=== PATIENT | female | born 1935 | race Caucasian/White ===

== ENCOUNTER 2016-08-21 10:21 | Inpatient (IN) ==
[2016-08-21] MEDS ORDERED: Piperacillin/Tazobactam 3.375 GM in D5% in Water (Mini-Bag+) 100 ML IVPB ONE (10:35)
--- NOTE | 2016-08-21 10:40 | Emergency Department Note ---
Disposition Clinical Impression: Tachycardia, Acute kidney injury Fever Qualifiers: Fever type: unspecified Qualified Code(s): R50.9 - Fever, unspecified Sepsis Qualifiers: Sepsis type: sepsis due to unspecified organism Qualified Code(s): A41.9 - Sepsis, unspecified organism Disposition: Admitted As Inpatient Condition: Fair Referrals: Per Barros MD [Primary Care Provider] - Forms: ED Satisfaction Letter Time of Disposition: 11:52 Female Urogenital HPI - General Chief complaint: ED Urogenital-Female Stated complaint: UTI,Dehydration,Weakness Time Seen by Provider: 08/21/16 10:32 Source: patient, family Mode of arrival: ambulatory Limitations: no limitations Nursing Notes Reviewed: Yes Vital Signs Reviewed: Yes - History of Present Illness HPI Narrative: 81-year-old comes in with burning on urination has been running a fever in the past. He has been seen by 2 doctors who diagnosed her with UTI however did not collect a urine. Pt Subjective Complaint: dysuria Onset (ago): day(s) Radiation: non-radiating Severity: moderate Quality: aching Duration: constant Improves with: none Worsens with: urination Urinary Symptoms: dysuria Associated symptoms: Reports: fever/chills - Related Data Home Medications Medication Instructions Recorded Confirmed Alendronate Sodium 70 mg PO QWEEK 05/28/15 05/26/16 Atorvastatin [Lipitor] 10 mg PO HS 05/28/15 05/26/16 Calcium Carbonate/Vitamin D2 1 each PO BID 05/28/15 05/26/16 [Oyster Shell Calcium-Vit D Tab] Cyanocobalamin (Vitamin B-12) 1,000 mcg PO DAILY 05/28/15 05/26/16 [Vitamin B12] Dicyclomine 20 mg PO QID 05/28/15 05/26/16 Donepezil [Aricept] 10 mg PO HS 05/28/15 05/26/16 Ferrous Sulfate [Iron] 325 mg PO DAILY 05/28/15 05/26/16 Mirabegron [Myrbetriq] 50 mg PO DAILY 05/28/15 05/26/16 Omeprazole [PriLOSEC] 40 mg PO DAILY 05/28/15 05/26/16 Ranitidine HCl [Zantac] 150 mg PO BID 05/28/15 05/26/16 Trospium Chloride 20 mg PO QAM 05/28/15 05/26/16 Vitamin E 1,000 unit PO DAILY 05/28/15 05/26/16 Previous Rx's Medication Instructions Recorded Phenazopyridine HCl [Pyridium] 200 mg PO TIDAC #30 tab 08/19/16 Sulfamethoxazole/Trimeth DS 1 each PO BID #10 tablet 08/19/16 [Bactrim DS] Allergies Allergy/AdvReac Type Severity Reaction Status Date / Time celecoxib [From Celebrex] Allergy Muscle Pain Verified 08/21/16 11:22 esomeprazole AdvReac See Unverified 05/28/15 13:37 Comments All systems ED: reviewed and negative except as stated. Constitutional: Denies: fever, chills, weakness, weight change Eyes: Denies: eye pain, eye discharge, vision change ENT ED: Denies: ear pain, throat pain, dental pain, hearing loss, epistaxis, congestion, dysphagia Cardiovascular: Denies: chest pain, palpitations, dyspnea on exertion, edema, syncope Respiratory: Denies: cough, dyspnea, wheezes, hemoptysis, stridor Gastrointestinal: Reports: abdominal pain. Denies: nausea, vomiting, diarrhea, constipation, hematemesis, melena, hematochezia Genitourinary: Reports: dysuria, frequency, hematuria. Denies: discharge Musculoskeletal: Denies: back pain, neck pain, arthralgia, myalgia Integumentary: Denies: rash, abrasion, lesions Neurological: Denies: headache, weakness, numbness, paresthesias, confusion, abnormal gait, vertigo Psychiatric: Denies: anxiety, depression, suicidal thoughts, homicidal thoughts , auditory hallucinations, visual hallucinations Endocrine: Denies: fatigue Hematological/Lymphatic: Denies: easy bleeding, easy bruising Allergic/Immunologic: Denies: facial swelling, urticaria Past Medical History - Past Medical History Medical history: Reports: arthritis, diabetes, GERD, hyperlipidemia, hypertension, osteoporosis, RA, renal disease, other - Social History Smoking Status: Never smoker Smokeless Tobacco Status: No Alcohol use: Reports: none Drug use: Reports: none Physical Exam - General Limitations: no limitations General appearance: alert, in no apparent distress - Head Head exam: atraumatic, normocephalic, normal inspection - Eye Eye exam: Present: normal appearance, PERRL, EOMI - ENT ENT exam: normal exam, normal oropharynx, mucous membranes moist - Neck Neck exam: Present: normal inspection, full ROM, trachea midline - Chest Chest inspection: Present: normal inspection, symmetric chest wall rise - Respiratory Respiratory exam: Present: normal lung sounds bilaterally - Cardiovascular Cardiovascular exam: Present: regular rate, normal rhythm, normal heart sounds - Abdominal Exam Abdominal exam: Present: soft, tenderness. Absent: distention, guarding, rebound, rigidity Abdominal tenderness: Present: suprapubic - Extremities Exam Extremities exam: Present: normal inspection, full ROM. Absent: tenderness, pedal edema - Expanded Lower Extremity Exam Neurovascular/Tendon exam: Absent: motor deficit, sensory deficit, tendon deficit Gait: not tested/not observed - Back Exam Back exam: Present: normal inspection - Neurological Exam Neurological exam: Present: alert, oriented X3 - Psychiatric Psychiatric exam: Present: normal affect, normal mood - Skin Skin exam: Present: warm, dry, intact, normal color Course - Reevaluation(s) Reevaluation #1: 81-year-old comes in with dysuria frequency urgency. She was found on her vital signs to be tachycardic at 123 and found to have an elevated creatinine 1.58 up from normal 0.95. Patient was treated as sepsis and given 30/kg of normal saline along with Zosyn. Will be admitted hydrated. Time: 11:51 - Consultations Consultation #1: Discussed with , admit. Time: 11:51 Vital Signs Temperature 100.8 F H 08/21/16 10:23 Pulse Rate 123 08/21/16 10:23 Respiratory Rate 20 08/21/16 10:23 Blood Pressure 103/55 08/21/16 10:23 O2 Sat by Pulse Oximetry 94 08/21/16 10:23 Temperature 100.8 F H 08/21/16 10:23 Pulse Rate 116 08/21/16 11:18 Respiratory Rate 22 08/21/16 11:18 Blood Pressure 118/62 08/21/16 11:18 O2 Sat by Pulse Oximetry 99 08/21/16 11:18 Oxygen Delivery Oxygen Delivery Room Air Urogenital-Female - Lab Data Result diagrams: 08/21/16 10:43 08/21/16 10:43 Lab Results 08/21/16 08/21/16 08/21/16 Range/Units 10:43 10:43 10:43 WBC 8.6 (4.3-11.1) K/mcL RBC 3.94 (3.82-4.97) M/mcL Hgb 12.4 (11.5-15.4) g/dL Hct 37.7 (35.3-44.9) % MCV 95.7 (83.0-100.0) fL MCH 31.5 (28.0-33.3) pg MCHC 32.9 (31.6-35.5) g/dL RDW 12.8 (11.5-14.5) % Plt Count 132 L (140-400) K/mcL MPV 10.4 (9.4-12.4) fL Immature Gran % 0.2 (0-4) % Seg Neutrophils % 89.0 % Lymphocytes % 4.3 % Monocytes % 6.4 % Eosinophils % 0.0 % Basophils % 0.1 % Neutrophils # 7.6 (1.6-8.9) K/mcL Lymphocytes # 0.4 L (0.6-4.6) K/mcL Monocytes # 0.6 (0.0-1.3) K/mcL Eosinophils # 0.0 (0.0-0.6) K/mcL Basophils # 0.0 (0.0-0.2) K/mcL PT 12.7 H (9.4-12.1) Seconds INR 1.2 APTT 29.0 (26.0-36.0) Seconds Sodium 135 L (136-145) mEq/L Potassium 3.9 (3.5-4.5) mEq/L Chloride 104 (98-109) mEq/L Carbon Dioxide 21 (19-29) mEq/L BUN 20 (7-20) mg/dL Creatinine 1.58 H (0.57-1.11) mg/dL Est GFR ( Amer) 38 L (> 60) Est GFR (Non-Af Amer) 31 L (> 60) BUN/Creatinine Ratio 13 (6-26) Glucose 234 H (70-99) mg/dL Calculated Osmolality 290 (280-300) Lactic Acid (0.5-2.2) mmol/L Calcium 8.7 (8.6-10.8) mg/dL Phosphorus 2.4 (2.3-4.7) mg/dL Magnesium 2.0 (1.6-2.6) mg/dL Total Bilirubin 0.7 (0.2-1.2) mg/dL Direct Bilirubin 0.3 (0.0-0.5) mg/dL Indirect Bilirubin 0.4 (0.0-1.2) mg/dL AST 48 H (5-34) Units/L ALT 40 (0-55) Units/L Alkaline Phosphatase 55 (38-126) Units/L Troponin I (0-0.03) ng/mL Serum Total Protein 7.0 (6.0-8.3) g/dL Albumin 3.5 (3.5-5.0) g/dL Globulin 3.5 (2.4-3.5) g/dL Albumin/Globulin Ratio 1.0 L (1.1-2.2) Urine Color (Yellow) Urine Clarity (Clear) Urine pH (5.0-8.0) pH Units Ur Specific [place] (1.010-1.025) Urine Protein (Neg-Trace) mg/dL Urine Glucose (UA) (Normal) mg/dL Urine Ketones (Negative) mg/dL Urine Blood (Negative) Urine Nitrite (Negative) Urine Bilirubin (Negative) Urine Urobilinogen (Normal) mg/dL Ur Leukocyte Esterase (Negative) Urine Microscopic RBC (0-3) per hpf Urine Microscopic WBC (0-3) per hpf Ur Squamous Epith Cells (None-Few) per lpf Urine Bacteria (None-Few) per hpf Hyaline Casts (None-Few) per lpf Ur Culture Indicated? (NO) 08/21/16 08/21/16 08/21/16 Range/Units 10:43 10:43 11:04 WBC (4.3-11.1) K/mcL RBC (3.82-4.97) M/mcL Hgb (11.5-15.4) g/dL Hct (35.3-44.9) % MCV (83.0-100.0) fL MCH (28.0-33.3) pg MCHC (31.6-35.5) g/dL RDW (11.5-14.5) % Plt Count (140-400) K/mcL MPV (9.4-12.4) fL Immature Gran % (0-4) % Seg Neutrophils % % Lymphocytes % % Monocytes % % Eosinophils % % Basophils % % Neutrophils # (1.6-8.9) K/mcL Lymphocytes # (0.6-4.6) K/mcL Monocytes # (0.0-1.3) K/mcL Eosinophils # (0.0-0.6) K/mcL Basophils # (0.0-0.2) K/mcL PT (9.4-12.1) Seconds INR APTT (26.0-36.0) Seconds Sodium (136-145) mEq/L Potassium (3.5-4.5) mEq/L Chloride (98-109) mEq/L Carbon Dioxide (19-29) mEq/L BUN (7-20) mg/dL Creatinine (0.57-1.11) mg/dL Est GFR ( Amer) (> 60) Est GFR (Non-Af Amer) (> 60) BUN/Creatinine Ratio (6-26) Glucose (70-99) mg/dL Calculated Osmolality (280-300) Lactic Acid 2.7 H (0.5-2.2) mmol/L Calcium (8.6-10.8) mg/dL Phosphorus (2.3-4.7) mg/dL Magnesium (1.6-2.6) mg/dL Total Bilirubin (0.2-1.2) mg/dL Direct Bilirubin (0.0-0.5) mg/dL Indirect Bilirubin (0.0-1.2) mg/dL AST (5-34) Units/L ALT (0-55) Units/L Alkaline Phosphatase (38-126) Units/L Troponin I 0.01 (0-0.03) ng/mL Serum Total Protein (6.0-8.3) g/dL Albumin (3.5-5.0) g/dL Globulin (2.4-3.5) g/dL Albumin/Globulin Ratio (1.1-2.2) Urine Color Dark Yellow (Yellow) Urine Clarity Clear (Clear) Urine pH 6.0 (5.0-8.0) pH Units Ur Specific [place] 1.011 (1.010-1.025) Urine Protein 30 H (Neg-Trace) mg/dL Urine Glucose (UA) Normal (Normal) mg/dL Urine Ketones Negative (Negative) mg/dL Urine Blood Moderate H (Negative) Urine Nitrite Negative (Negative) Urine Bilirubin Negative (Negative) Urine Urobilinogen Normal (Normal) mg/dL Ur Leukocyte Esterase Negative (Negative) Urine Microscopic RBC 5-15 H (0-3) per hpf Urine Microscopic WBC 0-3 (0-3) per hpf Ur Squamous Epith Cells Moderate H (None-Few) per lpf Urine Bacteria None Seen (None-Few) per hpf Hyaline Casts None Seen (None-Few) per lpf Ur Culture Indicated? NO (NO) - Radiology Data Radiology results reviewed: Yes I reviewed the patient's radiology results. Chest X-Ray 08/21/16 11:07 IMPRESSION: Left basilar atelectasis and/or scarring. D/ / Nicolas Lovelace MD / Nicolas Lovelace MD Interpreting Provider: Nicolas Lovelace MD - EKG Data EKG attestation: Yes I reviewed and interpreted this EKG. EKG shows normal: sinus rhythm Rate: tachycardia Rhythm: NSR Interpretation: other (Sinus tachycardia)
[2016-08-21] MEDS: 0.9 % Sodium Chloride 1,000 ML IVC SCH ×3 (10:45→13:45)
[2016-08-21] MEDS ORDERED: Acetaminophen 325 MG TABLET PO ONE (10:45)
[2016-08-21 10:54] LABS: Basophils % 0.1 %; Hematocrit 37.7 % (35.3-44.9); Hemoglobin 12.4 g/dL (11.5-15.4); Immature Granulocytes % 0.2 % (0-4); Lymphocytes # 0.4 K/mcL (0.6-4.6); Lymphocytes % 4.3 %; Mean Corpuscular HGB Conc 32.9 g/dL (31.6-35.5); Mean Corpuscular Hemoglobin 31.5 pg (28.0-33.3); Mean Corpuscular Volume 95.7 fL (83.0-100.0); Mean Platelet Volume 10.4 fL (9.4-12.4); Monocytes # 0.6 K/mcL (0.0-1.3); Monocytes % 6.4 %; Neutrophils # 7.6 K/mcL (1.6-8.9); Platelet Count 132 K/mcL (140-400); Red Blood Count 3.94 M/mcL (3.82-4.97); Red Cell Distribution Width 12.8 % (11.5-14.5)
[2016-08-21 10:57] LABS: INR 1.2; Prothrombin Time 12.7 Seconds (9.4-12.1)
[2016-08-21 11:09] LABS: Albumin 3.5 g/dL (3.5-5.0); Bilirubin,Direct 0.3 mg/dL (0.0-0.5); Bilirubin,Indirect 0.4 mg/dL (0.0-1.2); Bilirubin,Total 0.7 mg/dL (0.2-1.2); Calcium 8.7 mg/dL (8.6-10.8); Globulin 3.5 g/dL (2.4-3.5); Phosphorous 2.4 mg/dL (2.3-4.7); Potassium 3.9 mEq/L (3.5-4.5)
[2016-08-21 11:15] LABS: Bilirubin,Urine Negative (Negative); Blood,Urine Moderate (Negative); Clarity,Urine Clear (Clear); Color,Urine Dark Yellow (Yellow); Glucose,Urine (UA) Normal (Normal); Ketones,Urine Negative (Negative); Leukocyte Esterase,Urine Negative (Negative); Nitrite,Urine Negative (Negative); Protein,Urine 30 mg/dL (Neg-Trace); Specific Gravity,Urine 1.011 (1.010-1.025); Urobilinogen,Urine Normal (Normal)
[2016-08-21 11:16] LABS: Bacteria,Urine None Seen per hpf (None-Few); Hyaline Casts,Urine None Seen per lpf (None-Few); Squamous Epithelial Cell,Urine Moderate per lpf (None-Few); WBC,Urine 0-3 per hpf (0-3)
--- NOTE | 2016-08-21 12:10 | Event Note ---
Date of Encounter: 08/21/16 Time of Encounter: 12:07 1. Acute renal failure secondary to dehydration from sepsis due to UTI that failed outpatient therapy with Bactrim (the patient received 2 doses only) Apparently no culture was done at the urgent care facility Start Levaquin, reorder urine culture Continue IV fluids, stop iron 2. Fever of 100.8 and tachycardia 120 ( sepsis) 3. Elevated lactic acid secondary to sepsis 4. GERD, order omeprazole 5. Hyperglycemia, order hemoglobin A1c, may administer insulin as needed Patient will be admitted as inpatient, expected stay moment to midnights. Full code. Time spent on this admission 40 minutes. Subcutaneous heparin for DVT prophylaxis H and P to be written by MEHUL Irving
[2016-08-21] MEDS ORDERED: Naloxone 0.4 MG/ML INJ IVP PRN (12:26)
[2016-08-21] MEDS ORDERED: *HR* HYDROcodone/Acet 5/325 mg TABLET PO PRN (12:26)
[2016-08-21] MEDS ORDERED: *HR* Morphine 2 MG/ML SYRINGE IVP PRN (12:26)
[2016-08-21] MEDS ORDERED: Acetaminophen 325 MG TABLET PO PRN (12:40)
--- NOTE | 2016-08-21 12:47 | Internal Med History&Physical ---
<Neo Irving - Last Filed: 08/21/16 13:26> Date of Encounter: 08/21/16 Time of Encounter: 12:15 Assessment and Plan (1) Sepsis Current visit: Yes Status: Acute Assess: Ms. Dowling presents with chief complaint of UTI, dehydration, and generalized weakness. The patient states that she has burning with urination and has had a fever, chills, nausea, and vomiting for the past 3-4 days. Patient currently meets sepsis criteria based on fever of 100.8, tachycardia of 120 BPM, and infection of unknown organism. Plan: Follow sepsis protocol Urine culture ordered Blood cultures ordered Levaquin ordered Continue Zosyn Continue IV fluids Rectal temperature ordered Repeat lactic acid Supplemental O2 ordered Bed rest/falls precautions ordered NPO status Antipyretics PRN Follow-up labs ordered Monitor patient and vital signs for continued signs of infection or decline Qualifiers: Sepsis type: sepsis due to unspecified organism Qualified Code(s): A41.9 - Sepsis, unspecified organism (2) Tachycardia Current visit: Yes Status: Acute Assess: Patient presents with tachycardia related to UTI and sepsis status. Plan: Continuous cardiac telemetry ordered Repeat EKG Continue IV fluids Administer levaquin and Zosyn for infection coverage Monitor patient's vital signs (3) Elevated lactic acid level Current visit: Yes Status: Acute Assess: Patient presents with elevated lactic acid level related to sepsis status and infection of unknown organism. Plan: Repeat lactic acid ordered Administer levaquin and Zosyn for infection coverage Urine culture ordered Blood cultures ordered (4) Acute renal failure Current visit: Yes Status: Acute Assess: Patient presents with acute renal failure most likely due to dehydration status related to repeated vomiting. Plan: Continue IV fluids Monitor patient's follow-up lab results NPO status per sepsis protocol Measure I&O daily Qualifiers: Acute renal failure type: unspecified Qualified Code(s): N17.9 - Acute kidney failure, unspecified (5) GERD (gastroesophageal reflux disease) Current visit: Yes Status: Chronic Assess: Patient presents with history of chronic GERD. Plan: IV Protonix ordered Zofran IVP ordered PRN Qualifiers: Esophagitis presence: esophagitis presence not specified Qualified Code(s) : K21.9 - Gastro-esophageal reflux disease without esophagitis (6) Hyperglycemia Current visit: Yes Status: Chronic Assess: Patient presents with history of uncontrolled and unaddressed hyperglycemia. Plan: A1C ordered Blood glucose checks ordered Administer correction insulin dosing if needed (7) Hyperlipidemia Current visit: Yes Status: Chronic Assess: Patient presents with history of chronic hyperlipidemia. Plan: Continue Lipitor Lipid panel ordered Qualifiers: Hyperlipidemia type: unspecified Qualified Code(s): E78.5 - Hyperlipidemia , unspecified (8) DVT prophylaxis Current visit: Yes Status: Acute Assess: Patient to receive DVT prophylaxis based on current sepsis status and bed rest status. Plan: Heparin 5,000 units SQ Q8 ordered Internal Medicine - H&P: HPI Chief complaint: UTI/Dehydration/Weakness Admitted From: Emergency Dept Plans for Post Hospital Care: Home History of present illness: Ms. Dowling is a 81 year old female presents from the ED with chief complaint of UTI, dehydration, and generalized weakness. The patient states that she has burning with urination and has had a fever, chills, nausea, and vomiting for the past 3-4 days. Patient reports that she was diagnosed with a UTI at Urgent Care who prescribed Bactrim, but patient stopped taking due to stomach upset it caused. No urine culture was ordered at the Urgent Care facility. Mrs. Dowling has a medical history of UTIs, arthritis, GERD, hyperlipidemia, hypertension, osteoporosis, RA, and chronic renal disease. Patient states that her blood glucose has run high at previous PCP office visits but is unsure of her DM status. Patient currently meets sepsis criteria based on fever of 100.8, tachycardia of 120 BPM, and infection of unknown organism. Patient to be admitted as inpatient status with sepsis protocol, administration of IV levaquin and Zosyn for infection coverage, continuous cardiac telemetry, supplemental O2, urine culture, and IV fluids. Patient to be monitored closely. Past Med Surg Social Fam HX - Past Medical History Medical history: arthritis, diabetes, GERD, hyperlipidemia, hypertension, osteoporosis, RA, renal disease, other (UTIs) Psychiatric history: no psych history - Past Surgical History Surgical History: no surgical history - Social History Smoking Status: Never smoker Smokeless Tobacco Status: No Alcohol use: none Drug use: none Occupational status: retired Current living situation: Home, With Family Activity Level: Independent ambulation Recent Out of Country Travel Within the Last 8 Weeks: No Exposure or Possible Exposure to Illness During Travel: No - Family History Mother Race: Family Member Ethnicity: Non- Living Status: Age at : 94 Cause of : Old age Hx Family Endocrine Disorder: Yes (DM) Father Race: Family Member Ethnicity: Non- Living Status: Age at : 79 Cause of : Cancer Hx Family Cancer: Yes Brother Race: Family Member Ethnicity: Non- Living Status: Age at : 65 Cause of : CO Hx Family Cardiac Disorders: Yes (CO, HD) Sister Race: Family Member Ethnicity: Non- Living Status: Still Living Hx Family Neurologic Disorders: Yes (Alzheimer's Disease) Internal Medicine - H&P: Meds Alendronate Sodium 70 mg PO QWEEK 05/28/15 [History] Atorvastatin [Lipitor] 10 mg PO HS 05/28/15 [History] Calcium Carbonate/Vitamin D2 [Oyster Shell Calcium-Vit D Tab] 1 tab PO BID 05/27 [History] Cyanocobalamin (Vitamin B-12) [Vitamin B12] 1,000 mcg PO DAILY 05/28/15 [History ] Dicyclomine 20 mg PO ACHS 05/28/15 [History] Donepezil [Aricept] 10 mg PO HS 05/28/15 [History] Ferrous Sulfate [Iron] 325 mg PO DAILY 05/28/15 [History] Mirabegron [Myrbetriq] 50 mg PO DAILY 05/28/15 [History] Omeprazole [PriLOSEC] 40 mg PO DAILY 05/28/15 [History] Ranitidine HCl [Zantac] 150 mg PO BID 05/28/15 [History] Trospium Chloride 20 mg PO QAM 05/28/15 [History] Vitamin E 1,000 unit PO DAILY 05/28/15 [History] Phenazopyridine HCl [Pyridium] 200 mg PO TIDAC #30 tab 08/19/16 [Rx] Ondansetron HCl [Zofran] 4 mg PO TID PRN 08/21/16 [History] Sulfamethoxazole/Trimeth DS [Bactrim DS] 1 tab PO BID 08/21/16 [History] Allergies celecoxib [From Celebrex] Allergy (Verified 08/21/16 11:22) Muscle Pain esomeprazole Adverse Reaction (Verified 08/21/16 12:58) See Comments unknown reaction All Systems PM: A 10-system review of systems was performed and is negative for pertinent findings except as documented above in the HPI. - Constitutional Constitutional: as per HPI, chills, fever(s), weakness, no night sweats - EENT Eyes: no change in vision, no discharge, no pain, no photophobia Ears: no ear discharge, no ear pain, no tinnitus Nose, mouth and throat: no dysphagia, no nasal discharge, no neck pain, no sore throat - Breasts Breasts: as per HPI - Cardiovascular Cardiovascular ROS IM: no chest pain, no diaphoresis, no dyspnea, no lightheadedness, no palpitations, no syncope - Respiratory Respiratory: no cough, no dyspnea, no wheezing, no excessive phlegm production - Gastrointestinal Gastrointestinal: as per HPI, heartburn, nausea, vomiting, no abdominal pain, no diarrhea, no hematemesis, no hematochezia, no melena - Genitourinary Genitourinary: as per HPI, urinary hesitancy (Burning with urination as well) Menstruation: post menopausal - Musculoskeletal Musculoskeletal ROS IM: no numbness, no tingling - Integumentary Integumentary IM: no rash, no unusual bruising - Neurological Neurological ROS: no confusion, no convulsions, no focal weakness, no numbness, no tingling, no tremor(s) - Psychiatric Psychiatric: as per HPI - Endocrine Endocrine IM: as per HPI - Hematologic/Lymphatic Hematologic/Lymphatic: no easy bruising - Allergic/Immunologic Allergic/Immunologic: as per HPI - Constitutional Vitals: Temp Pulse Resp BP Pulse Ox 100.8 F H 111 20 133/56 96 08/21/16 10:23 08/21/16 12:00 08/21/16 12:38 08/21/16 12:38 08/21/16 12:00 General appearance: Present: cooperative, mild distress (Fever and chills), A&O X 3, pleasant, answers questions appropriately - Head Head exam: Present: atraumatic, normocephalic - Eye Eye exam: Present: PERRL, conjuntiva pink, sclera anicteric Pupils: Present: PERRL - ENT ENT exam: Present: normal exam, normal external ear exam - Neck Neck exam general surgery: Present: supple, trachea midline. Absent: lymphadenopathy - Respiratory Respiratory exam: Present: CTAB. Absent: accessory muscle use, rales, rhonchi, wheezes - Cardiovascular Cardiovascular exam: Present: RRR, +S1, +S2, tachycardia. Absent: diastolic murmur, gallop, rubs, systolic murmur - GI/Abdominal GI/Abdominal exam: Present: normal bowel sounds, soft, no peritoneal signs. Absent: distended, tenderness - Rectal Rectal exam: Present: deferred - Additional comments: exam deferred. - Extremities Exam Extremities exam: Present: normal capillary refill, normal inspection, warm, radial pulses palpable and symetrical. Absent: calf tenderness, cyanotic, pedal edema - Back Exam Back exam: Present: normal inspection - Neurological Exam Neurological exam: Present: CN II-XII intact, oriented X3, no focal deficits. Absent: pronater drift, facial droop, speech deficit - Psychiatric Psychiatric exam: Present: normal affect, normal mood - Skin Skin exam: Present: dry, intact, warm Internal Med - H&P Results - Labs CBC & Chem 7: 08/21/16 10:43 08/21/16 10:43 - EKG Data EKG shows normal: sinus rhythm Rate: tachycardia - EKG Data Prior EKG available for review: yes Interpretation IM: other (Bradycardia) EKG comments: 08/21/16 13:03 EKG dated 12/12/12 shows Sinus bradycardia. EKG dated 08/21/16 shows sinus tachycardia. - Diagnostic Studies Chest x-ray Additional comments: 1-View CXR of the chest dated 08/21/16 shows: Linear opacities in the left lung base, otherwise clear lungs. No findings of pleural effusion or pneumothorax. Normal mediastinal, hilar, and cardiac contours. Atherosclerotic calcification in the aorta. No acute fracture. Overall impression: Left basilar atelectasis and/or scarring. <Odell Cummins H - Last Filed: 08/21/16 13:51> Date of Encounter: 08/21/16 Internal Medicine - H&P: HPI History of present illness: Ms. Dowling is a 81 year old female All Systems PM: A 10-system review of systems was performed and is negative for pertinent findings except as documented above in the HPI. - Constitutional Vitals: Temp Pulse Resp BP Pulse Ox 100.8 F H 111 20 133/56 96 08/21/16 10:23 08/21/16 12:00 08/21/16 12:38 08/21/16 12:38 08/21/16 12:00 Internal Med - H&P Results - Labs CBC & Chem 7: 08/21/16 10:43 08/21/16 10:43 - Attending Attestation 1. Acute renal failure secondary to dehydration from sepsis due to UTI that failed outpatient therapy with Bactrim (the patient received 2 doses only) Apparently no culture was done at the urgent care facility Start Levaquin, reorder urine culture CORRECTION: DISCONTINUE ZOSYN Continue IV fluids, stop iron 2. Fever of 100.8 and tachycardia 120 ( sepsis) 3. Elevated lactic acid secondary to sepsis 4. GERD, order omeprazole 5. Hyperglycemia, order hemoglobin A1c, may administer insulin as needed Patient will be admitted as inpatient, expected stay moment to midnights. Full code. Time spent on this admission 40 minutes. Subcutaneous heparin for DVT prophylaxis I examined this patient and my medical decision-making was reviewed with the [employer] INFORMATION CLERK/PA/Advanced Practice Nurse/Resident Physician. I agree with the documented findings, disposition and treatment plan as described except to the extent set forth below.
[2016-08-21] MEDS ORDERED: Levofloxacin 750 MG/150 ML 750 MG/150 ML BAG IVPB SCH (13:00)
[2016-08-21 13:14] LABS: Hemoglobin A1C 6.1 %
[2016-08-21 13:16] LABS: Chol/HDL Ratio 3.7 (0-4.9)
[2016-08-21] MEDS ORDERED: Ondansetron ODT 4 MG TAB.RAPDIS PO PRN (13:39)
[2016-08-21] MEDS ORDERED: Patient Taking Own Medication 1 EACH PO SCH (13:45)
[2016-08-21] MEDS: *HR* Heparin 5,000 UNIT/ML VIAL SQ SCH ×2 (13:48→22:17)
[2016-08-21 19:35] LABS: Hemoglobin 10.9 g/dL (11.5-15.4)
[2016-08-21 19:40] LABS: INR 1.3; Prothrombin Time 14.2 Seconds (9.4-12.1)
[2016-08-21 19:42] LABS: Activated Partial Thrombo Time 30.6 Seconds (26.0-36.0)
[2016-08-21 19:47] LABS: Bilirubin,Total 0.8 mg/dL (0.2-1.2)
[2016-08-21] MEDS ORDERED: Acetaminophen IV 1,000 MG/100 ML INFUS..BTL IVPB ONE (20:38)
[2016-08-21] MEDS: Famotidine 20 MG TABLET PO SCH (22:16)
[2016-08-21] MEDS: CALCIUM CARBONATE PO SCH (22:16)
[2016-08-21] MEDS: VITAMIN D2 PO SCH (22:16)
[2016-08-22] MEDS: 0.9 % Sodium Chloride 1,000 ML IVC SCH (00:15)
[2016-08-22] MEDS: *HR* Heparin 5,000 UNIT/ML VIAL SQ SCH (04:51)
[2016-08-22] MEDS ORDERED: Piperacillin/Tazobactam 3.375 GM in D5% in Water (Mini-Bag+) 100 ML IVPB SCH (07:26)
[2016-08-22] MEDS ORDERED: Acetaminophen IV 1,000 MG/100 ML INFUS..BTL IVPB ONE ×2 (07:27→18:38)
[2016-08-22] MEDS: Famotidine 20 MG TABLET PO SCH (07:54)
[2016-08-22] MEDS: Cyanocobalamin (B-12) 1,000 MCG TABLET PO SCH (07:54)
[2016-08-22] MEDS: CALCIUM CARBONATE PO SCH ×2 (07:55→20:52)
[2016-08-22] MEDS: VITAMIN D2 PO SCH ×2 (07:55→20:52)
[2016-08-22] MEDS: (Mirabegron [Myrbetriq] 50 MG) PO SCH (07:55)
[2016-08-22] MEDS ORDERED: Meropenem 1,000 MG in 0.9 % Sodium Chloride Mini Bag 100 ML IVPB SCH (08:00)
[2016-08-22 08:04] LABS: Basophils % 0.2 %; Immature Granulocytes % 0.3 % (0-4)
[2016-08-22 08:05] LABS: Hematocrit 32.9 % (35.3-44.9); Hemoglobin 10.8 g/dL (11.5-15.4); Immature Platelets 3.4 % (1.1-6.1); Mean Corpuscular HGB Conc 32.8 g/dL (31.6-35.5); Mean Corpuscular Hemoglobin 31.9 pg (28.0-33.3); Mean Corpuscular Volume 97.1 fL (83.0-100.0); Mean Platelet Volume 10.8 fL (9.4-12.4); Red Blood Count 3.39 M/mcL (3.82-4.97); Red Cell Distribution Width 13.1 % (11.5-14.5); Segmented Neutrophils % 86.5 %
[2016-08-22 08:06] LABS: Lymphocytes # 0.3 K/mcL (0.6-4.6); Lymphocytes % 5.1 %; Monocytes # 0.5 K/mcL (0.0-1.3); Monocytes % 7.9 %
[2016-08-22 08:12] LABS: Neutrophils # 5.5 K/mcL (1.6-8.9); Platelet Count 93 K/mcL (140-400)
[2016-08-22 08:17] LABS: Calcium 7.8 mg/dL (8.6-10.8); Magnesium 1.5 mg/dL (1.6-2.6); Phosphorous 1.6 mg/dL (2.3-4.7); Potassium 4.1 mEq/L (3.5-4.5)
[2016-08-22] MEDS ORDERED: Magnesium Sulfate 1 GM in D5% in Water 100 ML IVPB ONE (10:38)
--- NOTE | 2016-08-22 10:46 | Internal Med Progress Note ---
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 Last urine culture reported of E.coli which was patel sensitive, however given persistent fevers with Levofloxacin, will broaden abx coverage to Meropenem to cover ESBL f/u urine and blood cultures monitor temp tylenol PrN temp discontinue IV fluids as patient is eating and drinking at this time Qualifiers: Sepsis type: sepsis due to unspecified organism Qualified Code(s): A41.9 - Sepsis, unspecified organism (2) Urinary tract infection Current Visit: Yes Status: Acute Assessment and plan: as listed above Qualifiers: Urinary tract infection type: acute cystitis Hematuria presence: with hematuria Qualified Code(s): N30.01 - Acute cystitis with hematuria (3) Electrolyte abnormality Current Visit: Yes Status: Acute Assessment and plan: Hypomagnesemia and hypophosphatemia Mg and phos supplemented continue to monitor electrolytes and replace as needed (4) Acute kidney injury Current Visit: Yes Status: Resolved Assessment and plan: resolved will continue to monitor renal function (5) Anemia Current Visit: No Status: Chronic Assessment and plan: History of B12 def anemia will continue B12 supplementation current drop in H&H noted concern for hematuria, will closely monitor H&H d/c heparin SQ will transfuse as needed Qualifiers: Anemia type: B12 deficiency Vitamin B12 deficiency anemia type: unspecified B12 deficiency Qualified Code(s): D51.9 - Vitamin B12 deficiency anemia, unspecified (6) DVT prophylaxis Current Visit: Yes Status: Acute Assessment and plan: SCD (7) GERD (gastroesophageal reflux disease) Current Visit: Yes Status: Chronic Assessment and plan: continue home medications Qualifiers: Esophagitis presence: esophagitis presence not specified Qualified Code(s) : K21.9 - Gastro-esophageal reflux disease without esophagitis (8) Hyperglycemia Current Visit: Yes Status: Chronic Assessment and plan: HbA1C: 6.1 improved from 6.4 hyperglycemia resolved will continue to monitor (9) Hyperlipidemia Current Visit: Yes Status: Chronic Assessment and plan: continue home meds Qualifiers: Hyperlipidemia type: unspecified Qualified Code(s): E78.5 - Hyperlipidemia , unspecified - Subjective Interval history: Patient seen and examined with family present at bedside. Reports of feeling weak but better compared to previous day. Reported of having fevers overnight. Denies any chills or any other discomfort at this time. Noted to have clear red colored urine, concerning for hematuria given current H& H however patient also currently on Phenazopyridine which can contribute to this discoloration. Will closely monitor H&H and d/c Heparin SQ. - Constitutional Vitals: Temp Pulse Resp BP Pulse Ox 100.7 F H 114 18 124/57 96 08/22/16 08:46 08/22/16 06:24 08/22/16 06:24 08/22/16 06:24 08/22/16 06:24 General appearance: Present: cooperative, A&O X 3, no acute distress, answers questions appropriately - Head Head exam: Present: atraumatic, normocephalic - Respiratory Respiratory exam: Present: CTAB. Absent: accessory muscle use, rales, rhonchi, wheezes - Cardiovascular Cardiovascular exam: Present: +S1, +S2, tachycardia. Absent: diastolic murmur, gallop, rubs, systolic murmur - GI/Abdominal GI/Abdominal exam: Present: normal bowel sounds, soft, no peritoneal signs. Absent: distended, tenderness - Extremities Exam Extremities exam: Present: warm, radial pulses palpable and symetrical. Absent : calf tenderness, cyanotic, pedal edema - Neurological Exam Neurological exam: Present: alert, oriented X3 - Psychiatric Psychiatric exam: Present: normal affect, normal mood Internal Medicine: Result - Labs CBC & Chem 7: 08/22/16 07:56 08/22/16 07:56 Labs: Short CBC 08/21/16 08/22/16 Range/Units 19:28 07:56 WBC 6.4 (4.3-11.1) K/mcL Hgb 10.9 L D 10.8 L (11.5-15.4) g/dL Hct 33.0 L 32.9 L (35.3-44.9) % Plt Count 93 L (140-400) K/mcL Neutrophils # 5.5 (1.6-8.9) K/mcL BMP 08/21/16 08/22/16 19:28 07:56 Sodium 138 Potassium 4.1 Chloride 110 H Carbon Dioxide 22 BUN 13 Creatinine 1.15 H 1.10 Glucose 93 Calcium 7.8 L Liver Function 08/21/16 Range/Units 19:28 Total Bilirubin 0.8 (0.2-1.2) mg/dL - ABG Interpretation ABG results: PT/INR, D-dimer PT 14.2 Seconds (9.4-12.1) H 08/21/16 19:28 - Impressions Impressions Chest X-Ray 08/21/16 20:39 IMPRESSION: Low lung volumes with mild left basilar atelectasis. Suspected emphysematous change. D/ / Dc Mckinley MD / Dc Mckinley MD Interpreting Provider: Dc Mckinley MD Consult Discharge Plan - Plan Referrals: Per Barros MD [Primary Care Provider] -
[2016-08-22] MEDS ORDERED: Ondansetron 4 MG/2 ML VIAL IVP PRN (17:01)
[2016-08-22] MEDS ORDERED: 0.9 % Sodium Chloride 1,000 ML IVC SCH (17:15)
[2016-08-22 19:10] LABS: Hematocrit 34.5 % (35.3-44.9); Hemoglobin 11.3 g/dL (11.5-15.4)
[2016-08-22] MEDS: Vancomycin 1,000 MG in D5% in Water 250 ML IVPB SCH (19:51)
[2016-08-22] MEDS: Meropenem 1,000 MG in 0.9 % Sodium Chloride Mini Bag 100 ML IVPB SCH (19:52)
[2016-08-23 01:18] LABS: Magnesium 1.7 mg/dL (1.6-2.6); Phosphorous 1.9 mg/dL (2.3-4.7); Potassium 3.6 mEq/L (3.5-4.5)
[2016-08-23] MEDS: Acetaminophen 325 MG TABLET PO PRN (01:26)
[2016-08-23 02:08] LABS: Basophils % 0.1 %; Hematocrit 32.2 % (35.3-44.9); Hemoglobin 10.7 g/dL (11.5-15.4); Immature Granulocytes % 0.5 % (0-4); Immature Platelets 5.7 % (1.1-6.1); Lymphocytes # 0.3 K/mcL (0.6-4.6); Lymphocytes % 3.1 %; Mean Corpuscular HGB Conc 33.2 g/dL (31.6-35.5); Mean Corpuscular Hemoglobin 31.9 pg (28.0-33.3); Mean Corpuscular Volume 96.1 fL (83.0-100.0); Mean Platelet Volume 11.5 fL (9.4-12.4); Monocytes # 0.4 K/mcL (0.0-1.3); Monocytes % 5.1 %; Red Blood Count 3.35 M/mcL (3.82-4.97); Red Cell Distribution Width 13.2 % (11.5-14.5); Segmented Neutrophils % 91.2 %
[2016-08-23 02:15] LABS: Neutrophils # 7.5 K/mcL (1.6-8.9); Platelet Count 72 K/mcL (140-400)
[2016-08-23 02:44] LABS: Platelet Estimate Decreased (Normal)
[2016-08-23] MEDS ORDERED: Ibuprofen 600 MG TABLET PO ONE (02:48)
[2016-08-23] MEDS ORDERED: 0.9 % Sodium Chloride 1,000 ML IVC ONE ×2 (02:49→06:03)
[2016-08-23] MEDS: 0.9 % Sodium Chloride 1,000 ML IVC SCH ×3 (03:00→18:43)
--- NOTE | 2016-08-23 03:27 | Event Note ---
Date of Encounter: 08/23/16 Time of Encounter: 02:40 [employer]OTE[employer]OR[employer] TECHNICIAN called at 2:23 for high fever, tachypnea and tachycardia. Patient is being treated for UTI and sepsis. Vital signs: Temperature 104.1 with cooling blanket. Heart rate 130, respirations 18, blood pressure 106/61. She is an ill-appearing elderly lady in no acute distress. Tachypneic. Breath sounds are clear. Heart is tachycardic with no murmurs. Abdomen is soft nontender. skin shows no apparent rashes. A Velarde catheter is present draining orange urine. There is no superpubic tenderness. Laboratory data: White blood cell count 8.1, creatinine 1.2. Urine culture no growth. Blood cultures pending from 08/22/2016. Assessment and Plan: Sepsis with urinary source: Patient currently being treated with meropenem and vancomycin. Still spiking high fever. Urine culture with no growth, urinalysis shows no bacteria. Continue with broad- spectrum IV antibiotics. Repeat blood culture. We will give 1000 mL normal saline bolus. Based on the high fever and lack of bacterial growth I suspect possible fungemia. I will send fungal cultures and will start micafungin I will consult ID..
[2016-08-23] MEDS ORDERED: Sodium Phosphate 30 MMOL in D5% in Water 100 ML IVPB ONE (07:29)
[2016-08-23] MEDS ORDERED: Acyclovir 500 MG in D5% in Water 100 ML IVPB SCH (08:00)
[2016-08-23] MEDS: (Mirabegron [Myrbetriq] 50 MG) PO SCH (08:39)
[2016-08-23] MEDS: CALCIUM CARBONATE PO SCH (08:39)
[2016-08-23] MEDS: VITAMIN D2 PO SCH (08:39)
[2016-08-23] MEDS: Meropenem 1,000 MG in 0.9 % Sodium Chloride Mini Bag 100 ML IVPB SCH ×2 (08:41→20:23)
[2016-08-23] MEDS: Cyanocobalamin (B-12) 1,000 MCG TABLET PO SCH (08:41)
[2016-08-23] MEDS ORDERED: Micafungin 100 MG in 0.9 % Sodium Chloride 100 ML IVPB SCH (09:00)
[2016-08-23] MEDS ORDERED: Famotidine 20 MG TABLET PO SCH (09:00)
--- NOTE | 2016-08-23 11:12 | Internal Med Progress Note ---
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 pna. Will empirically treat at this time as patient continues to spike temps Tylenol PRN fever continue IV fluids awaiting Infectious disease consultation pt encouraged to use incentive spirometry Qualifiers: Sepsis type: sepsis due to unspecified organism Qualified Code(s): A41.9 - Sepsis, unspecified organism (2) Urinary tract infection Current Visit: Yes Status: Acute Assessment and plan: as listed above Qualifiers: Urinary tract infection type: acute cystitis Hematuria presence: with hematuria Qualified Code(s): N30.01 - Acute cystitis with hematuria (3) Electrolyte abnormality Current Visit: Yes Status: Acute Assessment and plan: hypophosphatemia phos supplemented continue to monitor electrolytes and replace as needed (4) Acute kidney injury Current Visit: Yes Status: Resolved Assessment and plan: likely secondary to underlying infection vs. hypotension will continue to monitor renal function continue IV fluids (5) Anemia Current Visit: No Status: Chronic Assessment and plan: History of B12 def anemia will continue B12 supplementation current drop in H&H noted concern for hematuria, will closely monitor H&H will transfuse as needed Qualifiers: Anemia type: B12 deficiency Vitamin B12 deficiency anemia type: unspecified B12 deficiency Qualified Code(s): D51.9 - Vitamin B12 deficiency anemia, unspecified (6) DVT prophylaxis Current Visit: Yes Status: Acute Assessment and plan: SCD (7) GERD (gastroesophageal reflux disease) Current Visit: Yes Status: Chronic Assessment and plan: continue home medications Qualifiers: Esophagitis presence: esophagitis presence not specified Qualified Code(s) : K21.9 - Gastro-esophageal reflux disease without esophagitis (8) Hyperglycemia Current Visit: Yes Status: Chronic Assessment and plan: HbA1C: 6.1 improved from 6.4 hyperglycemia resolved will continue to monitor (9) Hyperlipidemia Current Visit: Yes Status: Chronic Assessment and plan: continue home meds Qualifiers: Hyperlipidemia type: unspecified Qualified Code(s): E78.5 - Hyperlipidemia , unspecified - Subjective Interval history: Patient seen and examined with family present at bedside. Pt was noted to be tachycardic, tachypneic, with fever spikes overnight. She was noted to be hypotensive requiring fluid boluses. Her BP improved with IVF and fever subsided with IV Acetaminophen. at this time patient is resting comfortably in bed and is AAO x 3. Pt's family wanted an update as to her current treatment plan, which was provided in detail and all questions were answered. Pt reports of feeling better at this time and is tolerating PO intake well. She was noted to have an episode of vomiting yesterday which has resolved at this time. No nausea reported at this time. - Constitutional Vitals: Temp Pulse Resp BP Pulse Ox 97.8 F 106 18 111/53 91 08/23/16 09:41 08/23/16 09:41 08/23/16 09:41 08/23/16 09:41 08/23/16 09:41 General appearance: Present: cooperative, A&O X 3 (frail appearing elderly female ), no acute distress, answers questions appropriately - Head Head exam: Present: atraumatic, normocephalic - Eye Eye exam: Present: normal appearance, conjuntiva pink, sclera anicteric - Respiratory Respiratory exam: Present: rhonchi (diffuse rhonchi ). Absent: respiratory distress, wheezes - Cardiovascular Cardiovascular exam: Present: +S1, +S2, tachycardia. Absent: diastolic murmur, gallop, rubs, systolic murmur - GI/Abdominal GI/Abdominal exam: Present: normal bowel sounds, soft, no peritoneal signs. Absent: distended, tenderness - Extremities Exam Extremities exam: Present: warm, radial pulses palpable and symetrical. Absent : calf tenderness, cyanotic, pedal edema - Neurological Exam Neurological exam: Present: alert, oriented X3 - Psychiatric Psychiatric exam: Present: normal affect, normal mood Internal Medicine: Result - Labs CBC & Chem 7: 08/23/16 01:33 08/23/16 00:53 Labs: Short CBC 08/22/16 08/23/16 Range/Units 18:54 01:33 WBC 8.2 (4.3-11.1) K/mcL Hgb 11.3 L 10.7 L (11.5-15.4) g/dL Hct 34.5 L 32.2 L (35.3-44.9) % Plt Count 72 L (140-400) K/mcL Neutrophils # 7.5 (1.6-8.9) K/mcL BMP 08/23/16 00:53 Sodium 138 Potassium 3.6 Chloride 107 Carbon Dioxide 20 BUN 14 Creatinine 1.21 H Glucose 112 H Calcium 8.0 L - ABG Interpretation ABG results: PT/INR, D-dimer PT 14.2 Seconds (9.4-12.1) H 08/21/16 19:28 - Impressions Impressions Chest X-Ray 08/23/16 06:35 IMPRESSION: 1. Increased perihilar airspace opacities and diffuse interstitial opacities most likely representing alveolar and interstitial edema given the interval between studies. Pneumonia could appear similar. 2. Increased bibasilar atelectasis. 3. Suspected trace left pleural effusion. D/ / Nicolas Lovelace MD / Nicolas Lovelace MD Interpreting Provider: Nicolas Lovelace MD - VTE Documentation of Mechanical Device: Intermittent pneumatic compression device Consult Discharge Plan - Plan Referrals: Per Barros MD [Primary Care Provider] - (web request sent on 08/23/16)
[2016-08-23] MEDS ORDERED: Haloperidol Oral Conc 10 MG/5 ML UDC PO PRN (15:09)
[2016-08-23] MEDS ORDERED: Ipratropium/Albuterol Neb 3 ML IH PRN (16:16)
[2016-08-23] MEDS: Vancomycin 1,000 MG in D5% in Water 250 ML IVPB SCH (20:24)
[2016-08-23] MEDS ORDERED: Levalbuterol Neb 1.25 MG/3 ML IH PRN (22:22)
[2016-08-23] MEDS ORDERED: Levalbuterol Neb 1.25 MG/3 ML ONE (22:25)
[2016-08-23] MEDS ORDERED: Furosemide 20 MG/2 ML VIAL IVP ONE ×2 (22:40→22:48)
[2016-08-23] MEDS ORDERED: *HR* Morphine 2 MG/ML SYRINGE IVP PRN (22:42)
[2016-08-23] MEDS ORDERED: Nitroglycerin 1 INCH/GM PACKET TP ONE (22:45)
[2016-08-23] MEDS ORDERED: Furosemide 40 MG/4 ML VIAL ONE (22:48)
[2016-08-23] MEDS ORDERED: *HR* Morphine 2 MG/ML SYRINGE ONE (22:48)
--- NOTE | 2016-08-23 22:55 | Event Note ---
Date of Encounter: 08/23/16 Time of Encounter: 22:51 I was called to assess this patient emergently due to tachycardia and hypoxia Pt was noted to have sats of 70s on 10 L Oxygen via NC. She was placed on 12 L On arrival, patient is fidgety and pulling at her clothes. She complains of shortness of breath without any chest pain, palpitations She has been getting NS @ 125/hr since 2 AM today after receiving a 1L fluid bolus CXR from earlier today revealed perihilar and interstitial edema consistent with fluid overload On exam, pt. has bilateral diffuse wheezing and bilateral basal crepitations O2 sats 93% on 12 L NC; BP 183/93; Pulse 132/min A/P: 1. Acute hypoxic respiratory failure due to pulmonary edema due to fluid overload (Pt. got 4L in the past 24 hours) -60 mg IV lasix x 1; Reassess and may need more lasix -NTG 2 inch paste -Morphine 2 mg IV x 1 -Pt. placed on NRB 100% -Pt. made to sit up in the bed -Velarde in place -DC iv fluids 2. Agitation related to respiratory failure Total critical care time of 35 min spent in stabilizing vital organ function. High risk due to risk of worsening respiratory failure JOSÉ MIGUEL Jaime
[2016-08-23] MEDS ORDERED: Furosemide 40 MG/4 ML VIAL IVP ONE (23:51)
[2016-08-23] MEDS ORDERED: *HR* Morphine 2 MG/ML SYRINGE IVP ONE (23:54)
[2016-08-24] MEDS ORDERED: 0.9 % Sodium Chloride 500 ML ONE ×2 (00:19→13:26)
[2016-08-24] MEDS: VITAMIN D2 PO SCH ×2 (00:26→07:40)
[2016-08-24] MEDS: CALCIUM CARBONATE PO SCH ×2 (00:26→07:40)
[2016-08-24] MEDS ORDERED: *HR* Digoxin 0.5 MG/2 ML AMPUL IVP ONE (02:14)
[2016-08-24] MEDS ORDERED: Acetaminophen IV 1,000 MG/100 ML INFUS..BTL IVPB ONE (02:40)
[2016-08-24] MEDS ORDERED: Lacri-Lube 3.5 GM TUBE BOTH EYES PRN (03:20)
--- NOTE | 2016-08-24 03:32 | Event Note ---
Date of Encounter: 08/24/16 Time of Encounter: 03:24 I was paged as the patient got increasingly short of breath Since the lasix, she has put out 1.5 L of urine On exam, she is using accessory muscles of respiration Lungs are clear to auscultation without wheezing or crepitations Patient agitated and not able to answer questions Tachypneic and tachycardic on cardizem drip Pt. failed a trial of BIPAP with saturations remaining in 80s despite 100% FiO2 Decision made to intubate the patient due to persistent hypoxemia despite diuresis and NIPPV. Patient also agitated and has difficulty maintaining her airway Patient transferred to ICU Procedure Note: After sedation with versed and muscle relaxation with succinylcholine, under glidescope view, epiglottis visualised. Then, she was intubated with 7.5mm ET tube with lip line of 25 cm Color change noted with end-tidal monitor and breath sounds present bilaterally ET tube secured Pt. placed on vent. 12/400/5/100% on AC mode CXR performed - Personally reviewed ET tube 2.5 cm from debi. Bilateral CP angle blunting. Patchy interstitial infiltrates and pulm. vasc congestion seen. A/P: 1. Acute hypoxic respiratory failure - s/p intubation. Continue current ventilator settings. ABG and adjust vent. settings accordingly. VAP prevention bundle. Pulm. & Crit. care consult. Continue diuresis. Pt. received total of 100 mg iv lasix so far. Check labs. ECHO. NG/OG insertion. 2. A.Fib with RVR - Repeat EKG. ECHO ordered. Continue cardizem drip. If breaks into sinus, will change to cardizem via NG/OG tube. 3. Sepsis - Presumed to be due to UTI. On vanco, meropenem and micafungin. Blood cultures obtained over the past 48 hours. Possible pneumonia. Continue current antibiotics. Monitor cultures. 4. CKD-3 - Mild worsening. Will check labs to assess renal function after diuresis. Patient has good urine output after lasix. Total critical care time in stabilising the patient and prevent further morbidity and mortality is 40 min. Critical care time does not include time for performing procedures.
[2016-08-24 04:29] LABS: Basophils % 0.1 %; Mean Platelet Volume 12.1 fL (9.4-12.4)
[2016-08-24 04:31] LABS: ABG Base Excess -7.5 mEq/L (-2.0 to 3.0); ABG HCO3 16.6 mEQ/L (21-27); ABG Oxygen Saturation 94 % (95-98); ABG PCO2 28 mmHg (35-45); ABG PH 7.38 pH Units (7.32-7.45); ABG PO2 71 mmHg (85-104); ABG TCO2 17.5 mEq/L (20-26); Blood Gas FiO2 100 %
[2016-08-24 04:31] LABS: Hematocrit 30.4 % (35.3-44.9); Hemoglobin 9.9 g/dL (11.5-15.4); Immature Granulocytes % 1.3 % (0-4); Immature Platelets 6.4 % (1.1-6.1); Lymphocytes # 0.2 K/mcL (0.6-4.6); Lymphocytes % 2.1 %; Mean Corpuscular HGB Conc 32.6 g/dL (31.6-35.5); Mean Corpuscular Hemoglobin 31.4 pg (28.0-33.3); Mean Corpuscular Volume 96.5 fL (83.0-100.0); Monocytes # 0.2 K/mcL (0.0-1.3); Monocytes % 1.9 %; Neutrophils # 8.6 K/mcL (1.6-8.9); Platelet Count 49 K/mcL (140-400); Red Blood Count 3.15 M/mcL (3.82-4.97); Red Cell Distribution Width 13.8 % (11.5-14.5); Segmented Neutrophils % 94.6 %
--- NOTE | 2016-08-24 04:32 | Procedure Note ---
Date of procedure: 08/24/16 Pre-op diagnosis: Sepsis Post-op diagnosis: same Procedure: Central venous catheter placement: The procedure was considered emergent. Several attempts were made to contact the family for consent however this was unsuccessful. Staff present and agreed that this was an emergent procedure so we proceeded. The right internal jugular vein was surveyed using ultrasound and to be suitable target. The patient was placed in Trendelenburg. Under ultrasound guidance the introducer needle was introduced into the right internal jugular vein. An initial flash of dark red blood was obtained however on the attempt to thread the guidewire resistance was felt so the guidewire was withdrawn. On the second attempt a flash of dark red blood was obtained and the guidewire was fed through the needle without resistance. The needle was then withdrawn. A geovanna and the skin was made and the dilator was passed over the guidewire and the skin and soft tissues were dilated. The dilator was then removed and a 20 cm triple-lumen catheter was passed over the guidewire and into the right internal jugular vein. The guidewire was removed intact. All 3 ports were shown to draw blood and flush well. The catheter was then sutured in place at 4 points. Biopatch and sterile dressing were applied. Chest x-ray is pending. The patient tolerated the procedure well, there are no immediate complications. Anesthesia: LAZARO, local Surgeon: Nioclas Avendano Estimated blood loss (cc): 5 IV fluids (cc): 20 Pathology: none sent Condition: critical Disposition: ICU
[2016-08-24 04:46] LABS: Albumin/Globulin Ratio 0.8 (1.1-2.2); Bilirubin,Total 0.8 mg/dL (0.2-1.2); Calcium 7.1 mg/dL (8.6-10.8); Magnesium 1.3 mg/dL (1.6-2.6); Potassium 3.1 mEq/L (3.5-4.5)
[2016-08-24 04:47] LABS: Albumin 2.4 g/dL (3.5-5.0); Phosphorous 3.6 mg/dL (2.3-4.7); Total Protein 5.4 g/dL (6.0-8.3)
[2016-08-24 04:51] LABS: Platelet Estimate Decreased (Normal)
[2016-08-24] MEDS ORDERED: Potassium Chloride 40 MEQ/200 ML BAG IVPB PRN (04:51)
[2016-08-24] MEDS ORDERED: Sodium Phosphate 30 MMOL in D5% in Water 100 ML IVPB PRN (04:51)
[2016-08-24] MEDS ORDERED: Potassium Phosphate 44 MEQ in 0.9 % Sodium Chloride 250 ML IVPB PRN (04:51)
[2016-08-24] MEDS: Lacri-Lube 3.5 GM TUBE BOTH EYES SCH ×6 (04:55→23:04)
[2016-08-24] MEDS: FentaNYL (PF) 1,000 MCG in 0.9 % Sodium Chloride 80 ML IVC SCH ×2 (05:57→16:39)
[2016-08-24] MEDS: Ipratropium Neb 0.5 MG NEBULIZER IH SCH ×7 (06:01→23:58)
[2016-08-24] MEDS: Magnesium Sulfate 2 GM in D5% in Water 100 ML IVPB PRN (06:11)
--- NOTE | 2016-08-24 07:23 | Electrocardiograph Report ---
[address] [place], [place] [address] Test Date: 2016-08-21 Pat Name: Kathy Dowling Department: 104 Room: [facility] Gender: F Physician Gynecologist: : 1935 Requested By: Brad Ren Order Number: [id number] Reading MD: Epi Arnold MD Measurements Intervals [place] Rate: 119 P: 42 OK: 169 QRS: -13 QRSD: 85 T: 60 QT: 308 QTc: 379 Interpretive Statements SINUS TACHYCARDIA Electronically Signed On 08-24-2016 7:21:26 EDT by Epi Arnold MD
[2016-08-24] MEDS: Chlorhexidine Rinse 15 ML MOUTHWASH MM SCH ×2 (07:38→20:13)
[2016-08-24] MEDS: Pantoprazole 40 MG VIAL IVP SCH (07:38)
[2016-08-24] MEDS: Meropenem 1,000 MG in 0.9 % Sodium Chloride Mini Bag 100 ML IVPB SCH ×2 (07:38→20:13)
[2016-08-24] MEDS: Cyanocobalamin (B-12) 1,000 MCG TABLET PO SCH (07:39)
[2016-08-24] MEDS: (Mirabegron [Myrbetriq] 50 MG) PO SCH (07:40)
[2016-08-24] MEDS ORDERED: *HR* Digoxin 0.5 MG/2 ML AMPUL IVP SCH (08:00)
[2016-08-24 08:13] LABS: INR 1.2; Prothrombin Time 13.2 Seconds (9.4-12.1)
[2016-08-24] MEDS: Norepinephrine 4 MG in D5% in Water 250 ML IVC SCH ×2 (08:25→10:40)
[2016-08-24] MEDS: 0.9 % Sodium Chloride 1,000 ML IVC SCH ×2 (08:26)
--- NOTE | 2016-08-24 08:59 | Pulmonology Consult Note ---
<Karlos Richmond - Last Filed: 08/24/16 10:53> Date of Encounter: 08/24/16 Time of Encounter: 08:58 Assessment and Plan (1) Respiratory failure Current Visit: Yes Status: Acute Acute hypoxemic respiratory failure. Possibly from volume overload/ CHF. However she appears to be in distributive shock as well. May be secondary to sepsis. PaO2/Fio2 is 71. However with volume overload it is difficult to call this ARDS. Continue Vent support. Titrate O2 if possible. Low Vent volumes. CT of the chest and TTE pending. (2) Septic shock Current Visit: Yes Status: Acute Clinically this patient appears to be in Septic shock. She is warm and flush at this time. Source of sepsis is not clear at this time. Blood and urine cultures show no growth at this time. Abdomen distended and tender. Intraabdominal source. PAtient had "boil" in arm pit and on fingernails last week per family" However I see no signs of this on my exam today. Continue Meropenem and Vancomycin. Unlikely to be fungal. Hold Micafungin at this time. Lactic acid Trending down. Continue to follow. Repeat blood cultures. I did consider other causes of shock. I doubt Hemmorrhagic given her stable Hg and no signs of bleeding. I did consider cardiogenic shock. However Tn only mildly elevated in the setting of shock and afib with RVR. TTE has been ordered and pending. (3) Elevated troponin Current Visit: Yes Status: Acute Mild elevation Trending up. In the setting of shock and JESSIKA. (4) Atrial fibrillation with RVR Current Visit: Yes Status: Acute With patients hypotension will start her on AMioderone gtt. (5) Thrombocytopenia Current Visit: Yes Status: Acute Etiology unclear at this time. Likely secondary to her sepsis. Trending down. Not on heparin. Transfuse if she develops major bleeding as she is < 50K. Transfuse if she drops below 10K. Peripheral smear ordered. (6) Fever Current Visit: Yes Status: Acute PRN tylenol. (7) Metabolic acidosis Current Visit: Yes Status: Acute Non anion gap acidosis. Likely from IV fluids. Repeat BMP this Afternoon. (8) Hypokalemia Current Visit: Yes Status: Acute replete (9) Lactic acidosis Current Visit: Yes Status: Acute trending down. (10) DVT prophylaxis Current Visit: Yes Status: Acute EPCDs History of Present Illness Consult date: 08/24/16 Requesting physician: Nathanael Huynh Reason for consult: other (Severe Sepsis. Respiratory failure. ) Chief complaint: Respiratory failure. History of present illness: Mrs. Dowling is an 81 y.o. female who was admitted to [facility] on 08/21/16 for sepsis withpresumed source from UTI. Reportedly she had a 3 day history of Urinary frequency, burning, Nausea and vomiting. Since admission she has continued to have fevers. Tmax has been 104.1. She has had no Leukocytosis. CXR revealed some Linear opacity at the left lower lung field. Labs are significant for a worsening Thrombocytopenia and lactic acidosis. I reviewed this image myself and it is not a very impressive finding. She has been started on Broad spectrum antibiotics. Currently on Meropenem, Vancomycin, and micafungin. Last night she declined. She developed respiratory deisstress and had to be placed on mechanical ventilation. Today the patient is currently intubated and sedated. Appears to be tolerating the vent well. She has become hypotensive and Vassopressor agents have been added. Past Med Surg Social Fam HX - Past Medical History Medical history: arthritis, diabetes, GERD, hyperlipidemia, hypertension, osteoporosis, RA, renal disease, other (UTIs) Psychiatric history: no psych history - Past Surgical History Surgical History: cholecystectomy, other (bladder stimulator ) - Social History Smoking Status: Never smoker Smokeless Tobacco Status: No Alcohol use: none Drug use: none - Family History Mother Race: Family Member Ethnicity: Non- Living Status: Age at : 94 Cause of : Old age Hx Family Endocrine Disorder: Yes (DM) Father Race: Family Member Ethnicity: Non- Living Status: Age at : 79 Cause of : Cancer Hx Family Cancer: Yes Brother Race: Family Member Ethnicity: Non- Living Status: Age at : 65 Cause of : [place] Hx Family Cardiac Disorders: Yes ([place], HD) Sister Race: Family Member Ethnicity: Non- Living Status: Still Living Hx Family Neurologic Disorders: Yes (Alzheimer's Disease) Medications and Allergies Alendronate Sodium 70 mg PO QWEEK 05/28/15 [History] Atorvastatin [Lipitor] 10 mg PO HS 05/28/15 [History] Calcium Carbonate/Vitamin D2 [Oyster Shell Calcium-Vit D Tab] 1 tab PO BID 05/27 [History] Cyanocobalamin (Vitamin B-12) [Vitamin B12] 1,000 mcg PO DAILY 05/28/15 [History ] Dicyclomine 20 mg PO ACHS 05/28/15 [History] Donepezil [Aricept] 10 mg PO HS 05/28/15 [History] Ferrous Sulfate [Iron] 325 mg PO DAILY 05/28/15 [History] Mirabegron [Myrbetriq] 50 mg PO DAILY 05/28/15 [History] Omeprazole [PriLOSEC] 40 mg PO DAILY 05/28/15 [History] Ranitidine HCl [Zantac] 150 mg PO BID 05/28/15 [History] Trospium Chloride 20 mg PO QAM 05/28/15 [History] Vitamin E 1,000 unit PO DAILY 05/28/15 [History] Phenazopyridine HCl [Pyridium] 200 mg PO TIDAC #30 tab 08/19/16 [Rx] Ondansetron HCl [Zofran] 4 mg PO TID PRN 08/21/16 [History] Sulfamethoxazole/Trimeth DS [Bactrim DS] 1 tab PO BID 08/21/16 [History] Allergies celecoxib [From Celebrex] Allergy (Verified 08/21/16 11:22) Muscle Pain esomeprazole Adverse Reaction (Verified 08/21/16 12:58) See Comments unknown reaction ROS unobtainable: due to endotracheal tube All Systems: A 10-system review of systems was performed and is negative for pertinent findings except as documented above in the HPI. Physical Examination Vital Signs: Vital Signs, Last 4 Hours Temp Pulse Resp BP Pulse Ox 08/24/16 08:00 126 31 85/46 92 08/24/16 07:45 27 91 08/24/16 07:44 98.8 F 08/24/16 07:00 129 28 98/46 92 08/24/16 06:00 128 24 95/52 97 08/24/16 05:00 135 29 98/46 96 Gen.: This is a well-developed well-nourished 81-year-old female who is currently intubated and sedated. Appears to be tolerating the ventilator well. HEENT: Head is normal cephalic and atraumatic. Pupils equally round react light and accommodation. Moist mucous membranes. There is an ETT noted to have place. Trachea midline. Heart: Tachycardic with a regular rhythm, no murmurs rubs or gallops. No JVD. Lungs: Clear to auscultation bilaterally. Normal rise and expansive the chest wall bilaterally. Abdomen: Abdomen is distended, hypoactive bowel sounds. Patient does awaken several with the palpation of the abdomen and with grimace on her face. No masses or organomegaly palpable. Musculoskeletal: Grossly normal for age no gross deformity is noted. Extremities: There is no clubbing, cyanosis or edema. Integument: The skin is flushed and warm to the touch. No rashes lesions or jaundice or mottling noted. Lines: The patient currently has an OG, endotracheal tube, right central venous catheter, Velarde catheter. Ventilator Settings Ventilator Settings: Ventilator Settings, Last 8 Hours Ventilator Mode VC+ Ventilator Mode VC+ Ventilator Mode VC+ Ventilator Mode VC+ Ventilator Mode VC+ Ventilator Mode VC+ Ventilator Mode VC+ Ventilator Mode VC+ Ventilator Mode VC+ Ventilator Tidal Volume 400 Setting Ventilator Tidal Volume 400 Setting Ventilator Tidal Volume 400 Setting Ventilator Tidal Volume 400 Setting Ventilator Tidal Volume 400 Setting Ventilator Tidal Volume 400 Setting Ventilator Tidal Volume 400 Setting Ventilator Tidal Volume 400 Setting Ventilator Tidal Volume 400 Setting Ventilator Respiratory Rate 12 Setting Ventilator Respiratory Rate 12 Setting Ventilator Respiratory Rate 12 Setting Ventilator Respiratory Rate 12 Setting Ventilator Respiratory Rate 12 Setting Ventilator Respiratory Rate 12 Setting Ventilator Respiratory Rate 12 Setting Ventilator Respiratory Rate 12 Setting Ventilator Respiratory Rate 12 Setting Actual Respiratory Rate 31 Actual Respiratory Rate 33 Actual Respiratory Rate 28 Actual Respiratory Rate 32 Positive End Expiratory 5 Pressure Positive End Expiratory 5 Pressure Positive End Expiratory 5 Pressure Positive End Expiratory 5 Pressure Positive End Expiratory 5 Pressure Positive End Expiratory 5 Pressure Positive End Expiratory 5 Pressure Positive End Expiratory 5 Pressure Positive End Expiratory 5 Pressure Peak Inspiratory Airway 12 Pressure Peak Inspiratory Airway 13 Pressure Peak Inspiratory Airway 11 Pressure Peak Inspiratory Airway 16 Pressure Results - Laboratory Findings CBC and BMP: 08/24/16 03:31 08/24/16 03:31 ABG ABG pH 7.38 pH Units (7.32-7.45) 08/24/16 04:22 ABG pCO2 28 mmHg (35-45) L 08/24/16 04:22 ABG pO2 71 mmHg (85-104) L 08/24/16 04:22 ABG O2 Saturation 94 % (95-98) L 08/24/16 04:22 PT/INR, D-dimer PT 13.2 Seconds (9.4-12.1) H 08/24/16 07:48 Abnormal lab findings: Abnormal lab results RBC 3.15 M/mcL (3.82-4.97) L 08/24/16 03:31 Hgb 9.9 g/dL (11.5-15.4) L 08/24/16 03:31 Hct 30.4 % (35.3-44.9) L 08/24/16 03:31 Plt Count 49 K/mcL (140-400) L 08/24/16 03:31 Lymphocytes # 0.2 K/mcL (0.6-4.6) L 08/24/16 03:31 Platelet Estimate Decreased (Normal) L 08/24/16 03:31 Immature Plt Fraction 6.4 % (1.1-6.1) H 08/24/16 03:31 PT 13.2 Seconds (9.4-12.1) H 08/24/16 07:48 ABG pCO2 28 mmHg (35-45) L 08/24/16 04:22 ABG pO2 71 mmHg (85-104) L 08/24/16 04:22 ABG HCO3 16.6 mEQ/L (21-27) L 08/24/16 04:22 ABG Total CO2 17.5 mEq/L (20-26) L 08/24/16 04:22 ABG O2 Saturation 94 % (95-98) L 08/24/16 04:22 ABG Base Excess -7.5 mEq/L (-2.0 to 3.0) L 08/24/16 04:22 Potassium 3.1 mEq/L (3.5-4.5) L 08/24/16 03:31 Chloride 114 mEq/L (98-109) H 08/24/16 03:31 Carbon Dioxide 16 mEq/L (19-29) L 08/24/16 03:31 Creatinine 1.62 mg/dL (0.57-1.11) H 08/24/16 03:31 Est GFR ( Amer) 37 (> 60) L 08/24/16 03:31 Est GFR (Non-Af Amer) 30 (> 60) L 08/24/16 03:31 Glucose 147 mg/dL (70-99) H 08/24/16 03:31 POC Glucose 160 (58-89) H 08/24/16 02:34 Hemoglobin A1c 6.1 % (-5.6) H 08/21/16 10:43 Lactic Acid 3.0 mmol/L (0.5-2.2) H 08/24/16 04:16 Calcium 7.1 mg/dL (8.6-10.8) L 08/24/16 03:31 Magnesium 1.3 mg/dL (1.6-2.6) L 08/24/16 03:31 AST 84 Units/L (5-34) H 08/24/16 03:31 Troponin I 0.79 ng/mL (0-0.03) H* 08/24/16 03:31 Serum Total Protein 5.4 g/dL (6.0-8.3) L D 08/24/16 03:31 Albumin 2.4 g/dL (3.5-5.0) L D 08/24/16 03:31 Albumin/Globulin Ratio 0.8 (1.1-2.2) L 08/24/16 03:31 Urine Protein 30 mg/dL (Neg-Trace) H 08/21/16 11:04 Urine Blood Moderate (Negative) H 08/21/16 11:04 Urine Microscopic RBC 5-15 per hpf (0-3) H 08/21/16 11:04 Ur Squamous Epith Cells Moderate per lpf (None-Few) H 08/21/16 11:04 - Microbiology Findings Microbiology Findings: Microbiology, Last 48 Hours 08/23/16 00:45 Blood Fungal Culture - Preliminary Peripheral Venipuncture No growth. 08/23/16 00:53 Blood Culture - Preliminary Peripheral Venipuncture No growth. 08/23/16 00:53 Blood Culture - Preliminary Peripheral Venipuncture No growth. 08/22/16 18:54 Blood Culture - Preliminary Peripheral Venipuncture No growth. 08/21/16 20:12 Urine Culture - Final Urine,[place] Port No growth. - Clinical Findings Intake & Output: Intake & Output 08/23/16 08/24/16 08/24/16 23:59 07:59 15:59 Intake Total 1220 / 1220 130 / 130 445 / 445 Output Total 2325 / 2325 Balance 1220 / 1220 -2195 / -2195 445 / 445 Weight 66.5 kg Consult Discharge Plan - Plan Referrals: Per Barros MD [Primary Care Provider] - (web request sent on 08/23/16) <Gabriella Schofield - Last Filed: 08/24/16 16:44> Date of Encounter: 08/24/16 All Systems: A 10-system review of systems was performed and is negative for pertinent findings except as documented above in the HPI. Physical Examination Vital Signs: Vital Signs, Last 4 Hours Temp Pulse Resp BP Pulse Ox 08/24/16 16:20 21 98 08/24/16 16:00 87 21 106/50 99 08/24/16 15:00 87 20 101/45 08/24/16 14:00 89 20 84/35 93 08/24/16 13:54 19 93 08/24/16 13:00 100.1 F H 87 21 96/42 94 Ventilator Settings Ventilator Settings: Ventilator Settings, Last 8 Hours Ventilator Mode VC+ Ventilator Mode VC+ Ventilator Mode VC+ Ventilator Mode VC+ Ventilator Mode VC+ Ventilator Mode VC+ Ventilator Mode VC+ Ventilator Mode VC+ Ventilator Mode VC+ Ventilator Mode VC+ Ventilator Tidal Volume 400 Setting Ventilator Tidal Volume 400 Setting Ventilator Tidal Volume 400 Setting Ventilator Tidal Volume 400 Setting Ventilator Tidal Volume 400 Setting Ventilator Tidal Volume 400 Setting Ventilator Tidal Volume 400 Setting Ventilator Tidal Volume 400 Setting Ventilator Tidal Volume 400 Setting Ventilator Tidal Volume 400 Setting Ventilator Tidal Volume 400 Setting Ventilator Respiratory Rate 12 Setting Ventilator Respiratory Rate 12 Setting Ventilator Respiratory Rate 12 Setting Ventilator Respiratory Rate 12 Setting Ventilator Respiratory Rate 12 Setting Ventilator Respiratory Rate 12 Setting Ventilator Respiratory Rate 12 Setting Ventilator Respiratory Rate 12 Setting Ventilator Respiratory Rate 12 Setting Ventilator Respiratory Rate 12 Setting Ventilator Respiratory Rate 12 Setting Actual Respiratory Rate 22 Actual Respiratory Rate 21 Actual Respiratory Rate 20 Actual Respiratory Rate 21 Actual Respiratory Rate 21 Actual Respiratory Rate 21 Actual Respiratory Rate 22 Actual Respiratory Rate 20 Actual Respiratory Rate 21 Actual Respiratory Rate 17 Actual Respiratory Rate 17 Positive End Expiratory 10 Pressure Positive End Expiratory 10 Pressure Positive End Expiratory 10 Pressure Positive End Expiratory 10 Pressure Positive End Expiratory 10 Pressure Positive End Expiratory 10 Pressure Positive End Expiratory 10 Pressure Positive End Expiratory 10 Pressure Positive End Expiratory 10 Pressure Positive End Expiratory 10 Pressure Positive End Expiratory 10 Pressure Peak Inspiratory Airway 17 Pressure Peak Inspiratory Airway 17 Pressure Peak Inspiratory Airway 17 Pressure Peak Inspiratory Airway 17 Pressure Peak Inspiratory Airway 17 Pressure Peak Inspiratory Airway 16 Pressure Peak Inspiratory Airway 16 Pressure Peak Inspiratory Airway 17 Pressure Peak Inspiratory Airway 16 Pressure Peak Inspiratory Airway 16 Pressure Peak Inspiratory Airway 18 Pressure Results - Laboratory Findings CBC and BMP: 08/24/16 13:15 08/24/16 13:15 ABG ABG pH 7.21 pH Units (7.32-7.45) L 08/24/16 13:20 ABG pCO2 33 mmHg (35-45) L 08/24/16 13:20 ABG pO2 91 mmHg (85-104) 08/24/16 13:20 ABG O2 Saturation 95 % (95-98) 08/24/16 13:20 PT/INR, D-dimer PT 13.2 Seconds (9.4-12.1) H 08/24/16 07:48 Abnormal lab findings: Abnormal lab results WBC 14.6 K/mcL (4.3-11.1) H D 08/24/16 13:15 RBC 3.51 M/mcL (3.82-4.97) L 08/24/16 13:15 Hgb 11.1 g/dL (11.5-15.4) L 08/24/16 13:15 Hct 34.6 % (35.3-44.9) L 08/24/16 13:15 Plt Count 45 K/mcL (140-400) L 08/24/16 13:15 Band Neutrophils % 28.0 % (0-4) H 08/24/16 13:15 Metamyelocytes % 4.0 % (0) H 08/24/16 13:15 Neutrophils # 13.7 K/mcL (1.6-8.9) H 08/24/16 13:15 Lymphocytes # 0.3 K/mcL (0.6-4.6) L 08/24/16 13:15 Platelet Estimate Decreased (Normal) L 08/24/16 13:15 Immature Plt Fraction 11.4 % (1.1-6.1) H 08/24/16 13:15 PT 13.2 Seconds (9.4-12.1) H 08/24/16 07:48 ABG pH 7.21 pH Units (7.32-7.45) L 08/24/16 13:20 ABG pCO2 33 mmHg (35-45) L 08/24/16 13:20 ABG HCO3 13.2 mEQ/L (21-27) L 08/24/16 13:20 ABG Total CO2 14.2 mEq/L (20-26) L 08/24/16 13:20 ABG Base Excess -13.6 mEq/L (-2.0 to 3.0) L 08/24/16 13:20 Potassium 5.1 mEq/L (3.5-4.5) H D 08/24/16 13:15 Chloride 111 mEq/L (98-109) H 08/24/16 13:15 Carbon Dioxide 13 mEq/L (19-29) L 08/24/16 13:15 BUN 26 mg/dL (7-20) H 08/24/16 13:15 Creatinine 2.32 mg/dL (0.57-1.11) H 08/24/16 13:15 Est GFR ( Amer) 24 (> 60) L 08/24/16 13:15 Est GFR (Non-Af Amer) 20 (> 60) L 08/24/16 13:15 Glucose 234 mg/dL (70-99) H 08/24/16 13:15 POC Glucose 160 (58-89) H 08/24/16 02:34 Hemoglobin A1c 6.1 % (-5.6) H 08/21/16 10:43 Lactic Acid 7.0 mmol/L (0.5-2.2) H* 08/24/16 15:03 Calcium 7.5 mg/dL (8.6-10.8) L 08/24/16 13:15 AST 293 Units/L (5-34) H 08/24/16 13:15 ALT 159 Units/L (0-55) H 08/24/16 13:15 Troponin I 1.12 ng/mL (0-0.03) H* 08/24/16 13:15 Serum Total Protein 5.8 g/dL (6.0-8.3) L 08/24/16 13:15 Albumin 2.5 g/dL (3.5-5.0) L 08/24/16 13:15 Albumin/Globulin Ratio 0.8 (1.1-2.2) L 08/24/16 13:15 Urine Protein 30 mg/dL (Neg-Trace) H 08/21/16 11:04 Urine Blood Moderate (Negative) H 08/21/16 11:04 Urine Microscopic RBC 5-15 per hpf (0-3) H 08/21/16 11:04 Ur Squamous Epith Cells Moderate per lpf (None-Few) H 08/21/16 11:04 - Microbiology Findings Microbiology Findings: Microbiology, Last 48 Hours 08/23/16 00:45 Blood Fungal Culture - Preliminary Peripheral Venipuncture No growth. 08/23/16 00:53 Blood Culture - Preliminary Peripheral Venipuncture No growth. 08/23/16 00:53 Blood Culture - Preliminary Peripheral Venipuncture No growth. 08/22/16 18:54 Blood Culture - Preliminary Peripheral Venipuncture No growth. 08/21/16 20:12 Urine Culture - Final Urine,[place] No growth. - Clinical Findings Intake & Output: Intake & Output 08/24/16 08/24/16 08/24/16 07:59 15:59 23:59 Intake Total 130 / 130 1388 / 1388 214 / 214 Output Total 2325 / 2325 100 / 100 Balance -2195 / -2195 1288 / 1288 214 / 214 Weight 66.5 kg - Attending Attestation I examined this patient and my medical decision-making was reviewed with the GAS MAIN FITTER HELPER/PA/Advanced Practice Nurse/Resident Physician. I agree with the documented findings, disposition and treatment plan as described except to the extent set forth below. Patient seen and examined. Labs, radiology, chart personally reviewed. Agree with resident's history and physical, assessment, plan with following comments: CHIEF METER READER: Patient does not follows commands, Pulmonary: Patient is requiring high FiO2 and PEEP for acute respiratory hypoxic failure. Etiologies not clear, sepsis and pneumonia in the differential diagnosis and unfortunately due to her kidney function giving care contrast will worsen her renal function and for that reason Doppler of lower extremities was done to evaluate for any thromboembolic and venous thrombosis. I suggested to her PEEP and FiO2 OF times. Cardiovascular: unstable. Patient has sinus tachycardia and also with paroxysmal atrial fibrillation. Due to thrombocytopenia not candidate for anticoagulation with troponin elevation could be demand ischemia. Patient is in shock and multiple pressors. GI: Nutrition per dietary and GI prophylaxis per routine. Patient has abdominal pain and CT abdomen to be done to look for the source of her septic shock when stable for transportation. Heme: DVT prophylaxis per routine ID: Continue antibiotics and plan to de-escalation Renal; urine out put and renal funtion reviewed. Lactic acidosis and they suspect patient will need renal support and next 24 hours and will consider nephrology consultation in that happened for possible lurdes. Endorcine: blood glucose is monitored Lines: all lines checked and no evidence of infections Skin: skin care to prevent pressure ulcers per nursing routine care I have made with the family multiple times and they understand the prognosis is poor. Patient remain full code at this time. I spent 80 min of Critical Care time with this patient. It involved decision making of high complexity to assess, manipulate, and support vital organ system failure and/or to prevent further life threatening deterioration of the patient' s condition. The time involved in the performance of separately reportable procedures was not counted toward critical care time.
[2016-08-24] MEDS ORDERED: *HR* Midazolam HCl 5 MG/5 ML VIAL IVP ONE (09:03)
[2016-08-24] MEDS ORDERED: *HR* Succinylcholine 200 MG/10 ML VIAL IVP ONE (09:03)
[2016-08-24] MEDS ORDERED: *HR* Metoprolol 5 MG/5 ML VIAL IVP PRN (09:19)
[2016-08-24] MEDS ORDERED: *HR* Metoprolol 5 MG/5 ML VIAL IVP ONE (09:31)
[2016-08-24] MEDS: *HR* Propofol 1,000 MG/100 ML BOTTLE IVC ONE ×2 (09:39→09:40)
[2016-08-24] MEDS: Dexmedetomidine HCl 400 MCG/100 ML MLS IVC SCH ×2 (09:46→22:19)
[2016-08-24] MEDS ORDERED: Amiodarone Premix 150 MG/100 ML BAG IVPB ONE (11:00)
[2016-08-24] MEDS ORDERED: Amiodarone Premix 360 MG/200 ML BAG IVC ONE (11:00)
[2016-08-24] MEDS: Hydrocortisone Sodium Succ 100 MG/2 ML VIAL IVP SCH ×3 (11:23→23:04)
[2016-08-24] MEDS: Vasopressin 20 UNIT in 0.9 % Sodium Chloride 50 ML IVC SCH ×2 (11:30→20:49)
[2016-08-24] MEDS: Norepinephrine 8 MG in D5% in Water 250 ML IVC SCH ×3 (11:35→20:50)
[2016-08-24] MEDS: Phenylephrine 50 MG in D5% in Water 250 ML IVC SCH (12:02)
[2016-08-24 13:23] LABS: Hematocrit 34.6 % (35.3-44.9); Hemoglobin 11.1 g/dL (11.5-15.4); Immature Platelets 11.4 % (1.1-6.1); Mean Corpuscular HGB Conc 32.1 g/dL (31.6-35.5); Mean Corpuscular Hemoglobin 31.6 pg (28.0-33.3); Mean Corpuscular Volume 98.6 fL (83.0-100.0); Mean Platelet Volume 11.8 fL (9.4-12.4); Red Blood Count 3.51 M/mcL (3.82-4.97); Red Cell Distribution Width 14.3 % (11.5-14.5)
[2016-08-24 13:26] LABS: Platelet Count 45 K/mcL (140-400)
[2016-08-24 13:35] LABS: ABG Base Excess -13.6 mEq/L (-2.0 to 3.0); ABG HCO3 13.2 mEQ/L (21-27); ABG Oxygen Saturation 95 % (95-98); ABG PCO2 33 mmHg (35-45); ABG PH 7.21 pH Units (7.32-7.45); ABG PO2 91 mmHg (85-104); ABG TCO2 14.2 mEq/L (20-26)
[2016-08-24 13:37] LABS: Blood Gas FiO2 100 %
[2016-08-24 13:37] LABS: Albumin 2.5 g/dL (3.5-5.0); Albumin/Globulin Ratio 0.8 (1.1-2.2); Bilirubin,Total 1.1 mg/dL (0.2-1.2); Calcium 7.5 mg/dL (8.6-10.8); Globulin 3.3 g/dL (2.4-3.5); Total Protein 5.8 g/dL (6.0-8.3)
[2016-08-24 13:50] LABS: Magnesium 2.4 mg/dL (1.6-2.6); Potassium 5.1 mEq/L (3.5-4.5)
[2016-08-24 14:20] LABS: Lymphocytes # 0.3 K/mcL (0.6-4.6); Neutrophils # 13.7 K/mcL (1.6-8.9); Platelet Estimate Decreased (Normal)
--- NOTE | 2016-08-24 14:31 | Infectious Disease Consult ---
Date of Encounter: 08/24/16 Time of Encounter: 14:29 Assessment and Plan (1) Septic shock Status: Acute Assessment and plan: The patient had two SIRS criteria plus JESSIKA and lactic acidosis on admission. Source unclear. Originally thought to be secondary to UTI, but urinalysis and culture are negative. The patient continues to have fevers with Tmax 104.1 in the last 24 hours. She continues to have tachycardia. Her WBC is now elevated and she has since developed hypotension requiring the use of vasopressors. Blood cultures drawn 08/21/16 are NGTD x 2 sets. Additional blood cultures drawn 08/23/16 are NGTD x 3 sets as well. CXR shows findings consistent with likely pulmonary edema, but no definitive infiltrate. No evidence of skin/soft tissue infection. No evidence of joint infections noted. LFTs elevated. CT of the abdomen/pelvis, head, and chest ordered by the primary team. Check Procalcitonin and peripheral smear. Consider DIC workup given the patient's marked thrombocytopenia. Consider Hem/Onc consult. Given that the patient now has EOD involving the liver, kidneys, lungs, and cardiovascular system, overall prognosis poor. Continue Vancomycin IV. Pharmacy to dose. Goal trough approximately 15. Continue Zosyn 3.375 grams IV Q8H. Add Levaquin 750mg IV daily for atypical coverage. Discontinue Micafungin. (2) Lactic acidosis Status: Acute Assessment and plan: Likely secondary to sepsis. (3) Thrombocytopenia Status: Acute Assessment and plan: Platelets 132 on admission, down to 45 today. Likely secondary to sepsis, but need to consider non-infectious etiologies (DIC) . No acute bleeding noted. H & H stable. Management per the primary team. (4) Respiratory failure Status: Acute Assessment and plan: Likely secondary to fluid volume overload, but consider other etiologies as well. Required emergent intubation. CT of the chest ordered per the primary team. Pulmonology consulted and following. Qualifiers: Chronicity: acute Respiratory failure complication: hypoxia Qualified Code(s): J96.01 - Acute respiratory failure with hypoxia (5) Atrial fibrillation with RVR Status: Acute Assessment and plan: Continues to have RVR. Cardizem discontinued due to hypotension. Amiodarone started. Management per the primary team. (6) Acute kidney injury Status: Resolved Assessment and plan: Likely secondary to sepsis. Serum creatinine 1.58, worsened today to 2.32. Urine output appears adequate. Consider nephrology consult. Dose-adjust antibiotics and avoid nephrotoxins as able. (7) Elevated transaminase level Status: Acute Assessment and plan: T. Bili, AST, and ALT elevated. Appears to be Hepatitis pattern, but consider possibility of shock liver. Check Hepatitis profile. Repeat labs in the AM. (8) Dysuria Status: Acute Assessment and plan: Etiology unclear. Urinalysis negative for pyuria, but the patient had received two doses of PO Bactrim. No urine culture obtained at the time of UTI diagnosis at Urgent Care. Not sure that the patient's dysuria was caused by UTI. (9) Anemia Status: Chronic Assessment and plan: Hgb stable. No evidence of active bleeding. Management per the primary team. Qualifiers: Anemia type: B12 deficiency Vitamin B12 deficiency anemia type: unspecified B12 deficiency Qualified Code(s): D51.9 - Vitamin B12 deficiency anemia, unspecified Infectious Disease HPI - Data of Consult Patient: new to practice Consult date: 08/24/16 Requesting Physician: Aditi Baltazar MD Primary Care Provider: Per Barros MD - Consult Narrative Reason for consult: Fever History of present illness: Ms. Dowling is a 81 year old female with a past medical history of arthritis, DM , GERD, HLD, HTN, and RA. The patient was admitted to the hospital for sepsis, JESSIKA, and tachycardia. We are consulted 08/24/16 for persistent fever. The patient is an 81 year old female with a past medical history as stated above. The patient is currently intubated and sedated and there is no family at the bedside, so most of the information is obtained from the medical record. Apparently, the patient presented to the ER with a 3 day history of dysuria and fever. She had been seen previously at the Urgent Care and diagnosed with UTI and placed on Bactrim but only took two doses due to GI upset associated with the medication. On the day of admission, the patient presented to the ED with fever of 100.8 and tachycardia. Labs revealed a normal WBC, but she had lactic acidosis and JESSIKA. Blood cultures drawn in the ED are NGTD x 2 sets. Urinalysis was obtained and it was negative for pyuria. Culture was send and it was negative as well. CXR showed no pneumonia. The patient was admitted and started on IV Zosyn and Levaquin. Since admission, the patient's status has declined. She continued to spike high fevers with Tmax of 104.4 despite being on antibiotics. Antibiotic coverage was broadened to Meropenem and Vancomycin. The patient continued to have fevers and Micafungin was added by the primary team. The patient's states required rapid response x 3 which eventually ended up with the patient being intubated. She was noted to be in A-fib RVR and she had a central line placed. She is now requiring IV vasopressors to maintain adequate perfusion. BLE venous doppler studies were negative. Repeat labs this morning reveal leukocytosis with a WBC 14.6 thousand with 28% bands. LFTs are elevated as well. We've been asked to evaluate and make further recommendations. During my exam today, the patient is intubated, sedated, and on the ventilator. She is unable to provide me with any information at this time and no family is at the bedside. CC: Aditi Baltazar MD Past Med Surg Social Fam HX - Past Medical History Source: old records reviewed, nursing notes reviewed Medical history: arthritis, diabetes, GERD, hyperlipidemia, hypertension, osteoporosis, RA, renal disease, other (UTIs) Psychiatric history: no psych history - Past Surgical History Surgical History: cholecystectomy, other (bladder stimulator ) - Social History Smoking Status: Never smoker Smokeless Tobacco Status: No Alcohol use: none Drug use: none - Family History Mother Race: Family Member Ethnicity: Non- Living Status: Age at : 94 Cause of : Old age Hx Family Endocrine Disorder: Yes (DM) Father Race: Family Member Ethnicity: Non- Living Status: Age at : 79 Cause of : Cancer Hx Family Cancer: Yes Brother Race: Family Member Ethnicity: Non- Living Status: Age at : 65 Cause of : NC Hx Family Cardiac Disorders: Yes (NC, HD) Sister Race: Family Member Ethnicity: Non- Living Status: Still Living Hx Family Neurologic Disorders: Yes (Alzheimer's Disease) Infectious Disease-CN:Meds Alendronate Sodium 70 mg PO QWEEK 05/28/15 [History] Atorvastatin [Lipitor] 10 mg PO HS 05/28/15 [History] Calcium Carbonate/Vitamin D2 [Oyster Shell Calcium-Vit D Tab] 1 tab PO BID 05/27 [History] Cyanocobalamin (Vitamin B-12) [Vitamin B12] 1,000 mcg PO DAILY 05/28/15 [History ] Dicyclomine 20 mg PO ACHS 05/28/15 [History] Donepezil [Aricept] 10 mg PO HS 05/28/15 [History] Ferrous Sulfate [Iron] 325 mg PO DAILY 05/28/15 [History] Mirabegron [Myrbetriq] 50 mg PO DAILY 05/28/15 [History] Omeprazole [PriLOSEC] 40 mg PO DAILY 05/28/15 [History] Ranitidine HCl [Zantac] 150 mg PO BID 05/28/15 [History] Trospium Chloride 20 mg PO QAM 05/28/15 [History] Vitamin E 1,000 unit PO DAILY 05/28/15 [History] Phenazopyridine HCl [Pyridium] 200 mg PO TIDAC #30 tab 08/19/16 [Rx] Ondansetron HCl [Zofran] 4 mg PO TID PRN 08/21/16 [History] Sulfamethoxazole/Trimeth DS [Bactrim DS] 1 tab PO BID 08/21/16 [History] Allergies celecoxib [From Celebrex] Allergy (Verified 08/21/16 11:22) Muscle Pain esomeprazole Adverse Reaction (Verified 08/21/16 12:58) See Comments unknown reaction ROS unobtainable: due to endotracheal tube Exam - Constitutional Vitals: Temp Pulse Resp BP Pulse Ox 100.1 F H 89 20 84/35 93 08/24/16 13:00 08/24/16 14:00 08/24/16 14:00 08/24/16 14:00 08/24/16 14:00 General appearance: average body habitus, no acute distress, no febrile - Head Head exam: Present: atraumatic, normal inspection, normocephalic - Eye Eye exam: Present: normal appearance, PERRL Pupils: Present: normal accommodation - ENT ENT exam: Present: mucous membranes moist - Neck Neck exam: Present: normal inspection Additional comments: Triple lumen CVC noted to the right neck with transparent dressing C/D/I. No erythema, warmth, or tenderness noted at the insertion site. - Respiratory Respiratory exam: Present: CTAB. Absent: rales, respiratory distress, rhonchi, wheezes Additional comments: O2 via the ventilator. FiO2 100%. PEEP 10. - Cardiovascular Cardiovascular exam: Present: irregular rhythm, tachycardia - GI/Abdominal GI/Abdominal exam: Present: normal bowel sounds, soft. Absent: distended, tenderness Additional comments: Velarde catheter noted to be draining clear, orange-tinted urine. OG tube noted to the draining yellow/green stomach contents. - Extremities Exam Extremities exam: Present: normal inspection. Absent: joint swelling, pedal edema, tenderness - Neurological Exam Neurological exam: Present: altered (Sedated). Absent: facial droop Additional comments: Does not arouse to verbal or painful stimuli. Does not follow commands. - Skin Skin exam: Present: dry, intact, normal color, warm Infectious Disease CN: Results - Labs CBC & Chem 7: 08/25/16 03:30 08/25/16 15:10 Cultures: Cultures 08/23/16 00:45 Blood Fungal Culture - Preliminary Peripheral Venipuncture No growth. 08/23/16 00:53 Blood Culture - Preliminary Peripheral Venipuncture No growth. 08/23/16 00:53 Blood Culture - Preliminary Peripheral Venipuncture No growth. 08/22/16 18:54 Blood Culture - Preliminary Peripheral Venipuncture No growth. 08/21/16 20:12 Urine Culture - Final Urine,Velarde Port No growth. - VTE Documentation of Mechanical Device: Intermittent pneumatic compression device Consult Discharge Plan - Plan Referrals: Per Barros MD [Primary Care Provider] - (web request sent on 08/23/16) - Attending Attestation I examined this patient and my medical decision-making was reviewed with the LIVE IN HOUSEKEEPER/PA/Advanced Practice Nurse/Resident Physician. I agree with the documented findings, disposition and treatment plan as described except to the extent set forth below. This is an addendum to original report dictated by Sammie Dorman CNP. Please refer to Patricia mauricio for full details. Patient is an unfortunate 81-year-old lady that has an extensive past medical history mentioned below was starting to feel not well a few days prior to admission with dysuria and just fatigue. Patient has a ladder stimulator. Patient went to her PCP and they were unable to get any urine because of urinary retention. They started patient empirically on Bactrim. On the day prior to admission patient started having fevers chills and just feeling weak and tired. She was brought into the emergency department for evaluation. By the time I had a chest to evaluate the patient chills or any and septic shock on 3 pressors with a very low map and requiring vent support. Patient had multiorgan failure including respiratory, pulmonary, renal, liver, cardiac and hematological. Exact source or cause of all these issues was unknown but patient was so unstable that he could not taken down for a CAT scan. Patient was started on empiric antibiotics we were asked to evaluate the patient and make further recommendations. On extensive questioning and discussion with the family, patient has rheumatoid arthritis and she has been on prednisone in the past but has not taken prednisone for a few years so adrenal crisis was out of the question. Patient also was not having any headache visual changes neck stiffness complaints. Patient has not been outdoors no history of tick bite 2. Patient was not complaining of any other issues other than some nausea but no diarrhea no abdominal pain. Physical exam was very limited but no obvious source of infection noted. The resident physician tells me that she was grimacing when he was palpating her abdomen and thats why ordered LFTs. Since patient is unable to go down for a CAT scan I recommended an ultrasound of the abdomen. Very complicated case with very poor prognosis. Agree with broad-spectrum antibiotics for now. I did add Levaquin to cover for atypical infection in the lungs. Well get ultrasound of the abdomen. Get appropriate acetone level. Await cultures to finalize. Discussed with family and hospital staff.
[2016-08-24] MEDS: SODIUM CHLORIDE 0.45% IVC SCH ×2 (14:41→14:42)
[2016-08-24] MEDS: SODIUM BICARBONATE IVC SCH ×2 (14:41→14:42)
--- NOTE | 2016-08-24 15:02 | Event Note ---
<Aravind Gonsales - Last Filed: 08/24/16 14:59> Date of Encounter: 08/24/16 Time of Encounter: 14:59 Right Radial Arterial Line Placement Procedure Note Date: 08/24/2016 Time: 1450 Indication: Hemodynamic monitoring Resident: Aravind Gonsales DO PGY-1 Attending: Dr. Gabriella Schofield A time-out was completed verifying correct patient, procedure, site, positioning , and special equipment if applicable. Allens test was performed to ensure adequate perfusion. The patients right wrist was prepped and draped in sterile fashion. A 20G Arrow arterial line was introduced into the radial artery via ultrasound guide. The catheter was threaded over the guide wire and the needle was removed with appropriate pulsatile blood return. The catheter was then sutured in place to the skin and a sterile dressing applied. Perfusion to the extremity distal to the point of catheter insertion was checked and found to be adequate. Dr. Schofield and senior resident Dr. Karlos Richmond was present for the entire procedure. Estimated Blood Loss: minimal The patient tolerated the procedure well and there were no complications. <Gabriella Schofield - Last Filed: 08/24/16 16:49> Date of Encounter: 08/24/16 I have personally supervised resident placing a line successfully.
[2016-08-24] MEDS ORDERED: Dextrose Gel 15 GM PO PRN ×2 (15:12)
[2016-08-24] MEDS ORDERED: D5% in Water 1,000 ML IVC PRN (15:12)
[2016-08-24] MEDS ORDERED: *HR* Dextrose 50 % in Water (Syg) 50 ML SYRINGE IVP PRN (15:12)
[2016-08-24] MEDS ORDERED: Levofloxacin 750 MG/150 ML 750 MG/150 ML BAG IVPB ONE (16:00)
[2016-08-24] MEDS: Amiodarone Premix 360 MG/200 ML BAG IVC SCH (16:31)
--- NOTE | 2016-08-24 16:59 | Procedure Note ---
Date of procedure: 08/24/16 Pre-op diagnosis: Acute respiratory failure Post-op diagnosis: same Procedure: Patient was having a low tidal volume and there was evidence of cuff leak from the ET tube which needed to be replaced. It was attempted to exchange to, however somewhat resistant and exchange to procedure was not successful, then patient was preoxygenated with antibiotic and with Glioidoscope she was successfully intubated with confirmation of placement with capnogram change in color as well as bilateral auscultation. No immediate complications during the procedure. ET tube 7.5 at 23 at the lips. Surgeon: Gabriella Schofield Disposition: ICU
[2016-08-24] MEDS: Insulin LISPRO 300 UNITS/3 ML VIAL SQ SCH ×2 (17:05→23:04)
--- NOTE | 2016-08-24 18:13 | Event Note ---
Date of Encounter: 08/24/16 Time of Encounter: 18:09 We have attempted to get CT of the abdomen/pelvis and chest. PAtient however has been unstable throughout the day. With markedl hypotension. She is now on 3 pressor agents. I had ordered an US of the abdomen. However Patient was improving and so this was canceled. However when we attempted to move patient she became markedly hypotensive again and was unable to be transported again. PAtient dose seem to be improving somewhat as we were able to wean her off of one of the pressor agent s prior to moving her . I will speak with the [facility] hospitalist and we will see if we can get a CT if she becomes more stable. Otherwise we may need to reorder US of the abdomen.
--- NOTE | 2016-08-24 18:17 | Electrocardiograph Report ---
[address] [place], [place] [address] Test Date: 2016-08-24 Pat Name: Kathy Dowling Department: 109 Room: [facility] Gender: F Sausage Stringer: [facility] : 1935 Requested By: Nathanael Huynh Order Number: [id number] Reading MD: Nancy Hester Measurements Intervals [place] Rate: 125 P: 33 MT: 180 QRS: -8 QRSD: 86 T: 60 QT: 314 QTc: 388 Interpretive Statements SINUS TACHYCARDIA ABNORMAL RHYTHM ECG Electronically Signed On 08-24-2016 18:16:26 EDT by Nancy Hester
--- NOTE | 2016-08-24 18:21 | Electrocardiograph Report ---
[address] [place], [place] [address] Test Date: 2016-08-24 Pat Name: Kathy Dowling Department: 109 Room: [facility] Gender: F Agronomy Advisor: : 1935 Requested By: Karlos Richmond Order Number: [id number] Reading MD: Nazanin Daugherty Measurements Intervals [place] Rate: 100 P: [place]: 0 QRS: 12 QRSD: 89 T: 29 QT: 354 QTc: 411 Interpretive Statements ATRIAL FIBRILLATION WITH RAPID VENTRICULAR RESPONSE LOW QRS VOLTAGE IN PRECORDIAL LEADS ABNORMAL RHYTHM ECG Electronically Signed On 08-24-2016 18:20:20 EDT by Nazanin Daugherty
--- NOTE | 2016-08-24 18:27 | Electrocardiograph Report ---
[address] [place], [place] [address] Test Date: 2016-08-23 Pat Name: Kathy Dowling Department: 112 Room: [facility] Gender: F Metal Roofer: : 1935 Requested By: Aditi Baltazar Order Number: [id number] Reading MD: Nazanin Daugherty Measurements Intervals [place] Rate: 141 P: [place]: 0 QRS: -5 QRSD: 82 T: 52 QT: 323 QTc: 405 Interpretive Statements ATRIAL FIBRILLATION WITH RAPID VENTRICULAR RESPONSE LOW QRS VOLTAGE IN PRECORDIAL LEADS NONSPECIFIC T-WAVE ABNORMALITY ABNORMAL RHYTHM ECG Electronically Signed On 08-24-2016 18:25:39 EDT by Nazanin Daugherty
[2016-08-24] MEDS ORDERED: Vancomycin 1,250 MG in D5% in Water 250 ML IVPB ONE (22:00)
[2016-08-24 22:32] LABS: Potassium 4.4 mEq/L (3.5-4.5)
[2016-08-24 22:33] LABS: Calcium 6.9 mg/dL (8.6-10.8)
[2016-08-25] MEDS ORDERED: Amiodarone Premix 360 MG/200 ML BAG IVC SCH (02:45)
[2016-08-25] MEDS: Lacri-Lube 3.5 GM TUBE BOTH EYES SCH ×6 (03:36→23:55)
[2016-08-25] MEDS: SODIUM CHLORIDE 0.45% IVC SCH ×2 (03:36→04:05)
[2016-08-25] MEDS: SODIUM BICARBONATE IVC SCH ×2 (03:36→04:05)
[2016-08-25] MEDS: Ipratropium Neb 0.5 MG NEBULIZER IH SCH ×5 (03:40→20:02)
[2016-08-25] MEDS: FentaNYL (PF) 1,000 MCG in 0.9 % Sodium Chloride 80 ML IVC SCH ×2 (03:46→17:52)
[2016-08-25 03:51] LABS: Ionized Calcium 0.91 mmol/L (1.15-1.35)
[2016-08-25 03:53] LABS: Mean Corpuscular Volume 95.5 fL (83.0-100.0); Red Cell Distribution Width 14.3 % (11.5-14.5)
[2016-08-25 03:56] LABS: Mean Corpuscular HGB Conc 33.3 g/dL (31.6-35.5); Mean Corpuscular Hemoglobin 31.8 pg (28.0-33.3); Mean Platelet Volume 14.1 fL (9.4-12.4); Nucleated Red Blood Cells 0.2 /100 WBC (0); Red Blood Count 3.14 M/mcL (3.82-4.97)
[2016-08-25 03:59] LABS: Calcium 6.7 mg/dL (8.6-10.8); Magnesium 1.6 mg/dL (1.6-2.6); Potassium 4.4 mEq/L (3.5-4.5)
[2016-08-25 04:08] LABS: ABG Base Excess -8.2 mEq/L (-2.0 to 3.0); ABG Oxygen Saturation 99 % (95-98); ABG PCO2 33 mmHg (35-45); ABG PH 7.32 pH Units (7.32-7.45); ABG PO2 164 mmHg (85-104); Blood Gas FiO2 90 %
[2016-08-25 04:30] LABS: Platelet Count 30 K/mcL (140-400)
[2016-08-25 04:32] LABS: Toxic Granulation Present (Not Present); Toxic Vacuolation Present (Not Present)
[2016-08-25 04:33] LABS: Large Platelets Present (Not Present); Platelet Estimate Decreased (Normal)
[2016-08-25] MEDS: Calcium Gluconate 1,000 MG in D5% in Water 100 ML IVPB PRN ×2 (05:57→17:27)
[2016-08-25] MEDS: Magnesium Sulfate 2 GM in D5% in Water 100 ML IVPB PRN ×2 (05:57→18:19)
[2016-08-25] MEDS: Insulin LISPRO 300 UNITS/3 ML VIAL SQ SCH ×4 (06:08→23:52)
[2016-08-25 06:48] LABS: INR 1.2; Prothrombin Time 13.3 Seconds (9.4-12.1)
--- NOTE | 2016-08-25 07:10 | Pulmonology Progress Note ---
<Aravind Gonsales - Last Filed: 08/25/16 10:30> Date of Encounter: 08/25/16 Time of Encounter: 07:08 Assessment and Plan (1) Respiratory failure Current Visit: Yes Status: Acute acute hypoxemic respiratory failure intubated 08/24 possibly from volume overload/CHF - CT Chest 08/24 - bilateral lower lobe consolidation L > R concerning for multifocal pneumonia or pulmonary edema - TTE 08/24 - EF 50-55% with low normal LV systolic function, no gross wall abnormalities currently on empiric broad spectrum with Levaquin, Vanc, and Meropenem - will obtain sputum cultures and de-escalate as appropriate she appears to be in distributive shock, may be secondary to sepsis continue vent support titrate O2 if possible, decreased FiO2 to 60% low vent volumes Qualifiers: Chronicity: acute Respiratory failure complication: hypoxia Qualified Code(s): J96.01 - Acute respiratory failure with hypoxia (2) Septic shock Current Visit: Yes Status: Acute clinically this patient appears to be in septic shock initially requiring 3 vasopressors, currently on Vasopressin and Levophed - plan to wean off Vasopressin she is cold to the touch and diaphoretic CT Chest 08/24 - suggestive of multifocal pneumonia vs. pulm edema source of sepsis appears to be pneumonia ID consulted and appreciated continue Meropenem and Vancomycin day 4 (start 08/22) - pharmacy to dose - trough 11.0 Levaquin restarted day 2 (start 08/24) Micafungin discontinued 08/24 lactic acid trending down 4.6 (5.5) - will continue to follow repeat blood cultures prior blood cultures (08/23) NGTD x3, urine culture (08/22) NGTD negative urine antigens sputum culture obtained and pending other causes of shock considered - hemorrhagic no signs of active bleeding however concerning for DIC, panel pending - cardiogenic shock with mildly elevated Trop in setting of shock and Afib TTE 08/24 - EF 50-55% with low normal LV systolic function will initiate IV Vit C 1.5 mg Q6hr, Thiamine, and Hydrocortisone per Landon study for severe sepsis Landon WHITT, Deshaun V, Ruiz R, Mary MH, Silvia J, Hydrocortisone, Vitamin C and Thiamine for the Treatment of Severe Sepsis and Septic Shock: A Retrospective Before-After Study, CHEST (2017), doi: [email or web address]/ [email or web address]. (3) Elevated transaminase level Current Visit: Yes Status: Acute possibility of shock liver hepatitis profile pending continue to monitor (4) Lactic acidosis Current Visit: Yes Status: Acute improving, 4.6 (5.5) will switch from bicarb gtt to LR maintenance (5) Metabolic acidosis Current Visit: Yes Status: Acute anion gap acidosis from lactic acid improving stop bicarb gtt and change to LR maintenance continue to monitor (6) Thrombocytopenia Current Visit: Yes Status: Acute etiology unclear at this time continues to downtrend 30 (45) likely secondary to sepsis consideration for DIC, panel ordered and pending - LDH 2692 - Ddimer 54038 - Fibrinogen pending - INR 1.2 not on heparin transfuse if she develops major bleeding as she is < 50K transfuse if she drops below 10K peripheral smear, considerations in this patient with anemia and thrombocytopenia include acute blood loss or hemolysis, thrombocytopenia due to peripheral platelet destruction, utilization or redistribution (7) Acute kidney injury Current Visit: Yes Status: Resolved continues to worsen on CKD stage 3 Cr 2.8 (2.53) minimal UOP 50 (08/25) - yesterday 2475 cc UOP likely secondary to septic shock on 2 vasopressors, goal MAP >65 to maintain good renal perfusion Nephrology consulted (8) Anemia Current Visit: No Status: Chronic history of Vit B12 deficiency home supplementation hemoglobin stable 10 (11.1) continue to monitor with thrombocytopenia DIC panel pending no active bleeding noted Qualifiers: Anemia type: B12 deficiency Vitamin B12 deficiency anemia type: unspecified B12 deficiency Qualified Code(s): D51.9 - Vitamin B12 deficiency anemia, unspecified (9) Fever Current Visit: Yes Status: Acute Tmax 100.1 continue Tylenol PRN Qualifiers: Fever type: unspecified Qualified Code(s): R50.9 - Fever, unspecified (10) Elevated troponin Current Visit: Yes Status: Acute mild elevation peaked at 1.18, recent 1.12 suspect demand ischemia in the setting of shock and JESSIKA no heparin due to thrombocytopenia (11) Atrial fibrillation with RVR Current Visit: Yes Status: Acute currently normal sinus rhythm Amiodarone gtt stopped (12) DVT prophylaxis Current Visit: Yes Status: 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; does not follows commands Pulmonary: acute hypoxemic respiratory failure, intubated 08/24, requiring high FiO2 and PEEP, wean down as tolerated; etiology suggestive of multifocal pneumonia; Fi02 decreased to 60% Cardiovascular: septic shock, on Norepi and Vasopressin; wean off Vasopressin to maintain goal MAP >65; currently normal sinus rhythm; mild troponin elevation but not a candidate for anticoagulation d/to thrombocytopenia FEN-GI: discuss GOC with family and begin TFs, GI prophylaxis per routine; CT abd/pelvis without significant acute findings; lactic acidosis improving Heme: EPCDs for DVT prophylaxis, DIC panel pending for thrombocytopenia and anemia concerning for hemolysis; LDH and D-dimer elevated significantly ID: continue antibiotics Meropenem (08/22), Vancomycin (08/22), and Levaquin (08/24 ) with plan to de-escalate, sputum culture pending, prior cultures and UAT negative Renal: poor UOP today, 2L yesterday, JESSIKA worsening; lactic acidosis improving and will continue to monitor; nephrology consultation Endocrine: blood glucose monitored Lines: all lines checked and no evidence of infections Skin: skin care to prevent pressure ulcers per nursing routine care Subjective Principal diagnosis: Severe sepsis Interval history: No major events overnight. Patient seen and examined at bedside. She remains unresponsive and heavily sedated. Due to mental status unable to obtain further ROS. Currently on 2 pressors, NOREPI and Vasopressin. CT images reviewed, suggestive the likely source is pneumonia. Afebrile last night. Objective PUL Vital signs: Last Vital Signs Temp 98.2 F 08/25/16 04:00 Pulse 88 08/25/16 06:00 Resp 19 08/25/16 06:29 BP 106/50 08/25/16 06:00 Pulse Ox 100 08/25/16 06:29 General appearance: no acute distress, other (sedated and intubated, cold to the touch in the extremities) Eyes: nonicteric ENT: other (endotracheal intubation with OG tube) Effort: other (mechanically ventilated) Auscultation: bilateral: clear Cardiovascular: regular rate and rhythm Gastrointestinal: hypoactive bowel sounds, soft, non-distended Integumentary: other (mottling of the lower extremities) Extremities: no edema, cyanosis (distal finger tips, likely from vasopressors) Musculoskeletal: no deformities pupils equal and round, unable to assess due to mental status (secdated and does not follow commands) R IJ CVC, R wrist peripheral, R radial arterial line, ETT at 21cm, OG tube, and layton catheter dressings are clear and dry, no obvious signs of infection Ventilator Settings Ventilator Settings: Ventilator Settings, Last 8 Hours Ventilator Mode VC+ Ventilator Mode VC+ Ventilator Mode VC+ Ventilator Mode VC+ Ventilator Mode VC+ Ventilator Mode VC+ Ventilator Mode VC+ Ventilator Mode VC+ Ventilator Mode VC+ Ventilator Mode VC+ Ventilator Mode VC+ Ventilator Tidal Volume 400 Setting Ventilator Tidal Volume 400 Setting Ventilator Tidal Volume 400 Setting Ventilator Tidal Volume 400 Setting Ventilator Tidal Volume 400 Setting Ventilator Tidal Volume 400 Setting Ventilator Tidal Volume 400 Setting Ventilator Tidal Volume 400 Setting Ventilator Tidal Volume 400 Setting Ventilator Tidal Volume 400 Setting Ventilator Tidal Volume 400 Setting Ventilator Respiratory Rate 12 Setting Ventilator Respiratory Rate 12 Setting Ventilator Respiratory Rate 12 Setting Ventilator Respiratory Rate 12 Setting Ventilator Respiratory Rate 12 Setting Ventilator Respiratory Rate 12 Setting Ventilator Respiratory Rate 12 Setting Ventilator Respiratory Rate 12 Setting Ventilator Respiratory Rate 12 Setting Ventilator Respiratory Rate 12 Setting Ventilator Respiratory Rate 12 Setting Actual Respiratory Rate 19 Actual Respiratory Rate 19 Actual Respiratory Rate 19 Actual Respiratory Rate 19 Actual Respiratory Rate 22 Actual Respiratory Rate 19 Actual Respiratory Rate 18 Actual Respiratory Rate 17 Actual Respiratory Rate 17 Actual Respiratory Rate 19 Positive End Expiratory 8 Pressure Positive End Expiratory 8 Pressure Positive End Expiratory 8 Pressure Positive End Expiratory 8 Pressure Positive End Expiratory 8 Pressure Positive End Expiratory 8 Pressure Positive End Expiratory 8 Pressure Positive End Expiratory 8 Pressure Positive End Expiratory 8 Pressure Positive End Expiratory 8 Pressure Positive End Expiratory 8 Pressure Peak Inspiratory Airway 18 Pressure Peak Inspiratory Airway 17 Pressure Peak Inspiratory Airway 17 Pressure Peak Inspiratory Airway 18 Pressure Peak Inspiratory Airway 15 Pressure Peak Inspiratory Airway 17 Pressure Peak Inspiratory Airway 15 Pressure Peak Inspiratory Airway 15 Pressure Peak Inspiratory Airway 15 Pressure Peak Inspiratory Airway 15 Pressure Results - Laboratory Findings CBC and BMP: 08/25/16 03:30 08/25/16 03:30 ABG ABG pH 7.32 pH Units (7.32-7.45) 08/25/16 04:00 ABG pCO2 33 mmHg (35-45) L 08/25/16 04:00 ABG pO2 164 mmHg (85-104) H 08/25/16 04:00 ABG O2 Saturation 99 % (95-98) H 08/25/16 04:00 PT/INR, D-dimer PT 13.3 Seconds (9.4-12.1) H 08/25/16 06:30 D-Dimer 00125 ng/mLFEU (0-500) H 08/25/16 06:30 Abnormal lab findings: Abnormal lab results RBC 3.14 M/mcL (3.82-4.97) L 08/25/16 03:30 Hgb 10.0 g/dL (11.5-15.4) L 08/25/16 03:30 Hct 30.0 % (35.3-44.9) L 08/25/16 03:30 Plt Count 30 K/mcL (140-400) L* 08/25/16 03:30 MPV 14.1 fL (9.4-12.4) H 08/25/16 03:30 Band Neutrophils % 14.0 % (0-4) H 08/25/16 03:30 Metamyelocytes % 4.0 % (0) H 08/24/16 13:15 Neutrophils # 10.0 K/mcL (1.6-8.9) H 08/25/16 03:30 Lymphocytes # 0.3 K/mcL (0.6-4.6) L 08/24/16 13:15 Nucleated RBCs/100 WBC 0.2 /100 WBC (0) H 08/25/16 03:30 Toxic Granulation Present (Not Present) A 08/25/16 03:30 Toxic Vacuolation Present (Not Present) A 08/25/16 03:30 Platelet Estimate Decreased (Normal) L 08/25/16 03:30 Large Platelets Present (Not Present) A 08/25/16 03:30 Immature Plt Fraction 18.0 % (1.1-6.1) H 08/25/16 03:30 PT 13.3 Seconds (9.4-12.1) H 08/25/16 06:30 D-Dimer 88944 ng/mLFEU (0-500) H 08/25/16 06:30 ABG pCO2 33 mmHg (35-45) L 08/25/16 04:00 ABG pO2 164 mmHg (85-104) H 08/25/16 04:00 ABG HCO3 17.0 mEQ/L (21-27) L 08/25/16 04:00 ABG Total CO2 18.0 mEq/L (20-26) L 08/25/16 04:00 ABG O2 Saturation 99 % (95-98) H 08/25/16 04:00 ABG Base Excess -8.2 mEq/L (-2.0 to 3.0) L 08/25/16 04:00 Carbon Dioxide 15 mEq/L (19-29) L 08/25/16 03:30 BUN 37 mg/dL (7-20) H 08/25/16 03:30 Creatinine 2.80 mg/dL (0.57-1.11) H 08/25/16 03:30 Est GFR ( Amer) 20 (> 60) L 08/25/16 03:30 Est GFR (Non-Af Amer) 16 (> 60) L 08/25/16 03:30 Glucose 166 mg/dL (70-99) H 08/25/16 03:30 POC Glucose 146 (58-89) H 08/25/16 06:06 Hemoglobin A1c 6.1 % (-5.6) H 08/21/16 10:43 Lactic Acid 4.6 mmol/L (0.5-2.2) H* 08/25/16 03:30 Calcium 6.7 mg/dL (8.6-10.8) L 08/25/16 03:30 Ionized Calcium 0.91 mmol/L (1.15-1.35) L 08/25/16 03:30 AST 293 Units/L (5-34) H 08/24/16 13:15 ALT 159 Units/L (0-55) H 08/24/16 13:15 Lactate Dehydrogenase 2692 Units/L (159-327) H 08/24/16 18:45 Troponin I 1.12 ng/mL (0-0.03) H* 08/24/16 13:15 Serum Total Protein 5.8 g/dL (6.0-8.3) L 08/24/16 13:15 Albumin 2.5 g/dL (3.5-5.0) L 08/24/16 13:15 Albumin/Globulin Ratio 0.8 (1.1-2.2) L 08/24/16 13:15 Urine Protein 30 mg/dL (Neg-Trace) H 08/21/16 11:04 Urine Blood Moderate (Negative) H 08/21/16 11:04 Urine Microscopic RBC 5-15 per hpf (0-3) H 08/21/16 11:04 Ur Squamous Epith Cells Moderate per lpf (None-Few) H 08/21/16 11:04 - Microbiology Findings Microbiology Findings: Microbiology, Last 48 Hours 08/24/16 23:55 Legionella Antigen - Final Urine,Catheterized Streptococcus pneumoniae Antigen (M - Final 08/23/16 00:45 Blood Fungal Culture - Preliminary Peripheral Venipuncture No growth. 08/23/16 00:53 Blood Culture - Preliminary Peripheral Venipuncture No growth. 08/23/16 00:53 Blood Culture - Preliminary Peripheral Venipuncture No growth. 08/22/16 18:54 Blood Culture - Preliminary Peripheral Venipuncture No growth. - Diagnostic Findings CT scan - chest: report reviewed, image reviewed - Clinical Findings Intake & Output: Intake & Output 08/24/16 08/24/16 08/25/16 15:59 23:59 07:59 Intake Total 1388 / 1388 896 / 896 1177 / 1177 Output Total 100 / 100 50 / 50 0 / 0 Balance 1288 / 1288 846 / 846 1177 / 1177 - VTE Documentation of Mechanical Device: Intermittent pneumatic compression device Consult Discharge Plan - Plan Referrals: Per Barros MD [Primary Care Provider] - (web request sent on 08/23/16) <Gabriella Schofield M - Last Filed: 08/25/16 12:14> Date of Encounter: 08/25/16 Objective PUL Vital signs: Last Vital Signs Temp 100.1 F H 08/25/16 11:15 Pulse 98 08/25/16 11:00 Resp 22 08/25/16 11:27 BP 122/46 08/25/16 11:00 Pulse Ox 94 08/25/16 11:27 Ventilator Settings Ventilator Settings: Ventilator Settings, Last 8 Hours Ventilator Mode VC+ Ventilator Mode VC+ Ventilator Mode VC+ Ventilator Mode VC+ Ventilator Mode VC+ Ventilator Mode VC+ Ventilator Mode VC+ Ventilator Mode VC+ Ventilator Tidal Volume 400 Setting Ventilator Tidal Volume 400 Setting Ventilator Tidal Volume 400 Setting Ventilator Tidal Volume 400 Setting Ventilator Tidal Volume 400 Setting Ventilator Tidal Volume 400 Setting Ventilator Tidal Volume 400 Setting Ventilator Tidal Volume 400 Setting Ventilator Respiratory Rate 12 Setting Ventilator Respiratory Rate 12 Setting Ventilator Respiratory Rate 12 Setting Ventilator Respiratory Rate 12 Setting Ventilator Respiratory Rate 12 Setting Ventilator Respiratory Rate 12 Setting Ventilator Respiratory Rate 12 Setting Ventilator Respiratory Rate 12 Setting Actual Respiratory Rate 22 Actual Respiratory Rate 21 Actual Respiratory Rate 19 Actual Respiratory Rate 18 Actual Respiratory Rate 19 Actual Respiratory Rate 19 Actual Respiratory Rate 19 Positive End Expiratory 8 Pressure Positive End Expiratory 8 Pressure Positive End Expiratory 8 Pressure Positive End Expiratory 8 Pressure Positive End Expiratory 8 Pressure Positive End Expiratory 8 Pressure Positive End Expiratory 8 Pressure Positive End Expiratory 8 Pressure Peak Inspiratory Airway 17 Pressure Peak Inspiratory Airway 17 Pressure Peak Inspiratory Airway 18 Pressure Peak Inspiratory Airway 30 Pressure Peak Inspiratory Airway 18 Pressure Peak Inspiratory Airway 17 Pressure Peak Inspiratory Airway 17 Pressure Results - Laboratory Findings CBC and BMP: 08/25/16 03:30 08/25/16 03:30 ABG ABG pH 7.32 pH Units (7.32-7.45) 08/25/16 04:00 ABG pCO2 33 mmHg (35-45) L 08/25/16 04:00 ABG pO2 164 mmHg (85-104) H 08/25/16 04:00 ABG O2 Saturation 99 % (95-98) H 08/25/16 04:00 PT/INR, D-dimer PT 13.3 Seconds (9.4-12.1) H 08/25/16 06:30 D-Dimer 02117 ng/mLFEU (0-500) H 08/25/16 06:30 Abnormal lab findings: Abnormal lab results RBC 3.14 M/mcL (3.82-4.97) L 08/25/16 03:30 Hgb 10.0 g/dL (11.5-15.4) L 08/25/16 03:30 Hct 30.0 % (35.3-44.9) L 08/25/16 03:30 Plt Count 30 K/mcL (140-400) L* 08/25/16 03:30 MPV 14.1 fL (9.4-12.4) H 08/25/16 03:30 Band Neutrophils % 14.0 % (0-4) H 08/25/16 03:30 Metamyelocytes % 4.0 % (0) H 08/24/16 13:15 Neutrophils # 10.0 K/mcL (1.6-8.9) H 08/25/16 03:30 Lymphocytes # 0.3 K/mcL (0.6-4.6) L 08/24/16 13:15 Nucleated RBCs/100 WBC 0.2 /100 WBC (0) H 08/25/16 03:30 Toxic Granulation Present (Not Present) A 08/25/16 03:30 Toxic Vacuolation Present (Not Present) A 08/25/16 03:30 Platelet Estimate Decreased (Normal) L 08/25/16 03:30 Large Platelets Present (Not Present) A 08/25/16 03:30 Immature Plt Fraction 18.0 % (1.1-6.1) H 08/25/16 03:30 PT 13.3 Seconds (9.4-12.1) H 08/25/16 06:30 Fibrinogen 494 mg/dL (169-393) H 08/25/16 06:30 D-Dimer 83489 ng/mLFEU (0-500) H 08/25/16 06:30 ABG pCO2 33 mmHg (35-45) L 08/25/16 04:00 ABG pO2 164 mmHg (85-104) H 08/25/16 04:00 ABG HCO3 17.0 mEQ/L (21-27) L 08/25/16 04:00 ABG Total CO2 18.0 mEq/L (20-26) L 08/25/16 04:00 ABG O2 Saturation 99 % (95-98) H 08/25/16 04:00 ABG Base Excess -8.2 mEq/L (-2.0 to 3.0) L 08/25/16 04:00 Carbon Dioxide 15 mEq/L (19-29) L 08/25/16 03:30 BUN 37 mg/dL (7-20) H 08/25/16 03:30 Creatinine 2.80 mg/dL (0.57-1.11) H 08/25/16 03:30 Est GFR ( Amer) 20 (> 60) L 08/25/16 03:30 Est GFR (Non-Af Amer) 16 (> 60) L 08/25/16 03:30 Glucose 166 mg/dL (70-99) H 08/25/16 03:30 POC Glucose 125 (58-89) H 08/25/16 10:59 Hemoglobin A1c 6.1 % (-5.6) H 08/21/16 10:43 Lactic Acid 3.8 mmol/L (0.5-2.2) H 08/25/16 11:00 Calcium 6.7 mg/dL (8.6-10.8) L 08/25/16 03:30 Ionized Calcium 0.91 mmol/L (1.15-1.35) L 08/25/16 03:30 AST 293 Units/L (5-34) H 08/24/16 13:15 ALT 159 Units/L (0-55) H 08/24/16 13:15 Lactate Dehydrogenase 2692 Units/L (159-327) H 08/24/16 18:45 Troponin I 1.12 ng/mL (0-0.03) H* 08/24/16 13:15 Serum Total Protein 5.8 g/dL (6.0-8.3) L 08/24/16 13:15 Albumin 2.5 g/dL (3.5-5.0) L 08/24/16 13:15 Albumin/Globulin Ratio 0.8 (1.1-2.2) L 08/24/16 13:15 Urine Protein 30 mg/dL (Neg-Trace) H 08/21/16 11:04 Urine Blood Moderate (Negative) H 08/21/16 11:04 Urine Microscopic RBC 5-15 per hpf (0-3) H 08/21/16 11:04 Ur Squamous Epith Cells Moderate per lpf (None-Few) H 08/21/16 11:04 Vancomycin Trough 33.5 mcg/mL (10-20) H* 08/25/16 11:00 - Microbiology Findings Microbiology Findings: Microbiology, Last 48 Hours 08/24/16 23:55 Legionella Antigen - Final Urine,Catheterized Streptococcus pneumoniae Antigen (M - Final 08/23/16 00:45 Blood Fungal Culture - Preliminary Peripheral Venipuncture No growth. 08/23/16 00:53 Blood Culture - Preliminary Peripheral Venipuncture No growth. 08/23/16 00:53 Blood Culture - Preliminary Peripheral Venipuncture No growth. 08/22/16 18:54 Blood Culture - Preliminary Peripheral Venipuncture No growth. - Clinical Findings Intake & Output: Intake & Output 08/24/16 08/25/16 08/25/16 23:59 07:59 15:59 Intake Total 896 / 896 1428 / 1428 591 / 591 Output Total 50 / 50 200 / 200 Balance 846 / 846 1228 / 1228 591 / 591 - Attending Attestation I examined this patient and my medical decision-making was reviewed with the GLYCERIN OPERATOR/PA/Advanced Practice Nurse/Resident Physician. I agree with the documented findings, disposition and treatment plan as described except to the extent set forth below. Patient seen and examined. Labs, radiology, chart personally reviewed. Agree with resident's history and physical, assessment, plan with following comments: TECHNICAL CLERK: Patient sedated for the vent synchrony but respond to stimuli Pulmonary: Continue vent support and still not hemodynamically stable for spontaneous breathing trial. Lowered FiO2 to 60% and he tolerates that level of FiO2, then will start to lower PEEP. Cardiovascular: Remain in stable, however there is less requirement for vasopressors GI: Nutrition per dietary and GI prophylaxis per routine Heme: DVT prophylaxis per routine ID: Continue antibiotics and plan to de-escalation Renal; urine out put and renal funtion reviewed. Nephrology consultation Endorcine: blood glucose is monitored Lines: all lines checked and no evidence of infections Skin: skin care to prevent pressure ulcers per nursing routine care As there is some evidence of using vitamin C intravenously, will consider to treat patient since there is no significant risks associated with giving vitamin C intravenously my opinion. I spent 35 min of Critical Care time with this patient. It involved decision making of high complexity to assess, manipulate, and support vital organ system failure and/or to prevent further life threatening deterioration of the patient' s condition. The time involved in the performance of separately reportable procedures was not counted toward critical care time.
[2016-08-25] MEDS: Dexmedetomidine HCl 400 MCG/100 ML MLS IVC SCH ×3 (07:43→23:58)
[2016-08-25] MEDS: Hydrocortisone Sodium Succ 100 MG/2 ML VIAL IVP SCH ×3 (07:59→23:58)
[2016-08-25] MEDS: Meropenem 1,000 MG in 0.9 % Sodium Chloride Mini Bag 100 ML IVPB SCH ×2 (07:59→19:54)
[2016-08-25] MEDS: Pantoprazole 40 MG VIAL IVP SCH (07:59)
[2016-08-25] MEDS: Vasopressin 20 UNIT in 0.9 % Sodium Chloride 50 ML IVC SCH ×2 (08:07→23:51)
[2016-08-25] MEDS ORDERED: Ringers Solution, Lactated 1,000 ML IVC SCH ×2 (08:15→16:00)
[2016-08-25] MEDS: Norepinephrine 8 MG in D5% in Water 250 ML IVC SCH (08:23)
[2016-08-25 09:42] LABS: Activated Partial Thrombo Time 35.6 Seconds (26.0-36.0)
[2016-08-25] MEDS: Thiamine (B-1) 200 MG in D5% in Water 50 ML IVPB SCH ×2 (09:51→20:46)
[2016-08-25] MEDS: Cyanocobalamin (B-12) 1,000 MCG TABLET PO SCH (10:02)
[2016-08-25] MEDS: Chlorhexidine Rinse 15 ML MOUTHWASH MM SCH ×2 (10:02→19:53)
[2016-08-25 11:17] LABS: Hepatitis A Antibody IgM Nonreactive (Nonreactive); Hepatitis B Core IgM Nonreactive (Nonreactive); Hepatitis B Surface Antigen Nonreactive (Nonreactive); Hepatitis C Virus Antibody Nonreactive (Nonreactive)
--- NOTE | 2016-08-25 11:40 | Infectious Disease Progress No ---
Date of Encounter: 08/25/16 Time of Encounter: 11:38 - Assessment and Plan (1) Septic shock Current Visit: Yes Status: Acute The patient had two SIRS criteria plus JESSIKA and lactic acidosis on admission. Source unclear. Originally thought to be secondary to UTI, but urinalysis and culture are negative. CT scan of the chest shows findings consistent with multifocal PNA vs. pulmonary edema. The patient continues to have fevers with Tmax 100.5 in the last 24 hours. She continues to have tachycardia. Leukocytosis has resolved, but she continues to require IV vasopressors to maintain adequate perfusion. She was up to requiring three vasopressors yesterday, but is currently on two pressors at this time. Blood cultures drawn 08/21/16 are NGTD x 2 sets. Additional blood cultures drawn 08/23/16 are NGTD x 3 sets as well. CXR shows findings consistent with likely pulmonary edema, but no definitive infiltrate. CT of the chest showed findings consistent with multifocal PNA vs. pulmonary edema. Sputum culture has been sent and is pending. Respiratory virus culture pending as well. No evidence of skin/soft tissue infection. No evidence of joint infections noted. CT of the head and abdomen/pelvis negative for infectious etiology. LFTs elevated yesterday. Check Procalcitonin --> pending. Peripheral smear report reviewed. Toxic granulation present. Concern for possible acute blood loss or hemolysis given the patient's anemia and thrombocytopenia. DIC workup in progress. Consider Hem/Onc consult. Given that the patient now has EOD involving the liver, kidneys, lungs, and cardiovascular system, overall prognosis poor. Continue Vancomycin IV. Pharmacy to dose. Goal trough approximately 15. Continue Meropenem 1 gram IV Q12H. Continue Levaquin 500mg IV Q48H for atypical coverage. If cultures remain negative and/or do not reveal ESBL organism, would recommend stopping Meropenem and re-starting Zosyn, but we will wait for cultures to finalize before we make any changes. Monitor renal function and dose-adjust antibiotics. Duration of treatment depends on the clinical picture. (2) Pneumonia Current Visit: Yes Status: Acute Location: Multifocal. Causative organism unclear. Sputum culture sent down this morning is pending. S. pneumo and Legionella UAT negative. Respiratory virus culture pending. CT of the chest shows patchy bilateral upper lobe ground glass opacities and large bilateral lower lobe consolidation, worse on the left, concerning for multifocal PNA vs. pulmonary edema. Continue antibiotics as above. Duration of treatment depends on the clinical picture. Monitor renal function and dose-adjust antibiotics. Qualifiers: Pneumonia type: due to unspecified organism Laterality: bilateral Lung location: unspecified part of lung Qualified Code(s): J18.9 - Pneumonia, unspecified organism (3) Lactic acidosis Current Visit: Yes Status: Acute Likely secondary to sepsis. (4) Thrombocytopenia Current Visit: Yes Status: Acute Platelets 132 on admission, down to 30 today. Likely secondary to sepsis, but need to consider non-infectious etiologies (DIC) . No acute bleeding noted. H & H stable. Management per the primary team. Based on peripheral smear report, consider Hem/Onc consult. (5) Respiratory failure Current Visit: Yes Status: Acute Likely multifactorial --> fluid volume overload + PNA. Required emergent intubation. CT of the chest shows findings consistent with multifocal PNA vs. pulmonary edema. Pulmonology consulted and following. Qualifiers: Chronicity: acute Respiratory failure complication: hypoxia Qualified Code(s): J96.01 - Acute respiratory failure with hypoxia (6) Atrial fibrillation with RVR Current Visit: Yes Status: Acute RVR resolved. Amiodarone on hold per the primary team. Management per the primary team. (7) Acute kidney injury Current Visit: Yes Status: Resolved Likely secondary to sepsis. Serum creatinine 1.58, worsened today. Urine output appears adequate. Consider nephrology consult. Dose-adjust antibiotics and avoid nephrotoxins as able. (8) Elevated transaminase level Current Visit: Yes Status: Acute T. Bili, AST, and ALT elevated. Appears to be Hepatitis pattern, but consider possibility of shock liver. Hepatitis profile non-reactive. Repeat labs in the AM. (9) Dysuria Current Visit: No Status: Acute Etiology unclear. Urinalysis negative for pyuria, but the patient had received two doses of PO Bactrim. No urine culture obtained at the time of UTI diagnosis at Urgent Care. Not sure that the patient's dysuria was caused by UTI. (10) Anemia Current Visit: No Status: Chronic Hgb stable. No evidence of active bleeding. Management per the primary team. Qualifiers: Anemia type: B12 deficiency Vitamin B12 deficiency anemia type: unspecified B12 deficiency Qualified Code(s): D51.9 - Vitamin B12 deficiency anemia, unspecified - Subjective Interval history: Patient seen and examined. Overnight events noted. The patient was started on additional vasopressors yesterday, at times requiring up to 3 vasopressors. Currently, the patient is on IV Levaquin fed and IV Vasopressin, which are currently being titrated to maintain a map greater than 65. The patient remains intubated and sedated. She is unable to provide me any information and she is unresponsive to verbal or painful stimuli. No new issues per nursing. Chart reviewed. Infect Dis PN-Objective Data - Labs CBC & Chem 7: 08/26/16 11:15 08/26/16 11:15 Labs: Laboratory Results - last 24 hr 08/23/16 08/23/16 08/23/16 07:16 11:31 15:34 WBC RBC Hgb Hct MCV MCH MCHC RDW Plt Count MPV Immature Gran % Seg Neutrophils % Band Neutrophils % Lymphocytes % Monocytes % Eosinophils % Basophils % Metamyelocytes % Neutrophils # Lymphocytes # Monocytes # Eosinophils # Basophils # Nucleated RBCs/100 WBC Toxic Granulation Toxic Vacuolation Platelet Estimate Large Platelets Immature Plt Fraction PT INR APTT Fibrinogen D-Dimer ABG pH ABG pCO2 ABG pO2 ABG HCO3 ABG Total CO2 ABG O2 Saturation ABG Base Excess Blood Gas Modality Inspired O2 Sodium Potassium Chloride Carbon Dioxide BUN Creatinine Est GFR ( Amer) Est GFR (Non-Af Amer) BUN/Creatinine Ratio Glucose POC Glucose 93 H 121 H 153 H Calculated Osmolality Lactic Acid Calcium Ionized Calcium Phosphorus Magnesium Total Bilirubin AST ALT Alkaline Phosphatase Lactate Dehydrogenase Troponin I Serum Total Protein Albumin Globulin Albumin/Globulin Ratio Vancomycin Trough Hepatitis A IgM Ab Hep Bs Antigen Hep B Core IgM Ab Hepatitis C Ab Screen 08/24/16 08/24/16 08/24/16 03:31 13:15 13:15 WBC 14.6 H D RBC 3.51 L Hgb 11.1 L Hct 34.6 L MCV 98.6 MCH 31.6 MCHC 32.1 RDW 14.3 Plt Count 45 L MPV 11.8 Immature Gran % Test Not Performed Seg Neutrophils % 66.0 Band Neutrophils % 28.0 H Lymphocytes % 2.0 Monocytes % Test Not Performed Eosinophils % Test Not Performed Basophils % Test Not Performed Metamyelocytes % 4.0 H Neutrophils # 13.7 H Lymphocytes # 0.3 L Monocytes # Test Not Performed Eosinophils # Test Not Performed Basophils # Test Not Performed Nucleated RBCs/100 WBC Toxic Granulation Toxic Vacuolation Platelet Estimate Decreased L Large Platelets Immature Plt Fraction 11.4 H PT INR APTT Fibrinogen D-Dimer ABG pH ABG pCO2 ABG pO2 ABG HCO3 ABG Total CO2 ABG O2 Saturation ABG Base Excess Blood Gas Modality Inspired O2 Sodium Potassium Chloride Carbon Dioxide BUN Creatinine Est GFR ( Amer) Est GFR (Non-Af Amer) BUN/Creatinine Ratio Glucose POC Glucose Calculated Osmolality Lactic Acid Calcium Ionized Calcium Phosphorus Magnesium Total Bilirubin AST ALT Alkaline Phosphatase Lactate Dehydrogenase Cancelled Troponin I 1.12 H* Serum Total Protein Albumin Globulin Albumin/Globulin Ratio Vancomycin Trough Hepatitis A IgM Ab Hep Bs Antigen Hep B Core IgM Ab Hepatitis C Ab Screen 08/24/16 08/24/16 08/24/16 13:15 13:20 15:03 WBC RBC Hgb Hct MCV MCH MCHC RDW Plt Count MPV Immature Gran % Seg Neutrophils % Band Neutrophils % Lymphocytes % Monocytes % Eosinophils % Basophils % Metamyelocytes % Neutrophils # Lymphocytes # Monocytes # Eosinophils # Basophils # Nucleated RBCs/100 WBC Toxic Granulation Toxic Vacuolation Platelet Estimate Large Platelets Immature Plt Fraction PT INR APTT Fibrinogen D-Dimer ABG pH 7.21 L ABG pCO2 33 L ABG pO2 91 ABG HCO3 13.2 L ABG Total CO2 14.2 L ABG O2 Saturation 95 ABG Base Excess -13.6 L Blood Gas Modality VENT Inspired O2 100 Sodium 137 Potassium 5.1 H D Chloride 111 H Carbon Dioxide 13 L BUN 26 H Creatinine 2.32 H Est GFR ( Amer) 24 L Est GFR (Non-Af Amer) 20 L BUN/Creatinine Ratio 11 Glucose 234 H POC Glucose Calculated Osmolality 296 Lactic Acid 7.0 H* Calcium 7.5 L Ionized Calcium Phosphorus Magnesium 2.4 Total Bilirubin 1.1 AST 293 H ALT 159 H Alkaline Phosphatase 119 Lactate Dehydrogenase Troponin I Serum Total Protein 5.8 L Albumin 2.5 L Globulin 3.3 Albumin/Globulin Ratio 0.8 L Vancomycin Trough Hepatitis A IgM Ab Hep Bs Antigen Hep B Core IgM Ab Hepatitis C Ab Screen 08/24/16 08/24/16 08/24/16 16:20 17:04 18:45 WBC RBC Hgb Hct MCV MCH MCHC RDW Plt Count MPV Immature Gran % Seg Neutrophils % Band Neutrophils % Lymphocytes % Monocytes % Eosinophils % Basophils % Metamyelocytes % Neutrophils # Lymphocytes # Monocytes # Eosinophils # Basophils # Nucleated RBCs/100 WBC Toxic Granulation Toxic Vacuolation Platelet Estimate Large Platelets Immature Plt Fraction PT INR APTT Fibrinogen D-Dimer ABG pH ABG pCO2 ABG pO2 ABG HCO3 ABG Total CO2 ABG O2 Saturation ABG Base Excess Blood Gas Modality Inspired O2 Sodium Potassium Chloride Carbon Dioxide BUN Creatinine Est GFR ( Amer) Est GFR (Non-Af Amer) BUN/Creatinine Ratio Glucose POC Glucose 263 H Calculated Osmolality Lactic Acid Calcium Ionized Calcium Phosphorus Magnesium Total Bilirubin AST ALT Alkaline Phosphatase Lactate Dehydrogenase Troponin I Serum Total Protein Albumin Globulin Albumin/Globulin Ratio Vancomycin Trough 11.0 Hepatitis A IgM Ab Nonreactive Hep Bs Antigen Nonreactive Hep B Core IgM Ab Nonreactive Hepatitis C Ab Screen Nonreactive 08/24/16 08/24/16 08/24/16 18:45 21:40 21:40 WBC RBC Hgb Hct MCV MCH MCHC RDW Plt Count MPV Immature Gran % Seg Neutrophils % Band Neutrophils % Lymphocytes % Monocytes % Eosinophils % Basophils % Metamyelocytes % Neutrophils # Lymphocytes # Monocytes # Eosinophils # Basophils # Nucleated RBCs/100 WBC Toxic Granulation Toxic Vacuolation Platelet Estimate Large Platelets Immature Plt Fraction PT INR APTT Fibrinogen D-Dimer ABG pH ABG pCO2 ABG pO2 ABG HCO3 ABG Total CO2 ABG O2 Saturation ABG Base Excess Blood Gas Modality Inspired O2 Sodium 136 Potassium 4.4 Chloride 109 Carbon Dioxide 12 L BUN 32 H Creatinine 2.53 H Est GFR ( Amer) 22 L Est GFR (Non-Af Amer) 18 L BUN/Creatinine Ratio 13 Glucose 196 H POC Glucose Calculated Osmolality 294 Lactic Acid 5.5 H* Calcium 6.9 L Ionized Calcium Phosphorus Magnesium Total Bilirubin AST ALT Alkaline Phosphatase Lactate Dehydrogenase 2692 H Troponin I Serum Total Protein Albumin Globulin Albumin/Globulin Ratio Vancomycin Trough Hepatitis A IgM Ab Hep Bs Antigen Hep B Core IgM Ab Hepatitis C Ab Screen 08/24/16 08/25/16 08/25/16 23:03 03:30 03:30 WBC 10.0 RBC 3.14 L Hgb 10.0 L Hct 30.0 L MCV 95.5 MCH 31.8 MCHC 33.3 RDW 14.3 Plt Count 30 L* MPV 14.1 H Immature Gran % Seg Neutrophils % 86.0 Band Neutrophils % 14.0 H Lymphocytes % Monocytes % Eosinophils % Basophils % Metamyelocytes % Neutrophils # 10.0 H Lymphocytes # Monocytes # Eosinophils # Basophils # Nucleated RBCs/100 WBC 0.2 H Toxic Granulation Present A Toxic Vacuolation Present A Platelet Estimate Decreased L Large Platelets Present A Immature Plt Fraction 18.0 H PT INR APTT Fibrinogen D-Dimer ABG pH ABG pCO2 ABG pO2 ABG HCO3 ABG Total CO2 ABG O2 Saturation ABG Base Excess Blood Gas Modality Inspired O2 Sodium 136 Potassium 4.4 Chloride 107 Carbon Dioxide 15 L BUN 37 H Creatinine 2.80 H Est GFR ( Amer) 20 L Est GFR (Non-Af Amer) 16 L BUN/Creatinine Ratio 13 Glucose 166 H POC Glucose 206 H Calculated Osmolality 294 Lactic Acid Calcium 6.7 L Ionized Calcium 0.91 L Phosphorus 4.0 Magnesium 1.6 Total Bilirubin AST ALT Alkaline Phosphatase Lactate Dehydrogenase Troponin I Serum Total Protein Albumin Globulin Albumin/Globulin Ratio Vancomycin Trough Hepatitis A IgM Ab Hep Bs Antigen Hep B Core IgM Ab Hepatitis C Ab Screen 08/25/16 08/25/16 08/25/16 03:30 04:00 06:06 WBC RBC Hgb Hct MCV MCH MCHC RDW Plt Count MPV Immature Gran % Seg Neutrophils % Band Neutrophils % Lymphocytes % Monocytes % Eosinophils % Basophils % Metamyelocytes % Neutrophils # Lymphocytes # Monocytes # Eosinophils # Basophils # Nucleated RBCs/100 WBC Toxic Granulation Toxic Vacuolation Platelet Estimate Large Platelets Immature Plt Fraction PT INR APTT Fibrinogen D-Dimer ABG pH 7.32 ABG pCO2 33 L ABG pO2 164 H ABG HCO3 17.0 L ABG Total CO2 18.0 L ABG O2 Saturation 99 H ABG Base Excess -8.2 L Blood Gas Modality VCT Inspired O2 90 Sodium Potassium Chloride Carbon Dioxide BUN Creatinine Est GFR ( Amer) Est GFR (Non-Af Amer) BUN/Creatinine Ratio Glucose POC Glucose 146 H Calculated Osmolality Lactic Acid 4.6 H* Calcium Ionized Calcium Phosphorus Magnesium Total Bilirubin AST ALT Alkaline Phosphatase Lactate Dehydrogenase Troponin I Serum Total Protein Albumin Globulin Albumin/Globulin Ratio Vancomycin Trough Hepatitis A IgM Ab Hep Bs Antigen Hep B Core IgM Ab Hepatitis C Ab Screen 08/25/16 08/25/16 08/25/16 06:30 10:59 11:00 WBC RBC Hgb Hct MCV MCH MCHC RDW Plt Count MPV Immature Gran % Seg Neutrophils % Band Neutrophils % Lymphocytes % Monocytes % Eosinophils % Basophils % Metamyelocytes % Neutrophils # Lymphocytes # Monocytes # Eosinophils # Basophils # Nucleated RBCs/100 WBC Toxic Granulation Toxic Vacuolation Platelet Estimate Large Platelets Immature Plt Fraction PT 13.3 H INR 1.2 APTT 35.6 Fibrinogen 494 H D-Dimer 66659 H ABG pH ABG pCO2 ABG pO2 ABG HCO3 ABG Total CO2 ABG O2 Saturation ABG Base Excess Blood Gas Modality Inspired O2 Sodium Potassium Chloride Carbon Dioxide BUN Creatinine Est GFR ( Amer) Est GFR (Non-Af Amer) BUN/Creatinine Ratio Glucose POC Glucose 125 H Calculated Osmolality Lactic Acid Calcium Ionized Calcium Phosphorus Magnesium Total Bilirubin AST ALT Alkaline Phosphatase Lactate Dehydrogenase Troponin I Serum Total Protein Albumin Globulin Albumin/Globulin Ratio Vancomycin Trough 33.5 H* Hepatitis A IgM Ab Hep Bs Antigen Hep B Core IgM Ab Hepatitis C Ab Screen 08/25/16 11:00 WBC RBC Hgb Hct MCV MCH MCHC RDW Plt Count MPV Immature Gran % Seg Neutrophils % Band Neutrophils % Lymphocytes % Monocytes % Eosinophils % Basophils % Metamyelocytes % Neutrophils # Lymphocytes # Monocytes # Eosinophils # Basophils # Nucleated RBCs/100 WBC Toxic Granulation Toxic Vacuolation Platelet Estimate Large Platelets Immature Plt Fraction PT INR APTT Fibrinogen D-Dimer ABG pH ABG pCO2 ABG pO2 ABG HCO3 ABG Total CO2 ABG O2 Saturation ABG Base Excess Blood Gas Modality Inspired O2 Sodium Potassium Chloride Carbon Dioxide BUN Creatinine Est GFR ( Amer) Est GFR (Non-Af Amer) BUN/Creatinine Ratio Glucose POC Glucose Calculated Osmolality Lactic Acid 3.8 H Calcium Ionized Calcium Phosphorus Magnesium Total Bilirubin AST ALT Alkaline Phosphatase Lactate Dehydrogenase Troponin I Serum Total Protein Albumin Globulin Albumin/Globulin Ratio Vancomycin Trough Hepatitis A IgM Ab Hep Bs Antigen Hep B Core IgM Ab Hepatitis C Ab Screen Cultures: Cultures 08/24/16 23:55 Legionella Antigen - Final Urine,Catheterized Streptococcus pneumoniae Antigen (M - Final 08/23/16 00:45 Blood Fungal Culture - Preliminary Peripheral Venipuncture No growth. 08/23/16 00:53 Blood Culture - Preliminary Peripheral Venipuncture No growth. 08/23/16 00:53 Blood Culture - Preliminary Peripheral Venipuncture No growth. 08/22/16 18:54 Blood Culture - Preliminary Peripheral Venipuncture No growth. 08/21/16 20:12 Urine Culture - Final Urine,Velarde Port No growth. Serology 08/24/16 Range/Units 16:20 Hepatitis A IgM Ab Nonreactive (Nonreactive) Hep Bs Antigen Nonreactive (Nonreactive) Hep B Core IgM Ab Nonreactive (Nonreactive) Hepatitis C Ab Screen Nonreactive (Nonreactive) - Impressions Impressions Chest X-Ray 08/24/16 09:38 IMPRESSION: Endotracheal tube present with tip 3 cm from the debi. Enteric tube present, somewhat retracted from prior exam with tip in the body of the stomach and side-port likely in the cardia of the stomach. Otherwise stable exam. D/ / 08/24/2016 10:19:51 Aravind Pollock MD / Bharati Ye Interpreting Provider: Aravind Pollock MD Chest X-Ray 08/25/16 05:00 IMPRESSION: Grossly stable bilateral airspace disease. D/ / Brad Montalvo MD / Brad Montalvo MD Interpreting Provider: Brad Montalvo MD Abdomen CT 08/25/16 11:00 IMPRESSION: 1. Study is slightly limited due to lack of IV contrast and motion artifact. 2. Patchy bilateral upper lobe ground-glass opacities and large bilateral lower lobe consolidation, worse in the left. Additional small bilateral pleural effusions. Findings are suspicious for multifocal pneumonia in the appropriate clinical setting. Other possibilities include pulmonary edema. 3. No acute findings within the abdomen or pelvis. 4. Third-spacing of fluid/anasarca with diffuse body wall edema and mild diffuse mesenteric stranding/trace perihepatic fluid. D/ / 08/25/2016 07:30:35 Rodrigo Silva MD / [email or web address] Interpreting Provider: Rodrigo Silva MD Chest CT 08/25/16 11:00 IMPRESSION: 1. Study is slightly limited due to lack of IV contrast and motion artifact. 2. Patchy bilateral upper lobe ground-glass opacities and large bilateral lower lobe consolidation, worse in the left. Additional small bilateral pleural effusions. Findings are suspicious for multifocal pneumonia in the appropriate clinical setting. Other possibilities include pulmonary edema. 3. No acute findings within the abdomen or pelvis. 4. Third-spacing of fluid/anasarca with diffuse body wall edema and mild diffuse mesenteric stranding/trace perihepatic fluid. D/ / 08/25/2016 07:30:35 Rodrigo Silva MD / bcarter Interpreting Provider: Rodrigo Silva MD Head CT 08/25/16 11:00 IMPRESSION: Limited by motion artifact. Otherwise no acute intracranial findings. Nonspecific left mastoid effusion. D/ / 08/25/2016 07:25:21 Rodrigo Silva MD / [email or web address] Interpreting Provider: Rodrigo Silva MD Exam - Constitutional Vitals: Temp Pulse Resp BP Pulse Ox 100.1 F H 98 22 122/46 94 08/25/16 11:15 08/25/16 11:00 08/25/16 11:27 08/25/16 11:00 08/25/16 11:27 General appearance: average body habitus, no acute distress, no febrile - Head Head exam: Present: atraumatic, normal inspection, normocephalic - Eye Eye exam: Present: normal appearance, PERRL Pupils: Present: normal accommodation - ENT ENT exam: Present: mucous membranes dry - Neck Neck exam: Present: normal inspection Additional comments: Triple lumen CVC noted to the right neck transparent dressing clean, dry, and intact. No erythema, warmth, or drainage noted at the insertion site. - Respiratory Respiratory exam: Present: CTAB. Absent: rales, respiratory distress, rhonchi, wheezes Additional comments: O2 via the ventilator. - Cardiovascular Cardiovascular exam: Present: RRR, +S1, +S2 - GI/Abdominal GI/Abdominal exam: Present: hypoactive bowel sounds, soft. Absent: distended, tenderness Additional comments: Velarde catheter draining dark yellow urine. NG tube draining bile colored gastric contents. - Extremities Exam Extremities exam: Absent: joint swelling, pedal edema, tenderness Additional comments: Cool to the touch with mottling noted to the hands and feet. A-line noted to the right wrist with transparent dressing C/D/I. - Neurological Exam Neurological exam: Present: altered (Sedated. Unresponsive to verbal or painful stimuli.) - Skin Skin exam: Present: dry, intact, mottled, pallor. Absent: warm - VTE Documentation of Mechanical Device: Intermittent pneumatic compression device Consult Discharge Plan - Plan Referrals: Per Barros MD [Primary Care Provider] - (web request sent on 08/23/16) - Attending Attestation I examined this patient and my medical decision-making was reviewed with the SENIOR C DEVELOPER/PA/Advanced Practice Nurse/Resident Physician. I agree with the documented findings, disposition and treatment plan as described except to the extent set forth below. patient seen and examined. Down to one pressor, on Vent support PEEP 6 and FIO2 60%. Family at bedside continue current antibiotics await hematology recommendations likely all of this is due to septic shock from pneumonia?
[2016-08-25] MEDS: Phenylephrine 50 MG in D5% in Water 250 ML IVC SCH (12:19)
--- NOTE | 2016-08-25 13:23 | Nephrology Consult Note ---
Date of Encounter: 08/25/16 Time of Encounter: 12:00 Assessment and Plan (1) Acute kidney injury Current Visit: Yes Status: Resolved Elevated SCr in the setting of Septic shock, vanco with associated metabolic acidosis Need to establish goals of care as this critically sick patient would most likely reqire renal replacement therapy within the next 24hrs if aggressive measure wanted by family. discussed with nurse who will discuss with family Will continue bicarb gtt as ordered by primary team but bolus with albumin as well for volume resuscitation Will check urine sodium, creatinine, eosinophils will check cpk, uric acid levels Will hold vanco and monitor levels for now prognosis very guarded critical time spent 35mins (2) Respiratory failure Current Visit: Yes Status: Acute Vent management per primary team Qualifiers: Chronicity: acute Respiratory failure complication: hypoxia Qualified Code(s): J96.01 - Acute respiratory failure with hypoxia (3) Septic shock Current Visit: Yes Status: Acute Antibiotics per infectious disease, renally dosed (4) Metabolic acidosis Current Visit: Yes Status: Acute continue bicarb gtt for now History of Present Illness - Reason for Consult Consult date: 08/25/16 Acute Kidney Injury, Chronic Kidney Disease Requesting physician: Aravind Gonsales - History of Present Illness 81 y o female with PMH of DM, HTN and stage [address] Gaspar admitted 08/21/16 for presumed sepsis from urinary source. she developed acute respiratory failure overnight 08/23/16 with shock also noted and at one point needed up to 3 different pressors. Bp readings down to 70/40s yesterday. renal consulted as her renal status drastically worsened in the last 48hrs. SCr noted at 1.21, GFR 43 on 08/23/16 but worse at 2.53, GFR 18 by the end of yesterday and now 2.8, GFR 16 this am. UOP also drastically reduced from 2475cc yesterday to 50cc so far overnight. Of note, pt has been receiving vanco for emprirc coverage with level elevated at 33.5. Platelets also noted declining with heme/ onc not currently concerned for DIC. Past Med Surg Social Fam HX - Past Medical History Medical history: arthritis, diabetes, GERD, hyperlipidemia, hypertension, osteoporosis, RA, renal disease, other (UTIs) Psychiatric history: no psych history - Past Surgical History Surgical History: cholecystectomy, other (bladder stimulator ) - Social History Smoking Status: Never smoker Smokeless Tobacco Status: No Alcohol use: none Drug use: none - Family History Mother Race: Family Member Ethnicity: Non- Living Status: Age at : 94 Cause of : Old age Hx Family Endocrine Disorder: Yes (DM) Father Race: Family Member Ethnicity: Non- Living Status: Age at : 79 Cause of : Cancer Hx Family Cancer: Yes Brother Race: Family Member Ethnicity: Non- Living Status: Age at : 65 Cause of : [place] Hx Family Cardiac Disorders: Yes ([place], HD) Sister Race: Family Member Ethnicity: Non- Living Status: Still Living Hx Family Neurologic Disorders: Yes (Alzheimer's Disease) Medications and Allergies Alendronate Sodium 70 mg PO QWEEK 05/28/15 [History] Atorvastatin [Lipitor] 10 mg PO HS 05/28/15 [History] Calcium Carbonate/Vitamin D2 [Oyster Shell Calcium-Vit D Tab] 1 tab PO BID 05/27 [History] Cyanocobalamin (Vitamin B-12) [Vitamin B12] 1,000 mcg PO DAILY 05/28/15 [History ] Dicyclomine 20 mg PO ACHS 05/28/15 [History] Donepezil [Aricept] 10 mg PO HS 05/28/15 [History] Ferrous Sulfate [Iron] 325 mg PO DAILY 05/28/15 [History] Mirabegron [Myrbetriq] 50 mg PO DAILY 05/28/15 [History] Omeprazole [PriLOSEC] 40 mg PO DAILY 05/28/15 [History] Ranitidine HCl [Zantac] 150 mg PO BID 05/28/15 [History] Trospium Chloride 20 mg PO QAM 05/28/15 [History] Vitamin E 1,000 unit PO DAILY 05/28/15 [History] Phenazopyridine HCl [Pyridium] 200 mg PO TIDAC #30 tab 08/19/16 [Rx] Ondansetron HCl [Zofran] 4 mg PO TID PRN 08/21/16 [History] Sulfamethoxazole/Trimeth DS [Bactrim DS] 1 tab PO BID 08/21/16 [History] Allergies celecoxib [From Celebrex] Allergy (Verified 08/21/16 11:22) Muscle Pain esomeprazole Adverse Reaction (Verified 08/21/16 12:58) See Comments unknown reaction Review of Systems ROS unobtainable: due to endotracheal tube Exam - Vital Signs Vital signs: Initial Vital Signs Temp Pulse Resp BP Pulse Ox 100.8 F H 123 20 103/55 94 08/21/16 10:23 08/21/16 10:23 08/21/16 10:23 08/21/16 10:23 08/21/16 10:23 Vital Signs - Last 8 Hours Temp Pulse Resp BP Pulse Ox 08/25/16 13:00 101 21 116/47 92 08/25/16 12:17 98 08/25/16 12:00 100 20 114/44 94 08/25/16 11:27 22 94 08/25/16 11:15 100.1 F H 08/25/16 11:00 98 21 122/46 94 08/25/16 10:00 97 20 127/47 95 08/25/16 09:00 93 19 120/43 96 08/25/16 08:14 87 08/25/16 08:12 20 98 08/25/16 08:00 87 18 106/38 94 08/25/16 07:37 98.7 F 08/25/16 07:00 87 21 110/51 100 08/25/16 06:29 19 100 08/25/16 06:00 88 19 106/50 100 Intake and Output 08/24/16 08/25/16 08/25/16 23:59 07:59 15:59 Intake Total 896 / 896 1428 / 1428 591 / 591 Output Total 50 / 50 200 / 200 Balance 846 / 846 1228 / 1228 591 / 591 Intake: IV Fluids 896 / 896 1428 / 1428 591 / 591 Amiodarone Drip Premix 200 / 200 100 / 100 360mg/200mL 360 mg In 200 ml @ 0.5 MG/MIN 16.667 mls/hr IVC [facility] Rx#: [id number] PRECEDEX 400 mcg In 100 82 / 82 100 / 100 ml @ 0.2 MCG/KG/HR 3.325 mls/hr IVC .Q24H [facility] Rx#: [id number] FentaNYL (PF) 1,000 MCG 100 / 100 In 0.9 % Sodium Chloride 80 ML @ 50 MCG/HR 5 mls/ hr IVC CONT [facility] Rx#: [id number] Levophed 8 MG In Dextrose 258 / 258 276 / 276 5% 250 ML @ 8 MCG/MIN 15 .48 mls/hr IVC CONT [facility] Rx#:[id number] Phenylephrine 50 MG In 28 / 28 Dextrose 5% 250 ML @ 100 MCG/MIN 30.6 mls/hr IVC CONT [facility] Rx#:[id number] Sodium Bicarbonate 77 MEQ 1077 / 1077 In 0.45% Sodium Chloride 1000 Ml 1000 Ml 1,000 ML @ 100 mls/hr IVC . [id number] [facility] Rx#: [id number] Vasostrict 20 UNIT In 0.9 51 / 51 51 / 51 1 / 1 % Sodium Chloride 50 ML @ 0.03 UNITS/MIN 4.59 mls /hr IVC .[id number] [facility] Rx#: [id number] Calcium Gluconate 1,000 110 / 110 MG In Dextrose 5% 100 ML @ 50 mls/hr IVPB Q6HR PRN Rx#:[id number] Levaquin Premix 750mg/150 150 / 150 mL 750 mg In 150 ml @ 100 mls/hr IVPB ONCE ONE Rx#:[id number] Magnesium Sulfate 2 GM In 104 / 104 Dextrose 5% 100 ML @ 50 mls/hr IVPB Q6H PRN Rx#: [id number] Merrem 1,000 MG In 0.9 % 100 / 100 100 / 100 Sodium Chloride (Mini-Bag +) 100 ML @ 200 mls/hr IVPB Q12H [facility] Rx#: [id number] Oral 0 / 0 0 / 0 0 / 0 Output: Catheter 50 / 50 50 / 50 Gastric Drainage 150 / 150 Other: Blood Glucose* 206 125 - General Appearance General appearance: sedated on ventilator, intubated EENT: ATNC Neck: supple Additional Comments: good areation, ant, mech Cardiology: no edema, normal S2 Gastrointestinal: no tenderness, no guarding Integumentary: warm and dry Additional Comments: sedated Musculoskeletal: no deformities Additional Comments: sedated Results - Lab Results 08/25/16 15:10 08/25/16 15:10 Most recent lab results ABG pH 7.32 pH Units (7.32-7.45) 08/25/16 04:00 ABG pCO2 33 mmHg (35-45) L 08/25/16 04:00 ABG pO2 164 mmHg (85-104) H 08/25/16 04:00 ABG HCO3 17.0 mEQ/L (21-27) L 08/25/16 04:00 ABG O2 Saturation 99 % (95-98) H 08/25/16 04:00 Calcium 6.7 mg/dL (8.6-10.8) L 08/25/16 03:30 Phosphorus 4.0 mg/dL (2.3-4.7) 08/25/16 03:30 Magnesium 1.6 mg/dL (1.6-2.6) 08/25/16 03:30 Consult Discharge Plan - Plan Referrals: Per Barros MD [Primary Care Provider] - (web request sent on 08/23/16)
--- NOTE | 2016-08-25 13:48 | Venous Imaging Report ---
LE Venous Duplex Patient Name:Kathy Dowling Order Number:[id number] Procedure Date:08/24/2016 Date:1935ge:81 yrs Gender:Female Height: cm / inWeight:66.21 kg / 145.98 lb Location:[facility] Room #: IC09 Liability Claims Manager:Michelle Chavarria RDCS, [place] Referring MD:Karlos Richmond DO administrative support assoc:Per Barros M.D. Reading MD:Jamie Jama MD Primary Indications:Shortness of Breath Secondary Indications: Risk Factors Yes/No Hx of DVT No Hx of Chemotherapy No Trauma to Veins No Recent Surgery No Anticoagulants No Impressions: Bilateral lower extremity: normal superficial and deep exam. Recommendations: After imaging the patient returned to their room. Test completed on 08/24/2016 at 8:44:49 am. Critical findings reported to David COLES in person at 8:44:55 am on 08/24/2016 by Michelle Chavarria RDCS, [place]ET. Findings Prior Study: No prior study available for comparison. Lower Extremity Venous Duplex Side Vein Compress Spontaneous Flow Augment Diameter (cm) Depth (cm) Right Distal Iliac Normal Yes Phasic Yes Right Common Femoral Normal Yes Phasic Yes Right Superficial Femoral Normal Yes Phasic Yes Right Popliteal Normal Yes Phasic Yes Right Posterior Tibial Normal Yes Phasic Yes Right Peroneal Normal Yes Phasic Yes Right Great Saphenous Normal Yes Phasic Yes Right Lesser Saphenous Normal Yes Phasic Yes Left Distal Iliac Normal Yes Phasic Yes Left Common Femoral Normal Yes Phasic Yes Left Superficial Femoral Normal Yes Phasic Yes Left Popliteal Normal Yes Phasic Yes Left Posterior Tibial Normal Yes Phasic Yes Left Peroneal Normal Yes Phasic Yes Left Great Saphenous Normal Yes Phasic Yes Left Lesser Saphenous Normal Yes Phasic Yes Updated by Jamie Jama MD on 08/25/2016 1:44:23 PM electronically signed on 08/25/2016 1:44:39 PM with status of Final
[2016-08-25] MEDS: Albumin 25% 25gram/100mL 25 GM/100 ML IV.SOLN IVC SCH ×4 (14:27→17:34)
[2016-08-25 14:44] LABS: Bilirubin,Urine Moderate (Negative); Blood,Urine Large (Negative); Clarity,Urine Turbid (Clear); Color,Urine Red (Yellow); Glucose,Urine (UA) 100 mg/dL (Normal); Ketones,Urine 15 mg/dL (Negative); Leukocyte Esterase,Urine Moderate (Negative); Nitrite,Urine Positive (Negative); Protein,Urine 100 mg/dL (Neg-Trace)
[2016-08-25 15:08] LABS: Amorphous Sediment,Urine Moderate (Few)
[2016-08-25 15:09] LABS: Bacteria,Urine Moderate per hpf (None-Few); Squamous Epithelial Cell,Urine Few per lpf (None-Few); WBC,Urine 0-3 per hpf (0-3)
[2016-08-25 15:10] LABS: Granular Casts,Urine Few per lpf (None Seen)
--- NOTE | 2016-08-25 15:21 | Oncology Inp Consult Note ---
<Willie Barbosa Jr - Last Filed: 08/25/16 16:02> Date of Encounter: 08/25/16 Time of Encounter: 15:17 Assessment and Plan (1) Thrombocytopenia Status: Acute Assessment and plan: This is an 81 year old female admitted for septic shock from unknown source, suspected from lungs. On admission, platelets slightly decreased at 129, but reviewing her history prior to infection, platelets normal in the 200s back to 2013. Today, platelets at 30,000. Most likely, decreased platelets due to infection and use of vancomycin. We do not suspect DIC as fibrinogen is 494. Also, Hgb on admission was 10/9, currently at 10.0 due to septic shock and infection. Patient with no history of anemia as seen by labs dating back to 2013. Hematology recommendations: 1. Transfuse as needed if platelets are 10,000 or less, or signs of bleeding. 2. Hgb goal is 8.0 or greater, transfuse as needed. We will continue to follow along. Dr Fisher division engineer and agrees with above plan. - Data of Consult Patient: new to practice Consult date: 08/25/16 Requesting Physician: Aditi Baltazar MD Primary Care Provider: Per Barros MD - Consult Narrative Reason for consult: Thrombocytopenia History of present illness: Ms. Dowling is a 81 year old female admitted to ICU for septic shock. Upon admission, urine was the suspected source, but this was clean. CT Chest shows pulmonary edema versus multifocal Pneumonia. Patient was hemodynamically unstable on pressor today with normal white count. Patient has been on vancomycin and merrem. Kidney functions decreased, vancomycin discontinued, and patient placed on levaquin. Hematology consulted due to decreasing platelets and Hgb. Upon admission, Hgb was 10.9 and on 08/25/16 to 10.0. Platelets 129 on admission , and on 08/25/16 it decreased to 30,000. Prior to admission in EMR, normal platelets and Hgb date back to 2013. Past Med Surg Social Fam HX - Past Medical History Medical history: arthritis, diabetes, GERD, hyperlipidemia, hypertension, osteoporosis, RA, renal disease, other (UTIs) Psychiatric history: no psych history - Past Surgical History Surgical History: cholecystectomy, other (bladder stimulator ) - Social History Smoking Status: Never smoker Smokeless Tobacco Status: No Alcohol use: none Drug use: none - Family History Mother Race: Family Member Ethnicity: Non- Living Status: Age at : 94 Cause of : Old age Hx Family Endocrine Disorder: Yes (DM) Father Race: Family Member Ethnicity: Non- Living Status: Age at : 79 Cause of : Cancer Hx Family Cancer: Yes Brother Race: Family Member Ethnicity: Non- Living Status: Age at : 65 Cause of : [place] Hx Family Cardiac Disorders: Yes ([place], HD) Sister Race: Family Member Ethnicity: Non- Living Status: Still Living Hx Family Neurologic Disorders: Yes (Alzheimer's Disease) Medications and Allergies Alendronate Sodium 70 mg PO QWEEK 05/28/15 [History] Atorvastatin [Lipitor] 10 mg PO HS 05/28/15 [History] Calcium Carbonate/Vitamin D2 [Oyster Shell Calcium-Vit D Tab] 1 tab PO BID 05/27 [History] Cyanocobalamin (Vitamin B-12) [Vitamin B12] 1,000 mcg PO DAILY 05/28/15 [History ] Dicyclomine 20 mg PO ACHS 05/28/15 [History] Donepezil [Aricept] 10 mg PO HS 05/28/15 [History] Ferrous Sulfate [Iron] 325 mg PO DAILY 05/28/15 [History] Mirabegron [Myrbetriq] 50 mg PO DAILY 05/28/15 [History] Omeprazole [PriLOSEC] 40 mg PO DAILY 05/28/15 [History] Ranitidine HCl [Zantac] 150 mg PO BID 05/28/15 [History] Trospium Chloride 20 mg PO QAM 05/28/15 [History] Vitamin E 1,000 unit PO DAILY 05/28/15 [History] Phenazopyridine HCl [Pyridium] 200 mg PO TIDAC #30 tab 08/19/16 [Rx] Ondansetron HCl [Zofran] 4 mg PO TID PRN 08/21/16 [History] Sulfamethoxazole/Trimeth DS [Bactrim DS] 1 tab PO BID 08/21/16 [History] Allergies celecoxib [From Celebrex] Allergy (Verified 08/21/16 11:22) Muscle Pain esomeprazole Adverse Reaction (Verified 08/21/16 12:58) See Comments unknown reaction ROS unobtainable: due to endotracheal tube Oncology - Exam - Constitutional Vitals: Temp Pulse Resp BP Pulse Ox 100.1 F H 106 27 127/48 92 08/25/16 11:15 08/25/16 15:00 08/25/16 15:00 08/25/16 15:00 08/25/16 15:00 General appearance: no acute distress - Head Head exam: Present: atraumatic, normal inspection - Eye Eye exam: Present: PERRL - ENT ENT exam: Present: mucous membranes moist - Respiratory Respiratory exam: Present: decreased breath sounds - Cardiovascular Cardiovascular exam: Present: tachycardia - GI/Abdominal GI/Abdominal exam: Present: hypoactive bowel sounds, soft - Extremities Exam Extremities exam: Present: pedal edema - Neurological Exam Additional comments: intubated - Skin Skin exam: Present: dry, intact Oncology - Results - Labs Labs: Short CBC 08/25/16 Range/Units 03:30 WBC 10.0 (4.3-11.1) K/mcL Hgb 10.0 L (11.5-15.4) g/dL Hct 30.0 L (35.3-44.9) % Plt Count 30 L* (140-400) K/mcL Neutrophils # 10.0 H (1.6-8.9) K/mcL BMP 08/24/16 08/25/16 21:40 03:30 Sodium 136 136 Potassium 4.4 4.4 Chloride 109 107 Carbon Dioxide 12 L 15 L BUN 32 H 37 H Creatinine 2.53 H 2.80 H Glucose 196 H 166 H Calcium 6.9 L 6.7 L Urine 08/25/16 Range/Units 14:30 Urine Color Red A (Yellow) Urine Clarity Turbid A (Clear) Urine pH 5.0 (5.0-8.0) pH Units Ur Specific [place] 1.030 H (1.010-1.025) Urine Protein 100 H (Neg-Trace) mg/dL Urine Glucose (UA) 100 H (Normal) mg/dL Consult Discharge Plan - Plan Referrals: Per Barros MD [Primary Care Provider] - (web request sent on 08/23/16) <Aicha Fisher S - Last Filed: 08/25/16 17:13> Date of Encounter: 08/25/16 - Data of Consult Requesting Physician: Aditi Baltazar MD Primary Care Provider: Per Barros MD - Consult Narrative History of present illness: Ms. Dowling is a 81 year old female Oncology - Exam - Constitutional Vitals: Temp Pulse Resp BP Pulse Ox 101.8 F H 106 25 142/46 92 08/25/16 16:00 08/25/16 16:12 08/25/16 16:00 08/25/16 16:00 08/25/16 16:00 Oncology - Results - Labs Labs: Short CBC 08/25/16 08/25/16 Range/Units 03:30 15:10 WBC 10.0 7.9 (4.3-11.1) K/mcL Hgb 10.0 L 8.9 L (11.5-15.4) g/dL Hct 30.0 L 27.1 L (35.3-44.9) % Plt Count 30 L* 25 L* (140-400) K/mcL Neutrophils # 10.0 H 7.1 (1.6-8.9) K/mcL BMP 08/24/16 08/25/16 08/25/16 21:40 03:30 15:10 Sodium 136 136 136 Potassium 4.4 4.4 4.0 Chloride 109 107 104 Carbon Dioxide 12 L 15 L 17 L BUN 32 H 37 H 46 H Creatinine 2.53 H 2.80 H 3.36 H Glucose 196 H 166 H 93 Calcium 6.9 L 6.7 L 6.7 L Liver Function 08/25/16 Range/Units 15:10 Total Bilirubin 0.9 (0.2-1.2) mg/dL AST 1641 H (5-34) Units/L ALT 768 H (0-55) Units/L Alkaline Phosphatase 107 (38-126) Units/L Albumin 2.7 L (3.5-5.0) g/dL Urine 08/25/16 Range/Units 14:30 Urine Color Red A (Yellow) Urine Clarity Turbid A (Clear) Urine pH 5.0 (5.0-8.0) pH Units Ur Specific [employer] [place] 1.030 H (1.010-1.025) Urine Protein 100 H (Neg-Trace) mg/dL Urine Glucose (UA) 100 H (Normal) mg/dL - Attending Attestation 1. Acute thrombocytopenia. Comment around 130,000 on admission on 08/21/2016 to about 29,000 now. This could be combination of sepsis and medications including vancomycin We will continue observation. Platelet transfusion for platelet counts below 20 ,000 especially if she has many tubes including intubation. Also platelet transfusion for platelet count below 50,000 and clinically significant bleeding I am are high at 37 on 08/25/2016. No evidence of DIC Recommend peripheral smear review by pathology 2. Sepsis on multiple antibiotics 3. Acute renal injury. Her creatinine on admission on 1.5 and currently around 3. Nephrology involved
[2016-08-25 15:33] LABS: Red Cell Distribution Width 14.1 % (11.5-14.5)
[2016-08-25 15:34] LABS: Hematocrit 27.1 % (35.3-44.9); Hemoglobin 8.9 g/dL (11.5-15.4); Immature Platelets 15.1 % (1.1-6.1); Mean Corpuscular HGB Conc 32.8 g/dL (31.6-35.5); Mean Corpuscular Hemoglobin 31.3 pg (28.0-33.3); Mean Corpuscular Volume 95.4 fL (83.0-100.0); Mean Platelet Volume 13.5 fL (9.4-12.4); Red Blood Count 2.84 M/mcL (3.82-4.97)
[2016-08-25 15:39] LABS: INR 1.2; Prothrombin Time 12.8 Seconds (9.4-12.1)
[2016-08-25 15:41] LABS: Activated Partial Thrombo Time 38.3 Seconds (26.0-36.0)
[2016-08-25 15:46] LABS: Albumin 2.7 g/dL (3.5-5.0); Bilirubin,Total 0.9 mg/dL (0.2-1.2); Calcium 6.7 mg/dL (8.6-10.8); Globulin 2.6 g/dL (2.4-3.5); Total Protein 5.3 g/dL (6.0-8.3)
[2016-08-25 15:48] LABS: Uric Acid 7.4 mg/dL (2.6-6.0)
[2016-08-25] MEDS: Amiodarone Premix 360 MG/200 ML BAG IVC SCH (16:34)
[2016-08-25 16:47] LABS: Platelet Count 25 K/mcL (140-400)
[2016-08-25 16:50] LABS: Platelet Estimate Marked Decrease (Normal)
[2016-08-25 16:52] LABS: Lymphocytes # 0.6 K/mcL (0.6-4.6); Monocytes # 0.2 K/mcL (0.0-1.3); Neutrophils # 7.1 K/mcL (1.6-8.9)
[2016-08-25 16:53] LABS: Reactive Lymphocytes Present (Not Present)
[2016-08-25 16:54] LABS: Toxic Granulation Present (Not Present); Toxic Vacuolation Present (Not Present)
[2016-08-25] MEDS ORDERED: *HR* Midazolam HCl 2 MG/2 ML VIAL IVP ONE (18:16)
[2016-08-25] MEDS: Acetaminophen 325 MG TABLET PO PRN (19:53)
[2016-08-26] MEDS: Ipratropium Neb 0.5 MG NEBULIZER IH SCH ×6 (00:11→20:39)
[2016-08-26] MEDS ORDERED: *HR* Midazolam HCl 2 MG/2 ML VIAL IVP ONE (00:28)
[2016-08-26] MEDS: Norepinephrine 8 MG in D5% in Water 250 ML IVC SCH ×3 (01:46→20:59)
[2016-08-26] MEDS: Acetaminophen 325 MG TABLET PO PRN (03:41)
[2016-08-26] MEDS: Lacri-Lube 3.5 GM TUBE BOTH EYES SCH ×6 (03:50→23:06)
[2016-08-26 04:13] LABS: Basophils % 0.1 %; Mean Platelet Volume 13.6 fL (9.4-12.4); Nucleated Red Blood Cells 0.3 /100 WBC (0)
[2016-08-26 04:15] LABS: Hematocrit 24.3 % (35.3-44.9); Hemoglobin 8.2 g/dL (11.5-15.4); Immature Granulocytes % 2.8 % (0-4); Immature Platelets 16.6 % (1.1-6.1); Lymphocytes # 0.4 K/mcL (0.6-4.6); Lymphocytes % 3.5 %; Mean Corpuscular HGB Conc 33.7 g/dL (31.6-35.5); Mean Corpuscular Hemoglobin 32.2 pg (28.0-33.3); Mean Corpuscular Volume 95.3 fL (83.0-100.0); Monocytes # 0.3 K/mcL (0.0-1.3); Monocytes % 2.9 %; Neutrophils # 9.2 K/mcL (1.6-8.9); Red Blood Count 2.55 M/mcL (3.82-4.97); Red Cell Distribution Width 14.6 % (11.5-14.5); Segmented Neutrophils % 90.7 %
[2016-08-26 04:24] LABS: Platelet Count 19 K/mcL (140-400)
[2016-08-26 04:28] LABS: Albumin 3.1 g/dL (3.5-5.0); Albumin/Globulin Ratio 1.5 (1.1-2.2); Bilirubin,Total 1.6 mg/dL (0.2-1.2); Calcium 6.8 mg/dL (8.6-10.8); Globulin 2.1 g/dL (2.4-3.5); Magnesium 2.9 mg/dL (1.6-2.6); Phosphorous 3.6 mg/dL (2.3-4.7); Potassium 4.6 mEq/L (3.5-4.5); Total Protein 5.2 g/dL (6.0-8.3)
[2016-08-26 04:29] LABS: INR 1.2; Prothrombin Time 13.3 Seconds (9.4-12.1)
[2016-08-26 04:44] LABS: Platelet Estimate Decreased (Normal)
[2016-08-26 04:45] LABS: Toxic Vacuolation Present (Not Present)
[2016-08-26 04:51] LABS: ABG HCO3 13.9 mEQ/L (21-27); ABG Oxygen Saturation 95 % (95-98); ABG PCO2 27 mmHg (35-45); ABG PH 7.32 pH Units (7.32-7.45); ABG PO2 81 mmHg (85-104); ABG TCO2 14.7 mEq/L (20-26)
[2016-08-26 04:52] LABS: Blood Gas FiO2 60 %
[2016-08-26] MEDS: Calcium Gluconate 1,000 MG in D5% in Water 100 ML IVPB PRN (05:39)
[2016-08-26] MEDS: Dexmedetomidine HCl 400 MCG/100 ML MLS IVC SCH ×3 (06:13→16:10)
[2016-08-26] MEDS: FentaNYL (PF) 1,000 MCG in 0.9 % Sodium Chloride 80 ML IVC SCH ×2 (06:14→15:55)
[2016-08-26] MEDS: Insulin LISPRO 300 UNITS/3 ML VIAL SQ SCH ×4 (06:38→23:09)
[2016-08-26] MEDS ORDERED: 0.9 % Sodium Chloride 250 ML ONE ×2 (07:16→18:30)
[2016-08-26] MEDS: Pantoprazole 40 MG VIAL IVP SCH (07:38)
[2016-08-26] MEDS: Meropenem 1,000 MG in 0.9 % Sodium Chloride Mini Bag 100 ML IVPB SCH (07:38)
[2016-08-26] MEDS: Hydrocortisone Sodium Succ 100 MG/2 ML VIAL IVP SCH ×3 (07:38→23:12)
[2016-08-26] MEDS: Chlorhexidine Rinse 15 ML MOUTHWASH MM SCH ×2 (07:38→20:59)
--- NOTE | 2016-08-26 07:38 | Pulmonology Progress Note ---
<Aravind Gonsales - Last Filed: 08/26/16 13:41> Date of Encounter: 08/26/16 Time of Encounter: 07:37 Assessment and Plan (1) Septic shock Current Visit: Yes Status: Acute clinically this patient appears to be in septic shock spiked fevers overnight redraw blood cultures - prior blood cultures (08/23) NGTD x3, urine culture (08/22) NGTD sputum culture 08/25 pending currently on Levophed CT Chest 08/24 - suggestive of multifocal pneumonia vs. pulm edema source of sepsis appears to be pneumonia - have considered other sources such as urine, abdomen, and skin ID consulted and appreciated Meropenem and Vancomycin day 5 (start 08/22) - pharmacy to dose - trough elevated 26.7 Levaquin restarted day 3 (start 08/24) Micafungin discontinued 08/24 - fevers returned, unsure of correlation will consider de-escalating antibiotics but discuss with ID lactic acid trending down 3.7 (3.8) - will continue to follow negative urine antigens other causes of shock considered - hemorrhagic no signs of active bleeding however concerning for DIC - cardiogenic shock with mildly elevated Trop in setting of shock and Afib TTE 08/24 - EF 50-55% with low normal LV systolic function and RV is mildly dilated with low normal function Day 2 of Vit C, Thiamine, and Hydrocortisone per Landon study for severe sepsis Landon PE, Deshaun V, Ruiz R, Mary MH, Silvia J, Hydrocortisone, Vitamin C and Thiamine for the Treatment of Severe Sepsis and Septic Shock: A Retrospective Before-After Study, CHEST (2017), doi: [email or web address]/ [email or web address]. (2) Respiratory failure Current Visit: Yes Status: Acute acute hypoxemic respiratory failure intubated 08/24 possibly from volume overload/CHF - CT Chest 08/24 - bilateral lower lobe consolidation L > R concerning for multifocal pneumonia or pulmonary edema - TTE 08/24 - EF 50-55% with low normal LV systolic function, no gross wall abnormalities currently on empiric broad spectrum with Levaquin, Vanc, and Meropenem - sputum culture 08/25 pending she appears to be in distributive shock, may be secondary to sepsis continue vent support titrate O2 if possible, decreased FiO2 to 60% low vent volumes Qualifiers: Chronicity: acute Respiratory failure complication: hypoxia Qualified Code(s): J96.01 - Acute respiratory failure with hypoxia (3) Elevated transaminase level Current Visit: Yes Status: Acute likely shock liver significant increase in LFTs continue to trend will discontinue statins tylenol for fever PRN, will attempt to use cooling blankets for fevers and limit use of tylenol - due to JESSIKA no NSAIDs for fever hepatitis panel nonreactive continue to monitor (4) Lactic acidosis Current Visit: Yes Status: Acute improving, 3.7 continue to monitor (5) Metabolic acidosis Current Visit: Yes Status: Acute anion gap 17 metabolic acidosis from lactic acidosis with low bicarb 1 amp of bicarb given continue to monitor BMP Q6H (6) Thrombocytopenia Current Visit: Yes Status: Acute etiology unclear at this time continues to downtrend 19 (25) - transfused 1 unit on 08/26 likely secondary to sepsis consideration for DIC, panel ordered Heme/Onc consulted - agreed that likely due to infection and use of vancomycin - do not suspect DIC as fibrinogen is 494 transfuse if she develops major bleeding or < 50K transfuse as needed if platelets are <20,000 with tubes and intubation peripheral smear was performed 08/24 - recommend a bone marrow exam if persists beyond normal hemolytic workup (7) Acute kidney injury Current Visit: Yes Status: Resolved continues to worsen on CKD stage 3 Cr 4.26 (3.36) minimal UOP 10 today 08/26 - minimal UOP 100 (08/25) likely secondary to septic shock and vancomycin - pharmacy to dose vancomycin - trough is elevated 26.7 elevated CK 2375 - will continue to monitor on Levophed, goal MAP >65 to maintain good renal perfusion Nephrology consulted - recommend renal replacement therapy (8) Anemia Current Visit: No Status: Chronic history of Vit B12 deficiency home supplementation hemoglobin downtrending 8.2 (8.9) continue to monitor with thrombocytopenia no active bleeding noted transfuse if below 7.0 monitor H/H Qualifiers: Anemia type: B12 deficiency Vitamin B12 deficiency anemia type: unspecified B12 deficiency Qualified Code(s): D51.9 - Vitamin B12 deficiency anemia, unspecified (9) Fever Current Visit: Yes Status: Acute Tmax 102.7 concerned with antipyretics due to liver and kidney injury will try cooling blankets to help with fever prefer Tylenol over NSAIDs - continue Tylenol PRN but will limit repeat patel culture consideration for other sources such as oropharyngeal or neck, obtaining CXR soft tissue neck Qualifiers: Fever type: unspecified Qualified Code(s): R50.9 - Fever, unspecified (10) Elevated troponin Current Visit: Yes Status: Acute mild elevation peaked at 1.18, recent 1.12 suspect demand ischemia in the setting of shock and JESSIKA no heparin due to thrombocytopenia (11) Atrial fibrillation with RVR Current Visit: Yes Status: Acute currently normal sinus rhythm however tachycardic Amiodarone gtt stopped continue to monitor (12) DVT prophylaxis Current Visit: Yes Status: Acute EPCDs SLIP COVER ESTIMATOR: sedated on fentanyl and precedex; does not follows commands Pulmonary: acute hypoxemic respiratory failure, intubated 08/24, requiring high FiO2 and PEEP, wean down as tolerated; etiology suggestive of multifocal pneumonia; Fi02 decreased to 60% Cardiovascular: septic shock, only on Norepi; goal MAP >65; currently normal sinus rhythm; mild troponin elevation but not a candidate for anticoagulation d/ t thrombocytopenia FEN-GI: discuss GOC with family and begin TFs, GI prophylaxis per routine; CT abd/pelvis without significant acute findings; lactic acidosis improving; bicarb given Heme: EPCDs for DVT prophylaxis, transufsed 1 pool of platelets for thrombocytopenia; continor to monitor anemia concerning; Heme/Onc consulted does not believe to be DIC ID: return of fevers; antibiotics Meropenem (08/22), Vancomycin (08/22), and Levaquin (08/24) with plan to de-escalate, will discuss with ID; sputum culture pending, prior cultures and UAT negative; repeated blood cultures Renal: poor UOP today, JESSIKA worsening; lactic acidosis improving and will continue to monitor; nephrology consulted with renal replace therapy scheduled for today Endocrine: blood glucose monitored Lines: all lines checked and no evidence of infections Skin: skin care to prevent pressure ulcers per nursing routine care, ulcer to buttock/coccyx Subjective Principal diagnosis: Severe sepsis Interval history: No major events overnight. Patient seen and examined at bedside. She remains unresponsive and slightly agitated. Heart rate elevated up to 150s. EKG performed showing sinus tachy. Spiked fevers Tmax 102.7. Due to mental status unable to obtain further ROS. Remains on 1 pressor Levophed 7 mcg. Unable to obtain any further review systems due to mental state. Objective PUL Vital signs: Last Vital Signs Temp 102.6 F H 08/26/16 07:24 Pulse 133 08/26/16 07:21 Resp 27 08/26/16 07:21 BP 135/39 08/26/16 07:21 Pulse Ox 92 08/26/16 07:21 General appearance: no acute distress, agitated, other (Sedated and intubated, cold to the touch) Eyes: nonicteric ENT: other (Endotracheal intubation with OG-tube) Effort: other (Mechanically ventilated) Auscultation: bilateral: clear Cardiovascular: regular rate and rhythm (Tachycardic) Gastrointestinal: normoactive bowel sounds, soft, non-tender, other (appears more distended than prior, started tube feeds yesterday, petechiae around the abdomen) Integumentary: decubitus ulcer (coccyx with Allevyn dressing), other (Modeling of the lower extremities, cold to the touch, possibily secondary to vasopressors , petechiae around extremities and trunk) Extremities: no edema, cyanosis (Distal fingertips, likely from vasopressors) Musculoskeletal: no deformities pupils equal and round, unable to assess due to mental status (Sedation, is not follow simple commands) R IJ CVC, R wrist peripheral, R radial arterial line, ETT at 21cm, OG tube, and layton catheter dressings are clear and dry, no obvious signs of infection Ventilator Settings Ventilator Settings: Ventilator Settings, Last 8 Hours Ventilator Mode VC+ Ventilator Mode VC+ Ventilator Mode VC+ Ventilator Mode VC+ Ventilator Mode VC+ Ventilator Mode VC+ Ventilator Tidal Volume 400 Setting Ventilator Tidal Volume 400 Setting Ventilator Tidal Volume 400 Setting Ventilator Tidal Volume 400 Setting Ventilator Tidal Volume 400 Setting Ventilator Tidal Volume 400 Setting Ventilator Respiratory Rate 12 Setting Ventilator Respiratory Rate 12 Setting Ventilator Respiratory Rate 12 Setting Ventilator Respiratory Rate 12 Setting Ventilator Respiratory Rate 12 Setting Ventilator Respiratory Rate 12 Setting Actual Respiratory Rate 29 Actual Respiratory Rate 29 Actual Respiratory Rate 29 Actual Respiratory Rate 26 Actual Respiratory Rate 28 Positive End Expiratory 8 Pressure Positive End Expiratory 8 Pressure Positive End Expiratory 8 Pressure Positive End Expiratory 8 Pressure Positive End Expiratory 8 Pressure Positive End Expiratory 8 Pressure Peak Inspiratory Airway 20 Pressure Peak Inspiratory Airway 20 Pressure Peak Inspiratory Airway 20 Pressure Peak Inspiratory Airway 21 Pressure Peak Inspiratory Airway 20 Pressure Results - Laboratory Findings CBC and BMP: 08/26/16 11:15 08/26/16 11:15 ABG ABG pH 7.32 pH Units (7.32-7.45) 08/26/16 04:36 ABG pCO2 27 mmHg (35-45) L 08/26/16 04:36 ABG pO2 81 mmHg (85-104) L 08/26/16 04:36 ABG O2 Saturation 95 % (95-98) 08/26/16 04:36 PT/INR, D-dimer PT 13.3 Seconds (9.4-12.1) H 08/26/16 04:03 D-Dimer 69154 ng/mLFEU (0-500) H 08/25/16 15:10 Abnormal lab findings: Abnormal lab results RBC 2.55 M/mcL (3.82-4.97) L 08/26/16 04:03 Hgb 8.2 g/dL (11.5-15.4) L 08/26/16 04:03 Hct 24.3 % (35.3-44.9) L 08/26/16 04:03 RDW 14.6 % (11.5-14.5) H 08/26/16 04:03 Plt Count 19 K/mcL (140-400) L* 08/26/16 04:03 MPV 13.6 fL (9.4-12.4) H 08/26/16 04:03 Band Neutrophils % 6.0 % (0-4) H 08/25/16 15:10 Metamyelocytes % 4.0 % (0) H 08/24/16 13:15 Neutrophils # 9.2 K/mcL (1.6-8.9) H 08/26/16 04:03 Lymphocytes # 0.4 K/mcL (0.6-4.6) L 08/26/16 04:03 Nucleated RBCs/100 WBC 0.3 /100 WBC (0) H 08/26/16 04:03 Reactive Lymphocytes Present (Not Present) A 08/25/16 15:10 Toxic Granulation Present (Not Present) A 08/25/16 15:10 Toxic Vacuolation Present (Not Present) A 08/26/16 04:03 Platelet Estimate Decreased (Normal) L 08/26/16 04:03 Large Platelets Present (Not Present) A 08/25/16 03:30 Immature Plt Fraction 16.6 % (1.1-6.1) H 08/26/16 04:03 PT 13.3 Seconds (9.4-12.1) H 08/26/16 04:03 APTT 38.3 Seconds (26.0-36.0) H 08/25/16 15:10 Fibrinogen 437 mg/dL (169-393) H 08/25/16 15:10 D-Dimer 56143 ng/mLFEU (0-500) H 08/25/16 15:10 ABG pCO2 27 mmHg (35-45) L 08/26/16 04:36 ABG pO2 81 mmHg (85-104) L 08/26/16 04:36 ABG HCO3 13.9 mEQ/L (21-27) L 08/26/16 04:36 ABG Total CO2 14.7 mEq/L (20-26) L 08/26/16 04:36 ABG Base Excess -11.0 mEq/L (-2.0 to 3.0) L 08/26/16 04:36 Sodium 134 mEq/L (136-145) L 08/26/16 04:03 Potassium 4.6 mEq/L (3.5-4.5) H 08/26/16 04:03 Carbon Dioxide 14 mEq/L (19-29) L 08/26/16 04:03 BUN 58 mg/dL (7-20) H D 08/26/16 04:03 Creatinine 4.26 mg/dL (0.57-1.11) H 08/26/16 04:03 Est GFR ( Amer) 12 (> 60) L 08/26/16 04:03 Est GFR (Non-Af Amer) 10 (> 60) L 08/26/16 04:03 Glucose 162 mg/dL (70-99) H 08/26/16 04:03 POC Glucose 246 (58-89) H 08/26/16 06:36 Hemoglobin A1c 6.1 % (-5.6) H 08/21/16 10:43 Lactic Acid 3.7 mmol/L (0.5-2.2) H 08/25/16 15:20 Uric Acid 7.4 mg/dL (2.6-6.0) H 08/25/16 15:10 Calcium 6.8 mg/dL (8.6-10.8) L 08/26/16 04:03 Ionized Calcium 0.93 mmol/L (1.15-1.35) L 08/26/16 04:03 Magnesium 2.9 mg/dL (1.6-2.6) H 08/26/16 04:03 Total Bilirubin 1.6 mg/dL (0.2-1.2) H D 08/26/16 04:03 AST 1497 Units/L (5-34) H 08/26/16 04:03 ALT 605 Units/L (0-55) H 08/26/16 04:03 Alkaline Phosphatase 132 Units/L (38-126) H 08/26/16 04:03 Lactate Dehydrogenase 2692 Units/L (159-327) H 08/24/16 18:45 Creatine Kinase 2375 Units/L (29-168) H 08/25/16 15:10 Troponin I 1.12 ng/mL (0-0.03) H* 08/24/16 13:15 Serum Total Protein 5.2 g/dL (6.0-8.3) L 08/26/16 04:03 Albumin 3.1 g/dL (3.5-5.0) L 08/26/16 04:03 Globulin 2.1 g/dL (2.4-3.5) L 08/26/16 04:03 Urine Color Red (Yellow) A 08/25/16 14:30 Urine Clarity Turbid (Clear) A 08/25/16 14:30 Ur Specific [place] 1.030 (1.010-1.025) H 08/25/16 14:30 Urine Protein 100 mg/dL (Neg-Trace) H 08/25/16 14:30 Urine Glucose (UA) 100 mg/dL (Normal) H 08/25/16 14:30 Urine Ketones 15 mg/dL (Negative) H 08/25/16 14:30 Urine Blood Large (Negative) H 08/25/16 14:30 Urine Nitrite Positive (Negative) A 08/25/16 14:30 Urine Bilirubin Moderate (Negative) H 08/25/16 14:30 Urine Urobilinogen 2.0 mg/dL (Normal) H 08/25/16 14:30 Ur Leukocyte Esterase Moderate (Negative) H 08/25/16 14:30 Urine Microscopic RBC 5-15 per hpf (0-3) H 08/25/16 14:30 Amorphous Sediment Moderate (Few) H 08/25/16 14:30 Urine Bacteria Moderate per hpf (None-Few) H 08/25/16 14:30 Granular Casts Few per lpf (None Seen) H 08/25/16 14:30 Ur Culture Indicated? YES (NO) A 08/25/16 14:30 Vancomycin Trough 26.7 mcg/mL (10-20) H* 08/26/16 04:03 - Microbiology Findings Microbiology Findings: Microbiology, Last 48 Hours 08/25/16 09:20 Sputum Culture - Preliminary Sputum 08/24/16 23:55 Legionella Antigen - Final Urine,Catheterized Streptococcus pneumoniae Antigen (M - Final 08/23/16 00:45 Blood Fungal Culture - Preliminary Peripheral Venipuncture No growth. 08/23/16 00:53 Blood Culture - Preliminary Peripheral Venipuncture No growth. 08/23/16 00:53 Blood Culture - Preliminary Peripheral Venipuncture No growth. 08/22/16 18:54 Blood Culture - Preliminary Peripheral Venipuncture No growth. - Clinical Findings Intake & Output: Intake & Output 08/25/16 08/25/16 08/26/16 15:59 23:59 07:59 Intake Total 846 / 846 1360 / 1360 665 / 665 Output Total 10 Balance 821 / 821 1335 / 1335 655 / 655 - VTE Documentation of Mechanical Device: Intermittent pneumatic compression device Consult Discharge Plan - Plan Referrals: Per Barros MD [Primary Care Provider] - (web request sent on 08/23/16) <Gabriella Schofield M - Last Filed: 08/26/16 15:09> Date of Encounter: 08/26/16 Objective PUL Vital signs: Last Vital Signs Temp 101.2 F H 08/26/16 14:00 Pulse 105 08/26/16 14:00 Resp 25 08/26/16 14:00 BP 148/48 08/26/16 14:00 Pulse Ox 92 08/26/16 14:00 Ventilator Settings Ventilator Settings: Ventilator Settings, Last 8 Hours Ventilator Mode VC+ Ventilator Mode VC+ Ventilator Mode VC+ Ventilator Mode VC+ Ventilator Mode VC+ Ventilator Mode VC+ Ventilator Mode VC+ Ventilator Mode VC+ Ventilator Mode VC+ Ventilator Mode VC+ Ventilator Tidal Volume 400 Setting Ventilator Tidal Volume 400 Setting Ventilator Tidal Volume 400 Setting Ventilator Tidal Volume 400 Setting Ventilator Tidal Volume 400 Setting Ventilator Tidal Volume 400 Setting Ventilator Tidal Volume 400 Setting Ventilator Tidal Volume 400 Setting Ventilator Tidal Volume 400 Setting Ventilator Tidal Volume 400 Setting Ventilator Respiratory Rate 12 Setting Ventilator Respiratory Rate 12 Setting Ventilator Respiratory Rate 12 Setting Ventilator Respiratory Rate 12 Setting Ventilator Respiratory Rate 12 Setting Ventilator Respiratory Rate 12 Setting Ventilator Respiratory Rate 12 Setting Ventilator Respiratory Rate 12 Setting Ventilator Respiratory Rate 12 Setting Ventilator Respiratory Rate 12 Setting Actual Respiratory Rate 25 Actual Respiratory Rate 26 Actual Respiratory Rate 27 Actual Respiratory Rate 25 Actual Respiratory Rate 25 Actual Respiratory Rate 25 Actual Respiratory Rate 25 Actual Respiratory Rate 24 Actual Respiratory Rate 27 Actual Respiratory Rate 31 Positive End Expiratory 5 Pressure Positive End Expiratory 5 Pressure Positive End Expiratory 5 Pressure Positive End Expiratory 5 Pressure Positive End Expiratory 5 Pressure Positive End Expiratory 5 Pressure Positive End Expiratory 5 Pressure Positive End Expiratory 5 Pressure Positive End Expiratory 5 Pressure Peak Inspiratory Airway 15 Pressure Peak Inspiratory Airway 18 Pressure Peak Inspiratory Airway 18 Pressure Peak Inspiratory Airway 26 Pressure Peak Inspiratory Airway 26 Pressure Peak Inspiratory Airway 17 Pressure Peak Inspiratory Airway 17 Pressure Peak Inspiratory Airway 18 Pressure Peak Inspiratory Airway 20 Pressure Results - Laboratory Findings CBC and BMP: 08/26/16 11:15 08/26/16 11:15 ABG ABG pH 7.32 pH Units (7.32-7.45) 08/26/16 04:36 ABG pCO2 27 mmHg (35-45) L 08/26/16 04:36 ABG pO2 81 mmHg (85-104) L 08/26/16 04:36 ABG O2 Saturation 95 % (95-98) 08/26/16 04:36 PT/INR, D-dimer PT 13.3 Seconds (9.4-12.1) H 08/26/16 04:03 D-Dimer 21060 ng/mLFEU (0-500) H 08/25/16 15:10 Abnormal lab findings: Abnormal lab results RBC 2.47 M/mcL (3.82-4.97) L 08/26/16 11:15 Hgb 7.9 g/dL (11.5-15.4) L 08/26/16 11:15 Hct 23.6 % (35.3-44.9) L 08/26/16 11:15 RDW 14.9 % (11.5-14.5) H 08/26/16 11:15 Plt Count 41 K/mcL (140-400) L D 08/26/16 11:15 Band Neutrophils % 20.0 % (0-4) H 08/26/16 11:15 Metamyelocytes % 4.0 % (0) H 08/24/16 13:15 Lymphocytes # 0.1 K/mcL (0.6-4.6) L 08/26/16 11:15 Nucleated RBCs/100 WBC 0.2 /100 WBC (0) H 08/26/16 11:15 Reactive Lymphocytes Present (Not Present) A 08/25/16 15:10 Toxic Granulation Present (Not Present) A 08/26/16 11:15 Toxic Vacuolation Present (Not Present) A 08/26/16 04:03 Dohle Bodies Present (Not Present) A 08/26/16 11:15 Platelet Estimate Decreased (Normal) L 08/26/16 11:15 Large Platelets Present (Not Present) A 08/25/16 03:30 Immature Plt Fraction 6.4 % (1.1-6.1) H 08/26/16 11:15 PT 13.3 Seconds (9.4-12.1) H 08/26/16 04:03 APTT 38.3 Seconds (26.0-36.0) H 08/25/16 15:10 Fibrinogen 437 mg/dL (169-393) H 08/25/16 15:10 D-Dimer 62670 ng/mLFEU (0-500) H 08/25/16 15:10 ABG pCO2 27 mmHg (35-45) L 08/26/16 04:36 ABG pO2 81 mmHg (85-104) L 08/26/16 04:36 ABG HCO3 13.9 mEQ/L (21-27) L 08/26/16 04:36 ABG Total CO2 14.7 mEq/L (20-26) L 08/26/16 04:36 ABG Base Excess -11.0 mEq/L (-2.0 to 3.0) L 08/26/16 04:36 Sodium 134 mEq/L (136-145) L 08/26/16 11:15 Carbon Dioxide 16 mEq/L (19-29) L 08/26/16 11:15 BUN 68 mg/dL (7-20) H 08/26/16 11:15 Creatinine 4.47 mg/dL (0.57-1.11) H 08/26/16 11:15 Est GFR ( Amer) 11 (> 60) L 08/26/16 11:15 Est GFR (Non-Af Amer) 9 (> 60) L 08/26/16 11:15 Glucose 161 mg/dL (70-99) H 08/26/16 11:15 POC Glucose 205 (58-89) H 08/26/16 11:17 Hemoglobin A1c 6.1 % (-5.6) H 08/21/16 10:43 Calculated Osmolality 301 (280-300) H 08/26/16 11:15 Lactic Acid 4.4 mmol/L (0.5-2.2) H* 08/26/16 11:15 Uric Acid 7.4 mg/dL (2.6-6.0) H 08/25/16 15:10 Calcium 6.8 mg/dL (8.6-10.8) L 08/26/16 11:15 Ionized Calcium 0.88 mmol/L (1.15-1.35) L 08/26/16 11:15 Magnesium 2.9 mg/dL (1.6-2.6) H 08/26/16 04:03 Total Bilirubin 1.6 mg/dL (0.2-1.2) H D 08/26/16 04:03 AST 1497 Units/L (5-34) H 08/26/16 04:03 ALT 605 Units/L (0-55) H 08/26/16 04:03 Alkaline Phosphatase 132 Units/L (38-126) H 08/26/16 04:03 Lactate Dehydrogenase 2692 Units/L (159-327) H 08/24/16 18:45 Creatine Kinase 2955 Units/L (29-168) H 08/26/16 04:03 Troponin I 1.12 ng/mL (0-0.03) H* 08/24/16 13:15 Serum Total Protein 5.2 g/dL (6.0-8.3) L 08/26/16 04:03 Albumin 3.1 g/dL (3.5-5.0) L 08/26/16 04:03 Globulin 2.1 g/dL (2.4-3.5) L 08/26/16 04:03 Urine Color Red (Yellow) A 08/25/16 14:30 Urine Clarity Turbid (Clear) A 08/25/16 14:30 Ur Specific [place] 1.030 (1.010-1.025) H 08/25/16 14:30 Urine Protein 100 mg/dL (Neg-Trace) H 08/25/16 14:30 Urine Glucose (UA) 100 mg/dL (Normal) H 08/25/16 14:30 Urine Ketones 15 mg/dL (Negative) H 08/25/16 14:30 Urine Blood Large (Negative) H 08/25/16 14:30 Urine Nitrite Positive (Negative) A 08/25/16 14:30 Urine Bilirubin Moderate (Negative) H 08/25/16 14:30 Urine Urobilinogen 2.0 mg/dL (Normal) H 08/25/16 14:30 Ur Leukocyte Esterase Moderate (Negative) H 08/25/16 14:30 Urine Microscopic RBC 5-15 per hpf (0-3) H 08/25/16 14:30 Amorphous Sediment Moderate (Few) H 08/25/16 14:30 Urine Bacteria Moderate per hpf (None-Few) H 08/25/16 14:30 Granular Casts Few per lpf (None Seen) H 08/25/16 14:30 Ur Culture Indicated? YES (NO) A 08/25/16 14:30 Vancomycin Trough 26.7 mcg/mL (10-20) H* 08/26/16 04:03 - Microbiology Findings Microbiology Findings: Microbiology, Last 48 Hours 08/25/16 14:30 Urine Culture - Final Urine,Catheterized No growth. 08/25/16 09:20 Sputum Culture - Preliminary Sputum 08/24/16 23:55 Legionella Antigen - Final Urine,Catheterized Streptococcus pneumoniae Antigen (M - Final - Clinical Findings Intake & Output: Intake & Output 08/25/16 08/26/16 08/26/16 23:59 07:59 15:59 Intake Total 1360 / 1360 705 / 705 2188 / 2188 Output Total 50 / 50 Balance 1335 / 1335 695 / 695 2138 / 2138 Weight 83 kg - Attending Attestation I examined this patient and my medical decision-making was reviewed with the AUDITOR APPRAISER/PA/Advanced Practice Nurse/Resident Physician. I agree with the documented findings, disposition and treatment plan as described except to the extent set forth below. Patient seen and examined. Labs, radiology, chart personally reviewed. Agree with resident's history and physical, assessment, plan with following comments: SLIP COVER ESTIMATOR: Patient sedated and responds to stimuli, Pulmonary: Patient remained on the ventilator and lower PEEP and we will attempt to lower FiO2 her is no change in I am hoping that will help her pressure some. Cardiovascular: Patient remain in shock and continue vasopressor support. GI: Nutrition per dietary and GI prophylaxis per routine. Suspect shock liver is the reason for elevated liver enzymes. Heme: DVT prophylaxis per routine. Patient with severe thrombocytopenia which I suspect related to sepsis and she had transfusion. Continue to monitor ID: Continue antibiotics and plan to de-escalation. Patient has fever at this time suspicious it is secondary to pneumonia, however she still febrile and other etiologies is being investigated including drug fever and for that reason de-escalation of antibiotics may be reasonable. Continue vitamin C intravenously. Patient was fever and with a patent liver and renal impairment it is difficult to treat with Tylenol or NSAIDs. Renal; urine out put and renal funtion reviewed. Discussed with nephrology team to start [place]. Endorcine: blood glucose is monitored Lines: all lines checked and no evidence of infections Skin: skin care to prevent pressure ulcers per nursing routine care. Patient has evidence of mottling of the skin which is related to her shock status I still suspect prognosis is very poor. I spent 35 min of Critical Care time with this patient. It involved decision making of high complexity to assess, manipulate, and support vital organ system failure and/or to prevent further life threatening deterioration of the patient' s condition. The time involved in the performance of separately reportable procedures was not counted toward critical care time.
[2016-08-26] MEDS: Vasopressin 20 UNIT in 0.9 % Sodium Chloride 50 ML IVC SCH (07:57)
[2016-08-26] MEDS: Cyanocobalamin (B-12) 1,000 MCG TABLET PO SCH (08:03)
[2016-08-26] MEDS ORDERED: *HR* Heparin 5,000 UNIT/ML VIAL ONE (09:07)
[2016-08-26] MEDS: Thiamine (B-1) 200 MG in D5% in Water 50 ML IVPB SCH ×2 (09:31→21:08)
--- NOTE | 2016-08-26 09:32 | IR Procedure Note ---
Date of procedure: 08/26/16 Consent Obtained: Written consent Timeout: Correct patient and procedure verified, Correct site verified, Time out performed, Skin prep completed Local anesthetic: Lidocaine 1% Indications: Renal insufficiency Procedure Performed: Temp HD catheter placement Site/Technique: RIJV used for access, just below TLC Results/Findings: Working well. 20cm used, kept approx 2cm out. Estimated blood loss (cc): 1 Complications: None; Tolerated procedure well Post Procedure Treatment Plan: Monitoring in unit
[2016-08-26] MEDS ORDERED: Calcium Gluconate 2,000 MG in D5% in Water 100 ML IVPB PRN (11:03)
[2016-08-26] MEDS ORDERED: Calcium Gluconate 1,000 MG in D5% in Water 100 ML IVPB PRN (11:03)
[2016-08-26 11:30] LABS: Hemoglobin 7.9 g/dL (11.5-15.4); Nucleated Red Blood Cells 0.2 /100 WBC (0)
[2016-08-26 11:32] LABS: Hematocrit 23.6 % (35.3-44.9); Immature Platelets 6.4 % (1.1-6.1); Mean Corpuscular HGB Conc 33.5 g/dL (31.6-35.5); Mean Corpuscular Volume 95.5 fL (83.0-100.0); Mean Platelet Volume 11.2 fL (9.4-12.4); Red Blood Count 2.47 M/mcL (3.82-4.97); Red Cell Distribution Width 14.9 % (11.5-14.5)
[2016-08-26 11:35] LABS: Platelet Count 41 K/mcL (140-400)
[2016-08-26] MEDS ORDERED: 0.9 % Sodium Chloride 2,000 ML ONE (11:40)
[2016-08-26 11:41] LABS: Calcium 6.8 mg/dL (8.6-10.8); Potassium 4.3 mEq/L (3.5-4.5)
[2016-08-26] MEDS ORDERED: *HR* Alteplase (Cathflo) 2 MG VIAL IVP PRN (12:11)
[2016-08-26 12:14] LABS: Lymphocytes # 0.1 K/mcL (0.6-4.6); Monocytes # 0.1 K/mcL (0.0-1.3); Neutrophils # 8.9 K/mcL (1.6-8.9); Platelet Estimate Decreased (Normal)
[2016-08-26 12:15] LABS: Dohle Bodies Present (Not Present); Toxic Granulation Present (Not Present)
--- NOTE | 2016-08-26 12:36 | Infectious Disease Progress No ---
Date of Encounter: 08/26/16 Time of Encounter: 09:30 - Assessment and Plan (1) Septic shock Current Visit: Yes Status: Acute The patient had two SIRS criteria plus JESSIKA and lactic acidosis on admission. Source unclear. Originally thought to be secondary to UTI, but urinalysis and culture are negative. CT scan of the chest shows findings consistent with multifocal PNA vs. pulmonary edema. The patient continues to have fevers with Tmax 102.7 in the last 24 hours. She continues to have tachycardia. Leukocytosis has resolved, but she continues to require IV vasopressors to maintain adequate perfusion. Blood cultures drawn 08/21/16 are NGTD x 2 sets. Additional blood cultures drawn 08/23/16 are NGTD x 3 sets as well. Additional blood cultures drawn 08/26/16 as well. CXR shows findings consistent with likely pulmonary edema, but no definitive infiltrate. CT of the chest showed findings consistent with multifocal PNA vs. pulmonary edema. Sputum culture has been sent and is pending. Respiratory virus culture pending as well. No evidence of skin/soft tissue infection. No evidence of joint infections noted. CT of the head and abdomen/pelvis negative for infectious etiology. LFTs elevated, but stable. Check Procalcitonin --> pending. Peripheral smear report reviewed. Toxic granulation present. Concern for possible acute blood loss or hemolysis given the patient's anemia and thrombocytopenia. DIC workup negative. Hem/Onc consulted and notes reviewed. Appreciate their input. Given that the patient now has EOD involving the liver, kidneys, lungs, and cardiovascular system, overall prognosis poor. Continue Vancomycin IV. Pharmacy to dose. Goal trough approximately 15. Continue Meropenem 1 gram IV Q12H. Continue Levaquin 500mg IV Q48H for atypical coverage. If cultures remain negative and/or do not reveal ESBL organism, would recommend stopping Meropenem and re-starting Zosyn, but we will wait for cultures to finalize before we make any changes. Monitor renal function and dose-adjust antibiotics. Duration of treatment depends on the clinical picture. (2) Pneumonia Current Visit: Yes Status: Acute Location: Multifocal. Causative organism unclear. Sputum culture is pending. S. pneumo and Legionella UAT negative. Respiratory virus culture pending. CT of the chest shows patchy bilateral upper lobe ground glass opacities and large bilateral lower lobe consolidation, worse on the left, concerning for multifocal PNA vs. pulmonary edema. Continue antibiotics as above. Duration of treatment depends on the clinical picture. Monitor renal function and dose-adjust antibiotics. Qualifiers: Pneumonia type: due to unspecified organism Laterality: bilateral Lung location: unspecified part of lung Qualified Code(s): J18.9 - Pneumonia, unspecified organism (3) Lactic acidosis Current Visit: Yes Status: Acute Likely secondary to sepsis. (4) Thrombocytopenia Current Visit: Yes Status: Acute Platelets 132 on admission, down to 19 today. Likely secondary to sepsis vs. IV Vanc per Hem/Onc. No acute bleeding noted. Hgb down to 7.7 this morning. Status post platelet transfusion. Repeat level 41. Management per the primary team. (5) Respiratory failure Current Visit: Yes Status: Acute Likely multifactorial --> fluid volume overload + PNA. Required emergent intubation. CT of the chest shows findings consistent with multifocal PNA vs. pulmonary edema. Pulmonology consulted and following. Qualifiers: Chronicity: acute Respiratory failure complication: hypoxia Qualified Code(s): J96.01 - Acute respiratory failure with hypoxia (6) Atrial fibrillation with RVR Current Visit: Yes Status: Acute RVR resolved. Management per the primary team. (7) Acute kidney injury Current Visit: Yes Status: Resolved Likely secondary to sepsis. Serum creatinine continues to worsen and the patient has become oliguric. Nephrology consulted. Recommends CRRT. TDC placed this morning. Dose-adjust antibiotics and avoid nephrotoxins as able. (8) Elevated transaminase level Current Visit: Yes Status: Acute T. Bili, AST, AP, and ALT elevated. Likely shock liver. Hepatitis profile non-reactive. Repeat labs in the AM. (9) Dysuria Current Visit: No Status: Acute Etiology unclear. Urinalysis negative for pyuria, but the patient had received two doses of PO Bactrim. No urine culture obtained at the time of UTI diagnosis at Urgent Care. Not sure that the patient's dysuria was caused by UTI. (10) Anemia Current Visit: No Status: Chronic Hgb down to 7.7 this morning. No evidence of active bleeding. Management per the primary team. Qualifiers: Anemia type: B12 deficiency Vitamin B12 deficiency anemia type: unspecified B12 deficiency Qualified Code(s): D51.9 - Vitamin B12 deficiency anemia, unspecified - Subjective Interval history: Patient seen and examined. Overnight events noted. The patient remains intubated and sedated. She is still on Levophed vasopressor support. She had a TDC placed this morning in preparation of starting CRRT. She has become oliguric. She is unable to provide me any information and she is unresponsive to verbal or painful stimuli. She has been spiking high fevers overnight. Tube feeds started yesterday with small residuals. No diarrhea. No other new issues per nursing. Chart reviewed. Infect Dis PN-Objective Data - Labs CBC & Chem 7: 08/26/16 11:15 08/26/16 11:15 Labs: Laboratory Results - last 24 hr 08/24/16 08/25/16 08/25/16 09:00 14:30 14:30 WBC RBC Hgb Hct MCV MCH MCHC RDW Plt Count MPV Immature Gran % Seg Neutrophils % Band Neutrophils % Lymphocytes % Monocytes % Eosinophils % Basophils % Neutrophils # Lymphocytes # Monocytes # Eosinophils # Basophils # Nucleated RBCs/100 WBC Reactive Lymphocytes Toxic Granulation Toxic Vacuolation Dohle Bodies Platelet Estimate Immature Plt Fraction PT INR APTT Fibrinogen D-Dimer ABG pH ABG pCO2 ABG pO2 ABG HCO3 ABG Total CO2 ABG O2 Saturation ABG Base Excess Blood Gas Modality Inspired O2 Sodium Potassium Chloride Carbon Dioxide BUN Creatinine Est GFR ( Amer) Est GFR (Non-Af Amer) BUN/Creatinine Ratio Glucose POC Glucose Calculated Osmolality Lactic Acid Uric Acid Calcium Ionized Calcium Phosphorus Magnesium Total Bilirubin AST ALT Alkaline Phosphatase Creatine Kinase Serum Total Protein Albumin Globulin Albumin/Globulin Ratio Urine Color Red A Urine Clarity Turbid A Urine pH 5.0 Ur Specific [place] 1.030 H Urine Protein 100 H Urine Glucose (UA) 100 H Urine Ketones 15 H Urine Blood Large H Urine Nitrite Positive A Urine Bilirubin Moderate H Urine Urobilinogen 2.0 H Ur Leukocyte Esterase Moderate H Urine Microscopic RBC 5-15 H Urine Microscopic WBC 0-3 Ur Eosinophil Smear 0 Ur Squamous Epith Cells Few Amorphous Sediment Moderate H Urine Bacteria Moderate H Granular Casts Few H Ur Culture Indicated? YES A Urine Creatinine 120 Urine Sodium 35.0 Vancomycin Trough TSH Receptor Antibody <0.90 Blood Type Antibody Screen 08/25/16 08/25/16 08/25/16 15:10 15:10 15:10 WBC 7.9 RBC 2.84 L Hgb 8.9 L Hct 27.1 L MCV 95.4 MCH 31.3 MCHC 32.8 RDW 14.1 Plt Count 25 L* MPV 13.5 H Immature Gran % Seg Neutrophils % 84.0 Band Neutrophils % 6.0 H Lymphocytes % 8.0 Monocytes % 2.0 Eosinophils % Basophils % Neutrophils # 7.1 Lymphocytes # 0.6 Monocytes # 0.2 Eosinophils # Basophils # Nucleated RBCs/100 WBC Reactive Lymphocytes Present A Toxic Granulation Present A Toxic Vacuolation Present A Dohle Bodies Platelet Estimate Marked Decrease L Immature Plt Fraction 15.1 H PT 12.8 H INR 1.2 APTT 38.3 H Fibrinogen 437 H D-Dimer 01011 H ABG pH ABG pCO2 ABG pO2 ABG HCO3 ABG Total CO2 ABG O2 Saturation ABG Base Excess Blood Gas Modality Inspired O2 Sodium Potassium Chloride Carbon Dioxide BUN Creatinine Est GFR ( Amer) Est GFR (Non-Af Amer) BUN/Creatinine Ratio Glucose POC Glucose Calculated Osmolality Lactic Acid Uric Acid 7.4 H Calcium Ionized Calcium Phosphorus Magnesium Total Bilirubin AST ALT Alkaline Phosphatase Creatine Kinase 2375 H Serum Total Protein Albumin Globulin Albumin/Globulin Ratio Urine Color Urine Clarity Urine pH Ur Specific [place] Urine Protein Urine Glucose (UA) Urine Ketones Urine Blood Urine Nitrite Urine Bilirubin Urine Urobilinogen Ur Leukocyte Esterase Urine Microscopic RBC Urine Microscopic WBC Ur Eosinophil Smear Ur Squamous Epith Cells Amorphous Sediment Urine Bacteria Granular Casts Ur Culture Indicated? Urine Creatinine Urine Sodium Vancomycin Trough TSH Receptor Antibody Blood Type Antibody Screen 08/25/16 08/25/16 08/25/16 15:10 15:20 16:10 WBC RBC Hgb Hct MCV MCH MCHC RDW Plt Count MPV Immature Gran % Seg Neutrophils % Band Neutrophils % Lymphocytes % Monocytes % Eosinophils % Basophils % Neutrophils # Lymphocytes # Monocytes # Eosinophils # Basophils # Nucleated RBCs/100 WBC Reactive Lymphocytes Toxic Granulation Toxic Vacuolation Dohle Bodies Platelet Estimate Immature Plt Fraction PT INR APTT Fibrinogen D-Dimer ABG pH ABG pCO2 ABG pO2 ABG HCO3 ABG Total CO2 ABG O2 Saturation ABG Base Excess Blood Gas Modality Inspired O2 Sodium 136 Potassium 4.0 Chloride 104 Carbon Dioxide 17 L BUN 46 H Creatinine 3.36 H Est GFR ( Amer) 16 L Est GFR (Non-Af Amer) 13 L BUN/Creatinine Ratio 14 Glucose 93 POC Glucose Calculated Osmolality 294 Lactic Acid 3.7 H Uric Acid Calcium 6.7 L Ionized Calcium Phosphorus Magnesium 2.1 Total Bilirubin 0.9 AST 1641 H ALT 768 H Alkaline Phosphatase 107 Creatine Kinase Serum Total Protein 5.3 L Albumin 2.7 L Globulin 2.6 Albumin/Globulin Ratio 1.0 L Urine Color Urine Clarity Urine pH Ur Specific [place] Urine Protein Urine Glucose (UA) Urine Ketones Urine Blood Urine Nitrite Urine Bilirubin Urine Urobilinogen Ur Leukocyte Esterase Urine Microscopic RBC Urine Microscopic WBC Ur Eosinophil Smear Ur Squamous Epith Cells Amorphous Sediment Urine Bacteria Granular Casts Ur Culture Indicated? Urine Creatinine Urine Sodium Vancomycin Trough TSH Receptor Antibody Blood Type Antibody Screen 08/25/16 08/25/16 08/25/16 16:10 17:22 17:23 WBC RBC Hgb Hct MCV MCH MCHC RDW Plt Count MPV Immature Gran % Seg Neutrophils % Band Neutrophils % Lymphocytes % Monocytes % Eosinophils % Basophils % Neutrophils # Lymphocytes # Monocytes # Eosinophils # Basophils # Nucleated RBCs/100 WBC Reactive Lymphocytes Toxic Granulation Toxic Vacuolation Dohle Bodies Platelet Estimate Immature Plt Fraction PT INR APTT Fibrinogen D-Dimer ABG pH ABG pCO2 ABG pO2 ABG HCO3 ABG Total CO2 ABG O2 Saturation ABG Base Excess Blood Gas Modality Inspired O2 Sodium Potassium Chloride Carbon Dioxide BUN Creatinine Est GFR ( Amer) Est GFR (Non-Af Amer) BUN/Creatinine Ratio Glucose POC Glucose 50 L 68 Calculated Osmolality Lactic Acid Uric Acid Calcium Ionized Calcium 0.86 L Phosphorus Magnesium Total Bilirubin AST ALT Alkaline Phosphatase Creatine Kinase Serum Total Protein Albumin Globulin Albumin/Globulin Ratio Urine Color Urine Clarity Urine pH Ur Specific [place] Urine Protein Urine Glucose (UA) Urine Ketones Urine Blood Urine Nitrite Urine Bilirubin Urine Urobilinogen Ur Leukocyte Esterase Urine Microscopic RBC Urine Microscopic WBC Ur Eosinophil Smear Ur Squamous Epith Cells Amorphous Sediment Urine Bacteria Granular Casts Ur Culture Indicated? Urine Creatinine Urine Sodium Vancomycin Trough TSH Receptor Antibody Blood Type Antibody Screen 08/25/16 08/26/16 08/26/16 23:31 04:03 04:03 WBC 10.1 RBC 2.55 L Hgb 8.2 L Hct 24.3 L MCV 95.3 MCH 32.2 MCHC 33.7 RDW 14.6 H Plt Count 19 L* MPV 13.6 H Immature Gran % 2.8 Seg Neutrophils % 90.7 Band Neutrophils % Lymphocytes % 3.5 Monocytes % 2.9 Eosinophils % 0.0 Basophils % 0.1 Neutrophils # 9.2 H Lymphocytes # 0.4 L Monocytes # 0.3 Eosinophils # 0.0 Basophils # 0.0 Nucleated RBCs/100 WBC 0.3 H Reactive Lymphocytes Toxic Granulation Toxic Vacuolation Present A Dohle Bodies Platelet Estimate Decreased L Immature Plt Fraction 16.6 H PT INR APTT Fibrinogen D-Dimer ABG pH ABG pCO2 ABG pO2 ABG HCO3 ABG Total CO2 ABG O2 Saturation ABG Base Excess Blood Gas Modality Inspired O2 Sodium 134 L Potassium 4.6 H Chloride 103 Carbon Dioxide 14 L BUN 58 H D Creatinine 4.26 H Est GFR ( Amer) 12 L Est GFR (Non-Af Amer) 10 L BUN/Creatinine Ratio 14 Glucose 162 H POC Glucose 81 Calculated Osmolality 298 Lactic Acid Uric Acid Calcium 6.8 L Ionized Calcium Phosphorus 3.6 Magnesium 2.9 H Total Bilirubin 1.6 H D AST 1497 H ALT 605 H Alkaline Phosphatase 132 H Creatine Kinase 2955 H Serum Total Protein 5.2 L Albumin 3.1 L Globulin 2.1 L Albumin/Globulin Ratio 1.5 Urine Color Urine Clarity Urine pH Ur Specific [place] Urine Protein Urine Glucose (UA) Urine Ketones Urine Blood Urine Nitrite Urine Bilirubin Urine Urobilinogen Ur Leukocyte Esterase Urine Microscopic RBC Urine Microscopic WBC Ur Eosinophil Smear Ur Squamous Epith Cells Amorphous Sediment Urine Bacteria Granular Casts Ur Culture Indicated? Urine Creatinine Urine Sodium Vancomycin Trough TSH Receptor Antibody Blood Type Antibody Screen 08/26/16 08/26/16 08/26/16 04:03 04:03 04:03 WBC RBC Hgb Hct MCV MCH MCHC RDW Plt Count MPV Immature Gran % Seg Neutrophils % Band Neutrophils % Lymphocytes % Monocytes % Eosinophils % Basophils % Neutrophils # Lymphocytes # Monocytes # Eosinophils # Basophils # Nucleated RBCs/100 WBC Reactive Lymphocytes Toxic Granulation Toxic Vacuolation Dohle Bodies Platelet Estimate Immature Plt Fraction PT 13.3 H INR 1.2 APTT Fibrinogen D-Dimer ABG pH ABG pCO2 ABG pO2 ABG HCO3 ABG Total CO2 ABG O2 Saturation ABG Base Excess Blood Gas Modality Inspired O2 Sodium Potassium Chloride Carbon Dioxide BUN Creatinine Est GFR ( Amer) Est GFR (Non-Af Amer) BUN/Creatinine Ratio Glucose POC Glucose Calculated Osmolality Lactic Acid Uric Acid Calcium Ionized Calcium 0.93 L Phosphorus Magnesium Total Bilirubin AST ALT Alkaline Phosphatase Creatine Kinase Serum Total Protein Albumin Globulin Albumin/Globulin Ratio Urine Color Urine Clarity Urine pH Ur Specific [place] Urine Protein Urine Glucose (UA) Urine Ketones Urine Blood Urine Nitrite Urine Bilirubin Urine Urobilinogen Ur Leukocyte Esterase Urine Microscopic RBC Urine Microscopic WBC Ur Eosinophil Smear Ur Squamous Epith Cells Amorphous Sediment Urine Bacteria Granular Casts Ur Culture Indicated? Urine Creatinine Urine Sodium Vancomycin Trough 26.7 H* TSH Receptor Antibody Blood Type Antibody Screen 08/26/16 08/26/16 08/26/16 04:36 05:25 06:36 WBC RBC Hgb Hct MCV MCH MCHC RDW Plt Count MPV Immature Gran % Seg Neutrophils % Band Neutrophils % Lymphocytes % Monocytes % Eosinophils % Basophils % Neutrophils # Lymphocytes # Monocytes # Eosinophils # Basophils # Nucleated RBCs/100 WBC Reactive Lymphocytes Toxic Granulation Toxic Vacuolation Dohle Bodies Platelet Estimate Immature Plt Fraction PT INR APTT Fibrinogen D-Dimer ABG pH 7.32 ABG pCO2 27 L ABG pO2 81 L ABG HCO3 13.9 L ABG Total CO2 14.7 L ABG O2 Saturation 95 ABG Base Excess -11.0 L Blood Gas Modality VC Inspired O2 60 Sodium Potassium Chloride Carbon Dioxide BUN Creatinine Est GFR ( Amer) Est GFR (Non-Af Amer) BUN/Creatinine Ratio Glucose POC Glucose 246 H Calculated Osmolality Lactic Acid Uric Acid Calcium Ionized Calcium Phosphorus Magnesium Total Bilirubin AST ALT Alkaline Phosphatase Creatine Kinase Serum Total Protein Albumin Globulin Albumin/Globulin Ratio Urine Color Urine Clarity Urine pH Ur Specific [place] Urine Protein Urine Glucose (UA) Urine Ketones Urine Blood Urine Nitrite Urine Bilirubin Urine Urobilinogen Ur Leukocyte Esterase Urine Microscopic RBC Urine Microscopic WBC Ur Eosinophil Smear Ur Squamous Epith Cells Amorphous Sediment Urine Bacteria Granular Casts Ur Culture Indicated? Urine Creatinine Urine Sodium Vancomycin Trough TSH Receptor Antibody Blood Type O POSITIVE Antibody Screen NEGATIVE 08/26/16 08/26/16 08/26/16 11:15 11:15 11:15 WBC 9.1 RBC 2.47 L Hgb 7.9 L Hct 23.6 L MCV 95.5 MCH 32.0 MCHC 33.5 RDW 14.9 H Plt Count 41 L D MPV 11.2 Immature Gran % Seg Neutrophils % 78.0 Band Neutrophils % 20.0 H Lymphocytes % 1.0 Monocytes % 1.0 Eosinophils % Basophils % Neutrophils # 8.9 Lymphocytes # 0.1 L Monocytes # 0.1 Eosinophils # Basophils # Nucleated RBCs/100 WBC 0.2 H Reactive Lymphocytes Toxic Granulation Present A Toxic Vacuolation Dohle Bodies Present A Platelet Estimate Decreased L Immature Plt Fraction 6.4 H PT INR APTT Fibrinogen D-Dimer ABG pH ABG pCO2 ABG pO2 ABG HCO3 ABG Total CO2 ABG O2 Saturation ABG Base Excess Blood Gas Modality Inspired O2 Sodium 134 L Potassium 4.3 Chloride 103 Carbon Dioxide 16 L BUN 68 H Creatinine 4.47 H Est GFR ( Amer) 11 L Est GFR (Non-Af Amer) 9 L BUN/Creatinine Ratio 15 Glucose 161 H POC Glucose Calculated Osmolality 301 H Lactic Acid 4.4 H* Uric Acid Calcium 6.8 L Ionized Calcium Phosphorus Magnesium Total Bilirubin AST ALT Alkaline Phosphatase Creatine Kinase Serum Total Protein Albumin Globulin Albumin/Globulin Ratio Urine Color Urine Clarity Urine pH Ur Specific [place] Urine Protein Urine Glucose (UA) Urine Ketones Urine Blood Urine Nitrite Urine Bilirubin Urine Urobilinogen Ur Leukocyte Esterase Urine Microscopic RBC Urine Microscopic WBC Ur Eosinophil Smear Ur Squamous Epith Cells Amorphous Sediment Urine Bacteria Granular Casts Ur Culture Indicated? Urine Creatinine Urine Sodium Vancomycin Trough TSH Receptor Antibody Blood Type Antibody Screen 08/26/16 08/26/16 11:15 11:17 WBC RBC Hgb Hct MCV MCH MCHC RDW Plt Count MPV Immature Gran % Seg Neutrophils % Band Neutrophils % Lymphocytes % Monocytes % Eosinophils % Basophils % Neutrophils # Lymphocytes # Monocytes # Eosinophils # Basophils # Nucleated RBCs/100 WBC Reactive Lymphocytes Toxic Granulation Toxic Vacuolation Dohle Bodies Platelet Estimate Immature Plt Fraction PT INR APTT Fibrinogen D-Dimer ABG pH ABG pCO2 ABG pO2 ABG HCO3 ABG Total CO2 ABG O2 Saturation ABG Base Excess Blood Gas Modality Inspired O2 Sodium Potassium Chloride Carbon Dioxide BUN Creatinine Est GFR ( Amer) Est GFR (Non-Af Amer) BUN/Creatinine Ratio Glucose POC Glucose 205 H Calculated Osmolality Lactic Acid Uric Acid Calcium Ionized Calcium 0.88 L Phosphorus Magnesium Total Bilirubin AST ALT Alkaline Phosphatase Creatine Kinase Serum Total Protein Albumin Globulin Albumin/Globulin Ratio Urine Color Urine Clarity Urine pH Ur Specific [place] Urine Protein Urine Glucose (UA) Urine Ketones Urine Blood Urine Nitrite Urine Bilirubin Urine Urobilinogen Ur Leukocyte Esterase Urine Microscopic RBC Urine Microscopic WBC Ur Eosinophil Smear Ur Squamous Epith Cells Amorphous Sediment Urine Bacteria Granular Casts Ur Culture Indicated? Urine Creatinine Urine Sodium Vancomycin Trough TSH Receptor Antibody Blood Type Antibody Screen Cultures: Cultures 08/25/16 14:30 Urine Culture - Final Urine,Catheterized No growth. 08/25/16 09:20 Sputum Culture - Preliminary Sputum 08/24/16 23:55 Legionella Antigen - Final Urine,Catheterized Streptococcus pneumoniae Antigen (M - Final 08/23/16 00:45 Blood Fungal Culture - Preliminary Peripheral Venipuncture No growth. 08/23/16 00:53 Blood Culture - Preliminary Peripheral Venipuncture No growth. 08/23/16 00:53 Blood Culture - Preliminary Peripheral Venipuncture No growth. 08/22/16 18:54 Blood Culture - Preliminary Peripheral Venipuncture No growth. 08/21/16 20:12 Urine Culture - Final Urine,[place] No growth. Serology 08/25/16 08/25/16 08/24/16 Range/Units 14:30 14:30 16:20 Urine Color Red A (Yellow) Urine Clarity Turbid A (Clear) Urine pH 5.0 (5.0-8.0) pH Units Ur Specific [place] 1.030 H (1.010-1.025) Urine Protein 100 H (Neg-Trace) mg/dL Urine Glucose (UA) 100 H (Normal) mg/dL Urine Ketones 15 H (Negative) mg/dL Urine Blood Large H (Negative) Urine Nitrite Positive A (Negative) Urine Bilirubin Moderate H (Negative) Urine Urobilinogen 2.0 H (Normal) mg/dL Ur Leukocyte Esterase Moderate H (Negative) Urine Microscopic RBC 5-15 H (0-3) per hpf Urine Microscopic WBC 0-3 (0-3) per hpf Ur Eosinophil Smear 0 (None Seen) % Ur Squamous Epith Cells Few (None-Few) per lpf Amorphous Sediment Moderate H (Few) Urine Bacteria Moderate H (None-Few) per hpf Granular Casts Few H (None Seen) per lpf Ur Culture Indicated? YES A (NO) Urine Creatinine 120 mg/dL Urine Sodium 35.0 mEq/L Hepatitis A IgM Ab Nonreactive (Nonreactive) Hep Bs Antigen Nonreactive (Nonreactive) Hep B Core IgM Ab Nonreactive (Nonreactive) Hepatitis C Ab Screen Nonreactive (Nonreactive) - Impressions Impressions Abdomen CT 08/25/16 11:00 IMPRESSION: 1. Study is slightly limited due to lack of IV contrast and motion artifact. 2. Patchy bilateral upper lobe ground-glass opacities and large bilateral lower lobe consolidation, worse in the left. Additional small bilateral pleural effusions. Findings are suspicious for multifocal pneumonia in the appropriate clinical setting. Other possibilities include pulmonary edema. 3. No acute findings within the abdomen or pelvis. 4. Third-spacing of fluid/anasarca with diffuse body wall edema, mild diffuse mesenteric stranding and trace perihepatic fluid. D/ / 08/25/2016 07:30:35 Rodrigo Silva MD / [facility] Interpreting Provider: Rodrigo Silva MD Chest CT 08/25/16 11:00 IMPRESSION: 1. Study is slightly limited due to lack of IV contrast and motion artifact. 2. Patchy bilateral upper lobe ground-glass opacities and large bilateral lower lobe consolidation, worse in the left. Additional small bilateral pleural effusions. Findings are suspicious for multifocal pneumonia in the appropriate clinical setting. Other possibilities include pulmonary edema. 3. No acute findings within the abdomen or pelvis. 4. Third-spacing of fluid/anasarca with diffuse body wall edema, mild diffuse mesenteric stranding and trace perihepatic fluid. D/ / 08/25/2016 07:30:35 Rodrigo Silva MD / [facility] Interpreting Provider: Rodrigo Silva MD Head CT 08/25/16 11:00 IMPRESSION: Limited by motion artifact. Otherwise no acute intracranial findings. Nonspecific left mastoid effusion. D/ / 08/25/2016 07:25:21 Rodrigo Silva MD / [facility] Interpreting Provider: Rodrigo Silva MD Guidance Needle Placement Ultrasound 08/26/16 00:00 IMPRESSION: Successful ultrasound guided non-tunneled temporary hemodialysis catheter placement at the bedside in the unit given patient's clinical condition. D/ / Haroon Friend MD / Haroon Friend MD Interpreting Provider: Haroon Friend MD Insertion Non-Tunneled Catheter 08/26/16 00:00 IMPRESSION: Successful ultrasound guided non-tunneled temporary hemodialysis catheter placement at the bedside in the unit given patient's clinical condition. D/ / Haroon Friend MD / Haroon Friend MD Interpreting Provider: Haroon Friend MD Chest X-Ray 08/26/16 09:14 IMPRESSION: Interval placement of right IJ hemodialysis catheter tip terminates in the right atrium. D/ / 08/26/2016 10:14:49 Kareem Amador MD / [facility] Interpreting Provider: Kareem Amador MD Soft Tissue Neck X-Ray 08/26/16 10:48 IMPRESSION: 1. Severely limits evaluation due to the intubation and enteric tube in place. There is no focal soft tissue abnormality. 2. If concern for abscess evaluation with CT of the neck soft tissues with contrast is recommended. D/ / 08/26/2016 11:57:04 Arnold Poole MD / [facility] Interpreting Provider: Arnold Poole MD Exam - Constitutional Vitals: Temp Pulse Resp BP Pulse Ox 102.5 F H 110 27 130/41 91 08/26/16 10:20 08/26/16 12:22 08/26/16 12:22 08/26/16 12:22 08/26/16 12:22 General appearance: average body habitus, no acute distress, no febrile, no cooperative - Head Head exam: Present: atraumatic, normal inspection, normocephalic - Eye Eye exam: Present: normal appearance, PERRL Pupils: Present: normal accommodation Additional comments: No subconjunctival hemorrhage noted. Petechiae noted to the forehead and eyelids. - ENT ENT exam: Present: mucous membranes dry Additional comments: No evidence of dental abscess or gum disease noted. - Neck Neck exam: Present: normal inspection. Absent: lymphadenopathy Additional comments: TDC noted to the right neck with transparent dressing C/D/I. - Respiratory Respiratory exam: Present: CTAB, tachypnea. Absent: rales, respiratory distress , rhonchi, wheezes - Cardiovascular Cardiovascular exam: Present: irregular rhythm, tachycardia - GI/Abdominal GI/Abdominal exam: Present: distended, normal bowel sounds, soft. Absent: tenderness Additional comments: Mottling noted to the abdomen. Velarde catheter noted to be draining scant amount of dark, dory-colored urine. OGT with tube feeds infusing. - Extremities Exam Extremities exam: Absent: joint swelling, pedal edema, tenderness Additional comments: Mottling noted to the BLE up to the knees. Skin is cool and pale. Cyanosis noted to the bilateral fingers and hands. A-line noted to the right radial artery with transparent dressing C/D/I. - Back Exam Additional comments: Deferred due to not being able to turn the patient due to her instability. - Neurological Exam Neurological exam: Present: altered (Sedated, but breathing over the vent. Moves arms non-purposefully. Does not follow commands or respond to tactile or verbal stimuli.). Absent: facial droop - Skin Skin exam: Present: dry, intact, mottled, pallor. Absent: warm - VTE Documentation of Mechanical Device: Intermittent pneumatic compression device Consult Discharge Plan - Plan Referrals: Per Barros MD [Primary Care Provider] - (web request sent on 08/23/16) - Attending Attestation I examined this patient and my medical decision-making was reviewed with the [employer] TE[employer]ER/PA/Advanced Practice Nurse/Resident Physician. I agree with the documented findings, disposition and treatment plan as described except to the extent set forth below.
--- NOTE | 2016-08-26 12:41 | Nephrology Progress Note ---
Date of Encounter: 08/26/16 Time of Encounter: 10:30 - Assessment and Plan (1) Acute kidney injury Current Visit: Yes Status: Resolved SCr continues to worse at 4.26, GFR 10 with minimal UOP despite volume repletion , will proceed with CVVHDF Discussed in great details the process along with goals of care. Family aware and want to proceed CVVHDF ordered discussed with nurse and placed electronically Discussed plans with primary team as well Will keep even fluid balance for now vanco by levels only if needed Renal dose all medications Avoid nephrotoxins if possible Critical care time spent approx. 40mins (2) Respiratory failure Current Visit: Yes Status: Acute Vent setting per primary team Qualifiers: Chronicity: acute Respiratory failure complication: hypoxia Qualified Code(s): J96.01 - Acute respiratory failure with hypoxia (3) Septic shock Current Visit: Yes Status: Acute Continue antibiotics per infectious disease (4) Metabolic acidosis Current Visit: Yes Status: Acute Should improve with CVVHDF Subjective Principal diagnosis: Severe sepsis Interval history: Pt seen and examined still intubated and sedated and on pressor support. Family at bedside and want to proceed with HEAD OF DATA. Objective - Vital Signs Vital signs: Vital Signs Temp Pulse Resp BP Pulse Ox 08/26/16 12:22 110 27 130/41 91 08/26/16 11:21 25 155/48 93 08/26/16 11:00 110 25 155/48 93 08/26/16 10:20 102.5 F H 106 26 144/52 91 08/26/16 10:00 102.3 F H 107 25 138/51 90 08/26/16 09:55 25 121/50 91 08/26/16 09:00 128 24 150/54 92 08/26/16 08:00 128 27 136/40 89 08/26/16 07:37 23 140/40 91 08/26/16 07:36 101.1 F H 144 22 141/42 08/26/16 07:24 102.6 F H 08/26/16 07:21 102.6 F H 133 27 135/39 92 08/26/16 07:00 120 08/26/16 06:14 27 138/40 92 08/26/16 06:00 100.5 F H 111 27 138/40 93 08/26/16 05:00 111 27 120/41 92 08/26/16 04:13 29 130/40 93 08/26/16 04:00 107 25 124/39 93 08/26/16 03:00 101.5 F H 109 29 137/38 92 08/26/16 02:13 29 118/37 92 08/26/16 02:00 152 29 109/36 92 08/26/16 01:00 112 29 136/42 92 08/26/16 00:11 28 92 08/26/16 00:00 112 27 126/42 92 08/25/16 23:00 101.7 F H 123 27 122/41 92 08/25/16 22:06 27 110/40 90 08/25/16 22:00 115 28 122/43 91 08/25/16 21:00 117 28 117/41 93 08/25/16 20:03 27 128/42 95 08/25/16 20:00 121 28 130/44 92 08/25/16 19:57 102.7 F H 08/25/16 19:00 117 24 139/47 92 08/25/16 18:32 26 126/48 92 08/25/16 18:16 26 126/48 92 08/25/16 18:00 114 28 119/41 92 08/25/16 17:00 112 24 126/48 92 08/25/16 16:12 106 08/25/16 16:00 101.8 F H 109 25 142/46 92 08/25/16 15:28 25 126/48 92 08/25/16 15:00 106 27 127/48 92 08/25/16 14:00 101 22 120/46 92 08/25/16 13:00 101 21 116/47 92 Intake and Output 08/25/16 08/26/16 08/26/16 23:59 07:59 15:59 Intake Total 1360 / 1360 705 / 705 570 / 570 Output Total 25 / 25 10 / 10 Balance 1335 / 1335 695 / 695 570 / 570 Intake: IV Fluids 1360 / 1360 628 / 628 252 / 252 Flexbumin 25 gm In 100 ml 300 / 300 @ 60 mls/hr IVC .Q1H40M [facility] Rx#:[id number] PRECEDEX 400 mcg In 100 200 / 200 100 / 100 100 / 100 ml @ 0.2 MCG/KG/HR 3.325 mls/hr IVC .Q24H [facility] Rx#: [id number] FentaNYL (PF) 1,000 MCG 100 / 100 105 / 105 In 0.9 % Sodium Chloride 80 ML @ 50 MCG/HR 5 mls/ hr IVC CONT [facility] Rx#: [id number] Levophed 8 MG In Dextrose 163 / 163 210 / 210 0 / 0 5% 250 ML @ 8 MCG/MIN 15 .48 mls/hr IVC CONT [facility] Rx#:[id number] Vasostrict 20 UNIT In 0.9 25 / 25 % Sodium Chloride 50 ML @ 0.03 UNITS/MIN 4.59 mls /hr IVC .Q11H7M [facility] Rx#: [id number] Ascorbic Acid 1,500 mg In 206 / 206 103 / 103 0.9 % Sodium Chloride 100 ML @ 103 mls/hr IVPB Q6H [facility] Rx#:[id number] Calcium Gluconate 1,000 110 / 110 110 / 110 MG In Dextrose 5% 100 ML @ 50 mls/hr IVPB Q6HR [facility] Rx#:[id number] Magnesium Sulfate 2 GM In 104 / 104 Dextrose 5% 100 ML @ 50 mls/hr IVPB Q6H [facility] Rx#: [id number] Merrem 1,000 MG In 0.9 % 100 / 100 100 / 100 Sodium Chloride (Mini-Bag +) 100 ML @ 200 mls/hr IVPB Q12H [facility] Rx#: [id number] Vitamin B-1 200 MG In 52 / 52 52 / 52 Dextrose 5% 50 ML @ 50 mls/hr IVPB BID [facility] Rx#: [id number] Blood Product 318 / 318 Platelet Pheresis Lp Irr 318 / 318 2nd Unit [id number] Free Water Intake Amount 40 / 40 Output: Catheter Other: Blood Glucose* 81 205 - General Appearance General appearance: Present: sedated on ventilator, intubated EENT: Present: ATNC Neck: Present: supple Respiratory: Present: clear Cardiology: Present: no edema, normal S1, normal S2 Dialysis Vascular Access: Venous Catheter (temporary) Gastrointestinal: Present: hypoactive bowel sounds, no tenderness, no guarding, distended (mildly) Integumentary: Present: cool/clammy (hands and feet) Additional Comments: sedated Musculoskeletal: Present: cyanosis Additional Comments: sedated - Lab 08/26/16 17:25 08/26/16 20:20 Most recent lab results ABG pH 7.32 pH Units (7.32-7.45) 08/26/16 04:36 ABG pCO2 27 mmHg (35-45) L 08/26/16 04:36 ABG pO2 81 mmHg (85-104) L 08/26/16 04:36 ABG HCO3 13.9 mEQ/L (21-27) L 08/26/16 04:36 ABG O2 Saturation 95 % (95-98) 08/26/16 04:36 Calcium 6.8 mg/dL (8.6-10.8) L 08/26/16 11:15 Phosphorus 3.6 mg/dL (2.3-4.7) 08/26/16 04:03 Magnesium 2.9 mg/dL (1.6-2.6) H 08/26/16 04:03 Urine Creatinine 120 mg/dL 08/25/16 14:30 Urine Sodium 35.0 mEq/L 08/25/16 14:30 - VTE Documentation of Mechanical Device: Intermittent pneumatic compression device Consult Discharge Plan - Plan Referrals: Per Barros MD [Primary Care Provider] - (web request sent on 08/23/16)
[2016-08-26] MEDS: 0.9 % Sodium Chloride 1,000 ML PRIME SCH ×9 (13:30→22:48)
[2016-08-26] MEDS: PrismaSATE BGK 4/2.5 5,000 ML CRRT SCH ×6 (14:20→22:15)
[2016-08-26] MEDS: Calcium Chloride 4,000 MG in 0.9 % Sodium Chloride 1,000 ML CRRT SCH (15:13)
[2016-08-26] MEDS: Levofloxacin 500 MG/100 ML 500 MG/100 ML BAG IVPB SCH (16:18)
[2016-08-26 17:38] LABS: Mean Corpuscular Volume 95.7 fL (83.0-100.0)
[2016-08-26 17:40] LABS: Basophils % 0.1 %; Hematocrit 24.7 % (35.3-44.9); Hemoglobin 8.1 g/dL (11.5-15.4); Immature Granulocytes % 2.5 % (0-4); Immature Platelets 9.9 % (1.1-6.1); Lymphocytes # 0.3 K/mcL (0.6-4.6); Lymphocytes % 3.8 %; Mean Corpuscular HGB Conc 32.8 g/dL (31.6-35.5); Mean Corpuscular Hemoglobin 31.4 pg (28.0-33.3); Monocytes # 0.3 K/mcL (0.0-1.3); Monocytes % 4.5 %; Neutrophils # 6.1 K/mcL (1.6-8.9); Nucleated Red Blood Cells 0.6 /100 WBC (0); Red Blood Count 2.58 M/mcL (3.82-4.97); Red Cell Distribution Width 15.1 % (11.5-14.5); Segmented Neutrophils % 89.1 %
[2016-08-26 17:50] LABS: Platelet Count 22 K/mcL (140-400)
[2016-08-26 18:08] LABS: Toxic Vacuolation Present (Not Present)
[2016-08-26 18:09] LABS: Dohle Bodies Present (Not Present); Platelet Estimate Decreased (Normal)
[2016-08-26] MEDS: Piperacillin/Tazobactam 3.375 GM in D5% in Water (Mini-Bag+) 100 ML IVPB SCH (18:19)
[2016-08-26 19:10] LABS: Adenovirus Not Detected (Not Detect); Bordetella Pertussis Not Detected (Not Detect); Chlamydophila pneumoniae Not Detected (Not Detect); Coronavirus 229E Not Detected (Not Detect); Coronavirus HKU1 Not Detected (Not Detect); Coronavirus NL63 Not Detected (Not Detect); Coronavirus OC43 Not Detected (Not Detect); Human Metapneumovirus Not Detected (Not Detect); Human Rhinovirus/Enterovirus Not Detected (Not Detect); Influenza A Subtype 2009 H1 Not Detected (Not Detect); Influenza A Untypeable Not Detected (Not Detect); Influenza B Not Detected (Not Detect); Mycoplasma pneumoniae Not Detected (Not Detect); Parainfluenza Virus 1 Not Detected (Not Detect); Parainfluenza Virus 2 Not Detected (Not Detect); Parainfluenza Virus 3 Not Detected (Not Detect); Parainfluenza Virus 4 Not Detected (Not Detect); Respiratory Syncytial Virus Not Detected (Not Detect)
--- NOTE | 2016-08-26 20:19 | Electrocardiograph Report ---
[address] [place], [place] [address] Test Date: 2016-08-25 Pat Name: Kathy Dowling Department: 109 Room: [facility] Gender: F Fusing Line Inspector: WALDEMAR : [id number] Requested By: Aditi Baltazar Order Number: [id number] Reading MD: Epi Arnold MD Measurements Intervals [place] Rate: 120 P: 64 AK: 205 QRS: -8 QRSD: 100 T: 14 QT: 323 QTc: 394 Interpretive Statements MAT LOW QRS VOLTAGE IN PRECORDIAL LEADS Electronically Signed On 08-26-2016 20:17:45 EDT by Epi Arnold MD
[2016-08-26 20:44] LABS: Calcium 7.6 mg/dL (8.6-10.8); Potassium 4.2 mEq/L (3.5-4.5)
[2016-08-26 23:48] LABS: Basophils % 0.1 %; Hemoglobin 8.6 g/dL (11.5-15.4); Mean Corpuscular Volume 95.8 fL (83.0-100.0)
[2016-08-26 23:49] LABS: Hematocrit 25.2 % (35.3-44.9); Immature Granulocytes % 2.9 % (0-4); Immature Platelets 6.5 % (1.1-6.1); Lymphocytes # 0.3 K/mcL (0.6-4.6); Lymphocytes % 4.9 %; Mean Corpuscular HGB Conc 34.1 g/dL (31.6-35.5); Mean Corpuscular Hemoglobin 32.7 pg (28.0-33.3); Mean Platelet Volume 12.1 fL (9.4-12.4); Monocytes # 0.1 K/mcL (0.0-1.3); Monocytes % 1.6 %; Neutrophils # 6.3 K/mcL (1.6-8.9); Nucleated Red Blood Cells 0.4 /100 WBC (0); Red Blood Count 2.63 M/mcL (3.82-4.97); Red Cell Distribution Width 15.1 % (11.5-14.5); Segmented Neutrophils % 90.5 %
[2016-08-26 23:51] LABS: Platelet Count 28 K/mcL (140-400)
[2016-08-27] MEDS: Ipratropium Neb 0.5 MG NEBULIZER IH SCH ×7 (00:04→23:20)
[2016-08-27 00:22] LABS: Toxic Granulation Present (Not Present)
[2016-08-27 00:23] LABS: Platelet Estimate Marked Decrease (Normal); Toxic Vacuolation Present (Not Present)
[2016-08-27 00:24] LABS: Calcium 7.9 mg/dL (8.6-10.8); Potassium 4.2 mEq/L (3.5-4.5)
[2016-08-27 00:24] LABS: Reactive Lymphocytes Present (Not Present)
[2016-08-27 00:26] LABS: Dohle Bodies Present (Not Present)
[2016-08-27] MEDS: Dexmedetomidine HCl 400 MCG/100 ML MLS IVC SCH ×4 (01:06→23:17)
[2016-08-27] MEDS: FentaNYL (PF) 1,000 MCG in 0.9 % Sodium Chloride 80 ML IVC SCH ×4 (01:08→23:11)
[2016-08-27] MEDS: PrismaSATE BGK 4/2.5 5,000 ML CRRT SCH ×17 (01:43→23:49)
[2016-08-27] MEDS: Piperacillin/Tazobactam 3.375 GM in D5% in Water (Mini-Bag+) 100 ML IVPB SCH ×3 (01:47→17:23)
[2016-08-27] MEDS: 0.9 % Sodium Chloride 1,000 ML PRIME SCH ×7 (02:08→11:59)
[2016-08-27] MEDS ORDERED: *HR* Midazolam HCl 2 MG/2 ML VIAL ONE (02:31)
[2016-08-27] MEDS ORDERED: *HR* Midazolam HCl 2 MG/2 ML VIAL IVP ONE (02:38)
[2016-08-27] MEDS: Amiodarone Premix 360 MG/200 ML BAG IVC SCH ×2 (03:03→14:56)
[2016-08-27] MEDS: Lacri-Lube 3.5 GM TUBE BOTH EYES SCH ×6 (04:14→23:11)
[2016-08-27] MEDS: *HR* Heparin 5,000 UNIT/ML VIAL IV PRN ×2 (04:16→18:24)
[2016-08-27 05:01] LABS: ABG Base Excess -8.9 mEq/L (-2.0 to 3.0); ABG Oxygen Saturation 93 % (95-98); ABG PCO2 43 mmHg (35-45); ABG PH 7.23 pH Units (7.32-7.45); ABG PO2 80 mmHg (85-104); ABG TCO2 19.3 mEq/L (20-26)
[2016-08-27 05:03] LABS: Mean Corpuscular HGB Conc 33.3 g/dL (31.6-35.5)
[2016-08-27 05:03] LABS: Blood Gas FiO2 100 %
[2016-08-27 05:05] LABS: Hematocrit 26.7 % (35.3-44.9); Hemoglobin 8.9 g/dL (11.5-15.4); Immature Platelets 11.6 % (1.1-6.1); Mean Corpuscular Hemoglobin 32.4 pg (28.0-33.3); Mean Corpuscular Volume 97.1 fL (83.0-100.0); Mean Platelet Volume 10.3 fL (9.4-12.4); Nucleated Red Blood Cells 0.5 /100 WBC (0); Red Blood Count 2.75 M/mcL (3.82-4.97); Red Cell Distribution Width 15.6 % (11.5-14.5)
[2016-08-27 05:18] LABS: Albumin 2.5 g/dL (3.5-5.0); Albumin/Globulin Ratio 0.9 (1.1-2.2); Bilirubin,Direct 1.5 mg/dL (0.0-0.5); Bilirubin,Indirect 0.8 mg/dL (0.0-1.2); Bilirubin,Total 2.3 mg/dL (0.2-1.2); Calcium 7.9 mg/dL (8.6-10.8); Globulin 2.8 g/dL (2.4-3.5); Magnesium 2.6 mg/dL (1.6-2.6); Phosphorous 4.5 mg/dL (2.3-4.7); Potassium 4.5 mEq/L (3.5-4.5); Total Protein 5.3 g/dL (6.0-8.3)
[2016-08-27 05:29] LABS: Platelet Count 18 K/mcL (140-400)
[2016-08-27] MEDS ORDERED: 0.9 % Sodium Chloride 250 ML ONE ×2 (05:36→19:17)
[2016-08-27 06:11] LABS: Lymphocytes # 0.2 K/mcL (0.6-4.6); Monocytes # 0.4 K/mcL (0.0-1.3); Neutrophils # 10.2 K/mcL (1.6-8.9); Platelet Estimate Marked Decrease (Normal)
[2016-08-27 06:12] LABS: Toxic Granulation Present (Not Present); Toxic Vacuolation Present (Not Present)
[2016-08-27] MEDS: Insulin LISPRO 300 UNITS/3 ML VIAL SQ SCH ×4 (06:14→23:14)
--- NOTE | 2016-08-27 07:00 | Pulmonology Progress Note ---
<Aravind Gonsales - Last Filed: 08/27/16 14:01> Date of Encounter: 08/27/16 Time of Encounter: 06:59 Assessment and Plan (1) MODS (multiple organ dysfunction syndrome) Current Visit: Yes Status: Acute clinically appears in septic shock with hepatic and renal dysfunction Tmax 98.1 however hypothermic Tmin 94.[address] Chest 08/24 - suggestive of multifocal pneumonia vs. pulm edema blood, sputum, and urine cultures NGTD off Levophed this AM ID consulted and appreciated plan to de-escalate antibiotics - currently on Vanc, Zosyn, and Levaquin will discuss with ID to discontinue Vancomycin (started on 08/22) Levaquin day 4 (start 08/24) switched Meropenem to Zosyn 08/26 Micafungin discontinued 08/24 lactic acid continues to increase negative urine antigens other causes of shock considered - hemorrhagic no signs of active bleeding however concerning for DIC - cardiogenic shock with mildly elevated Trop in setting of shock and Afib TTE 08/24 - EF 50-55% with low normal LV systolic function and RV is mildly dilated with low normal function Day 3 of Vit C, Thiamine, and Hydrocortisone per Landon study for severe sepsis, plan to discontinue after day 4 Landon PE, Deshaun V, Ruiz R, Hernandez MH, Silvia J, Hydrocortisone, Vitamin C and Thiamine for the Treatment of Severe Sepsis and Septic Shock: A Retrospective Before-After Study, CHEST (2017), doi: [email or web address]/ [email or web address] (2) Respiratory failure Current Visit: Yes Status: Acute acute hypoxemic respiratory failure intubated 08/24 possibly from suspected pneumonia - CT Chest 08/24 - bilateral lower lobe consolidation L > R concerning for multifocal pneumonia or pulmonary edema - TTE 08/24 - EF 50-55% with low normal LV systolic function, no gross wall abnormalities currently on empiric broad spectrum with Levaquin, Vanc, and Meropenem - pancultures NGTD continue vent support titrate O2 if possible - increased to 100% low vent volumes Qualifiers: Chronicity: acute Respiratory failure complication: hypoxia Qualified Code(s): J96.01 - Acute respiratory failure with hypoxia (3) Elevated transaminase level Current Visit: Yes Status: Acute likely shock liver LFTs downtrending continue to trend hepatitis panel nonreactive (4) Metabolic acidosis Current Visit: Yes Status: Acute low bicarb additional 1 amp of bicarb given continue to monitor BMP Q6H discussed with Nephro for possible supplementation of bicarb through Racquel (5) Lactic acidosis Current Visit: Yes Status: Acute worsening 5.5 on Racquel (6) Thrombocytopenia Current Visit: Yes Status: Acute etiology unclear at this time continues to downtrend 18 (28) - transfused 2 units / - on 3rd unit transfusion / likely secondary to sepsis consideration for DIC, unlikely with elevated fibrinogen Heme/Onc consulted - agreed that likely due to infection and use of vancomycin - do not suspect DIC as fibrinogen is 494 transfuse if she develops major bleeding or < 50K transfuse as needed if platelets are <20,000 with tubes and intubation peripheral smear was performed 08/24, repeat pending - recommend a bone marrow exam if persists beyond normal hemolytic workup (7) Acute kidney injury Current Visit: Yes Status: Resolved continues to worsen on CKD stage 3 minimal UOP currently on Racquel plan to de-escalate antibiotics Nephrology on board, appreciated (8) Anemia Current Visit: No Status: Chronic history of Vit B12 deficiency home supplementation hemoglobin stalbe 8.9 (8.6) continue to monitor with thrombocytopenia no active bleeding noted transfuse if below 7.0 Qualifiers: Anemia type: B12 deficiency Vitamin B12 deficiency anemia type: unspecified B12 deficiency Qualified Code(s): D51.9 - Vitamin B12 deficiency anemia, unspecified (9) Fever Current Visit: Yes Status: Acute Tmax 98.1 but hypothermic concerned with antipyretic use due to liver and kidney injury difficult to treat but prefer Tylenol over NSAIDs - continue Tylenol PRN but will limit repeat patel cultures are NGTD CXR soft tissue neck without obvious abscess Qualifiers: Fever type: unspecified Qualified Code(s): R50.9 - Fever, unspecified (10) Hypothermia Current Visit: Yes Status: Acute Tmin 94.9 rectal suzanne hugger continue to monitor Qualifiers: Encounter type: initial encounter Qualified Code(s): T68.XXXA - Hypothermia , initial encounter (11) Elevated troponin Current Visit: Yes Status: Acute mild elevation peaked at 1.18, recent 1.12 suspect demand ischemia in the setting of shock and JESSIKA no heparin due to thrombocytopenia (12) Atrial fibrillation with RVR Current Visit: Yes Status: Acute currently normal sinus rhythm Amiodarone gtt restarted continue to monitor (13) Goals of care, counseling/discussion Current Visit: Yes Status: Acute discuss prognosis with David and other family members request to have family discuss goals of care - son and daughter unable to be present until 1600 today plan for family meeting possibly tomorrow (14) DVT prophylaxis Current Visit: Yes Status: 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; does not follows commands Pulmonary: acute hypoxemic respiratory failure, intubated 08/24, requiring high FiO2 and PEEP, wean down as tolerated; etiology suggestive of multifocal pneumonia Cardiovascular: septic shock, off Norepi at the moment; goal MAP >65; currently normal sinus rhythm; mild troponin elevation but not a candidate for anticoagulation d/t thrombocytopenia FEN-GI: discuss GOC with family, on TFs, GI prophylaxis per routine; CT abd/ pelvis without significant acute findings; lactic acidosis worsening; bicarb given Heme: EPCDs for DVT prophylaxis, transufsed 1 pool of platelets for thrombocytopenia; continor to monitor anemia concerning; Heme/Onc consulted does not believe to be DIC ID: afebrile but hypothermic requiring suzanne hugger, antibiotics Zosyn (on 08/26 switched from Meropenem), Vancomycin (08/22), and Levaquin (08/24) with plan to de -escalate, will discuss with ID; sputum culture NGTD, prior cultures and UAT negative; repeated blood cultures NGTD Renal: poor UOP today, JESSIKA worsening; lactic acidosis improving and will continue to monitor; nephrology consulted started on Racquel Endocrine: blood glucose monitored Lines: all lines checked and no evidence of infections Skin: skin care to prevent pressure ulcers per nursing routine care, ulcer to buttock/coccyx Subjective Principal diagnosis: Severe sepsis Interval history: Last night patient went into Afib c RVR, restarted Amiodarone. Increased vent support to 100% FiO2 as well. Patient seen and examined at bedside. Continues to be on Racquel. No fevers overnight, rectal temps with Tmin 94.9. Unable to obtain any further review systems due to mental state. Objective PUL Vital signs: Last Vital Signs Temp 98.0 F 08/27/16 06:20 Pulse 96 08/27/16 06:20 Resp 21 08/27/16 06:20 BP 121/46 06/02/17 06:20 Pulse Ox 96 08/27/16 06:20 General appearance: no acute distress, other (sedated and intubated, cold to the touch, mottling more diffuse) Eyes: nonicteric ENT: other (endotracheal intubation with OG tube) Neck: no lymphadenopathy Effort: other (mechanically ventilated) Auscultation: bilateral: clear Cardiovascular: regular rate and rhythm Gastrointestinal: hypoactive bowel sounds, other (distended) Integumentary: decubitus ulcer (coccyx), other (petechiae to extremities and trunk, mottling up the mid thigh and entire upper extremities) Extremities: no edema, cyanosis Musculoskeletal: no deformities unable to assess due to mental status R IJ CVC, R wrist peripheral, R radial arterial line, ETT at 21cm, OG tube, and layton catheter dressings are clear and dry, no obvious signs of infection no active bleeding Ventilator Settings Ventilator Settings: Ventilator Settings, Last 8 Hours Ventilator Mode VC+ Ventilator Mode VC+ Ventilator Mode VC+ Ventilator Mode VC+ Ventilator Mode VC+ Ventilator Mode VC+ Ventilator Mode VC+ Ventilator Mode VC+ Ventilator Mode VC+ Ventilator Mode VC+ Ventilator Mode VC+ Ventilator Mode VC+ Ventilator Mode VC+ Ventilator Tidal Volume 400 Setting Ventilator Tidal Volume 400 Setting Ventilator Tidal Volume 400 Setting Ventilator Tidal Volume 400 Setting Ventilator Tidal Volume 400 Setting Ventilator Tidal Volume 400 Setting Ventilator Tidal Volume 400 Setting Ventilator Tidal Volume 400 Setting Ventilator Tidal Volume 400 Setting Ventilator Tidal Volume 400 Setting Ventilator Tidal Volume 400 Setting Ventilator Tidal Volume 400 Setting Ventilator Tidal Volume 400 Setting Ventilator Respiratory Rate 12 Setting Ventilator Respiratory Rate 12 Setting Ventilator Respiratory Rate 12 Setting Ventilator Respiratory Rate 12 Setting Ventilator Respiratory Rate 12 Setting Ventilator Respiratory Rate 12 Setting Ventilator Respiratory Rate 12 Setting Ventilator Respiratory Rate 12 Setting Ventilator Respiratory Rate 12 Setting Ventilator Respiratory Rate 12 Setting Ventilator Respiratory Rate 12 Setting Ventilator Respiratory Rate 12 Setting Ventilator Respiratory Rate 12 Setting Actual Respiratory Rate 22 Actual Respiratory Rate 21 Actual Respiratory Rate 24 Actual Respiratory Rate 24 Actual Respiratory Rate 23 Actual Respiratory Rate 18 Actual Respiratory Rate 18 Actual Respiratory Rate 24 Actual Respiratory Rate 19 Actual Respiratory Rate 21 Actual Respiratory Rate 19 Actual Respiratory Rate 21 Positive End Expiratory 5 Pressure Positive End Expiratory 5 Pressure Positive End Expiratory 5 Pressure Positive End Expiratory 5 Pressure Positive End Expiratory 5 Pressure Positive End Expiratory 5 Pressure Positive End Expiratory 5 Pressure Positive End Expiratory 5 Pressure Positive End Expiratory 5 Pressure Positive End Expiratory 5 Pressure Positive End Expiratory 5 Pressure Positive End Expiratory 5 Pressure Positive End Expiratory 5 Pressure Peak Inspiratory Airway 16 Pressure Peak Inspiratory Airway 13 Pressure Peak Inspiratory Airway 13 Pressure Peak Inspiratory Airway 19 Pressure Peak Inspiratory Airway 14 Pressure Peak Inspiratory Airway 13 Pressure Peak Inspiratory Airway 15 Pressure Peak Inspiratory Airway 15 Pressure Peak Inspiratory Airway 14 Pressure Peak Inspiratory Airway 14 Pressure Peak Inspiratory Airway 20 Pressure Peak Inspiratory Airway 15 Pressure Results - Laboratory Findings CBC and BMP: 08/27/16 11:20 08/27/16 11:20 ABG ABG pH 7.23 pH Units (7.32-7.45) L 08/27/16 04:43 ABG pCO2 43 mmHg (35-45) 08/27/16 04:43 ABG pO2 80 mmHg (85-104) L 08/27/16 04:43 ABG O2 Saturation 93 % (95-98) L 08/27/16 04:43 PT/INR, D-dimer PT 13.3 Seconds (9.4-12.1) H 08/26/16 04:03 D-Dimer [id number] ng/mLFEU (0-500) H 08/25/16 15:10 Abnormal lab findings: Abnormal lab results RBC 2.75 M/mcL (3.82-4.97) L 08/27/16 04:50 Hgb 8.9 g/dL (11.5-15.4) L 08/27/16 04:50 Hct 26.7 % (35.3-44.9) L 08/27/16 04:50 RDW 15.6 % (11.5-14.5) H 08/27/16 04:50 Plt Count 18 K/mcL (140-400) L* 08/27/16 04:50 Band Neutrophils % 6.0 % (0-4) H 08/27/16 04:50 Metamyelocytes % 4.0 % (0) H 08/24/16 13:15 Myelocytes % 2.0 % (0) H 08/27/16 04:50 Neutrophils # 10.2 K/mcL (1.6-8.9) H 08/27/16 04:50 Lymphocytes # 0.2 K/mcL (0.6-4.6) L 08/27/16 04:50 Nucleated RBCs/100 WBC 0.5 /100 WBC (0) H 08/27/16 04:50 Reactive Lymphocytes Present (Not Present) A 08/26/16 23:30 Toxic Granulation Present (Not Present) A 08/27/16 04:50 Toxic Vacuolation Present (Not Present) A 08/27/16 04:50 Dohle Bodies Present (Not Present) A 08/26/16 23:30 Platelet Estimate Marked Decrease (Normal) L 08/27/16 04:50 Large Platelets Present (Not Present) A 08/25/16 03:30 Immature Plt Fraction 11.6 % (1.1-6.1) H 08/27/16 04:50 PT 13.3 Seconds (9.4-12.1) H 08/26/16 04:03 APTT 58.1 Seconds (26.0-36.0) H D 08/27/16 04:50 Fibrinogen 437 mg/dL (169-393) H 08/25/16 15:10 D-Dimer 97724 ng/mLFEU (0-500) H 08/25/16 15:10 ABG pH 7.23 pH Units (7.32-7.45) L 08/27/16 04:43 ABG pO2 80 mmHg (85-104) L 08/27/16 04:43 ABG HCO3 18.0 mEQ/L (21-27) L 08/27/16 04:43 ABG Total CO2 19.3 mEq/L (20-26) L 08/27/16 04:43 ABG O2 Saturation 93 % (95-98) L 08/27/16 04:43 ABG Base Excess -8.9 mEq/L (-2.0 to 3.0) L 08/27/16 04:43 Carbon Dioxide 16 mEq/L (19-29) L 08/27/16 04:50 BUN 43 mg/dL (7-20) H 08/27/16 04:50 Creatinine 2.82 mg/dL (0.57-1.11) H 08/27/16 04:50 Est GFR ( Amer) 19 (> 60) L 08/27/16 04:50 Est GFR (Non-Af Amer) 16 (> 60) L 08/27/16 04:50 Glucose 141 mg/dL (70-99) H 08/27/16 04:50 POC Glucose 196 (58-89) H 08/26/16 23:08 Hemoglobin A1c 6.1 % (-5.6) H 08/21/16 10:43 Lactic Acid 5.5 mmol/L (0.5-2.2) H* 08/27/16 04:50 Uric Acid 7.4 mg/dL (2.6-6.0) H 08/25/16 15:10 Calcium 7.9 mg/dL (8.6-10.8) L 08/27/16 04:50 Ionized Calcium 1.07 mmol/L (1.15-1.35) L 08/27/16 04:50 Total Bilirubin 2.3 mg/dL (0.2-1.2) H 08/27/16 04:50 Direct Bilirubin 1.5 mg/dL (0.0-0.5) H 08/27/16 04:50 AST 800 Units/L (5-34) H 08/27/16 04:50 ALT 408 Units/L (0-55) H 08/27/16 04:50 Alkaline Phosphatase 324 Units/L (38-126) H 08/27/16 04:50 Lactate Dehydrogenase 2692 Units/L (159-327) H 08/24/16 18:45 Creatine Kinase 4065 Units/L (29-168) H 08/27/16 04:50 Troponin I 1.12 ng/mL (0-0.03) H* 08/24/16 13:15 Serum Total Protein 5.3 g/dL (6.0-8.3) L 08/27/16 04:50 Albumin 2.5 g/dL (3.5-5.0) L 08/27/16 04:50 Albumin/Globulin Ratio 0.9 (1.1-2.2) L 08/27/16 04:50 Urine Color Red (Yellow) A 08/25/16 14:30 Urine Clarity Turbid (Clear) A 08/25/16 14:30 Ur Specific [place] 1.030 (1.010-1.025) H 08/25/16 14:30 Urine Protein 100 mg/dL (Neg-Trace) H 08/25/16 14:30 Urine Glucose (UA) 100 mg/dL (Normal) H 08/25/16 14:30 Urine Ketones 15 mg/dL (Negative) H 08/25/16 14:30 Urine Blood Large (Negative) H 08/25/16 14:30 Urine Nitrite Positive (Negative) A 08/25/16 14:30 Urine Bilirubin Moderate (Negative) H 08/25/16 14:30 Urine Urobilinogen 2.0 mg/dL (Normal) H 08/25/16 14:30 Ur Leukocyte Esterase Moderate (Negative) H 08/25/16 14:30 Urine Microscopic RBC 5-15 per hpf (0-3) H 08/25/16 14:30 Amorphous Sediment Moderate (Few) H 08/25/16 14:30 Urine Bacteria Moderate per hpf (None-Few) H 08/25/16 14:30 Granular Casts Few per lpf (None Seen) H 08/25/16 14:30 Ur Culture Indicated? YES (NO) A 08/25/16 14:30 Vancomycin Trough 26.7 mcg/mL (10-20) H* 08/26/16 04:03 - Microbiology Findings Microbiology Findings: Microbiology, Last 48 Hours 08/25/16 14:30 Urine Culture - Final Urine,Catheterized No growth. 08/25/16 09:20 Sputum Culture - Preliminary Sputum - Clinical Findings Intake & Output: Intake & Output 08/26/16 08/26/16 08/27/16 15:59 23:59 07:59 Intake Total 2386 / 2386 1497 / 1497 1517 / 1517 Output Total 50 / 50 1600 / 1600 804 / 804 Balance 2336 / 2336 -103 / -103 713 / 713 Weight 83 kg 86.4 kg - VTE Documentation of Mechanical Device: Intermittent pneumatic compression device Consult Discharge Plan - Plan Referrals: Per Barros MD [Primary Care Provider] - (web request sent on 08/23/16) <Gabriella Schofield - Last Filed: 08/27/16 17:22> Date of Encounter: 08/27/16 Objective PUL Vital signs: Last Vital Signs Temp 97.0 F L 08/27/16 15:00 Pulse 88 08/27/16 16:00 Resp 19 08/27/16 16:00 BP 111/43 08/27/16 16:00 Pulse Ox 98 08/27/16 16:00 Ventilator Settings Ventilator Settings: Ventilator Settings, Last 8 Hours Ventilator Mode VC+ Ventilator Mode VC+ Ventilator Mode VC+ Ventilator Mode VC+ Ventilator Mode VC+ Ventilator Mode VC+ Ventilator Mode VC+ Ventilator Mode VC+ Ventilator Mode VC+ Ventilator Tidal Volume 400 Setting Ventilator Tidal Volume 400 Setting Ventilator Tidal Volume 400 Setting Ventilator Tidal Volume 400 Setting Ventilator Tidal Volume 400 Setting Ventilator Tidal Volume 400 Setting Ventilator Tidal Volume 400 Setting Ventilator Tidal Volume 400 Setting Ventilator Tidal Volume 400 Setting Ventilator Respiratory Rate 12 Setting Ventilator Respiratory Rate 12 Setting Ventilator Respiratory Rate 12 Setting Ventilator Respiratory Rate 12 Setting Ventilator Respiratory Rate 12 Setting Ventilator Respiratory Rate 12 Setting Ventilator Respiratory Rate 12 Setting Ventilator Respiratory Rate 12 Setting Ventilator Respiratory Rate 12 Setting Actual Respiratory Rate 19 Actual Respiratory Rate 19 Actual Respiratory Rate 19 Actual Respiratory Rate 19 Actual Respiratory Rate 19 Actual Respiratory Rate 19 Actual Respiratory Rate 19 Actual Respiratory Rate 19 Actual Respiratory Rate 19 Positive End Expiratory 5 Pressure Positive End Expiratory 5 Pressure Positive End Expiratory 5 Pressure Positive End Expiratory 5 Pressure Positive End Expiratory 5 Pressure Positive End Expiratory 5 Pressure Positive End Expiratory 5 Pressure Positive End Expiratory 5 Pressure Positive End Expiratory 5 Pressure Peak Inspiratory Airway 13 Pressure Peak Inspiratory Airway 13 Pressure Peak Inspiratory Airway 13 Pressure Peak Inspiratory Airway 13 Pressure Peak Inspiratory Airway 13 Pressure Peak Inspiratory Airway 13 Pressure Peak Inspiratory Airway 13 Pressure Peak Inspiratory Airway 13 Pressure Peak Inspiratory Airway 13 Pressure Results - Laboratory Findings CBC and BMP: 08/27/16 11:20 08/27/16 11:20 ABG ABG pH 7.23 pH Units (7.32-7.45) L 08/27/16 04:43 ABG pCO2 43 mmHg (35-45) 08/27/16 04:43 ABG pO2 80 mmHg (85-104) L 08/27/16 04:43 ABG O2 Saturation 93 % (95-98) L 08/27/16 04:43 PT/INR, D-dimer PT 14.2 Seconds (9.4-12.1) H 08/27/16 11:20 D-Dimer 39219 ng/mLFEU (0-500) H 08/27/16 11:20 Abnormal lab findings: Abnormal lab results RBC 2.60 M/mcL (3.82-4.97) L 08/27/16 11:20 Hgb 8.3 g/dL (11.5-15.4) L 08/27/16 11:20 Hct 25.1 % (35.3-44.9) L 08/27/16 11:20 RDW 15.9 % (11.5-14.5) H 08/27/16 11:20 Plt Count 22 K/mcL (140-400) L* 08/27/16 11:20 Band Neutrophils % 8.0 % (0-4) H 08/27/16 11:20 Metamyelocytes % 4.0 % (0) H 08/24/16 13:15 Myelocytes % 2.0 % (0) H 08/27/16 04:50 Neutrophils # 9.2 K/mcL (1.6-8.9) H 08/27/16 11:20 Nucleated RBCs/100 WBC 0.7 /100 WBC (0) H 08/27/16 11:20 Reactive Lymphocytes Present (Not Present) A 08/26/16 23:30 Toxic Granulation Present (Not Present) A 08/27/16 04:50 Toxic Vacuolation Present (Not Present) A 08/27/16 04:50 Dohle Bodies Present (Not Present) A 08/26/16 23:30 Platelet Estimate Marked Decrease (Normal) L 08/27/16 11:20 Large Platelets Present (Not Present) A 08/25/16 03:30 Immature Plt Fraction 8.0 % (1.1-6.1) H 08/27/16 11:20 PT 14.2 Seconds (9.4-12.1) H 08/27/16 11:20 APTT 58.1 Seconds (26.0-36.0) H D 08/27/16 04:50 Fibrinogen 153 mg/dL (169-393) L D 08/27/16 11:20 D-Dimer 45628 ng/mLFEU (0-500) H 08/27/16 11:20 ABG pH 7.23 pH Units (7.32-7.45) L 08/27/16 04:43 ABG pO2 80 mmHg (85-104) L 08/27/16 04:43 ABG HCO3 18.0 mEQ/L (21-27) L 08/27/16 04:43 ABG Total CO2 19.3 mEq/L (20-26) L 08/27/16 04:43 ABG O2 Saturation 93 % (95-98) L 08/27/16 04:43 ABG Base Excess -8.9 mEq/L (-2.0 to 3.0) L 08/27/16 04:43 Carbon Dioxide 17 mEq/L (19-29) L 08/27/16 11:20 BUN 35 mg/dL (7-20) H 08/27/16 11:20 Creatinine 2.22 mg/dL (0.57-1.11) H 08/27/16 11:20 Est GFR ( Amer) 26 (> 60) L 08/27/16 11:20 Est GFR (Non-Af Amer) 21 (> 60) L 08/27/16 11:20 Glucose 122 mg/dL (70-99) H 08/27/16 11:20 POC Glucose 167 (58-89) H 08/27/16 17:08 Hemoglobin A1c 6.1 % (-5.6) H 08/21/16 10:43 Lactic Acid 5.4 mmol/L (0.5-2.2) H* 08/27/16 11:20 Uric Acid 7.4 mg/dL (2.6-6.0) H 08/25/16 15:10 Calcium 8.1 mg/dL (8.6-10.8) L 08/27/16 11:20 Total Bilirubin 2.3 mg/dL (0.2-1.2) H 08/27/16 04:50 Direct Bilirubin 1.5 mg/dL (0.0-0.5) H 08/27/16 04:50 AST 800 Units/L (5-34) H 08/27/16 04:50 ALT 408 Units/L (0-55) H 08/27/16 04:50 Alkaline Phosphatase 324 Units/L (38-126) H 08/27/16 04:50 Lactate Dehydrogenase 2692 Units/L (159-327) H 08/24/16 18:45 Creatine Kinase 4065 Units/L (29-168) H 08/27/16 04:50 Troponin I 1.12 ng/mL (0-0.03) H* 08/24/16 13:15 Serum Total Protein 5.3 g/dL (6.0-8.3) L 08/27/16 04:50 Albumin 2.5 g/dL (3.5-5.0) L 08/27/16 04:50 Albumin/Globulin Ratio 0.9 (1.1-2.2) L 08/27/16 04:50 Procalcitonin 3.40 ng/mL (<=0.10) H 08/24/16 13:15 Urine Color Red (Yellow) A 08/25/16 14:30 Urine Clarity Turbid (Clear) A 08/25/16 14:30 Ur Specific [place] 1.030 (1.010-1.025) H 08/25/16 14:30 Urine Protein 100 mg/dL (Neg-Trace) H 08/25/16 14:30 Urine Glucose (UA) 100 mg/dL (Normal) H 08/25/16 14:30 Urine Ketones 15 mg/dL (Negative) H 08/25/16 14:30 Urine Blood Large (Negative) H 08/25/16 14:30 Urine Nitrite Positive (Negative) A 08/25/16 14:30 Urine Bilirubin Moderate (Negative) H 08/25/16 14:30 Urine Urobilinogen 2.0 mg/dL (Normal) H 08/25/16 14:30 Ur Leukocyte Esterase Moderate (Negative) H 08/25/16 14:30 Urine Microscopic RBC 5-15 per hpf (0-3) H 08/25/16 14:30 Amorphous Sediment Moderate (Few) H 08/25/16 14:30 Urine Bacteria Moderate per hpf (None-Few) H 08/25/16 14:30 Granular Casts Few per lpf (None Seen) H 08/25/16 14:30 Ur Culture Indicated? YES (NO) A 08/25/16 14:30 Vancomycin Trough 26.7 mcg/mL (10-20) H* 08/26/16 04:03 - Microbiology Findings Microbiology Findings: Microbiology, Last 48 Hours 08/24/16 23:55 Viral Culture - Preliminary Blood Product 08/25/16 09:20 Sputum Culture - Final Sputum 08/26/16 07:52 Blood Culture - Preliminary Peripheral Venipuncture No growth. 08/26/16 07:38 Blood Culture - Preliminary Peripheral Venipuncture No growth. 08/25/16 14:30 Urine Culture - Final Urine,Catheterized No growth. - Clinical Findings Intake & Output: Intake & Output 08/27/16 08/27/16 08/27/16 07:59 15:59 23:59 Intake Total 1574 / 1574 1371 / 1371 350 / 350 Output Total 999 / 999 1568 / 1568 222 / 222 Balance 575 / 575 -197 / -197 128 / 128 - Attending Attestation I examined this patient and my medical decision-making was reviewed with the [employer]ER/PA/Advanced Practice Nurse/Resident Physician. I agree with the documented findings, disposition and treatment plan as described except to the extent set forth below. Patient seen and examined. Labs, radiology, chart personally reviewed. 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 PEEP lowered and hopefully that will help blood pressure. Patient seems to be air hunger from acidosis. Cardiovascular: Even though patient blood pressure shows some improvement, however overall clinical condition is deteriorating and evidence of skin mottling and lactic acidosis are poor prognosis factors. Discussed with the and plan to have a family meeting tomorrow. GI: Nutrition per dietary and GI prophylaxis per routine Heme: DVT prophylaxis per routine. Severe thrombocytopenia with replacement of platelets ID: Continue antibiotics and plan to de-escalation Renal; urine out put and renal funtion reviewed. Given her acidosis, Racquel to continue and bicarbonate was given. Endorcine: blood glucose is monitored Lines: all lines checked and no evidence of infections Skin: skin care to prevent pressure ulcers per nursing routine care Overall prognosis extremely poor. I spent 35 min of Critical Care time with this patient. It involved decision making of high complexity to assess, manipulate, and support vital organ system failure and/or to prevent further life threatening deterioration of the patient' s condition. The time involved in the performance of separately reportable procedures was not counted toward critical care time.
[2016-08-27] MEDS: Chlorhexidine Rinse 15 ML MOUTHWASH MM SCH ×2 (08:30→19:35)
[2016-08-27] MEDS: Pantoprazole 40 MG VIAL IVP SCH (08:30)
[2016-08-27] MEDS: Hydrocortisone Sodium Succ 100 MG/2 ML VIAL IVP SCH ×3 (08:30→23:17)
[2016-08-27] MEDS ORDERED: Meropenem 1,000 MG in 0.9 % Sodium Chloride Mini Bag 100 ML IVPB SCH (09:00)
[2016-08-27] MEDS: Thiamine (B-1) 200 MG in D5% in Water 50 ML IVPB SCH ×2 (09:52→20:53)
--- NOTE | 2016-08-27 10:27 | Nephrology Progress Note ---
Date of Encounter: 08/27/16 Time of Encounter: 10:23 - Assessment and Plan (1) JESSIKA (acute kidney injury) Current Visit: Yes Status: Acute Will continue with CVVHDF. Sodium and potassium are normal. Metabolic acidosis not resolving even with CVVHDF. Agree with supplementation. Repeat BMP after supplementation. Etiology is worsening lactic acidosis as evidenced by rising lactate. Will decide on best management based on response to supplemental bicarbonate. No citrate or heparin secondary to thrombocytopenia. ? HIT Study. (2) Metabolic acidosis Current Visit: Yes Status: Acute See JESSIKA. (3) Respiratory failure Current Visit: Yes Status: Acute Patient intubated. Per primary team. Qualifiers: Chronicity: acute Respiratory failure complication: hypoxia Qualified Code(s): J96.01 - Acute respiratory failure with hypoxia (4) Septic shock Current Visit: Yes Status: Acute Per primary team. Patient with rising lactate and extremities are echhymotic. Subjective Principal diagnosis: Severe sepsis Interval history: Patient intubated and sedated. ROS is unobtainable. Objective - Vital Signs Vital signs: Vital Signs Temp Pulse Resp BP Pulse Ox 08/27/16 10:00 95 21 131/54 96 08/27/16 09:39 21 165/52 96 08/27/16 09:00 96 19 134/49 94 08/27/16 08:19 98.1 F 102 19 138/51 08/27/16 08:13 19 142/51 94 08/27/16 08:00 98.1 F 104 21 140/46 95 08/27/16 07:45 104 08/27/16 07:00 98.0 F 104 21 157/49 95 08/27/16 06:20 98.0 F 96 21 121/46 96 08/27/16 06:09 22 96 08/27/16 06:05 98.0 F 98 21 120/46 08/27/16 06:00 98.0 F 96 21 114/44 95 08/27/16 05:00 98.1 F 99 24 121/43 92 08/27/16 04:17 22 109/43 93 08/27/16 04:00 96.9 F L 116 23 116/62 92 08/27/16 03:08 110 08/27/16 03:00 96.8 F L 121 18 113/50 95 08/27/16 02:07 19 178/60 93 08/27/16 02:00 96.1 F L 131 24 195/62 92 08/27/16 01:00 95.5 F L 94 19 153/61 93 08/27/16 00:04 22 122/48 95 08/27/16 00:00 95.3 F L 89 19 122/47 94 08/26/16 23:45 89 08/26/16 23:00 95.2 F L 89 21 121/46 93 08/26/16 22:12 23 117/43 95 08/26/16 22:00 95.1 F L 90 23 121/47 93 08/26/16 21:00 95.0 F L 113 21 113/46 91 08/26/16 20:40 94.9 F L 100 20 108/44 91 08/26/16 20:00 94.9 F L 102 20 108/46 92 08/26/16 19:40 100 08/26/16 19:00 99 19 123/54 91 08/26/16 18:50 96 F L 102 21 136/57 93 08/26/16 18:17 20 132/57 90 08/26/16 18:00 101 20 122/58 89 08/26/16 17:14 96.0 F L 110 23 157/70 91 08/26/16 16:00 96.3 F L 92 17 129/50 93 08/26/16 15:26 21 120/49 92 08/26/16 15:00 110 08/26/16 14:00 101.2 F H 105 25 148/48 92 08/26/16 13:00 102.9 F H 110 26 154/45 91 08/26/16 12:22 110 27 130/41 91 08/26/16 11:21 25 155/48 93 08/26/16 11:00 110 25 155/48 93 Intake and Output 08/26/16 08/27/16 08/27/16 23:59 07:59 15:59 Intake Total 1497 / 1497 1574 / 1574 431 / 431 Output Total 1600 / 1600 999 / 999 563 / 563 Balance -103 / -103 575 / 575 -132 / -132 Intake: IV Fluids 710 / 710 1191 / 1191 31 / 31 Calcium Chloride 4,000 MG 0 / 0 479 / 479 In 0.9 % Sodium Chloride 1,000 ML @ 40 mls/hr CRRT CONT [facility] Rx#: [id number] PrismaSATE BGK 4/2.5 5, 0 / 0 0 / 0 000 ML @ 1000 mls/hr CRRT CONT [facility] Rx#:[id number] PRECEDEX 400 mcg In 100 100 / 100 169 / 169 31 / 31 ml @ 0.2 MCG/KG/HR 3.325 mls/hr IVC .Q24H [facility] Rx#: [id number] FentaNYL (PF) 1,000 MCG 0 / 0 200 / 200 In 0.9 % Sodium Chloride 80 ML @ 50 MCG/HR 5 mls/ hr IVC CONT [facility] Rx#: [id number] Levophed 8 MG In Dextrose 145 / 145 37 / 37 5% 250 ML @ 8 MCG/MIN 15 .48 mls/hr IVC CONT [facility] Rx#:[id number] Ascorbic Acid 1,500 mg In 103 / 103 206 / 206 0.9 % Sodium Chloride 100 ML @ 103 mls/hr IVPB Q6H [facility] Rx#:[id number] Calcium Gluconate 1,000 110 / 110 MG In Dextrose 5% 100 ML @ 220 mls/hr IVPB ONCE [facility] Rx#:[id number] Levaquin Premix 500mg/ 100 / 100 100mL 500 mg In 100 ml @ 100 mls/hr IVPB Q48H [facility] Rx#:[id number] Zosyn 3.375 GM In 100 / 100 100 / 100 Dextrose 5% (Minibag+) 100 ML 100 ML @ 25 mls/hr IVPB Q8H [facility] Rx#: [id number] Vitamin B-1 200 MG In 52 / 52 Dextrose 5% 50 ML @ 50 mls/hr IVPB BID [facility] Rx#: [id number] 0.9 % Sodium Chloride 1, 0 / 0 000 ML @ 999 mls/hr PRIME .Q1H1M [facility] Rx#: [id number] Oral 0 / 0 Tube Feeding 427 / 427 383 / 383 112 / 112 Blood Product 360 / 360 0 / 0 288 / 288 Platelet Pheresis Lp Irr 360 / 360 1st Unit [id number] Platelet Pheresis Lp Irr 0 / 0 288 / 288 2nd Unit [id number] Free Water Intake Amount 0 / 0 Output: Urine 0 / 0 Racqule 1600 / 1600 989 / 989 563 / 563 Catheter 0 / 0 0 / 0 Other: Meal Nourishment/Supplement Weight 86.4 kg Blood Glucose* 196 - General Appearance General appearance: Present: well-developed, chronically ill, sedated on ventilator, intubated, frail EENT: Present: ATNC Respiratory: Present: course breath sounds Cardiology: Present: edema, regular rate Dialysis Vascular Access: Venous Catheter Gastrointestinal: Present: no tenderness Integumentary: Present: cool/clammy, ecchymotic Additional Comments: sedated - Lab 08/27/16 04:50 08/27/16 04:50 Most recent lab results ABG pH 7.23 pH Units (7.32-7.45) L 08/27/16 04:43 ABG pCO2 43 mmHg (35-45) 08/27/16 04:43 ABG pO2 80 mmHg (85-104) L 08/27/16 04:43 ABG HCO3 18.0 mEQ/L (21-27) L 08/27/16 04:43 ABG O2 Saturation 93 % (95-98) L 08/27/16 04:43 Calcium 7.9 mg/dL (8.6-10.8) L 08/27/16 04:50 Phosphorus 4.5 mg/dL (2.3-4.7) 08/27/16 04:50 Magnesium 2.6 mg/dL (1.6-2.6) 08/27/16 04:50 Urine Creatinine 120 mg/dL 08/25/16 14:30 Urine Sodium 35.0 mEq/L 08/25/16 14:30 - VTE Documentation of Mechanical Device: Intermittent pneumatic compression device Consult Discharge Plan - Plan Referrals: Per Barros MD [Primary Care Provider] - (web request sent on 08/23/16)
[2016-08-27] MEDS ORDERED: Vancomycin 1,000 MG in D5% in Water 250 ML IVPB ONE (11:00)
--- NOTE | 2016-08-27 11:16 | Infectious Disease Progress No ---
Date of Encounter: 08/27/16 Time of Encounter: 11:14 - Assessment and Plan (1) Septic shock Current Visit: Yes Status: Acute The patient had two SIRS criteria plus JESSIKA and lactic acidosis on admission. Source unclear, possibly PNA, but all cultures continue to come back negative. Originally thought to be secondary to UTI, but urinalysis and culture are negative. CT scan of the chest shows findings consistent with multifocal PNA vs. pulmonary edema. The patient had been spiking high fevers, but she is now hypothermic . She continues to have tachycardia. Leukocytosis has resolved, but she continues to require IV vasopressors to maintain adequate perfusion. Blood cultures drawn 08/21/16 are NGTD x 2 sets. Additional blood cultures drawn 08/23/16 are NGTD x 3 sets as well. Additional blood cultures drawn 08/26/16 are also NGTD. CXR shows findings consistent with likely pulmonary edema, but no definitive infiltrate. CT of the chest showed findings consistent with multifocal PNA vs. pulmonary edema. Sputum culture has been sent and is negative. Respiratory infectious panel is negative. No evidence of skin/soft tissue infection. No evidence of joint infections noted. XR of the neck non-revealing. CT of the head and abdomen/pelvis negative for infectious etiology. LFTs elevated, but improved. Procalcitonin elevated at 3.40. Peripheral smear report reviewed. Toxic granulation present. Concern for possible acute blood loss or hemolysis given the patient's anemia and thrombocytopenia. DIC workup negative. Hem/Onc consulted and notes reviewed. Appreciate their input. Given that the patient now has EOD involving the liver, kidneys, lungs, and cardiovascular system, overall prognosis poor. Continue Vancomycin IV. Pharmacy to dose. Goal trough approximately 15. Meropenem de-escalated to Zosyn yesterday. Continue Zosyn. Request dosing assistance from the PharmD team given that the patient is on CRRT. Continue Levaquin 500mg IV Q48H for atypical coverage. Monitor renal function and dose-adjust antibiotics. Duration of treatment depends on the clinical picture. (2) Pneumonia Current Visit: Yes Status: Acute Location: Multifocal. Causative organism unclear. Sputum culture is negative. S. pneumo and Legionella UAT negative. Respiratory infectious panel negative. CT of the chest shows patchy bilateral upper lobe ground glass opacities and large bilateral lower lobe consolidation, worse on the left, concerning for multifocal PNA vs. pulmonary edema. Continue antibiotics as above. Duration of treatment depends on the clinical picture. Monitor renal function and dose-adjust antibiotics. Qualifiers: Pneumonia type: due to unspecified organism Laterality: bilateral Lung location: unspecified part of lung Qualified Code(s): J18.9 - Pneumonia, unspecified organism (3) Lactic acidosis Current Visit: Yes Status: Acute Lactic acid worse this morning. Likely secondary to sepsis. (4) Thrombocytopenia Current Visit: Yes Status: Acute Platelets 132 on admission, down to 18 today. Likely secondary to sepsis vs. IV Vanc per Hem/Onc. No acute bleeding noted. Hgb 8.9 this morning. Status post platelet transfusion this morning. Awaiting repeat labs. Management per the primary team. (5) Respiratory failure Current Visit: Yes Status: Acute Likely multifactorial --> fluid volume overload + PNA. Required emergent intubation. CT of the chest shows findings consistent with multifocal PNA vs. pulmonary edema. Pulmonology consulted and following. Qualifiers: Chronicity: acute Respiratory failure complication: hypoxia Qualified Code(s): J96.01 - Acute respiratory failure with hypoxia (6) Atrial fibrillation with RVR Current Visit: Yes Status: Acute Patient went back in to RVR last night when she became hypoxic. Continues to have intermittent RVR. Amiodarone gtt continues. Management per the primary team. (7) Acute kidney injury Current Visit: Yes Status: Resolved Likely secondary to sepsis. Serum creatinine improved this morning. Nephrology consulted. CRRT initiated 08/26/16. TDC placed 08/26/16. Dose-adjust antibiotics and avoid nephrotoxins as able. (8) Elevated transaminase level Current Visit: Yes Status: Acute T. Bili, AST, AP, and ALT elevated, but improving. Likely shock liver. Hepatitis profile non-reactive. Repeat labs in the AM. (9) Anemia Current Visit: No Status: Chronic Hgb stable at 8.5 this morning. No evidence of active bleeding. Management per the primary team. Qualifiers: Anemia type: B12 deficiency Vitamin B12 deficiency anemia type: unspecified B12 deficiency Qualified Code(s): D51.9 - Vitamin B12 deficiency anemia, unspecified - Subjective Interval history: Patient seen and examined with nursing at bedside. Overnight events noted. The patient remains intubated and sedated. She is no longer on Levophed vasopressor support. She had a TDC placed 08/26/16 and CRRT was initiated. She has become oliguric. She is unable to provide me any information and she is unresponsive to verbal or painful stimuli. She has been hypothermic overnight. Tube feeds started with small residuals. No diarrhea. No other new issues per nursing. Chart reviewed. Case discussed with the critical care team. Infect Dis PN-Objective Data - Labs CBC & Chem 7: 08/27/16 04:50 08/27/16 04:50 Labs: Laboratory Results - last 24 hr 08/24/16 08/24/16 08/26/16 09:00 13:15 05:25 WBC RBC Hgb Hct MCV MCH MCHC RDW Plt Count MPV Immature Gran % Seg Neutrophils % Band Neutrophils % Lymphocytes % Monocytes % Eosinophils % Basophils % Myelocytes % Neutrophils # Lymphocytes # Monocytes # Eosinophils # Basophils # Nucleated RBCs/100 WBC Reactive Lymphocytes Toxic Granulation Toxic Vacuolation Dohle Bodies Platelet Estimate Immature Plt Fraction APTT ABG pH ABG pCO2 ABG pO2 ABG HCO3 ABG Total CO2 ABG O2 Saturation ABG Base Excess Blood Gas Modality Inspired O2 Sodium Potassium Chloride Carbon Dioxide BUN Creatinine Est GFR ( Amer) Est GFR (Non-Af Amer) BUN/Creatinine Ratio Glucose POC Glucose Calculated Osmolality Lactic Acid Calcium Ionized Calcium Phosphorus Magnesium Total Bilirubin Direct Bilirubin Indirect Bilirubin AST ALT Alkaline Phosphatase Creatine Kinase Serum Total Protein Albumin Globulin Albumin/Globulin Ratio Procalcitonin 3.40 H Random Vancomycin TSH Receptor Antibody <0.90 Chlamy pneumoniae PCR Adenovirus (PCR) B. pertussis DNA (PCR) Coronavirus OC43 (PCR) Coronavirus HKU1 (PCR) Coronavirus 229E (PCR) Coronavirus NL63 (PCR) Human Metapneumovirus Influenza A (H1) PCR Influ A (H1N1/09) PCR Influenza A (H3) PCR Influenza A Untype (PCR) Influenza Type B (PCR) M.pneumoniae DNA (PCR) Parainfluenza 1 (PCR) Parainfluenza 2 (PCR) Parainfluenza 3 (PCR) Parainfluenza 4 (PCR) RSV (PCR) Entero/Rhino (PCR) Blood Type O POSITIVE Antibody Screen NEGATIVE 08/26/16 08/26/16 08/26/16 11:15 11:15 11:15 WBC 9.1 RBC 2.47 L Hgb 7.9 L Hct 23.6 L MCV 95.5 MCH 32.0 MCHC 33.5 RDW 14.9 H Plt Count 41 L D MPV 11.2 Immature Gran % Seg Neutrophils % 78.0 Band Neutrophils % 20.0 H Lymphocytes % 1.0 Monocytes % 1.0 Eosinophils % Basophils % Myelocytes % Neutrophils # 8.9 Lymphocytes # 0.1 L Monocytes # 0.1 Eosinophils # Basophils # Nucleated RBCs/100 WBC 0.2 H Reactive Lymphocytes Toxic Granulation Present A Toxic Vacuolation Dohle Bodies Present A Platelet Estimate Decreased L Immature Plt Fraction 6.4 H APTT ABG pH ABG pCO2 ABG pO2 ABG HCO3 ABG Total CO2 ABG O2 Saturation ABG Base Excess Blood Gas Modality Inspired O2 Sodium 134 L Potassium 4.3 Chloride 103 Carbon Dioxide 16 L BUN 68 H Creatinine 4.47 H Est GFR ( Amer) 11 L Est GFR (Non-Af Amer) 9 L BUN/Creatinine Ratio 15 Glucose 161 H POC Glucose Calculated Osmolality 301 H Lactic Acid 4.4 H* Calcium 6.8 L Ionized Calcium Phosphorus Magnesium Total Bilirubin Direct Bilirubin Indirect Bilirubin AST ALT Alkaline Phosphatase Creatine Kinase Serum Total Protein Albumin Globulin Albumin/Globulin Ratio Procalcitonin Random Vancomycin TSH Receptor Antibody Chlamy pneumoniae PCR Adenovirus (PCR) B. pertussis DNA (PCR) Coronavirus OC43 (PCR) Coronavirus HKU1 (PCR) Coronavirus 229E (PCR) Coronavirus NL63 (PCR) Human Metapneumovirus Influenza A (H1) PCR Influ A (H1N1/09) PCR Influenza A (H3) PCR Influenza A Untype (PCR) Influenza Type B (PCR) M.pneumoniae DNA (PCR) Parainfluenza 1 (PCR) Parainfluenza 2 (PCR) Parainfluenza 3 (PCR) Parainfluenza 4 (PCR) RSV (PCR) Entero/Rhino (PCR) Blood Type Antibody Screen 08/26/16 08/26/16 08/26/16 11:15 11:17 16:35 WBC RBC Hgb Hct MCV MCH MCHC RDW Plt Count MPV Immature Gran % Seg Neutrophils % Band Neutrophils % Lymphocytes % Monocytes % Eosinophils % Basophils % Myelocytes % Neutrophils # Lymphocytes # Monocytes # Eosinophils # Basophils # Nucleated RBCs/100 WBC Reactive Lymphocytes Toxic Granulation Toxic Vacuolation Dohle Bodies Platelet Estimate Immature Plt Fraction APTT ABG pH ABG pCO2 ABG pO2 ABG HCO3 ABG Total CO2 ABG O2 Saturation ABG Base Excess Blood Gas Modality Inspired O2 Sodium Potassium Chloride Carbon Dioxide BUN Creatinine Est GFR ( Amer) Est GFR (Non-Af Amer) BUN/Creatinine Ratio Glucose POC Glucose 205 H Calculated Osmolality Lactic Acid Calcium Ionized Calcium 0.88 L Phosphorus Magnesium Total Bilirubin Direct Bilirubin Indirect Bilirubin AST ALT Alkaline Phosphatase Creatine Kinase Serum Total Protein Albumin Globulin Albumin/Globulin Ratio Procalcitonin Random Vancomycin TSH Receptor Antibody Chlamy pneumoniae PCR Not Detected Adenovirus (PCR) Not Detected B. pertussis DNA (PCR) Not Detected Coronavirus OC43 (PCR) Not Detected Coronavirus HKU1 (PCR) Not Detected Coronavirus 229E (PCR) Not Detected Coronavirus NL63 (PCR) Not Detected Human Metapneumovirus Not Detected Influenza A (H1) PCR Not Detected Influ A (H1N1/09) PCR Not Detected Influenza A (H3) PCR Not Detected Influenza A Untype (PCR) Not Detected Influenza Type B (PCR) Not Detected M.pneumoniae DNA (PCR) Not Detected Parainfluenza 1 (PCR) Not Detected Parainfluenza 2 (PCR) Not Detected Parainfluenza 3 (PCR) Not Detected Parainfluenza 4 (PCR) Not Detected RSV (PCR) Not Detected Entero/Rhino (PCR) Not Detected Blood Type Antibody Screen 08/26/16 08/26/16 08/26/16 17:25 17:25 17:25 WBC 6.8 RBC 2.58 L Hgb 8.1 L Hct 24.7 L MCV 95.7 MCH 31.4 MCHC 32.8 RDW 15.1 H Plt Count 22 L* MPV 12.0 Immature Gran % 2.5 Seg Neutrophils % 89.1 Band Neutrophils % Lymphocytes % 3.8 Monocytes % 4.5 Eosinophils % 0.0 Basophils % 0.1 Myelocytes % Neutrophils # 6.1 Lymphocytes # 0.3 L Monocytes # 0.3 Eosinophils # 0.0 Basophils # 0.0 Nucleated RBCs/100 WBC 0.6 H Reactive Lymphocytes Toxic Granulation Toxic Vacuolation Present A Dohle Bodies Present A Platelet Estimate Decreased L Immature Plt Fraction 9.9 H APTT ABG pH ABG pCO2 ABG pO2 ABG HCO3 ABG Total CO2 ABG O2 Saturation ABG Base Excess Blood Gas Modality Inspired O2 Sodium Potassium Chloride Carbon Dioxide BUN Creatinine Est GFR ( Amer) Est GFR (Non-Af Amer) BUN/Creatinine Ratio Glucose POC Glucose Calculated Osmolality Lactic Acid 3.9 H Calcium Ionized Calcium 1.08 L Phosphorus Magnesium Total Bilirubin Direct Bilirubin Indirect Bilirubin AST ALT Alkaline Phosphatase Creatine Kinase Serum Total Protein Albumin Globulin Albumin/Globulin Ratio Procalcitonin Random Vancomycin TSH Receptor Antibody Chlamy pneumoniae PCR Adenovirus (PCR) B. pertussis DNA (PCR) Coronavirus OC43 (PCR) Coronavirus HKU1 (PCR) Coronavirus 229E (PCR) Coronavirus NL63 (PCR) Human Metapneumovirus Influenza A (H1) PCR Influ A (H1N1) PCR Influenza A (H3) PCR Influenza A Untype (PCR) Influenza Type B (PCR) M.pneumoniae DNA (PCR) Parainfluenza 1 (PCR) Parainfluenza 2 (PCR) Parainfluenza 3 (PCR) Parainfluenza 4 (PCR) RSV (PCR) Entero/Rhino (PCR) Blood Type Antibody Screen 08/26/16 08/26/16 08/26/16 17:28 20:20 20:20 WBC RBC Hgb Hct MCV MCH MCHC RDW Plt Count MPV Immature Gran % Seg Neutrophils % Band Neutrophils % Lymphocytes % Monocytes % Eosinophils % Basophils % Myelocytes % Neutrophils # Lymphocytes # Monocytes # Eosinophils # Basophils # Nucleated RBCs/100 WBC Reactive Lymphocytes Toxic Granulation Toxic Vacuolation Dohle Bodies Platelet Estimate Immature Plt Fraction APTT ABG pH ABG pCO2 ABG pO2 ABG HCO3 ABG Total CO2 ABG O2 Saturation ABG Base Excess Blood Gas Modality Inspired O2 Sodium 135 L Potassium 4.2 Chloride 104 Carbon Dioxide 15 L BUN 53 H Creatinine 3.31 H Est GFR ( Amer) 16 L Est GFR (Non-Af Amer) 13 L BUN/Creatinine Ratio 16 Glucose 177 H POC Glucose 226 H Calculated Osmolality 299 Lactic Acid Calcium 7.6 L Ionized Calcium 1.01 L Phosphorus Magnesium Total Bilirubin Direct Bilirubin Indirect Bilirubin AST ALT Alkaline Phosphatase Creatine Kinase Serum Total Protein Albumin Globulin Albumin/Globulin Ratio Procalcitonin Random Vancomycin TSH Receptor Antibody Chlamy pneumoniae PCR Adenovirus (PCR) B. pertussis DNA (PCR) Coronavirus OC43 (PCR) Coronavirus HKU1 (PCR) Coronavirus 229E (PCR) Coronavirus NL63 (PCR) Human Metapneumovirus Influenza A (H1) PCR Influ A (H1N1) PCR Influenza A (H3) PCR Influenza A Untype (PCR) Influenza Type B (PCR) M.pneumoniae DNA (PCR) Parainfluenza 1 (PCR) Parainfluenza 2 (PCR) Parainfluenza 3 (PCR) Parainfluenza 4 (PCR) RSV (PCR) Entero/Rhino (PCR) Blood Type Antibody Screen 08/26/16 08/26/16 08/26/16 22:20 23:08 23:30 WBC 7.0 RBC 2.63 L Hgb 8.6 L Hct 25.2 L MCV 95.8 MCH 32.7 MCHC 34.1 RDW 15.1 H Plt Count 28 L* MPV 12.1 Immature Gran % 2.9 Seg Neutrophils % 90.5 Band Neutrophils % Lymphocytes % 4.9 Monocytes % 1.6 Eosinophils % 0.0 Basophils % 0.1 Myelocytes % Neutrophils # 6.3 Lymphocytes # 0.3 L Monocytes # 0.1 Eosinophils # 0.0 Basophils # 0.0 Nucleated RBCs/100 WBC 0.4 H Reactive Lymphocytes Present A Toxic Granulation Present A Toxic Vacuolation Present A Dohle Bodies Present A Platelet Estimate Marked Decrease L Immature Plt Fraction 6.5 H APTT ABG pH ABG pCO2 ABG pO2 ABG HCO3 ABG Total CO2 ABG O2 Saturation ABG Base Excess Blood Gas Modality Inspired O2 Sodium Potassium Chloride Carbon Dioxide BUN Creatinine Est GFR ( Amer) Est GFR (Non-Af Amer) BUN/Creatinine Ratio Glucose POC Glucose 196 H Calculated Osmolality Lactic Acid Calcium Ionized Calcium 1.09 L Phosphorus Magnesium Total Bilirubin Direct Bilirubin Indirect Bilirubin AST ALT Alkaline Phosphatase Creatine Kinase Serum Total Protein Albumin Globulin Albumin/Globulin Ratio Procalcitonin Random Vancomycin TSH Receptor Antibody Chlamy pneumoniae PCR Adenovirus (PCR) B. pertussis DNA (PCR) Coronavirus OC43 (PCR) Coronavirus HKU1 (PCR) Coronavirus 229E (PCR) Coronavirus NL63 (PCR) Human Metapneumovirus Influenza A (H1) PCR Influ A (H1N1/09) PCR Influenza A (H3) PCR Influenza A Untype (PCR) Influenza Type B (PCR) M.pneumoniae DNA (PCR) Parainfluenza 1 (PCR) Parainfluenza 2 (PCR) Parainfluenza 3 (PCR) Parainfluenza 4 (PCR) RSV (PCR) Entero/Rhino (PCR) Blood Type Antibody Screen 08/26/16 08/27/16 08/27/16 23:59 02:15 04:43 WBC RBC Hgb Hct MCV MCH MCHC RDW Plt Count MPV Immature Gran % Seg Neutrophils % Band Neutrophils % Lymphocytes % Monocytes % Eosinophils % Basophils % Myelocytes % Neutrophils # Lymphocytes # Monocytes # Eosinophils # Basophils # Nucleated RBCs/100 WBC Reactive Lymphocytes Toxic Granulation Toxic Vacuolation Dohle Bodies Platelet Estimate Immature Plt Fraction APTT ABG pH 7.23 L ABG pCO2 43 ABG pO2 80 L ABG HCO3 18.0 L ABG Total CO2 19.3 L ABG O2 Saturation 93 L ABG Base Excess -8.9 L Blood Gas Modality VC+ Inspired O2 100 Sodium 136 Potassium 4.2 Chloride 105 Carbon Dioxide 16 L BUN 47 H Creatinine 2.98 H Est GFR ( Amer) 18 L Est GFR (Non-Af Amer) 15 L BUN/Creatinine Ratio 16 Glucose 162 H POC Glucose Calculated Osmolality 298 Lactic Acid Calcium 7.9 L Ionized Calcium 1.13 L Phosphorus Magnesium Total Bilirubin Direct Bilirubin Indirect Bilirubin AST ALT Alkaline Phosphatase Creatine Kinase Serum Total Protein Albumin Globulin Albumin/Globulin Ratio Procalcitonin Random Vancomycin TSH Receptor Antibody Chlamy pneumoniae PCR Adenovirus (PCR) B. pertussis DNA (PCR) Coronavirus OC43 (PCR) Coronavirus HKU1 (PCR) Coronavirus 229E (PCR) Coronavirus NL63 (PCR) Human Metapneumovirus Influenza A (H1) PCR Influ A (H1N1/09) PCR Influenza A (H3) PCR Influenza A Untype (PCR) Influenza Type B (PCR) M.pneumoniae DNA (PCR) Parainfluenza 1 (PCR) Parainfluenza 2 (PCR) Parainfluenza 3 (PCR) Parainfluenza 4 (PCR) RSV (PCR) Entero/Rhino (PCR) Blood Type Antibody Screen 08/27/16 08/27/16 08/27/16 04:50 04:50 04:50 WBC 11.1 D RBC 2.75 L Hgb 8.9 L Hct 26.7 L MCV 97.1 MCH 32.4 MCHC 33.3 RDW 15.6 H Plt Count 18 L* MPV 10.3 Immature Gran % Seg Neutrophils % 86.0 Band Neutrophils % 6.0 H Lymphocytes % 2.0 Monocytes % 4.0 Eosinophils % Basophils % Myelocytes % 2.0 H Neutrophils # 10.2 H Lymphocytes # 0.2 L Monocytes # 0.4 Eosinophils # Basophils # Nucleated RBCs/100 WBC 0.5 H Reactive Lymphocytes Toxic Granulation Present A Toxic Vacuolation Present A Dohle Bodies Platelet Estimate Marked Decrease L Immature Plt Fraction 11.6 H APTT ABG pH ABG pCO2 ABG pO2 ABG HCO3 ABG Total CO2 ABG O2 Saturation ABG Base Excess Blood Gas Modality Inspired O2 Sodium Potassium Chloride Carbon Dioxide BUN Creatinine Est GFR ( Amer) Est GFR (Non-Af Amer) BUN/Creatinine Ratio Glucose POC Glucose Calculated Osmolality Lactic Acid 5.5 H* Calcium Ionized Calcium Phosphorus Magnesium Total Bilirubin Direct Bilirubin Indirect Bilirubin AST ALT Alkaline Phosphatase Creatine Kinase Serum Total Protein Albumin Globulin Albumin/Globulin Ratio Procalcitonin Random Vancomycin 13.7 TSH Receptor Antibody Chlamy pneumoniae PCR Adenovirus (PCR) B. pertussis DNA (PCR) Coronavirus OC43 (PCR) Coronavirus HKU1 (PCR) Coronavirus 229E (PCR) Coronavirus NL63 (PCR) Human Metapneumovirus Influenza A (H1) PCR Influ A (H1N1/09) PCR Influenza A (H3) PCR Influenza A Untype (PCR) Influenza Type B (PCR) M.pneumoniae DNA (PCR) Parainfluenza 1 (PCR) Parainfluenza 2 (PCR) Parainfluenza 3 (PCR) Parainfluenza 4 (PCR) RSV (PCR) Entero/Rhino (PCR) Blood Type Antibody Screen 08/27/16 08/27/16 08/27/16 04:50 04:50 04:50 WBC RBC Hgb Hct MCV MCH MCHC RDW Plt Count MPV Immature Gran % Seg Neutrophils % Band Neutrophils % Lymphocytes % Monocytes % Eosinophils % Basophils % Myelocytes % Neutrophils # Lymphocytes # Monocytes # Eosinophils # Basophils # Nucleated RBCs/100 WBC Reactive Lymphocytes Toxic Granulation Toxic Vacuolation Dohle Bodies Platelet Estimate Immature Plt Fraction APTT 58.1 H D ABG pH ABG pCO2 ABG pO2 ABG HCO3 ABG Total CO2 ABG O2 Saturation ABG Base Excess Blood Gas Modality Inspired O2 Sodium 137 Potassium 4.5 Chloride 105 Carbon Dioxide 16 L BUN 43 H Creatinine 2.82 H Est GFR ( Amer) 19 L Est GFR (Non-Af Amer) 16 L BUN/Creatinine Ratio 15 Glucose 141 H POC Glucose Calculated Osmolality 297 Lactic Acid Calcium 7.9 L Ionized Calcium 1.07 L Phosphorus 4.5 Magnesium 2.6 Total Bilirubin 2.3 H Direct Bilirubin 1.5 H Indirect Bilirubin 0.8 AST 800 H ALT 408 H Alkaline Phosphatase 324 H Creatine Kinase 4065 H Serum Total Protein 5.3 L Albumin 2.5 L Globulin 2.8 Albumin/Globulin Ratio 0.9 L Procalcitonin Random Vancomycin TSH Receptor Antibody Chlamy pneumoniae PCR Adenovirus (PCR) B. pertussis DNA (PCR) Coronavirus OC43 (PCR) Coronavirus HKU1 (PCR) Coronavirus 229E (PCR) Coronavirus NL63 (PCR) Human Metapneumovirus Influenza A (H1) PCR Influ A (H1N1) PCR Influenza A (H3) PCR Influenza A Untype (PCR) Influenza Type B (PCR) M.pneumoniae DNA (PCR) Parainfluenza 1 (PCR) Parainfluenza 2 (PCR) Parainfluenza 3 (PCR) Parainfluenza 4 (PCR) RSV (PCR) Entero/Rhino (PCR) Blood Type Antibody Screen 08/27/16 08:12 WBC RBC Hgb Hct MCV MCH MCHC RDW Plt Count MPV Immature Gran % Seg Neutrophils % Band Neutrophils % Lymphocytes % Monocytes % Eosinophils % Basophils % Myelocytes % Neutrophils # Lymphocytes # Monocytes # Eosinophils # Basophils # Nucleated RBCs/100 WBC Reactive Lymphocytes Toxic Granulation Toxic Vacuolation Dohle Bodies Platelet Estimate Immature Plt Fraction APTT ABG pH ABG pCO2 ABG pO2 ABG HCO3 ABG Total CO2 ABG O2 Saturation ABG Base Excess Blood Gas Modality Inspired O2 Sodium Potassium Chloride Carbon Dioxide BUN Creatinine Est GFR ( Amer) Est GFR (Non-Af Amer) BUN/Creatinine Ratio Glucose POC Glucose Calculated Osmolality Lactic Acid Calcium Ionized Calcium 1.14 L Phosphorus Magnesium Total Bilirubin Direct Bilirubin Indirect Bilirubin AST ALT Alkaline Phosphatase Creatine Kinase Serum Total Protein Albumin Globulin Albumin/Globulin Ratio Procalcitonin Random Vancomycin TSH Receptor Antibody Chlamy pneumoniae PCR Adenovirus (PCR) B. pertussis DNA (PCR) Coronavirus OC43 (PCR) Coronavirus HKU1 (PCR) Coronavirus 229E (PCR) Coronavirus NL63 (PCR) Human Metapneumovirus Influenza A (H1) PCR Influ A (H1N1) PCR Influenza A (H3) PCR Influenza A Untype (PCR) Influenza Type B (PCR) M.pneumoniae DNA (PCR) Parainfluenza 1 (PCR) Parainfluenza 2 (PCR) Parainfluenza 3 (PCR) Parainfluenza 4 (PCR) RSV (PCR) Entero/Rhino (PCR) Blood Type Antibody Screen Cultures: Cultures 08/25/16 09:20 Sputum Culture - Final Sputum 08/26/16 07:52 Blood Culture - Preliminary Peripheral Venipuncture No growth. 08/26/16 07:38 Blood Culture - Preliminary Peripheral Venipuncture No growth. 08/25/16 14:30 Urine Culture - Final Urine,Catheterized No growth. 08/24/16 23:55 Legionella Antigen - Final Urine,Catheterized Streptococcus pneumoniae Antigen (M - Final 08/23/16 00:45 Blood Fungal Culture - Preliminary Peripheral Venipuncture No growth. 08/23/16 00:53 Blood Culture - Preliminary Peripheral Venipuncture No growth. 08/23/16 00:53 Blood Culture - Preliminary Peripheral Venipuncture No growth. 08/22/16 18:54 Blood Culture - Preliminary Peripheral Venipuncture No growth. 08/21/16 20:12 Urine Culture - Final Urine,[place] No growth. Serology 08/26/16 08/25/16 08/25/16 Range/Units 16:35 14:30 14:30 Urine Color Red A (Yellow) Urine Clarity Turbid A (Clear) Urine pH 5.0 (5.0-8.0) pH Units Ur Specific [place] 1.030 H (1.010-1.025) Urine Protein 100 H (Neg-Trace) mg/dL Urine Glucose (UA) 100 H (Normal) mg/dL Urine Ketones 15 H (Negative) mg/dL Urine Blood Large H (Negative) Urine Nitrite Positive A (Negative) Urine Bilirubin Moderate H (Negative) Urine Urobilinogen 2.0 H (Normal) mg/dL Ur Leukocyte Esterase Moderate H (Negative) Urine Microscopic RBC 5-15 H (0-3) per hpf Urine Microscopic WBC 0-3 (0-3) per hpf Ur Eosinophil Smear 0 (None Seen) % Ur Squamous Epith Cells Few (None-Few) per lpf Amorphous Sediment Moderate H (Few) Urine Bacteria Moderate H (None-Few) per hpf Granular Casts Few H (None Seen) per lpf Ur Culture Indicated? YES A (NO) Urine Creatinine 120 mg/dL Urine Sodium 35.0 mEq/L Chlamy pneumoniae PCR Not Detected (Not Detect) Adenovirus (PCR) Not Detected (Not Detect) B. pertussis DNA (PCR) Not Detected (Not Detect) Coronavirus OC43 (PCR) Not Detected (Not Detect) Coronavirus HKU1 (PCR) Not Detected (Not Detect) Coronavirus 229E (PCR) Not Detected (Not Detect) Coronavirus NL63 (PCR) Not Detected (Not Detect) Hepatitis A IgM Ab (Nonreactive) Hep Bs Antigen (Nonreactive) Hep B Core IgM Ab (Nonreactive) Hepatitis C Ab Screen (Nonreactive) Human Metapneumovirus Not Detected (Not Detect) Influenza A (H1) PCR Not Detected (Not Detect) Influ A (H1N1/09) PCR Not Detected (Not Detect) Influenza A (H3) PCR Not Detected (Not Detect) Influenza A Untype (PCR) Not Detected (Not Detect) Influenza Type B (PCR) Not Detected (Not Detect) M.pneumoniae DNA (PCR) Not Detected (Not Detect) Parainfluenza 1 (PCR) Not Detected (Not Detect) Parainfluenza 2 (PCR) Not Detected (Not Detect) Parainfluenza 3 (PCR) Not Detected (Not Detect) Parainfluenza 4 (PCR) Not Detected (Not Detect) RSV (PCR) Not Detected (Not Detect) Entero/Rhino (PCR) Not Detected (Not Detect) 08/24/16 Range/Units 16:20 Urine Color (Yellow) Urine Clarity (Clear) Urine pH (5.0-8.0) pH Units Ur Specific [place] (1.010-1.025) Urine Protein (Neg-Trace) mg/dL Urine Glucose (UA) (Normal) mg/dL Urine Ketones (Negative) mg/dL Urine Blood (Negative) Urine Nitrite (Negative) Urine Bilirubin (Negative) Urine Urobilinogen (Normal) mg/dL Ur Leukocyte Esterase (Negative) Urine Microscopic RBC (0-3) per hpf Urine Microscopic WBC (0-3) per hpf Ur Eosinophil Smear (None Seen) % Ur Squamous Epith Cells (None-Few) per lpf Amorphous Sediment (Few) Urine Bacteria (None-Few) per hpf Granular Casts (None Seen) per lpf Ur Culture Indicated? (NO) Urine Creatinine mg/dL Urine Sodium mEq/L Chlamy pneumoniae PCR (Not Detect) Adenovirus (PCR) (Not Detect) B. pertussis DNA (PCR) (Not Detect) Coronavirus OC43 (PCR) (Not Detect) Coronavirus HKU1 (PCR) (Not Detect) Coronavirus 229E (PCR) (Not Detect) Coronavirus NL63 (PCR) (Not Detect) Hepatitis A IgM Ab Nonreactive (Nonreactive) Hep Bs Antigen Nonreactive (Nonreactive) Hep B Core IgM Ab Nonreactive (Nonreactive) Hepatitis C Ab Screen Nonreactive (Nonreactive) Human Metapneumovirus (Not Detect) Influenza A (H1) PCR (Not Detect) Influ A (H1N1/09) PCR (Not Detect) Influenza A (H3) PCR (Not Detect) Influenza A Untype (PCR) (Not Detect) Influenza Type B (PCR) (Not Detect) M.pneumoniae DNA (PCR) (Not Detect) Parainfluenza 1 (PCR) (Not Detect) Parainfluenza 2 (PCR) (Not Detect) Parainfluenza 3 (PCR) (Not Detect) Parainfluenza 4 (PCR) (Not Detect) RSV (PCR) (Not Detect) Entero/Rhino (PCR) (Not Detect) - Impressions Impressions Guidance Needle Placement Ultrasound 08/26/16 00:00 IMPRESSION: Successful ultrasound guided non-tunneled temporary hemodialysis catheter placement at the bedside in the unit given patient's clinical condition. D/ / Haroon Friend MD / Haroon Friend MD Interpreting Provider: Haroon Friend MD Insertion Non-Tunneled Catheter 08/26/16 00:00 IMPRESSION: Successful ultrasound guided non-tunneled temporary hemodialysis catheter placement at the bedside in the unit given patient's clinical condition. D/ / Haroon Friend MD / Haroon Friend MD Interpreting Provider: Haroon Friend MD Soft Tissue Neck X-Ray 08/26/16 10:48 IMPRESSION: 1. Severely limits evaluation due to the intubation and enteric tube in place. There is no focal soft tissue abnormality. 2. If concern for abscess evaluation with CT of the neck soft tissues with contrast is recommended. D/ / 08/26/2016 11:57:04 Arnold Poole MD / judith Interpreting Provider: Arnold Poole MD Exam - Constitutional Vitals: Temp Pulse Resp BP Pulse Ox 98.1 F 95 21 131/54 96 08/27/16 08:19 08/27/16 10:00 08/27/16 10:00 08/27/16 10:00 08/27/16 10:00 General appearance: average body habitus, no acute distress, no febrile - Head Head exam: Present: atraumatic, normal inspection, normocephalic - Eye Eye exam: Present: normal appearance, PERRL Pupils: Present: normal accommodation - ENT ENT exam: Present: mucous membranes dry, normal oropharynx - Neck Neck exam: Present: normal inspection. Absent: lymphadenopathy Additional comments: TDC noted to the right neck with transparent dressing C/D/I. CRRT in progress. - Respiratory Respiratory exam: Present: rhonchi (Bilateral upper lobes), tachypnea. Absent: rales, respiratory distress, wheezes Additional comments: O2 via the ventilator. - Cardiovascular Cardiovascular exam: Present: irregular rhythm, tachycardia - GI/Abdominal GI/Abdominal exam: Present: distended, firm, hypoactive bowel sounds. Absent: tenderness Additional comments: OGT with tube feeds infusing. Velarde catheter with scant, dark yellow urine noted. - Extremities Exam Extremities exam: Absent: joint swelling, pedal edema, tenderness Additional comments: Bilateral hands and forearms cold and mottled. Bilateral lower extremities cool and pale. - Neurological Exam Neurological exam: Present: altered (Sedated. Tachypneic and breathing over the vent. Non-purposeful movements noted.). Absent: facial droop - Skin Skin exam: Present: mottled (Mottling noted to the bilateral hands and forearms , bilateral breasts, and abdomen.), pallor (Generalized, worse BLE). Absent: warm (Skin cool to touch) - VTE Documentation of Mechanical Device: Intermittent pneumatic compression device Consult Discharge Plan - Plan Referrals: Per Barros MD [Primary Care Provider] - (web request sent on 08/23/16)
[2016-08-27] MEDS: Calcium Chloride 4,000 MG in 0.9 % Sodium Chloride 1,000 ML CRRT SCH (11:28)
[2016-08-27 11:50] LABS: Hemoglobin 8.3 g/dL (11.5-15.4); Mean Corpuscular Hemoglobin 31.9 pg (28.0-33.3); Nucleated Red Blood Cells 0.7 /100 WBC (0)
[2016-08-27 11:51] LABS: Hematocrit 25.1 % (35.3-44.9); Mean Corpuscular HGB Conc 33.1 g/dL (31.6-35.5); Mean Corpuscular Volume 96.5 fL (83.0-100.0); Mean Platelet Volume 9.7 fL (9.4-12.4); Red Cell Distribution Width 15.9 % (11.5-14.5)
[2016-08-27 11:53] LABS: INR 1.3; Prothrombin Time 14.2 Seconds (9.4-12.1)
[2016-08-27 11:57] LABS: Calcium 8.1 mg/dL (8.6-10.8); Platelet Count 22 K/mcL (140-400); Potassium 4.5 mEq/L (3.5-4.5)
[2016-08-27] MEDS ORDERED: 0.9 % Sodium Chloride 1,000 ML PRIME PRN (12:02)
[2016-08-27 12:22] LABS: Lymphocytes # 0.6 K/mcL (0.6-4.6); Monocytes # 0.6 K/mcL (0.0-1.3); Neutrophils # 9.2 K/mcL (1.6-8.9); Platelet Estimate Marked Decrease (Normal)
[2016-08-27] MEDS: Norepinephrine 8 MG in D5% in Water 250 ML IVC SCH ×2 (16:47→22:09)
[2016-08-27] MEDS ORDERED: *HR* Heparin 5,000 UNIT/ML VIAL ONE ×3 (17:26→18:10)
[2016-08-27] MEDS ORDERED: 0.9 % Sodium Chloride 500 ML ONE (17:37)
[2016-08-27 18:02] LABS: Nucleated Red Blood Cells 0.8 /100 WBC (0)
[2016-08-27 18:04] LABS: Hematocrit 27.5 % (35.3-44.9); Immature Platelets 17.2 % (1.1-6.1); Mean Corpuscular HGB Conc 32.7 g/dL (31.6-35.5); Mean Corpuscular Hemoglobin 31.9 pg (28.0-33.3); Mean Corpuscular Volume 97.5 fL (83.0-100.0); Monocytes # 0.3 K/mcL (0.0-1.3); Red Blood Count 2.82 M/mcL (3.82-4.97)
[2016-08-27 18:15] LABS: Calcium 7.3 mg/dL (8.6-10.8); Potassium 4.5 mEq/L (3.5-4.5)
[2016-08-27 18:21] LABS: Platelet Count 13 K/mcL (140-400)
[2016-08-27 18:40] LABS: Lymphocytes # 0.6 K/mcL (0.6-4.6); Platelet Estimate Marked Decrease (Normal)
[2016-08-27 18:42] LABS: Tear Drop Cells 1+ (Not Present); Toxic Vacuolation Present (Not Present)
[2016-08-27] MEDS: Vasopressin 40 UNIT in D5% in Water 100 ML IVC SCH (20:56)
[2016-08-27 22:12] LABS: Basophils % 0.3 %; Mean Corpuscular HGB Conc 32.3 g/dL (31.6-35.5); Monocytes % 2.1 %; Red Cell Distribution Width 16.4 % (11.5-14.5)
[2016-08-27 22:14] LABS: Basophils # 0.1 K/mcL (0.0-0.2); Hematocrit 26.3 % (35.3-44.9); Hemoglobin 8.5 g/dL (11.5-15.4); Immature Granulocytes % 6.5 % (0-4); Immature Platelets 7.6 % (1.1-6.1); Lymphocytes # 0.8 K/mcL (0.6-4.6); Lymphocytes % 4.5 %; Mean Corpuscular Hemoglobin 31.6 pg (28.0-33.3); Mean Corpuscular Volume 97.8 fL (83.0-100.0); Mean Platelet Volume 10.3 fL (9.4-12.4); Monocytes # 0.4 K/mcL (0.0-1.3); Neutrophils # 15.2 K/mcL (1.6-8.9); Nucleated Red Blood Cells 1.2 /100 WBC (0); Platelet Count 46 K/mcL (140-400); Red Blood Count 2.69 M/mcL (3.82-4.97); Segmented Neutrophils % 86.6 %
[2016-08-27 22:24] LABS: Potassium 4.4 mEq/L (3.5-4.5)
[2016-08-27] MEDS: Calcium Gluconate 1,000 MG in D5% in Water 100 ML IVPB PRN (22:24)
[2016-08-27 22:36] LABS: Toxic Granulation Present (Not Present)
[2016-08-27 22:37] LABS: Toxic Vacuolation Present (Not Present)
[2016-08-28] MEDS: PrismaSATE BGK 4/2.5 5,000 ML CRRT SCH ×13 (01:33→21:45)
[2016-08-28] MEDS: Piperacillin/Tazobactam 3.375 GM in D5% in Water (Mini-Bag+) 100 ML IVPB SCH ×3 (02:07→18:11)
[2016-08-28] MEDS: Amiodarone Premix 360 MG/200 ML BAG IVC SCH ×2 (02:08→14:24)
[2016-08-28] MEDS: FentaNYL (PF) 1,000 MCG in 0.9 % Sodium Chloride 80 ML IVC SCH ×4 (03:10→20:42)
[2016-08-28] MEDS: Ipratropium Neb 0.5 MG NEBULIZER IH SCH ×6 (03:26→23:39)
[2016-08-28] MEDS ORDERED: *HR* Heparin 5,000 UNIT/ML VIAL ONE (04:11)
[2016-08-28 04:51] LABS: ABG Base Excess -6.5 mEq/L (-2.0 to 3.0); ABG HCO3 19.7 mEQ/L (21-27); ABG Oxygen Saturation 99 % (95-98); ABG PCO2 42 mmHg (35-45); ABG PH 7.28 pH Units (7.32-7.45); ABG PO2 166 mmHg (85-104)
[2016-08-28 04:53] LABS: Blood Gas FiO2 100 %
[2016-08-28] MEDS: Lacri-Lube 3.5 GM TUBE BOTH EYES SCH ×6 (05:29→23:10)
[2016-08-28 05:33] LABS: Basophils % 0.3 %; Hemoglobin 8.1 g/dL (11.5-15.4); Mean Corpuscular Volume 97.7 fL (83.0-100.0); Nucleated Red Blood Cells 1.6 /100 WBC (0); Red Cell Distribution Width 16.5 % (11.5-14.5)
[2016-08-28] MEDS: Insulin LISPRO 300 UNITS/3 ML VIAL SQ SCH ×4 (05:33→23:11)
[2016-08-28 05:35] LABS: Immature Granulocytes % 6.6 % (0-4); Immature Platelets 14.6 % (1.1-6.1); Lymphocytes # 0.7 K/mcL (0.6-4.6); Lymphocytes % 4.7 %; Mean Corpuscular HGB Conc 32.4 g/dL (31.6-35.5); Mean Corpuscular Hemoglobin 31.6 pg (28.0-33.3); Mean Platelet Volume 11.6 fL (9.4-12.4); Monocytes # 0.4 K/mcL (0.0-1.3); Monocytes % 2.4 %; Red Blood Count 2.56 M/mcL (3.82-4.97)
[2016-08-28 05:36] LABS: Magnesium 2.7 mg/dL (1.6-2.6); Phosphorous 3.3 mg/dL (2.3-4.7)
[2016-08-28 05:37] LABS: Albumin 2.3 g/dL (3.5-5.0); Albumin/Globulin Ratio 0.8 (1.1-2.2); Bilirubin,Total 2.8 mg/dL (0.2-1.2); Globulin 2.9 g/dL (2.4-3.5); Potassium 4.4 mEq/L (3.5-4.5); Total Protein 5.2 g/dL (6.0-8.3)
[2016-08-28 05:41] LABS: Basophils # 0.1 K/mcL (0.0-0.2); Neutrophils # 13.1 K/mcL (1.6-8.9)
[2016-08-28 05:43] LABS: Platelet Count 18 K/mcL (140-400)
[2016-08-28 06:05] LABS: Hypochromasia Present (Not Present); Platelet Estimate Marked Decrease (Normal); Toxic Granulation Present (Not Present)
[2016-08-28] MEDS ORDERED: 0.9 % Sodium Chloride 250 ML ONE ×2 (06:33→08:33)
--- NOTE | 2016-08-28 07:57 | Pulmonology Progress Note ---
<Karlos Richmond - Last Filed: 08/28/16 11:11> Date of Encounter: 08/28/16 Time of Encounter: 07:52 Assessment and Plan (1) Septic shock Current Visit: Yes Status: Acute Patient continues to decline. She had to have her vasopressor agents initiated again yesterday. She is now on 18 of the Levophed. Patient has extensive mottling throughout even has some on her face and nose. She is developing cyanosis and what appears to be beginning ischemia of the digits. Her lactic acid continues to rise. Her platelets continue to be low despite transfusion. She is requiring CVVH does have very minimal urine output. Currently she is on vancomycin, Zosyn, and Levaquin. Recieved Vitamin C and vitamin. Source appears to be secondary to pneumonia. However we have not been able to identify an organism at this point. All cultures show no growth to date. Now with Renal, Hepatic, Pulmonary, and Hematalogic involvement. She now is in MODS. Very poor prognosis. Will continue to disucss goals of care with family. (2) MODS (multiple organ dysfunction syndrome) Current Visit: Yes Status: Acute as stated above. (3) Respiratory failure Current Visit: Yes Status: Acute multifactoria. PNA, septic shock, fluid overload. currently meeting ventilation and oxygenation goals. However worsening given her FiO2 was increased yesterday. Now on 80% Fio2 Qualifiers: Chronicity: acute Respiratory failure complication: hypoxia Qualified Code(s): J96.01 - Acute respiratory failure with hypoxia (4) Elevated troponin Current Visit: Yes Status: Acute in the setting of septic shock and renal fsilure. No WMA on echo. TN trending down. (5) Atrial fibrillation with RVR Current Visit: Yes Status: Acute continue amioderone gtt. No AC at this time given platelet count. (6) Thrombocytopenia Current Visit: Yes Status: Acute Continues to fall. I believe the patietn is developing DIC with falling Fibrinogen. Repeat panel this AM is pending. Continue to treat the underlying cause. I calculate her 4T score to be 2. This would make HIT highly unlikely. I think this is likely due to sepsis. (7) Fever Current Visit: Yes Status: Acute continue cooling blankets. (8) Metabolic acidosis Current Visit: Yes Status: Acute AG 15 secondary to ischemia and rising lactic acid. (9) Lactic acidosis Current Visit: Yes Status: Acute lactic acid continues to rise despite keeping MAP above goal. continue to follow. (10) DVT prophylaxis Current Visit: Yes Status: Acute (11) Leukocytosis Current Visit: Yes Status: Acute (12) Anemia Current Visit: Yes Status: Acute normocytic. Likely a combination of repeat blood draws and dilution. continue to follow. (13) DVT prophylaxis Current Visit: Yes Status: Acute No pharmicologic prophylaxis given her platelet count of 18. On GI prophylaxis. (14) Goals of care, counseling/discussion Current Visit: Yes Status: Acute Dr. Schofield, staff registered nurse and myself had family meeting with patients family. The whole family was present. Prognosis and recommendations were discussed with family. All questions were answered. Family was left to discuss options. They have decided to change the patients code status to DNR CCa. they do wish to continue the current treatments ( Antibiotics, mechanical ventilation, dialysis , etc.). Subjective Principal diagnosis: Severe sepsis Interval history: No majore events overnight. PAtient is currently on mechanical ventilation, vassopressor agents, and Racquel. Appears to be tolerating the vent. Objective PUL Vital signs: Last Vital Signs Temp 96.4 F L 08/28/16 07:00 Pulse 96 08/28/16 07:00 Resp 16 08/28/16 07:00 BP 81/49 08/28/16 07:00 Pulse Ox 97 08/28/16 07:00 I have reviewed vital signs from the past 24 hours. Gen.: This is a well-developed well-nourished 81-year-old female. She is currently on the ventilator and sedated. She does move or respond to touch. She currently has a cooling blanket on. HEENT: Head is normocephalic and atraumatic. Pupils are equally round and react to light. There is a ET and OG tube in place. The neck is supple without mass or thyromegaly. Trachea is midline. Heart: Regular rate and rhythm without murmurs rubs or gallops. No JVD. Lungs: She has a diffuse coarse breath sounds bilaterally no wheezes but there are some rhonchi. She has a normal rise and expansion of the chest wall bilaterally. Abdomen: There is a midline abdominal scar, bowel sounds are hypoactive mildly distended soft palpation. Musculoskeletal: Grossly normal for age no gross deformity noted. Extremities: Patient has cyanosis with the darkening of the digits on the hands and the feet. There is no sharp line of demarcation but she does have darkening up into the wrist and forearms of the upper extremities. She is mottled throughout even has some mottling on her nose. Integument: She does have some petechiae on the eyelids abdomen and legs. Otherwise no rash. She is mottled extensively. Ventilator Settings Ventilator Settings: Ventilator Settings, Last 8 Hours Ventilator Mode VC+ Ventilator Mode VC+ Ventilator Mode VC+ Ventilator Mode VC+ Ventilator Mode VC+ Ventilator Mode VC+ Ventilator Mode VC+ Ventilator Mode VC+ Ventilator Mode VC+ Ventilator Mode VC+ Ventilator Mode VC+ Ventilator Mode VC+ Ventilator Tidal Volume 400 Setting Ventilator Tidal Volume 400 Setting Ventilator Tidal Volume 400 Setting Ventilator Tidal Volume 400 Setting Ventilator Tidal Volume 400 Setting Ventilator Tidal Volume 400 Setting Ventilator Tidal Volume 400 Setting Ventilator Tidal Volume 400 Setting Ventilator Tidal Volume 400 Setting Ventilator Tidal Volume 400 Setting Ventilator Tidal Volume 400 Setting Ventilator Tidal Volume 400 Setting Ventilator Respiratory Rate 12 Setting Ventilator Respiratory Rate 12 Setting Ventilator Respiratory Rate 12 Setting Ventilator Respiratory Rate 12 Setting Ventilator Respiratory Rate 12 Setting Ventilator Respiratory Rate 12 Setting Ventilator Respiratory Rate 12 Setting Ventilator Respiratory Rate 12 Setting Ventilator Respiratory Rate 12 Setting Ventilator Respiratory Rate 12 Setting Ventilator Respiratory Rate 12 Setting Ventilator Respiratory Rate 12 Setting Actual Respiratory Rate 16 Actual Respiratory Rate 19 Actual Respiratory Rate 21 Actual Respiratory Rate 19 Actual Respiratory Rate 18 Actual Respiratory Rate 25 Actual Respiratory Rate 16 Actual Respiratory Rate 19 Actual Respiratory Rate 19 Actual Respiratory Rate 16 Actual Respiratory Rate 16 Positive End Expiratory 5 Pressure Positive End Expiratory 5 Pressure Positive End Expiratory 5 Pressure Positive End Expiratory 5 Pressure Positive End Expiratory 5 Pressure Positive End Expiratory 5 Pressure Positive End Expiratory 5 Pressure Positive End Expiratory 5 Pressure Positive End Expiratory 5 Pressure Positive End Expiratory 5 Pressure Positive End Expiratory 5 Pressure Positive End Expiratory 5 Pressure Peak Inspiratory Airway 11 Pressure Peak Inspiratory Airway 11 Pressure Peak Inspiratory Airway 13 Pressure Peak Inspiratory Airway 12 Pressure Peak Inspiratory Airway 12 Pressure Peak Inspiratory Airway 15 Pressure Peak Inspiratory Airway 12 Pressure Peak Inspiratory Airway 12 Pressure Peak Inspiratory Airway 12 Pressure Peak Inspiratory Airway 12 Pressure Peak Inspiratory Airway 12 Pressure Results - Laboratory Findings CBC and BMP: 08/28/16 05:15 08/28/16 05:15 ABG ABG pH 7.28 pH Units (7.32-7.45) L 08/28/16 04:45 ABG pCO2 42 mmHg (35-45) 08/28/16 04:45 ABG pO2 166 mmHg (85-104) H 08/28/16 04:45 ABG O2 Saturation 99 % (95-98) H 08/28/16 04:45 PT/INR, D-dimer PT 14.2 Seconds (9.4-12.1) H 08/27/16 11:20 D-Dimer 50579 ng/mLFEU (0-500) H 08/27/16 11:20 Abnormal lab findings: Abnormal lab results WBC 15.2 K/mcL (4.3-11.1) H 08/28/16 05:15 RBC 2.56 M/mcL (3.82-4.97) L 08/28/16 05:15 Hgb 8.1 g/dL (11.5-15.4) L 08/28/16 05:15 Hct 25.0 % (35.3-44.9) L 08/28/16 05:15 RDW 16.5 % (11.5-14.5) H 08/28/16 05:15 Plt Count 18 K/mcL (140-400) L* D 08/28/16 05:15 Immature Gran % 6.6 % (0-4) H 08/28/16 05:15 Band Neutrophils % 10.0 % (0-4) H 08/27/16 17:45 Metamyelocytes % 2.0 % (0) H 08/27/16 17:45 Myelocytes % 2.0 % (0) H 08/27/16 04:50 Neutrophils # 13.1 K/mcL (1.6-8.9) H 08/28/16 05:15 Nucleated RBCs/100 WBC 1.6 /100 WBC (0) H 08/28/16 05:15 Reactive Lymphocytes Present (Not Present) A 08/26/16 23:30 Toxic Granulation Present (Not Present) A 08/28/16 05:15 Toxic Vacuolation Present (Not Present) A 08/27/16 21:58 Dohle Bodies Present (Not Present) A 08/26/16 23:30 Platelet Estimate Marked Decrease (Normal) L 08/28/16 05:15 Large Platelets Present (Not Present) A 08/25/16 03:30 Immature Plt Fraction 14.6 % (1.1-6.1) H 08/28/16 05:15 Hypochromasia Present (Not Present) A 08/28/16 05:15 Tear Drop Cells 1+ (Not Present) A 08/27/16 17:45 PT 14.2 Seconds (9.4-12.1) H 08/27/16 11:20 APTT 58.1 Seconds (26.0-36.0) H D 08/27/16 04:50 Fibrinogen 153 mg/dL (169-393) L D 08/27/16 11:20 D-Dimer 56555 ng/mLFEU (0-500) H 08/27/16 11:20 ABG pH 7.28 pH Units (7.32-7.45) L 08/28/16 04:45 ABG pO2 166 mmHg (85-104) H 08/28/16 04:45 ABG HCO3 19.7 mEQ/L (21-27) L 08/28/16 04:45 ABG O2 Saturation 99 % (95-98) H 08/28/16 04:45 ABG Base Excess -6.5 mEq/L (-2.0 to 3.0) L 08/28/16 04:45 Sodium 135 mEq/L (136-145) L 08/28/16 05:15 Carbon Dioxide 18 mEq/L (19-29) L 08/28/16 05:15 BUN 26 mg/dL (7-20) H 08/28/16 05:15 Creatinine 1.65 mg/dL (0.57-1.11) H 08/28/16 05:15 Est GFR ( Amer) 36 (> 60) L 08/28/16 05:15 Est GFR (Non-Af Amer) 30 (> 60) L 08/28/16 05:15 Glucose 130 mg/dL (70-99) H 08/28/16 05:15 POC Glucose 147 (58-89) H 08/28/16 05:32 Hemoglobin A1c 6.1 % (-5.6) H 08/21/16 10:43 Lactic Acid 6.2 mmol/L (0.5-2.2) H* 08/28/16 06:00 Uric Acid 7.4 mg/dL (2.6-6.0) H 08/25/16 15:10 Calcium 7.0 mg/dL (8.6-10.8) L 08/28/16 05:15 Ionized Calcium 0.99 mmol/L (1.15-1.35) L 08/28/16 05:15 Magnesium 2.7 mg/dL (1.6-2.6) H 08/28/16 05:15 Total Bilirubin 2.8 mg/dL (0.2-1.2) H 08/28/16 05:15 Direct Bilirubin 1.5 mg/dL (0.0-0.5) H 08/27/16 04:50 AST 436 Units/L (5-34) H 08/28/16 05:15 ALT 275 Units/L (0-55) H 08/28/16 05:15 Alkaline Phosphatase 294 Units/L (38-126) H 08/28/16 05:15 Lactate Dehydrogenase 2692 Units/L (159-327) H 08/24/16 18:45 Creatine Kinase 4065 Units/L (29-168) H 08/27/16 04:50 Troponin I 1.12 ng/mL (0-0.03) H* 08/24/16 13:15 Serum Total Protein 5.2 g/dL (6.0-8.3) L 08/28/16 05:15 Albumin 2.3 g/dL (3.5-5.0) L 08/28/16 05:15 Albumin/Globulin Ratio 0.8 (1.1-2.2) L 08/28/16 05:15 Procalcitonin 3.40 ng/mL (<=0.10) H 08/24/16 13:15 Urine Color Red (Yellow) A 08/25/16 14:30 Urine Clarity Turbid (Clear) A 08/25/16 14:30 Ur Specific Protection 1.030 (1.010-1.025) H 08/25/16 14:30 Urine Protein 100 mg/dL (Neg-Trace) H 08/25/16 14:30 Urine Glucose (UA) 100 mg/dL (Normal) H 08/25/16 14:30 Urine Ketones 15 mg/dL (Negative) H 08/25/16 14:30 Urine Blood Large (Negative) H 08/25/16 14:30 Urine Nitrite Positive (Negative) A 08/25/16 14:30 Urine Bilirubin Moderate (Negative) H 08/25/16 14:30 Urine Urobilinogen 2.0 mg/dL (Normal) H 08/25/16 14:30 Ur Leukocyte Esterase Moderate (Negative) H 08/25/16 14:30 Urine Microscopic RBC 5-15 per hpf (0-3) H 08/25/16 14:30 Amorphous Sediment Moderate (Few) H 08/25/16 14:30 Urine Bacteria Moderate per hpf (None-Few) H 08/25/16 14:30 Granular Casts Few per lpf (None Seen) H 08/25/16 14:30 Ur Culture Indicated? YES (NO) A 08/25/16 14:30 - Microbiology Findings Microbiology Findings: Microbiology, Last 48 Hours 08/24/16 23:55 Viral Culture - Preliminary Blood Product 08/25/16 09:20 Sputum Culture - Final Sputum 08/26/16 07:52 Blood Culture - Preliminary Peripheral Venipuncture No growth. 08/26/16 07:38 Blood Culture - Preliminary Peripheral Venipuncture No growth. 08/25/16 14:30 Urine Culture - Final Urine,Catheterized No growth. - Clinical Findings Intake & Output: Intake & Output 08/27/16 08/27/16 08/28/16 15:59 23:59 07:59 Intake Total 1371 / 1371 1674 / 1674 1016 / 1016 Output Total 1568 / 1568 1485 / 1485 1731 / 1731 Balance -197 / -197 189 / 189 -715 / -715 - VTE Documentation of Mechanical Device: Intermittent pneumatic compression device Consult Discharge Plan - Plan Referrals: Per Barros MD [Primary Care Provider] - (web request sent on 08/23/16) <Gabriella Schofield - Last Filed: 08/28/16 11:54> Date of Encounter: 08/28/16 Objective PUL Vital signs: Last Vital Signs Temp 98.3 F 08/28/16 11:40 Pulse 101 08/28/16 11:40 Resp 25 08/28/16 11:40 BP 110/32 08/28/16 11:40 Pulse Ox 90 08/28/16 11:19 Ventilator Settings Ventilator Settings: Ventilator Settings, Last 8 Hours Ventilator Mode VC+ Ventilator Mode VC+ Ventilator Mode VC+ Ventilator Mode VC+ Ventilator Mode VC+ Ventilator Mode VC+ Ventilator Mode VC+ Ventilator Mode VC+ Ventilator Mode VC+ Ventilator Mode VC+ Ventilator Mode VC+ Ventilator Tidal Volume 400 Setting Ventilator Tidal Volume 400 Setting Ventilator Tidal Volume 400 Setting Ventilator Tidal Volume 400 Setting Ventilator Tidal Volume 400 Setting Ventilator Tidal Volume 400 Setting Ventilator Tidal Volume 400 Setting Ventilator Tidal Volume 400 Setting Ventilator Tidal Volume 400 Setting Ventilator Tidal Volume 400 Setting Ventilator Tidal Volume 400 Setting Ventilator Respiratory Rate 12 Setting Ventilator Respiratory Rate 12 Setting Ventilator Respiratory Rate 12 Setting Ventilator Respiratory Rate 16 Setting Ventilator Respiratory Rate 12 Setting Ventilator Respiratory Rate 12 Setting Ventilator Respiratory Rate 12 Setting Ventilator Respiratory Rate 12 Setting Ventilator Respiratory Rate 12 Setting Ventilator Respiratory Rate 12 Setting Ventilator Respiratory Rate 12 Setting Actual Respiratory Rate 30 Actual Respiratory Rate 30 Actual Respiratory Rate 22 Actual Respiratory Rate 20 Actual Respiratory Rate 20 Actual Respiratory Rate 16 Actual Respiratory Rate 19 Actual Respiratory Rate 21 Actual Respiratory Rate 19 Actual Respiratory Rate 18 Positive End Expiratory 5 Pressure Positive End Expiratory 5 Pressure Positive End Expiratory 5 Pressure Positive End Expiratory 5 Pressure Positive End Expiratory 5 Pressure Positive End Expiratory 5 Pressure Positive End Expiratory 5 Pressure Positive End Expiratory 5 Pressure Positive End Expiratory 5 Pressure Positive End Expiratory 5 Pressure Positive End Expiratory 5 Pressure Peak Inspiratory Airway 21 Pressure Peak Inspiratory Airway 21 Pressure Peak Inspiratory Airway 13 Pressure Peak Inspiratory Airway 13 Pressure Peak Inspiratory Airway 13 Pressure Peak Inspiratory Airway 11 Pressure Peak Inspiratory Airway 11 Pressure Peak Inspiratory Airway 13 Pressure Peak Inspiratory Airway 12 Pressure Peak Inspiratory Airway 12 Pressure Results - Laboratory Findings CBC and BMP: 08/28/16 05:15 08/28/16 11:15 ABG ABG pH 7.28 pH Units (7.32-7.45) L 08/28/16 04:45 ABG pCO2 42 mmHg (35-45) 08/28/16 04:45 ABG pO2 166 mmHg (85-104) H 08/28/16 04:45 ABG O2 Saturation 99 % (95-98) H 08/28/16 04:45 PT/INR, D-dimer PT 14.3 Seconds (9.4-12.1) H 08/28/16 11:15 D-Dimer 13576 ng/mLFEU (0-500) H 08/28/16 11:15 Abnormal lab findings: Abnormal lab results WBC 15.2 K/mcL (4.3-11.1) H 08/28/16 05:15 RBC 2.56 M/mcL (3.82-4.97) L 08/28/16 05:15 Hgb 8.1 g/dL (11.5-15.4) L 08/28/16 05:15 Hct 25.0 % (35.3-44.9) L 08/28/16 05:15 RDW 16.5 % (11.5-14.5) H 08/28/16 05:15 Plt Count 18 K/mcL (140-400) L* D 08/28/16 05:15 Immature Gran % 6.6 % (0-4) H 08/28/16 05:15 Band Neutrophils % 10.0 % (0-4) H 08/27/16 17:45 Metamyelocytes % 2.0 % (0) H 08/27/16 17:45 Myelocytes % 2.0 % (0) H 08/27/16 04:50 Neutrophils # 13.1 K/mcL (1.6-8.9) H 08/28/16 05:15 Nucleated RBCs/100 WBC 1.6 /100 WBC (0) H 08/28/16 05:15 Reactive Lymphocytes Present (Not Present) A 08/26/16 23:30 Toxic Granulation Present (Not Present) A 08/28/16 05:15 Toxic Vacuolation Present (Not Present) A 08/27/16 21:58 Dohle Bodies Present (Not Present) A 08/26/16 23:30 Platelet Estimate Marked Decrease (Normal) L 08/28/16 05:15 Large Platelets Present (Not Present) A 08/25/16 03:30 Immature Plt Fraction 14.6 % (1.1-6.1) H 08/28/16 05:15 Hypochromasia Present (Not Present) A 08/28/16 05:15 Tear Drop Cells 1+ (Not Present) A 08/27/16 17:45 PT 14.3 Seconds (9.4-12.1) H 08/28/16 11:15 APTT 58.1 Seconds (26.0-36.0) H D 08/27/16 04:50 Fibrinogen 153 mg/dL (169-393) L D 08/27/16 11:20 D-Dimer 00169 ng/mLFEU (0-500) H 08/28/16 11:15 ABG pH 7.28 pH Units (7.32-7.45) L 08/28/16 04:45 ABG pO2 166 mmHg (85-104) H 08/28/16 04:45 ABG HCO3 19.7 mEQ/L (21-27) L 08/28/16 04:45 ABG O2 Saturation 99 % (95-98) H 08/28/16 04:45 ABG Base Excess -6.5 mEq/L (-2.0 to 3.0) L 08/28/16 04:45 Carbon Dioxide 15 mEq/L (19-29) L 08/28/16 11:15 BUN 25 mg/dL (7-20) H 08/28/16 11:15 Creatinine 1.55 mg/dL (0.57-1.11) H 08/28/16 11:15 Est GFR ( Amer) 39 (> 60) L 08/28/16 11:15 Est GFR (Non-Af Amer) 32 (> 60) L 08/28/16 11:15 Glucose 107 mg/dL (70-99) H 08/28/16 11:15 POC Glucose 147 (58-89) H 08/28/16 05:32 Hemoglobin A1c 6.1 % (-5.6) H 08/21/16 10:43 Lactic Acid 9.4 mmol/L (0.5-2.2) H* 08/28/16 11:15 Uric Acid 7.4 mg/dL (2.6-6.0) H 08/25/16 15:10 Calcium 6.7 mg/dL (8.6-10.8) L 08/28/16 11:15 Ionized Calcium 0.99 mmol/L (1.15-1.35) L 08/28/16 05:15 Magnesium 2.7 mg/dL (1.6-2.6) H 08/28/16 05:15 Total Bilirubin 2.8 mg/dL (0.2-1.2) H 08/28/16 05:15 Direct Bilirubin 1.5 mg/dL (0.0-0.5) H 08/27/16 04:50 AST 436 Units/L (5-34) H 08/28/16 05:15 ALT 275 Units/L (0-55) H 08/28/16 05:15 Alkaline Phosphatase 294 Units/L (38-126) H 08/28/16 05:15 Lactate Dehydrogenase 2692 Units/L (159-327) H 08/24/16 18:45 Creatine Kinase 4065 Units/L (29-168) H 08/27/16 04:50 Troponin I 1.12 ng/mL (0-0.03) H* 08/24/16 13:15 Serum Total Protein 5.2 g/dL (6.0-8.3) L 08/28/16 05:15 Albumin 2.3 g/dL (3.5-5.0) L 08/28/16 05:15 Albumin/Globulin Ratio 0.8 (1.1-2.2) L 08/28/16 05:15 Procalcitonin 3.40 ng/mL (<=0.10) H 08/24/16 13:15 Urine Color Red (Yellow) A 08/25/16 14:30 Urine Clarity Turbid (Clear) A 08/25/16 14:30 Ur Specific Protection 1.030 (1.010-1.025) H 08/25/16 14:30 Urine Protein 100 mg/dL (Neg-Trace) H 08/25/16 14:30 Urine Glucose (UA) 100 mg/dL (Normal) H 08/25/16 14:30 Urine Ketones 15 mg/dL (Negative) H 08/25/16 14:30 Urine Blood Large (Negative) H 08/25/16 14:30 Urine Nitrite Positive (Negative) A 08/25/16 14:30 Urine Bilirubin Moderate (Negative) H 08/25/16 14:30 Urine Urobilinogen 2.0 mg/dL (Normal) H 08/25/16 14:30 Ur Leukocyte Esterase Moderate (Negative) H 08/25/16 14:30 Urine Microscopic RBC 5-15 per hpf (0-3) H 08/25/16 14:30 Amorphous Sediment Moderate (Few) H 08/25/16 14:30 Urine Bacteria Moderate per hpf (None-Few) H 08/25/16 14:30 Granular Casts Few per lpf (None Seen) H 08/25/16 14:30 Ur Culture Indicated? YES (NO) A 08/25/16 14:30 - Microbiology Findings Microbiology Findings: Microbiology, Last 48 Hours 08/23/16 00:53 Blood Culture - Final Peripheral Venipuncture No growth. 08/23/16 00:53 Blood Culture - Final Peripheral Venipuncture No growth. 08/22/16 18:54 Blood Culture - Final Peripheral Venipuncture No growth. 08/24/16 23:55 Viral Culture - Preliminary Blood Product 08/25/16 09:20 Sputum Culture - Final Sputum 08/26/16 07:52 Blood Culture - Preliminary Peripheral Venipuncture No growth. 08/26/16 07:38 Blood Culture - Preliminary Peripheral Venipuncture No growth. 08/25/16 14:30 Urine Culture - Final Urine,Catheterized No growth. - Clinical Findings Intake & Output: Intake & Output 08/27/16 08/28/16 08/28/16 23:59 07:59 15:59 Intake Total 1674 / 1674 1016 / 1016 887 / 887 Output Total 1485 / 1485 1731 / 1731 546 / 546 Balance 189 / 189 -715 / -715 341 / 341 - Attending Attestation I examined this patient and my medical decision-making was reviewed with the RADIATOR SPECIALIST/PA/Advanced Practice Nurse/Resident Physician. I agree with the documented findings, disposition and treatment plan as described except to the extent set forth below. Patient seen and examined. Labs, radiology, chart personally reviewed. Agree with resident's history and physical, assessment, plan with following comments: [employer]: Patient remained sedated and not following commands., Pulmonary: Acceptable oxygenation and ventilation and lower FiO2 to 60%. Cardiovascular: Patient remained in septic shock, which is clinically even worse with lactic acidosis. Titrating pressors to keep map around 65. GI: Nutrition per dietary and GI prophylaxis per routine Heme: DVT prophylaxis per routine. Thrombocytopenia with transfusion of platelets. Patient remained high risk of bleeding. ID: Continue antibiotics and plan to de-escalation. Stop vancomycin. Renal; urine out put and renal funtion reviewed. Patient continued to be on Racquel and will consider adding bicarbonate drip due to acidosis which is primarily metabolic in nature. Endorcine: blood glucose is monitored Lines: all lines checked and no evidence of infections Skin: skin care to prevent pressure ulcers per nursing routine care. Patient skin mottling is worsening which is related to her septic shock. Family meeting and explained to them about poor prognosis. Patient CODE STATUS was changed. I spent 35 min of Critical Care time with this patient. It involved decision making of high complexity to assess, manipulate, and support vital organ system failure and/or to prevent further life threatening deterioration of the patient' s condition. The time involved in the performance of separately reportable procedures was not counted toward critical care time.
[2016-08-28] MEDS: Dexmedetomidine HCl 400 MCG/100 ML MLS IVC SCH ×2 (08:22→18:12)
[2016-08-28] MEDS: Norepinephrine 8 MG in D5% in Water 250 ML IVC SCH ×2 (08:23→18:03)
[2016-08-28] MEDS: Thiamine (B-1) 200 MG in D5% in Water 50 ML IVPB SCH ×2 (09:18→20:05)
[2016-08-28] MEDS: Chlorhexidine Rinse 15 ML MOUTHWASH MM SCH ×2 (09:18→20:05)
[2016-08-28] MEDS: Hydrocortisone Sodium Succ 100 MG/2 ML VIAL IVP SCH ×3 (09:18→23:10)
[2016-08-28] MEDS: Pantoprazole 40 MG VIAL IVP SCH (09:18)
[2016-08-28] MEDS: Calcium Gluconate 1,000 MG in D5% in Water 100 ML IVPB PRN ×2 (09:22→20:06)
[2016-08-28 11:37] LABS: INR 1.3; Prothrombin Time 14.3 Seconds (9.4-12.1)
[2016-08-28 11:38] LABS: Calcium 6.7 mg/dL (8.6-10.8); Potassium 4.3 mEq/L (3.5-4.5)
[2016-08-28 11:40] LABS: Hematocrit 21.9 % (35.3-44.9); Immature Platelets 11.9 % (1.1-6.1); Mean Corpuscular Hemoglobin 31.3 pg (28.0-33.3); Mean Corpuscular Volume 97.8 fL (83.0-100.0); Nucleated Red Blood Cells 2.3 /100 WBC (0); Red Blood Count 2.24 M/mcL (3.82-4.97); Red Cell Distribution Width 16.8 % (11.5-14.5)
[2016-08-28 11:57] LABS: Activated Partial Thrombo Time 175.1 Seconds (26.0-36.0)
--- NOTE | 2016-08-28 12:05 | Nephrology Progress Note ---
Date of Encounter: 08/28/16 Time of Encounter: 12:03 - Assessment and Plan (1) JESSIKA (acute kidney injury) Current Visit: Yes Status: Acute Will continue with CVVHDF. Sodium and potassium are normal. Metabolic acidosis not resolving even with CVVHDF. Agree with bicarbonate drip. Repeat BMP after supplementation. Etiology is worsening lactic acidosis as evidenced by rising lactate. No citrate or heparin secondary to thrombocytopenia. ? HIT Study. Patient appears to have DIC. (2) Metabolic acidosis Current Visit: Yes Status: Acute See JESSIKA. (3) Respiratory failure Current Visit: Yes Status: Acute Patient intubated. Per primary team. Qualifiers: Chronicity: acute Respiratory failure complication: hypoxia Qualified Code(s): J96.01 - Acute respiratory failure with hypoxia (4) Septic shock Current Visit: Yes Status: Acute Per primary team. Patient with rising lactate and extremities are echhymotic. Appears to be severe sepsis with possibly DIC. Prognosis is poor. Subjective Principal diagnosis: Severe sepsis Interval history: Patient intubated and sedated. ROS is unobtainable. Objective - Vital Signs Vital signs: Vital Signs Temp Pulse Resp BP Pulse Ox 08/28/16 12:00 98 25 111/42 90 08/28/16 11:40 98.3 F 101 25 110/32 08/28/16 11:19 30 90 08/28/16 11:00 99.4 F 101 30 113/48 90 08/28/16 10:19 23 103 08/28/16 10:00 104 18 124/81 98 08/28/16 09:00 102 18 73/55 98 08/28/16 08:51 97.6 F 102 18 99/66 08/28/16 08:36 97.5 F L 101 18 92/67 08/28/16 08:13 101 08/28/16 08:00 97.2 F L 101 22 80/54 98 08/28/16 07:00 96.4 F L 96 16 81/49 97 08/28/16 06:00 96.0 F L 96 17 77/47 96 08/28/16 05:28 21 105/73 96 08/28/16 05:00 98.0 F 96 19 103/63 96 08/28/16 04:00 98.0 F 100 17 85/52 99 08/28/16 03:55 103 08/28/16 03:26 25 101/63 96 08/28/16 03:00 98.0 F 96 16 86/56 96 08/28/16 02:00 98.0 F 95 19 81/53 95 08/28/16 01:27 19 90/58 95 08/28/16 01:00 97.4 F L 97 18 83/53 96 08/28/16 00:00 97.2 F L 93 16 94/54 98 08/27/16 23:20 17 86/52 98 08/27/16 23:05 93 08/27/16 23:00 97.1 F L 93 18 92/54 98 08/27/16 22:00 97.1 F L 96 18 101/58 96 08/27/16 21:45 18 84/54 99 08/27/16 21:00 96.7 F L 104 19 100/61 96 08/27/16 20:41 96.9 F L 97 18 106/59 95 08/27/16 20:00 97.6 F 85 17 90/50 97 08/27/16 19:44 20 99/46 96 08/27/16 19:41 85 08/27/16 19:31 97.9 F 83 18 95/43 95 08/27/16 19:00 85 20 87/47 98 08/27/16 18:00 87 20 99/46 98 08/27/16 17:18 20 133/47 98 08/27/16 17:00 86 20 85/41 98 08/27/16 16:00 88 19 111/43 98 08/27/16 15:00 97.0 F L 82 19 108/43 98 08/27/16 14:00 84 19 112/47 98 08/27/16 13:00 86 19 113/45 98 Intake and Output 08/27/16 08/28/16 08/28/16 23:59 07:59 15:59 Intake Total 1674 / 1674 1016 / 1016 926 / 926 Output Total 1485 / 1485 1731 / 1731 779 / 779 Balance 189 / 189 -715 / -715 147 / 147 Intake: IV Fluids 1006 / 1006 616 / 616 458 / 458 PrismaSATE BGK 4/2.5 5, 0 / 0 000 ML @ 1000 mls/hr CRRT CONT [facility] Rx#:[id number] Amiodarone Drip Premix 200 / 200 360mg/200mL 360 mg In 200 ml @ 0.5 MG/MIN 16.667 mls/hr IVC CONT [facility] Rx#: [id number] PRECEDEX 400 mcg In 100 100 / 100 100 / 100 ml @ 0.2 MCG/KG/HR 3.325 mls/hr IVC .Q24H [facility] Rx#: [id number] FentaNYL (PF) 1,000 MCG 100 / 100 100 / 100 In 0.9 % Sodium Chloride 80 ML @ 50 MCG/HR 5 mls/ hr IVC CONT [facility] Rx#: [id number] Levophed 8 MG In Dextrose 201 / 201 0 / 0 258 / 258 5% 250 ML @ 8 MCG/MIN 15 .48 mls/hr IVC CONT [facility] Rx#:[id number] Ascorbic Acid 1,500 mg In 103 / 103 206 / 206 0.9 % Sodium Chloride 100 ML @ 103 mls/hr IVPB Q6H [facility] Rx#:[id number] Calcium Gluconate 1,000 110 / 110 MG In Dextrose 5% 100 ML @ 50 mls/hr IVPB Q6HR PRN Rx#:[id number] Zosyn 3.375 GM In 200 / 200 100 / 100 Dextrose 5% (Minibag+) 100 ML 100 ML @ 25 mls/hr IVPB Q8H [facility] Rx#: [id number] Vitamin B-1 200 MG In 52 / 52 Dextrose 5% 50 ML @ 50 mls/hr IVPB BID [facility] Rx#: [id number] Vancocin 1,000 MG In 250 / 250 Dextrose 5% 250 ML @ 166. 667 mls/hr IVPB ONCE ONE Rx#:[id number] Tube Feeding 265 / 265 400 / 400 246 / 246 Blood Product 403 / 403 222 / 222 Platelet Pheresis Lp Irr 403 / 403 2nd Unit [id number] Platelet Pheresis Lp Irr 222 / 222 3rd Unit [id number] Free Water Intake Amount 0 / 0 0 / 0 0 / 0 Output: Stool 200 / 200 Racquel 1280 / 1280 731 / 731 779 / 779 Rectal Tube 5 / 5 1000 / 1000 Catheter 0 / 0 0 / 0 0 / 0 - General Appearance General appearance: Present: well-developed, chronically ill, sedated on ventilator, intubated, frail EENT: Present: ATNC Respiratory: Present: course breath sounds Cardiology: Present: edema Additional Comments: tachycardia. Gastrointestinal: Present: no tenderness Integumentary: Present: cool/clammy, ecchymotic Musculoskeletal: Present: cyanosis - Lab 08/28/16 05:15 08/28/16 11:15 Most recent lab results ABG pH 7.28 pH Units (7.32-7.45) L 08/28/16 04:45 ABG pCO2 42 mmHg (35-45) 08/28/16 04:45 ABG pO2 166 mmHg (85-104) H 08/28/16 04:45 ABG HCO3 19.7 mEQ/L (21-27) L 08/28/16 04:45 ABG O2 Saturation 99 % (95-98) H 08/28/16 04:45 Calcium 6.7 mg/dL (8.6-10.8) L 08/28/16 11:15 Phosphorus 3.3 mg/dL (2.3-4.7) 08/28/16 05:15 Magnesium 2.7 mg/dL (1.6-2.6) H 08/28/16 05:15 Urine Creatinine 120 mg/dL 08/25/16 14:30 Urine Sodium 35.0 mEq/L 08/25/16 14:30 - VTE Documentation of Mechanical Device: Intermittent pneumatic compression device Consult Discharge Plan - Plan Referrals: Per Barros MD [Primary Care Provider] - (web request sent on 08/23/16)
[2016-08-28 12:13] LABS: Heparin anti-factor XA UFH 0.64 IU/mL (0.30-0.70)
[2016-08-28 12:26] LABS: Platelet Count 24 K/mcL (140-400)
--- NOTE | 2016-08-28 12:43 | Electrocardiograph Report ---
[address] [place], [place] [address] Test Date: 2016-08-27 Pat Name: Kathy Dowling Department: 109 Room: [facility] Gender: F Purse Seining Hand: MONTEZ : 1935 Requested By: Aditi Baltazar Order Number: [id number] Reading MD: Nicolas Lees MD Measurements Intervals [place] Rate: 131 P: ID: 0 QRS: -14 QRSD: 88 T: 36 QT: 289 QTc: 366 Interpretive Statements SINUS TACHYCARDIA WITH FREQUENT PACs LOW QRS VOLTAGE IN PRECORDIAL LEADS Electronically Signed On 08-28-2016 12:41:38 EDT by Nicolas Lees MD
--- NOTE | 2016-08-28 12:50 | Electrocardiograph Report ---
[address] [place] [address] Test Date: 2016-08-27 Pat Name: Kathy Dowling Department: 109 Room: [facility] Gender: F Tour Narrator: MONTEZ : 1935 Requested By: Aditi Baltazar Order Number: [id number] Reading MD: Nicolas Lees MD Measurements Intervals [place] Rate: 98 P: 29 CO: 217 QRS: -16 QRSD: 97 T: 27 QT: 344 QTc: 399 Interpretive Statements SINUS RHYTHM WITH FIRST DEGREE AV BLOCK LOW QRS VOLTAGE IN PRECORDIAL LEADS Electronically Signed On 08-28-2016 12:48:54 EDT by Nicolas Lees MD
[2016-08-28 13:19] LABS: Lymphocytes # 0.4 K/mcL (0.6-4.6); Monocytes # 0.7 K/mcL (0.0-1.3); Neutrophils # 16.5 K/mcL (1.6-8.9)
[2016-08-28 13:20] LABS: Anisocytosis 1+ (Not Present); Platelet Estimate Marked Decrease (Normal); Toxic Granulation Present (Not Present)
[2016-08-28] MEDS: Calcium Chloride 4,000 MG in 0.9 % Sodium Chloride 1,000 ML CRRT SCH (13:35)
[2016-08-28] MEDS ORDERED: *HR* Midazolam HCl 2 MG/2 ML VIAL IVP ONE (14:23)
[2016-08-28] MEDS: SODIUM CHLORIDE 0.45% IVC SCH ×3 (14:25→23:07)
[2016-08-28] MEDS: SODIUM BICARBONATE IVC SCH ×3 (14:25→23:07)
[2016-08-28] MEDS: Levofloxacin 500 MG/100 ML 500 MG/100 ML BAG IVPB SCH (14:40)
[2016-08-28] MEDS: Vasopressin 40 UNIT in D5% in Water 100 ML IVC SCH (19:14)
[2016-08-28 19:37] LABS: Hematocrit 28.2 % (35.3-44.9); Immature Platelets 10.4 % (1.1-6.1); Mean Corpuscular HGB Conc 32.6 g/dL (31.6-35.5); Mean Corpuscular Hemoglobin 30.6 pg (28.0-33.3); Mean Corpuscular Volume 93.7 fL (83.0-100.0); Mean Platelet Volume 11.3 fL (9.4-12.4); Nucleated Red Blood Cells 3.2 /100 WBC (0); Red Blood Count 3.01 M/mcL (3.82-4.97); Red Cell Distribution Width 17.1 % (11.5-14.5)
[2016-08-28 19:40] LABS: Hemoglobin 9.2 g/dL (11.5-15.4); Platelet Count 32 K/mcL (140-400)
[2016-08-28 19:48] LABS: Calcium 6.8 mg/dL (8.6-10.8); Potassium 4.1 mEq/L (3.5-4.5)
[2016-08-28 19:53] LABS: Large Platelets Present (Not Present); Lymphocytes # 1.2 K/mcL (0.6-4.6); Monocytes # 0.4 K/mcL (0.0-1.3); Neutrophils # 18.2 K/mcL (1.6-8.9); Platelet Estimate Marked Decrease (Normal); Reactive Lymphocytes Present (Not Present)
[2016-08-28 19:55] LABS: Anisocytosis 1+ (Not Present); Toxic Granulation Present (Not Present)
[2016-08-29] MEDS: Dexmedetomidine HCl 400 MCG/100 ML MLS IVC SCH ×2 (00:10→06:14)
[2016-08-29] MEDS: Amiodarone Premix 360 MG/200 ML BAG IVC SCH ×2 (00:14→12:15)
[2016-08-29] MEDS: PrismaSATE BGK 4/2.5 5,000 ML CRRT SCH ×7 (00:30→10:22)
[2016-08-29] MEDS: Piperacillin/Tazobactam 3.375 GM in D5% in Water (Mini-Bag+) 100 ML IVPB SCH ×2 (01:09→10:25)
[2016-08-29] MEDS: FentaNYL (PF) 1,000 MCG in 0.9 % Sodium Chloride 80 ML IVC SCH (01:13)
[2016-08-29] MEDS: Lacri-Lube 3.5 GM TUBE BOTH EYES SCH ×2 (01:15→08:49)
[2016-08-29 03:22] LABS: Hemoglobin 8.4 g/dL (11.5-15.4); Mean Corpuscular Volume 93.8 fL (83.0-100.0)
[2016-08-29 03:24] LABS: Hematocrit 25.8 % (35.3-44.9); Immature Platelets 19.5 % (1.1-6.1); Mean Corpuscular HGB Conc 32.6 g/dL (31.6-35.5); Mean Corpuscular Hemoglobin 30.5 pg (28.0-33.3); Red Blood Count 2.75 M/mcL (3.82-4.97); Red Cell Distribution Width 17.7 % (11.5-14.5)
[2016-08-29 03:27] LABS: INR 1.3; Prothrombin Time 13.7 Seconds (9.4-12.1)
[2016-08-29 03:31] LABS: Activated Partial Thrombo Time 32.7 Seconds (26.0-36.0); Ionized Calcium 0.93 mmol/L (1.15-1.35)
[2016-08-29 03:36] LABS: Platelet Count 15 K/mcL (140-400)
[2016-08-29 03:39] LABS: Albumin 2.2 g/dL (3.5-5.0); Albumin/Globulin Ratio 0.8 (1.1-2.2); Bilirubin,Total 2.9 mg/dL (0.2-1.2); Calcium 6.8 mg/dL (8.6-10.8); Globulin 2.9 g/dL (2.4-3.5); Magnesium 2.7 mg/dL (1.6-2.6); Phosphorous 2.9 mg/dL (2.3-4.7); Potassium 4.3 mEq/L (3.5-4.5); Total Protein 5.1 g/dL (6.0-8.3)
[2016-08-29 03:42] LABS: Large Platelets Present (Not Present); Lymphocytes # 1.5 K/mcL (0.6-4.6); Monocytes # 0.4 K/mcL (0.0-1.3); Neutrophils # 17.1 K/mcL (1.6-8.9); Platelet Estimate Marked Decrease (Normal); Reactive Lymphocytes Present (Not Present)
[2016-08-29] MEDS: Ipratropium Neb 0.5 MG NEBULIZER IH SCH ×4 (03:42→15:16)
[2016-08-29 03:43] LABS: Schistocytes 1+ (Not Present); Toxic Granulation Present (Not Present)
[2016-08-29 03:44] LABS: Anisocytosis 1+ (Not Present)
[2016-08-29] MEDS: Calcium Gluconate 1,000 MG in D5% in Water 100 ML IVPB PRN (04:08)
[2016-08-29] MEDS ORDERED: FentaNYL (PF) 3,000 MCG in 0.9 % Sodium Chloride 240 ML IVC SCH (04:45)
[2016-08-29 05:07] LABS: ABG Base Excess -4.8 mEq/L (-2.0 to 3.0); ABG HCO3 20.5 mEQ/L (21-27); ABG Oxygen Saturation 93 % (95-98); ABG PCO2 38 mmHg (35-45); ABG PH 7.34 pH Units (7.32-7.45); ABG PO2 71 mmHg (85-104); ABG TCO2 21.7 mEq/L (20-26)
[2016-08-29] MEDS: Insulin LISPRO 300 UNITS/3 ML VIAL SQ SCH (05:07)
[2016-08-29 05:08] LABS: Blood Gas FiO2 60 %
[2016-08-29] MEDS ORDERED: Vancomycin 1,000 MG in D5% in Water 250 ML IVPB ONE (06:00)
--- NOTE | 2016-08-29 07:09 | Pulmonology Progress Note ---
<Aravind Gonsales - Last Filed: 08/29/16 13:21> Date of Encounter: 08/29/16 Time of Encounter: 07:09 Assessment and Plan (1) Septic shock Current Visit: Yes Status: Acute continues to decline currently on NOREPI, down to 3 mcg extensive mottling throughout cyanosis and ischemia of extremities lactic acid continues to rise source appears to be secondary to pneumonia - no identified organism - repeat cultures show NGTD very poor prognosis renal, hepatic, pulmonary, and hematologic MODS received of Vit C, Thiamine, and Hydrocortisone per Landon study for severe sepsis Landon PE, Deshaun V, Ruiz R, Mary MH, Silvia J, Hydrocortisone, Vitamin C and Thiamine for the Treatment of Severe Sepsis and Septic Shock: A Retrospective Before-After Study, CHEST (2017), doi: [email or web address]/ [email or web address]. (2) MODS (multiple organ dysfunction syndrome) Current Visit: Yes Status: Acute as above (3) Respiratory failure Current Visit: Yes Status: Acute acute hypoxemic respiratory failure intubated 08/24 multifactorial possibly from pneumonia, septic shock, and fluid overload - CT Chest 08/24 - bilateral lower lobe consolidation L > R concerning for multifocal pneumonia or pulmonary edema - TTE 08/24 - EF 50-55% with low normal LV systolic function, no gross wall abnormalities currently on empiric broad spectrum with Levaquin, Vanc, and Meropenem - pancultures NGTD discussed goals of care with family, code status DNR-CCA palliative care consulted for possible withdrawal of care later today or tomorrow Qualifiers: Chronicity: acute Respiratory failure complication: hypoxia Qualified Code(s): J96.01 - Acute respiratory failure with hypoxia (4) Thrombocytopenia Current Visit: Yes Status: Acute continues to fall despite transfusion, 6 total believe the patient is developing DIC with falling fibrinogen suspect likely due to sepsis will discuss goals of care with family, hold on any additional transfusions as it is futile (5) Metabolic acidosis Current Visit: Yes Status: Acute secondary to ischemia and rising lactic acid (6) Lactic acidosis Current Visit: Yes Status: Acute worsening (7) Acute kidney injury Current Visit: Yes Status: Resolved continues to worsen on CKD stage 3 minimal UOP currently on Racquel plan to de-escalate antibiotics Nephrology on board, appreciated (8) Anemia Current Visit: No Status: Chronic history of Vit B12 deficiency home supplementation hemoglobin stable likely combination of repeat blood draws and dilution continue to monitor with thrombocytopenia no active bleeding noted will hold off on potential transfusions Qualifiers: Anemia type: B12 deficiency Vitamin B12 deficiency anemia type: unspecified B12 deficiency Qualified Code(s): D51.9 - Vitamin B12 deficiency anemia, unspecified (9) Elevated troponin Current Visit: Yes Status: Acute mild elevation peaked at 1.18, recent 1.12 suspect demand ischemia in the setting of shock and JESSIKA no heparin due to thrombocytopenia (10) Atrial fibrillation with RVR Current Visit: Yes Status: Acute currently normal sinus rhythm Amiodarone gtt restarted continue to monitor (11) Goals of care, counseling/discussion Current Visit: Yes Status: Acute family meeting 08/28 changed code status to DNR-CCA discussion with daughter, consideration for withdrawal of care palliative consulted for withdrawal of care later today or tomorrow (12) DVT prophylaxis Current Visit: Yes Status: 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 and precedex; does not follows commands Pulmonary: acute hypoxemic respiratory failure, intubated 08/24, requiring high FiO2 and PEEP, wean down as tolerated; etiology suggestive of multifocal pneumonia Cardiovascular: septic shock, restarted Norepi; goal MAP >65; currently normal sinus rhythm on amiodarone; mild troponin elevation but not a candidate for anticoagulation d/t thrombocytopenia FEN-GI: discuss GOC with family, on TFs, GI prophylaxis per routine; CT abd/ pelvis without significant acute findings; lactic acidosis worsening; bicarb given Heme: EPCDs for DVT prophylaxis, transfused total of 6 platelets and 1 unit pRBC ID: antibiotics Zosyn (on 08/26 switched from Meropenem) and Levaquin (08/24); sputum culture NGTD, prior cultures and UAT negative; repeated blood cultures NGTD Renal: poor UOP today, JESSIKA worsening; lactic acidosis improving and will continue to monitor; nephrology consulted started on Racquel Endocrine: blood glucose monitored Lines: all lines checked and no evidence of infections Skin: skin care to prevent pressure ulcers per nursing routine care, ulcer to buttock/coccyx Dispo: plan to withdraw care, palliative has been consulted Subjective Principal diagnosis: Severe sepsis Interval history: Patient seen and examined at bedside. Continues to be on Racquel. No fevers overnight. Unable to obtain any further review systems due to mental state. Code status changed yesterday to DNR-CCA Objective PUL Vital signs: Last Vital Signs Temp 98.6 F 08/29/16 04:05 Pulse 81 08/29/16 06:00 Resp 25 08/29/16 06:00 BP 116/42 08/29/16 06:00 Pulse Ox 94 08/29/16 06:00 General appearance: no acute distress, lethargic, other (sedated and intubated) Eyes: nonicteric ENT: other (endotracheal intubation) Effort: other (mechanically ventilated) Auscultation: bilateral: other (coarse) Cardiovascular: regular rate and rhythm Gastrointestinal: hypoactive bowel sounds, soft, non-tender, non-distended Integumentary: other (cyanosis/mottling to the extremities, trunk, breasts, and nose; petechiae diffusely over body) Extremities: cyanosis, other (distal fingertip necrosis) Musculoskeletal: no deformities pupils equal and round, unable to assess due to mental status Ventilator Settings Ventilator Settings: Ventilator Settings, Last 8 Hours Ventilator Mode VC+ Ventilator Mode VC+ Ventilator Mode VC+ Ventilator Mode VC+ Ventilator Mode VC+ Ventilator Mode VC+ Ventilator Mode VC+ Ventilator Mode VC+ Ventilator Mode VC+ Ventilator Mode VC+ Ventilator Mode VC+ Ventilator Mode VC+ Ventilator Tidal Volume 400 Setting Ventilator Tidal Volume 400 Setting Ventilator Tidal Volume 400 Setting Ventilator Tidal Volume 400 Setting Ventilator Tidal Volume 400 Setting Ventilator Tidal Volume 400 Setting Ventilator Tidal Volume 400 Setting Ventilator Tidal Volume 400 Setting Ventilator Tidal Volume 400 Setting Ventilator Tidal Volume 400 Setting Ventilator Tidal Volume 400 Setting Ventilator Tidal Volume 400 Setting Ventilator Respiratory Rate 12 Setting Ventilator Respiratory Rate 12 Setting Ventilator Respiratory Rate 12 Setting Ventilator Respiratory Rate 12 Setting Ventilator Respiratory Rate 12 Setting Ventilator Respiratory Rate 12 Setting Ventilator Respiratory Rate 12 Setting Ventilator Respiratory Rate 12 Setting Ventilator Respiratory Rate 12 Setting Ventilator Respiratory Rate 12 Setting Ventilator Respiratory Rate 12 Setting Ventilator Respiratory Rate 12 Setting Actual Respiratory Rate 25 Actual Respiratory Rate 23 Actual Respiratory Rate 25 Actual Respiratory Rate 25 Actual Respiratory Rate 26 Actual Respiratory Rate 25 Actual Respiratory Rate 27 Actual Respiratory Rate 30 Actual Respiratory Rate 28 Actual Respiratory Rate 33 Actual Respiratory Rate 36 Positive End Expiratory 5 Pressure Positive End Expiratory 5 Pressure Positive End Expiratory 5 Pressure Positive End Expiratory 5 Pressure Positive End Expiratory 5 Pressure Positive End Expiratory 5 Pressure Positive End Expiratory 5 Pressure Positive End Expiratory 5 Pressure Positive End Expiratory 5 Pressure Positive End Expiratory 5 Pressure Positive End Expiratory 5 Pressure Positive End Expiratory 5 Pressure Peak Inspiratory Airway 12 Pressure Peak Inspiratory Airway 11 Pressure Peak Inspiratory Airway 12 Pressure Peak Inspiratory Airway 12 Pressure Peak Inspiratory Airway 13 Pressure Peak Inspiratory Airway 12 Pressure Peak Inspiratory Airway 15 Pressure Peak Inspiratory Airway 15 Pressure Peak Inspiratory Airway 12 Pressure Peak Inspiratory Airway 17 Pressure Peak Inspiratory Airway 21 Pressure Results - Laboratory Findings CBC and BMP: 08/29/16 03:13 08/29/16 03:13 ABG ABG pH 7.34 pH Units (7.32-7.45) 08/29/16 05:00 ABG pCO2 38 mmHg (35-45) 08/29/16 05:00 ABG pO2 71 mmHg (85-104) L 08/29/16 05:00 ABG O2 Saturation 93 % (95-98) L 08/29/16 05:00 PT/INR, D-dimer PT 13.7 Seconds (9.4-12.1) H 08/29/16 03:13 D-Dimer 91829 ng/mLFEU (0-500) H 08/28/16 11:15 Abnormal lab findings: Abnormal lab results WBC 19.0 K/mcL (4.3-11.1) H 08/29/16 03:13 RBC 2.75 M/mcL (3.82-4.97) L 08/29/16 03:13 Hgb 8.4 g/dL (11.5-15.4) L 08/29/16 03:13 Hct 25.8 % (35.3-44.9) L 08/29/16 03:13 RDW 17.7 % (11.5-14.5) H 08/29/16 03:13 Plt Count 15 K/mcL (140-400) L* D 08/29/16 03:13 Immature Gran % 6.6 % (0-4) H 08/28/16 05:15 Band Neutrophils % 14.0 % (0-4) H 08/29/16 03:13 Metamyelocytes % 2.0 % (0) H 08/28/16 19:30 Myelocytes % 2.0 % (0) H 08/27/16 04:50 Neutrophils # 17.1 K/mcL (1.6-8.9) H 08/29/16 03:13 Nucleated RBCs/100 WBC 4.0 /100 WBC (0) H 08/29/16 03:13 Reactive Lymphocytes Present (Not Present) A 08/29/16 03:13 Toxic Granulation Present (Not Present) A 08/29/16 03:13 Toxic Vacuolation Present (Not Present) A 08/27/16 21:58 Dohle Bodies Present (Not Present) A 08/26/16 23:30 Platelet Estimate Marked Decrease (Normal) L 08/29/16 03:13 Large Platelets Present (Not Present) A 08/29/16 03:13 Immature Plt Fraction 19.5 % (1.1-6.1) H 08/29/16 03:13 Hypochromasia Present (Not Present) A 08/28/16 05:15 Anisocytosis 1+ (Not Present) A 08/29/16 03:13 Tear Drop Cells 1+ (Not Present) A 08/27/16 17:45 Schistocytes 1+ (Not Present) A 08/29/16 03:13 PT 13.7 Seconds (9.4-12.1) H 08/29/16 03:13 Fibrinogen 143 mg/dL (169-393) L 08/28/16 11:15 D-Dimer 20854 ng/mLFEU (0-500) H 08/28/16 11:15 ABG pO2 71 mmHg (85-104) L 08/29/16 05:00 ABG HCO3 20.5 mEQ/L (21-27) L 08/29/16 05:00 ABG O2 Saturation 93 % (95-98) L 08/29/16 05:00 ABG Base Excess -4.8 mEq/L (-2.0 to 3.0) L 08/29/16 05:00 Carbon Dioxide 18 mEq/L (19-29) L 08/29/16 03:13 BUN 22 mg/dL (7-20) H 08/29/16 03:13 Creatinine 1.35 mg/dL (0.57-1.11) H 08/29/16 03:13 Est GFR ( Amer) 46 (> 60) L 08/29/16 03:13 Est GFR (Non-Af Amer) 38 (> 60) L 08/29/16 03:13 Glucose 136 mg/dL (70-99) H 08/29/16 03:13 POC Glucose 128 (58-89) H 08/28/16 23:10 Hemoglobin A1c 6.1 % (-5.6) H 08/21/16 10:43 Lactic Acid 6.7 mmol/L (0.5-2.2) H* 08/29/16 05:10 Uric Acid 7.4 mg/dL (2.6-6.0) H 08/25/16 15:10 Calcium 6.8 mg/dL (8.6-10.8) L 08/29/16 03:13 Ionized Calcium 0.93 mmol/L (1.15-1.35) L 08/29/16 03:13 Magnesium 2.7 mg/dL (1.6-2.6) H 08/29/16 03:13 Total Bilirubin 2.9 mg/dL (0.2-1.2) H 08/29/16 03:13 Direct Bilirubin 1.5 mg/dL (0.0-0.5) H 08/27/16 04:50 AST 316 Units/L (5-34) H 08/29/16 03:13 ALT 214 Units/L (0-55) H 08/29/16 03:13 Alkaline Phosphatase 275 Units/L (38-126) H 08/29/16 03:13 Lactate Dehydrogenase 2692 Units/L (159-327) H 08/24/16 18:45 Creatine Kinase 4065 Units/L (29-168) H 08/27/16 04:50 Troponin I 1.12 ng/mL (0-0.03) H* 08/24/16 13:15 Serum Total Protein 5.1 g/dL (6.0-8.3) L 08/29/16 03:13 Albumin 2.2 g/dL (3.5-5.0) L 08/29/16 03:13 Albumin/Globulin Ratio 0.8 (1.1-2.2) L 08/29/16 03:13 Procalcitonin 3.40 ng/mL (<=0.10) H 08/24/16 13:15 Urine Color Red (Yellow) A 08/25/16 14:30 Urine Clarity Turbid (Clear) A 08/25/16 14:30 Ur Specific [place] 1.030 (1.010-1.025) H 08/25/16 14:30 Urine Protein 100 mg/dL (Neg-Trace) H 08/25/16 14:30 Urine Glucose (UA) 100 mg/dL (Normal) H 08/25/16 14:30 Urine Ketones 15 mg/dL (Negative) H 08/25/16 14:30 Urine Blood Large (Negative) H 08/25/16 14:30 Urine Nitrite Positive (Negative) A 08/25/16 14:30 Urine Bilirubin Moderate (Negative) H 08/25/16 14:30 Urine Urobilinogen 2.0 mg/dL (Normal) H 08/25/16 14:30 Ur Leukocyte Esterase Moderate (Negative) H 08/25/16 14:30 Urine Microscopic RBC 5-15 per hpf (0-3) H 08/25/16 14:30 Amorphous Sediment Moderate (Few) H 08/25/16 14:30 Urine Bacteria Moderate per hpf (None-Few) H 08/25/16 14:30 Granular Casts Few per lpf (None Seen) H 08/25/16 14:30 Ur Culture Indicated? YES (NO) A 08/25/16 14:30 - Microbiology Findings Microbiology Findings: Microbiology, Last 48 Hours 08/23/16 00:53 Blood Culture - Final Peripheral Venipuncture No growth. 08/23/16 00:53 Blood Culture - Final Peripheral Venipuncture No growth. 08/22/16 18:54 Blood Culture - Final Peripheral Venipuncture No growth. 08/24/16 23:55 Viral Culture - Preliminary Blood Product 08/25/16 09:20 Sputum Culture - Final Sputum 08/26/16 07:52 Blood Culture - Preliminary Peripheral Venipuncture No growth. 08/26/16 07:38 Blood Culture - Preliminary Peripheral Venipuncture No growth. - Clinical Findings Intake & Output: Intake & Output 08/28/16 08/28/16 08/29/16 15:59 23:59 07:59 Intake Total 1551 / 1551 3827 / 3827 1013 / 1013 Output Total 1547 / 1547 2780 / 2780 2370 / 2370 Balance / 1047 / 1047 -1357 / -1357 - VTE Documentation of Mechanical Device: Intermittent pneumatic compression device Consult Discharge Plan - Plan Referrals: Per Barros MD [Primary Care Provider] - (web request sent on 08/23/16) <Gabriella Schofield - Last Filed: 08/29/16 15:57> Date of Encounter: 08/29/16 Objective PUL Vital signs: Last Vital Signs Temp 98.3 F 08/29/16 12:00 Pulse 85 08/29/16 12:00 Resp 31 08/29/16 12:00 BP 133/52 08/29/16 12:00 Pulse Ox 91 08/29/16 12:00 Ventilator Settings Ventilator Settings: Ventilator Settings, Last 8 Hours Ventilator Mode VC+ Ventilator Mode VC+ Ventilator Mode VC+ Ventilator Mode VC+ Ventilator Mode VC+ Ventilator Mode VC+ Ventilator Mode VC+ Ventilator Tidal Volume 400 Setting Ventilator Tidal Volume 400 Setting Ventilator Tidal Volume 400 Setting Ventilator Tidal Volume 400 Setting Ventilator Tidal Volume 400 Setting Ventilator Tidal Volume 400 Setting Ventilator Tidal Volume 400 Setting Ventilator Respiratory Rate 12 Setting Ventilator Respiratory Rate 12 Setting Ventilator Respiratory Rate 12 Setting Ventilator Respiratory Rate 24 Setting Ventilator Respiratory Rate 24 Setting Ventilator Respiratory Rate 12 Setting Ventilator Respiratory Rate 12 Setting Actual Respiratory Rate 34 Actual Respiratory Rate 28 Actual Respiratory Rate 28 Actual Respiratory Rate 35 Actual Respiratory Rate 12 Actual Respiratory Rate 25 Actual Respiratory Rate 25 Positive End Expiratory 5 Pressure Positive End Expiratory 5 Pressure Positive End Expiratory 5 Pressure Positive End Expiratory 5 Pressure Positive End Expiratory 5 Pressure Positive End Expiratory 5 Pressure Positive End Expiratory 5 Pressure Peak Inspiratory Airway 14 Pressure Peak Inspiratory Airway 12 Pressure Peak Inspiratory Airway 12 Pressure Peak Inspiratory Airway 13 Pressure Results - Laboratory Findings CBC and BMP: 08/29/16 03:13 08/29/16 03:13 ABG ABG pH 7.34 pH Units (7.32-7.45) 08/29/16 05:00 ABG pCO2 38 mmHg (35-45) 08/29/16 05:00 ABG pO2 71 mmHg (85-104) L 08/29/16 05:00 ABG O2 Saturation 93 % (95-98) L 08/29/16 05:00 PT/INR, D-dimer PT 13.7 Seconds (9.4-12.1) H 08/29/16 03:13 D-Dimer 40734 ng/mLFEU (0-500) H 08/28/16 11:15 Abnormal lab findings: Abnormal lab results WBC 19.0 K/mcL (4.3-11.1) H 08/29/16 03:13 RBC 2.75 M/mcL (3.82-4.97) L 08/29/16 03:13 Hgb 8.4 g/dL (11.5-15.4) L 08/29/16 03:13 Hct 25.8 % (35.3-44.9) L 08/29/16 03:13 RDW 17.7 % (11.5-14.5) H 08/29/16 03:13 Plt Count 15 K/mcL (140-400) L* D 08/29/16 03:13 Immature Gran % 6.6 % (0-4) H 08/28/16 05:15 Band Neutrophils % 14.0 % (0-4) H 08/29/16 03:13 Metamyelocytes % 2.0 % (0) H 08/28/16 19:30 Myelocytes % 2.0 % (0) H 08/27/16 04:50 Neutrophils # 17.1 K/mcL (1.6-8.9) H 08/29/16 03:13 Nucleated RBCs/100 WBC 4.0 /100 WBC (0) H 08/29/16 03:13 Reactive Lymphocytes Present (Not Present) A 08/29/16 03:13 Toxic Granulation Present (Not Present) A 08/29/16 03:13 Toxic Vacuolation Present (Not Present) A 08/27/16 21:58 Dohle Bodies Present (Not Present) A 08/26/16 23:30 Platelet Estimate Marked Decrease (Normal) L 08/29/16 03:13 Large Platelets Present (Not Present) A 08/29/16 03:13 Immature Plt Fraction 19.5 % (1.1-6.1) H 08/29/16 03:13 Hypochromasia Present (Not Present) A 08/28/16 05:15 Anisocytosis 1+ (Not Present) A 08/29/16 03:13 Tear Drop Cells 1+ (Not Present) A 08/27/16 17:45 Schistocytes 1+ (Not Present) A 08/29/16 03:13 PT 13.7 Seconds (9.4-12.1) H 08/29/16 03:13 Fibrinogen 143 mg/dL (169-393) L 08/28/16 11:15 D-Dimer 29776 ng/mLFEU (0-500) H 08/28/16 11:15 ABG pO2 71 mmHg (85-104) L 08/29/16 05:00 ABG HCO3 20.5 mEQ/L (21-27) L 08/29/16 05:00 ABG O2 Saturation 93 % (95-98) L 08/29/16 05:00 ABG Base Excess -4.8 mEq/L (-2.0 to 3.0) L 08/29/16 05:00 Carbon Dioxide 18 mEq/L (19-29) L 08/29/16 03:13 BUN 22 mg/dL (7-20) H 08/29/16 03:13 Creatinine 1.35 mg/dL (0.57-1.11) H 08/29/16 03:13 Est GFR ( Amer) 46 (> 60) L 08/29/16 03:13 Est GFR (Non-Af Amer) 38 (> 60) L 08/29/16 03:13 Glucose 136 mg/dL (70-99) H 08/29/16 03:13 POC Glucose 128 (58-89) H 08/28/16 23:10 Hemoglobin A1c 6.1 % (-5.6) H 08/21/16 10:43 Lactic Acid 6.7 mmol/L (0.5-2.2) H* 08/29/16 05:10 Uric Acid 7.4 mg/dL (2.6-6.0) H 08/25/16 15:10 Calcium 6.8 mg/dL (8.6-10.8) L 08/29/16 03:13 Ionized Calcium 0.93 mmol/L (1.15-1.35) L 08/29/16 03:13 Magnesium 2.7 mg/dL (1.6-2.6) H 08/29/16 03:13 Total Bilirubin 2.9 mg/dL (0.2-1.2) H 08/29/16 03:13 Direct Bilirubin 1.5 mg/dL (0.0-0.5) H 08/27/16 04:50 AST 316 Units/L (5-34) H 08/29/16 03:13 ALT 214 Units/L (0-55) H 08/29/16 03:13 Alkaline Phosphatase 275 Units/L (38-126) H 08/29/16 03:13 Lactate Dehydrogenase 2692 Units/L (159-327) H 08/24/16 18:45 Creatine Kinase 4065 Units/L (29-168) H 08/27/16 04:50 Troponin I 1.12 ng/mL (0-0.03) H* 08/24/16 13:15 Serum Total Protein 5.1 g/dL (6.0-8.3) L 08/29/16 03:13 Albumin 2.2 g/dL (3.5-5.0) L 08/29/16 03:13 Albumin/Globulin Ratio 0.8 (1.1-2.2) L 08/29/16 03:13 Procalcitonin 3.40 ng/mL (<=0.10) H 08/24/16 13:15 Urine Color Red (Yellow) A 08/25/16 14:30 Urine Clarity Turbid (Clear) A 08/25/16 14:30 Ur Specific [place] 1.030 (1.010-1.025) H 08/25/16 14:30 Urine Protein 100 mg/dL (Neg-Trace) H 08/25/16 14:30 Urine Glucose (UA) 100 mg/dL (Normal) H 08/25/16 14:30 Urine Ketones 15 mg/dL (Negative) H 08/25/16 14:30 Urine Blood Large (Negative) H 08/25/16 14:30 Urine Nitrite Positive (Negative) A 08/25/16 14:30 Urine Bilirubin Moderate (Negative) H 08/25/16 14:30 Urine Urobilinogen 2.0 mg/dL (Normal) H 08/25/16 14:30 Ur Leukocyte Esterase Moderate (Negative) H 08/25/16 14:30 Urine Microscopic RBC 5-15 per hpf (0-3) H 08/25/16 14:30 Amorphous Sediment Moderate (Few) H 08/25/16 14:30 Urine Bacteria Moderate per hpf (None-Few) H 08/25/16 14:30 Granular Casts Few per lpf (None Seen) H 08/25/16 14:30 Ur Culture Indicated? YES (NO) A 08/25/16 14:30 - Microbiology Findings Microbiology Findings: Microbiology, Last 48 Hours 08/23/16 00:53 Blood Culture - Final Peripheral Venipuncture No growth. 08/23/16 00:53 Blood Culture - Final Peripheral Venipuncture No growth. 08/22/16 18:54 Blood Culture - Final Peripheral Venipuncture No growth. - Clinical Findings Intake & Output: Intake & Output 08/28/16 08/29/1617 23:59 07:59 15:59 Intake Total 3827 / 3827 1013 / 1013 2236.9 / 2236.9 Output Total 2780 / 2780 2370 / 2370 792 / 792 Balance 1047 / 1047 -1357 / -1357 1444.9 / 1444.9 - Attending Attestation I examined this patient and my medical decision-making was reviewed with the MILITARY ANALYST/PA/Advanced Practice Nurse/Resident Physician. I agree with the documented findings, disposition and treatment plan as described except to the extent set forth below. Patient seen and examined. Labs, radiology, chart personally reviewed. Agree with resident's history and physical, assessment, plan with following comments: PARKS RECREATION DIRECTOR: Patient does not follows commands, however respond to painful stimuli and sedation for comfort, Pulmonary: Patient remain the invasive mechanical ventilation and lower FiO2 to 60%. I had a family meeting in the presence of the nurses and advised and the rest of the family this is futile care and I felt patient is suffering current this point and recommended a compassionate withdrawal of care and not to be any invasive anymore due to deterioration of her condition. Everybody including the agreed and patient was extubated. With the help of palliative care patient stayed comfortable and She . Cardiovascular: Patient remained in septic shock in spite of all the effort and eventually vasopressor stopped and patient . GI: Nutrition per dietary and GI prophylaxis per routine Heme: DVT prophylaxis per routine. Severe thrombocytopenia with patient easily bleeding for that reason hold blood draw and any injections stopped ID: Continue antibiotics and plan to de-escalation Renal; urine out put and renal funtion reviewed. Racquel also has stopped Endorcine: blood glucose is monitored Lines: all lines checked and no evidence of infections Skin: skin care to prevent pressure ulcers per nursing routine care I spent 35 min of Critical Care time with this patient. It involved decision making of high complexity to assess, manipulate, and support vital organ system failure and/or to prevent further life threatening deterioration of the patient' s condition. The time involved in the performance of separately reportable procedures was not counted toward critical care time.
[2016-08-29] MEDS: Hydrocortisone Sodium Succ 100 MG/2 ML VIAL IVP SCH (08:48)
[2016-08-29] MEDS: Chlorhexidine Rinse 15 ML MOUTHWASH MM SCH (08:48)
[2016-08-29] MEDS: Pantoprazole 40 MG VIAL IVP SCH (08:48)
[2016-08-29] MEDS: SODIUM BICARBONATE IVC SCH (10:00)
[2016-08-29] MEDS: SODIUM CHLORIDE 0.45% IVC SCH (10:00)
[2016-08-29] MEDS: Norepinephrine 8 MG in D5% in Water 250 ML IVC SCH (11:07)
[2016-08-29 12:16] VITALS: BP 133/52
--- NOTE | 2016-08-29 13:16 | Event Note ---
<Aravind Gonsales - Last Filed: 08/29/16 14:30> Date of Encounter: 08/29/16 Time of Encounter: 13:16 On 08/29/2016 at 1300 there was a family meeting which included Dr. Schofield, SHARYN , and palliative care. The whole family was present. Prognosis and recommendations were discussed with the family with all questions answered. Yesterday 08/28/2016 family had decided to change patients code status the DNR- CCA. Today family decided collectively to withdraw care with goal of compassionate extubation. Questions were brought up about anxiety and comfort and the request to avoid Morphine. Family understands comfort care includes extubation, off the nuclear monitoring technician, vasopressors, dialysis, and other life- supporting measures. They understood that this may lead to immediate . Will proceed with comforting measures and have palliative care assist with transition and possible transfer to a palliative bed. <Gabriella Schofield - Last Filed: 08/29/16 16:35> Date of Encounter: 08/29/16 This family meeting was done and then patient was extubated. Patient before transferring to palliative bed.
--- NOTE | 2016-08-29 13:39 | Palliative - Consult Note ---
Date of Encounter: 08/30/16 Time of Encounter: 13:37 - Assessment and Plan (1) Goals of care, counseling/discussion Status: Acute Assessment and plan: Goals of care discussion with medical team and family (including spouse-Aden , 2 daughters-Lily and Cori, Son-Bryon, in-laws and grandchildren). Meeting led by Dr. Schofield. Conclusion was to withdrawal life supportive measures and focus on comfort care. Family asks appropriate questions and verbalizes understanding of plan of care (including, but no limited to discontinuation of ventilator support, hemodialysis, vasopressor support). Code status will be changed to DNR-CC and non-necessary medical equipment will be removed. Family has requested that she not receive morphine, and that they be present when machines are removed. (2) Sepsis Status: Acute Qualifiers: Sepsis type: sepsis due to unspecified organism Qualified Code(s): A41.9 - Sepsis, unspecified organism (3) MODS (multiple organ dysfunction syndrome) Status: Acute Palliative-CN HPI - Data of Consult Patient: new to practice Consult date: 08/29/16 Requesting Physician: Aditi Baltazar MD Primary Care Provider: Per Barros MD - Consult Narrative Palliative Care/Comfort Measures: Palliative care Reason for consult: symptom management, withdrawal of care History of present illness: Ms. Dowling is a 81 year old female with an extensive hospitalization. She was initially hospitalized for sepsis and required treatment in the intensive are unit. Her course of care was complicated by acute respiratory failure, acute on chronic kidney injury, thrombocytopenia and multi-organ failure. Specialist support from infectious disease, nephrology. Ms. Dowling's health continued to deteriorate despite optimal medical treatment. She began to mottle and develop possible DIC. After several goals of care meetings with the ICU staff, Ms. Dowling's family opted to shift medical focus to comfort care. The palliative care team was consulted to assist with transition of care to comfort measures. CC: Aditi Baltazar MD Past Med Surg Social Fam HX - Past Medical History Source: old records reviewed Medical history: arthritis, diabetes, GERD, hyperlipidemia, hypertension, osteoporosis, RA, renal disease, other (UTIs) Psychiatric history: no psych history - Past Surgical History Surgical History: cholecystectomy, other (bladder stimulator ) - Social History Smoking Status: Never smoker Smokeless Tobacco Status: No Alcohol use: none Drug use: none - Family History Mother Race: Family Member Ethnicity: Non- Living Status: Age at : 94 Cause of : Old age Hx Family Endocrine Disorder: Yes (DM) Father Race: Family Member Ethnicity: Non- Living Status: Age at : 79 Cause of : Cancer Hx Family Cancer: Yes Brother Race: Family Member Ethnicity: Non- Living Status: Age at : 65 Cause of : [place] Hx Family Cardiac Disorders: Yes ([place], HD) Sister Race: Family Member Ethnicity: Non- Living Status: Still Living Hx Family Neurologic Disorders: Yes (Alzheimer's Disease) Medications and Allergies Alendronate Sodium 70 mg PO QWEEK 05/28/15 [History] Atorvastatin [Lipitor] 10 mg PO HS 05/28/15 [History] Calcium Carbonate/Vitamin D2 [Oyster Shell Calcium-Vit D Tab] 1 tab PO BID 05/27 [History] Cyanocobalamin (Vitamin B-12) [Vitamin B12] 1,000 mcg PO DAILY 05/28/15 [History ] Dicyclomine 20 mg PO ACHS 05/28/15 [History] Donepezil [Aricept] 10 mg PO HS 05/28/15 [History] Ferrous Sulfate [Iron] 325 mg PO DAILY 05/28/15 [History] Mirabegron [Myrbetriq] 50 mg PO DAILY 05/28/15 [History] Omeprazole [PriLOSEC] 40 mg PO DAILY 05/28/15 [History] Ranitidine HCl [Zantac] 150 mg PO BID 05/28/15 [History] Trospium Chloride 20 mg PO QAM 05/28/15 [History] Vitamin E 1,000 unit PO DAILY 05/28/15 [History] Phenazopyridine HCl [Pyridium] 200 mg PO TIDAC #30 tab 08/19/16 [Rx] Ondansetron HCl [Zofran] 4 mg PO TID PRN 08/21/16 [History] Sulfamethoxazole/Trimeth DS [Bactrim DS] 1 tab PO BID 08/21/16 [History] Allergies celecoxib [From Celebrex] Allergy (Verified 08/21/16 11:22) Muscle Pain esomeprazole Adverse Reaction (Verified 08/21/16 12:58) See Comments unknown reaction ROS unobtainable: due to endotracheal tube, due to mental status Palliative Care-Exam - Constitutional Vitals: Temp Pulse Resp BP Pulse Ox 98.3 F 85 31 133/52 91 08/29/16 12:00 08/29/16 12:00 08/29/16 12:00 08/29/16 12:00 08/29/16 12:00 General appearance: Present: average body habitus, no acute distress. Absent: febrile - Head Head Exam: Present: atraumatic - Eye Pupils: Present: PERRL - Respiratory Respiratory exam: Present: accessory muscle use, rhonchi - Expanded Respiratory Exam Location: rhonchi: Right, Upper - Cardiovascular Cardiovascular exam: Present: irregular rhythm - GI/Abdominal Exam GI/Abdominal exam: Present: diminished bowel sounds, firm - Rectal Additional comments: fecal management system with liquid stool - Catheter Type: Urethral (Velarde) (scant uop) - Expanded Upper Extremities Exam Hand wrist exam: Present: ecchymosis. Absent: normal inspection (motteling noted to bilateral hands with cyanotic/purple fingertips) - Expanded Lower Extremities Exam Lower Leg exam: Absent: normal inspection (mottling noted to bilateral lower extremities with cyanosis noted to bilateral feet. ) Neuro vascular tendon exam: Present: abnormal cap refill, extremity cold to touch - Neurological Exam Neurological exam: Absent: alert Additional comments: intubated, sedated on mechanical ventilation - Skin Skin exam: Present: cyanosis (extremities), mottled. Absent: normal color Additional comments: large ulcer noted to buttocks, skin mottling noted to tip of nose, bilateral hands and lower extremities, and breast. Cyanotic appearance to fingertips and toes. Internal Medicine - CN: Reslt - Labs CBC & Chem 7: 08/29/16 03:13 08/29/16 03:13 Labs: Short CBC 08/28/16 08/29/16 Range/Units 19:30 03:13 WBC 20.2 H 19.0 H (4.3-11.1) K/mcL Hgb 9.2 L D 8.4 L (11.5-15.4) g/dL Hct 28.2 L 25.8 L (35.3-44.9) % Plt Count 32 L 15 L* D (140-400) K/mcL Neutrophils # 18.2 H 17.1 H (1.6-8.9) K/mcL BMP 08/28/16 08/28/16 08/29/16 18:10 19:30 03:13 Sodium 140 139 Potassium 4.1 4.3 Chloride 104 103 Carbon Dioxide 17 L 18 L BUN 23 H 22 H Creatinine 1.34 H 1.35 H Glucose 129 H 125 H 136 H Calcium 6.8 L 6.8 L Liver Function 08/29/16 Range/Units 03:13 Total Bilirubin 2.9 H (0.2-1.2) mg/dL AST 316 H (5-34) Units/L ALT 214 H (0-55) Units/L Alkaline Phosphatase 275 H (38-126) Units/L Albumin 2.2 L (3.5-5.0) g/dL - ABG Interpretation ABG results: ABG ABG pH 7.34 pH Units (7.32-7.45) 08/29/16 05:00 ABG pCO2 38 mmHg (35-45) 08/29/16 05:00 ABG pO2 71 mmHg (85-104) L 08/29/16 05:00 ABG O2 Saturation 93 % (95-98) L 08/29/16 05:00 PT/INR, D-dimer PT 13.7 Seconds (9.4-12.1) H 08/29/16 03:13 D-Dimer [id number] ng/mLFEU (0-500) H 08/28/16 11:15 - Impressions Impressions Chest X-Ray 08/28/16 08:31 IMPRESSION: Satisfactory position of support devices. No significant change from prior exam. D/ / 08/28/2016 11:15:38 Julian Sanabria MD / earnold Interpreting Provider: Julian Sanabria MD Consult Discharge Plan - Plan Referrals: Per Barros MD [Primary Care Provider] - (web request sent on 08/23/16) Palliative Quality Palliative Quality: Screen for Code Status: Yes, Screen for Goals of Care: Yes, Screen for Pain: Yes, If Pain Regimen Started, Initiate Bowel Regimen: NA, Screen for Nausea/Vomitting: Yes Code Status: 08/28/16 11:10 CODE [Resuscitation Status: Active] [RES] Routine Comment: Resuscitation Status: DNR-Comfort Care-Arrest
[2016-08-29] MEDS ORDERED: *HR* HYDROmorphone 2 MG/ML SYRINGE IVP PRN ×2 (13:44→15:06)
[2016-08-29] MEDS: *HR* LORazepam 2 MG/ML VIAL IVP PRN ×2 (13:58→15:15)
[2016-08-29] MEDS ORDERED: ATROPINE PO PRN (14:13)
[2016-08-29] MEDS ORDERED: DIPHENOXYLATE PO PRN (14:13)
[2016-08-29] MEDS ORDERED: Atropine Sulfate 1% 40 DROP/2 ML BOTTLE SL PRN ×2 (14:19→15:06)
[2016-08-29] MEDS ORDERED: Aminoglycoside Consult 1 EACH MC ONE (15:26)
--- NOTE | 2016-08-29 15:42 | Death Note ---
<Aravind Gonsales - Last Filed: 08/29/16 15:39> Discharge Sum: Summary - Date and Time Date of admission: 08/21/16 12:33 Date of : 08/29/16 Time of : 15:27 - Summary Details: At 1526, family made me aware that patient has no respirations. Upon my physical exam, patient was pulseless without respirations. Heart sounds not audible. Pupils were fixed and dilated. Patient is DNR-CC, no code activated as this was a terminal extubation. She was pronounced at 1527. - Additional Data Confirmation of as documented by pronouncing clinician: no pulse, no respirations, no heart sounds, pupils fixed and dilated Family: at bedside Attending/PCP notified?: Yes Attending physician: Aditi Baltazar MD Was code activated?: No Autopsy requested?: No silk examiner notified?: No Organ bank notified?: No Advance directives: No Hospice patient?: No Discharge Sum: Diag - PCOD Probable Cause of : Cardiorespiratory arrest (secondary to MODS) Discharge Sum: Prov - Provider Primary care physician: Per Barros MD Admitting clinician: Odell Cummins Attending physician on admission: Odell Cummins Consults: 08/22/16 18:00 Consult to Nutrition [CONS] Routine Comment: Consulting Provider: NUTRITION Reason for Dietary Consult: PO Supplementation 08/23/16 03:32 Consult to Infectious Diseases [CONS] Routine Consulting Provider: Infectious Disease [place] Reason for Consult: Sepsis, high fever on broad-spectrum IV antibiotics Call Completed: No 08/23/16 11:23 Consult to Hot Car Operator [CONS] Routine Reason for SW Consult: wants information/assistnace with getting Lifeline- see CM note 08/24/16 03:43 Consult to Pulmonology [CONS] Routine Consulting Provider: Pulm Crit Care & Sleep [place] Reason for Consult: Ventilator management; Acute resp. failure; Sepsis Call Completed: Yes 08/25/16 10:27 Consult to Nephrology [CONS] Stat Consulting Provider: Kidney [place]/NOEL/KATHERYN/HECTOR Reason for Consult: JESSIKA, CKDIII, MINIMAL UOP, SEPTIC SHOCK Time Notified: 10:28 Call Completed: Yes 08/25/16 10:28 Consult to Nutrition [CONS] Routine Comment: Consulting Provider: NUTRITION Reason for Dietary Consult: TF Start and Manage 08/25/16 13:35 Consult to Oncology Hematology [CONS] Stat Consulting Provider: Willie Barbosa Jr Reason for Consult: concerning for DIC, workup completed with elevated ddimer and fibrinogen, acute thrombocytopenia Time Notified: 13:37 Call Completed: Yes 08/26/16 06:34 Consult to Interventional Radiology [CONS] Stat Consulting Provider: Radiology Interventional [place] Reason for Consult: Temporary HD placement. Vj has Patelets of 19. We are transfusing this AM. Call Completed: No 08/29/16 08:56 Consult to Palliative Care [CONS] Routine Comment: Consulting Provider: Palliative Care [place] Reason for Consult: POC, possible withdrawal of care Call Completed: No Pronouncing clinician: Aravind Gonsales <Gabriella Schofield - Last Filed: 08/29/16 16:41> Discharge Sum: Summary - Date and Time Date of admission: 08/21/16 12:33 - Additional Data Attending physician: Aidti Baltazar MD Discharge Sum: Prov - Provider Primary care physician: Per Barros MD Consults: 08/22/16 18:00 Consult to Nutrition [CONS] Routine Comment: Consulting Provider: NUTRITION Reason for Dietary Consult: PO Supplementation 08/23/16 03:32 Consult to Infectious Diseases [CONS] Routine Consulting Provider: Infectious Disease [place] Reason for Consult: Sepsis, high fever on broad-spectrum IV antibiotics Call Completed: No 08/23/16 11:23 Consult to Hot Car Operator [CONS] Routine Reason for SW Consult: wants information/assistnace with getting Lifeline- see CM note 08/24/16 03:43 Consult to Pulmonology [CONS] Routine Consulting Provider: Pulm Crit Care & Sleep [place] Reason for Consult: Ventilator management; Acute resp. failure; Sepsis Call Completed: Yes 08/25/16 10:27 Consult to Nephrology [CONS] Stat Consulting Provider: Kidney [place]/NOEL/KATHERYN/HECTOR Reason for Consult: JESSIKA, CKDIII, MINIMAL UOP, SEPTIC SHOCK Time Notified: 10:28 Call Completed: Yes 08/25/16 10:28 Consult to Nutrition [CONS] Routine Comment: Consulting Provider: NUTRITION Reason for Dietary Consult: TF Start and Manage 08/25/16 13:35 Consult to Oncology Hematology [CONS] Stat Consulting Provider: Willie Barbosa Jr Reason for Consult: concerning for DIC, workup completed with elevated ddimer and fibrinogen, acute thrombocytopenia Time Notified: 13:37 Call Completed: Yes 08/26/16 06:34 Consult to Interventional Radiology [CONS] Stat Consulting Provider: Radiology Interventional Cols Reason for Consult: Temporary HD placement. Vj has Patelets of 19. We are transfusing this AM. Call Completed: No 08/29/16 08:56 Consult to Palliative Care [CONS] Routine Comment: Consulting Provider: Palliative Care [place] Reason for Consult: POC, possible withdrawal of care Call Completed: No - Attending Attestation I examined this patient and my medical decision-making was reviewed with the DINING ROOM MANAGER/PA/Advanced Practice Nurse/Resident Physician. I agree with the documented findings, disposition and treatment plan as described except to the extent set forth below. After the family meeting patient was extubated and Racquel was stopped. The patient after that. Appreciate palliative care help.
== END 2016-08-29 15:27 | disposition expired | DRG 870 ==
LOC: EMEROO 10:21 → 2ANU 10:21 → ICNU 08-24 03:21
PROVIDERS: ADMIT Nurse Practitioner Family; ATTEND Internal Medicine